=== PATIENT | female | born 1945 | race Two or more races ===

== ENCOUNTER 2024-09-30 20:36 | Inpatient (IN) | payer MEDICARE, MEDICAID ==
[~2024-09-30] VITALS: Ht 147.3 cm; Wt 136.6 kg
[~2024-09-30 20:36] MED LIST: ALLO100T PO; BENA40TA71 PO; BUME2TAB5 PO; CARV12.544 PO; DOCU-265 PO; GLIM2TAB94 PO; HYDR-4798 PO; INSU1INJ19 SC; LORA-483 PO; PANT40T PO; POTA-180 PO; SIMV20TA20 PO; URSO1TAB7 PO
--- NOTE | 2024-09-30 20:57 | ECG ---
[facility] Test Date: 2024-09-30 Test Time: 20:38:46 Pat Name: CLINT CHAVEZ Department: ED Room: 0265D Gender: F Research Tech: ISAAC : 1945 Requested By: OZZY SMITH Order Number: [id number] Reading MD: Doron Wells Measurements Intervals [place] Rate: 78 P: 74 [place]: 189 QRS: 28 QRSD: 114 T: 211 QT: 392 QTc: 447 Interpretive Statements Sinus rhythm Incomplete left bundle branch block Minimal ST elevation, anterior leads Electronically Signed On 10-02-2024 22:48:09 PDT by Doron Wells Please click the below link to view image of tracing.
[2024-09-30 21:21] LABS: Base Excess -4.0 mmol/L (-2.0-3.0)
[2024-09-30 21:39] LABS: Hematocrit 27.8 % (36.0-46.0); Hemoglobin 9.5 g/dL (12.2-16.2); Mean Corpuscular Hemoglobin 32.9 pg (28.0-32.0); Mean Corpuscular Volume 96.0 fL (80.0-100.0); Nucleated Red Blood Cells % 0.1 %
[2024-09-30] MEDS: ACETAMINOPHEN IV 1000 MG/100ML (10MG/ML) IV ONE (21:50)
[2024-09-30 21:55] LABS: Alanine Aminotransferase 11 U/L (7-40); Albumin 3.7 g/dL (3.2-4.8); Anion Gap 7 (5-15); BUN/Creatinine Ratio 19.0 (10.0-20.0); Bilirubin, Total 0.6 mg/dL (0.2-1.0); Calcium 9.5 mg/dL (8.7-10.4); Carbon Dioxide 21 mmol/L (20-31); Total Protein 5.9 g/dL (5.7-8.2)
[2024-09-30 21:58] LABS: Alkaline Phosphatase 125 U/L (46-116); Blood Urea Nitrogen 37 mg/dL (9-23); Chloride 92 mmol/L (98-107); Glucose 109 mg/dL (74-106); Potassium 5.4 mmol/L (3.5-5.1); Sodium 120 mmol/L (136-145)
--- NOTE | 2024-09-30 22:01 | ECG ---
[facility] Test Date: 2024-09-30 Test Time: 21:56:15 Pat Name: CLINT CHAVEZ Department: ED Room: 0265D Gender: F Duct Cleaner: ISAAC : 1945 Requested By: OZZY SMITH Order Number: [id number] Reading MD: Doron Wells Measurements Intervals [place] Rate: 75 P: 42 [place]: 181 QRS: 28 QRSD: 120 T: 210 QT: 422 QTc: 472 Interpretive Statements Sinus rhythm Incomplete left bundle branch block Minimal ST elevation, anterior leads Electronically Signed On 10-02-2024 22:48:33 PDT by Doron Wells Please click the below link to view image of tracing.
[2024-09-30 22:09] LABS: Lipase 21 U/L (12-53)
[2024-09-30 22:14] LABS: Magnesium 1.5 mg/dL (1.6-2.6)
[2024-09-30] MEDS: MORPHINE SULFATE 4 MG/ML SYR/VIAL ONE (22:22)
[2024-09-30] MEDS: LABETALOL HCL 20 MG/4 ML VL IV ONE (22:39)
--- NOTE | 2024-09-30 23:19 | DVH ---
CT HEAD WITHOUT CONTRAST INDICATION: Altered mental status EXAM DATE: 09/30/2024 10:39 PM COMPARISON: None RADIATION DOSE: CTDIvol: 65.91 mGy, DLP: 1056.31 mGy*cm PROCEDURE: CT scans of the head were obtained from the vertex to the skull base. Sagittal and coronal reconstructions were provided. All CT scans at this medical facility are performed using dose modulation techniques as appropriate t o a performed exam including the following: Automated exposure control was utilized; adjustment of th e MA and/or KV according to patient size; and use of iterative reconstruction technique. FINDINGS: Evaluation is significantly degraded by motion and streak artifact. Within this limitation, there is no CT evidence for large intracranial hemorrhage or midline shift. Evaluation for intracranial patho logy is significantly limited. A repeat examination is suggested. There are global involutional changes with compensatory prominence of the ventricles and sulci. Patch y periventricular and subcortical white matter hypoattenuation is nonspecific but may be related to s mall vessel ischemic disease. The orbits are normal. The paranasal sinuses and mastoid air cells are clear. The osseous structures are unremarkable. IMPRESSION: 1. Evaluation is significantly degraded by motion and streak artifact. Within this limitation, there is no CT evidence for large intracranial hemorrhage or midline shift. Evaluation for intracranial pa thology is significantly limited. A repeat examination is suggested.
--- NOTE | 2024-09-30 23:33 | DVH ---
CHEST RADIOGRAPH Indication: AMS Technique: Single frontal view of the chest was obtained COMPARISON: None FINDINGS: Significantly limited exam secondary to patient positioning. Lines and Tubes: None Lungs: Grossly clear without evidence of focal consolidation. Pleura: No definite effusion. No definite pneumothorax. Cardiomediastinal contours: Appears enlarged. Bones: Unremarkable IMPRESSION: 1. Significantly limited exam with diminished visualization of the lung newberry secondary to patient p ositioning. 2. Apparent cardiomegaly.
--- NOTE | 2024-09-30 23:34 | DVH ---
Bilateral lower extremity venous duplex Clinical History: Rule out bowel extremity DVT Comparison: None Technique: Duplex Doppler evaluation of the deep venous systems of both lower extremities from the common femora l veins to the popliteal veins including color Doppler and spectral/pulsed waveform analysis was perf ormed. Findings: RIGHT SIDE: The common femoral vein was not adequately visualized. There is compressibility/patency of the great saphenous vein at the proximal thigh. The femoral vein demonstrates appropriate compressibility and waveform variability. The deep femoral vein demonstrates appropriate compressibility and waveform variability. The popliteal vein demonstrates appropriate compressibility and waveform variability. There is normal compressibility at the tibioperoneal trunk. LEFT SIDE: The common femoral vein demonstrates appropriate compressibility and waveform variability. The great saphenous vein was not adequately visualized. The femoral vein demonstrates appropriate compressibility and waveform variability. The deep femoral vein demonstrates appropriate compressibility and waveform variability. The popliteal vein demonstrates appropriate compressibility and waveform variability. There is normal compressibility at the tibioperoneal trunk. Impression: 1. No right or left femoropopliteal venous thrombosis within the visualized vessels. 2. Limited examination secondary to patient body habitus and inability to cooperate with and/or jie ate exam.
[2024-10-01] VITALS (79 sets, daily range): BP systolic 98–192; BP diastolic 50–100; PULSE 57–91; RESP 12–26; TEMP 97.4–99.2; O2SAT 91–100
[2024-10-01] MEDS ORDERED: SODIUM CHL 3% 100 ML IV ONE
[2024-10-01] MEDS: ALBUTEROL SULF 2.5 MG/0.5ML(0.5%) NEB SOLN NEB ONE ×2 (00:29→23:46)
--- NOTE | 2024-10-01 00:33 | ED.PDOC ---
History of Present Illness HPI Comments 79-year-old female who is brought in by ambulance for complaint of altered level of consciousness and shortness of breath. Per EMS report, family called in, initially, for endorsement of patient having difficulty breathing in addition to acting different from her usual baseline self since last night. At home nitro glycerin and breathing treatment use, with minimal improvement. Patient has a history of asthma, morbid obesity, CHF, CKF, DM, ESRD - not on dialysis, gout, HTN, and visual impairment. On scene, patient had a blood glucose 130, a systolic pressure in the 200's, and a SpO2 of 99% on her 3LPM home oxygen. Other notable history of patient refusing to start dialysis treatment following recent end-stage renal disease diagnosis 2 weeks ago. The time of assessment, patient complains of right foot and shoulder pain. She has no reported chest pain, cough, congestion, fever, chills or further associated symptoms. History is limited, due to patient's current condition and absence of family/imaging system administrator historians. Chief Complaint: Shortness of Breath Time Seen by MD: 20:55 Reviewed Notes: Nurses Notes, Tailercpa Notes, Medications, Allergies Allergies: Coded Allergies: Aspirin (Verified Allergy, Unknown, 09/30/24) Information Source: Patient, Emergency Med Personnel Mode of Arrival: EMS Severity: Moderate Timing: Hours Duration: Since onset Prehospital treatment: 12 Lead EKG, Accucheck, Boilerhouse Mechanic Review of Systems: REVIEW OF SYSTEMS: No fever, no chills, or fatigue HEENT: No sore throat, no earache, no congestion, no neck pain. Cardiac: No chest pain. No palpitations. Lungs: Shortness of breath, no cough. GI: No nausea, no vomiting, no diarrhea, no constipation, no abdominal pain : No dysuria, frequency, or urgency. No hematuria. Musculoskeletal: Right foot and shoulder pain, no joint swelling, no extremity edema. Skin: No rash, no itching. Neuro: ALOC. no headache, no dizziness, no weakness Vital Signs Vital Signs Date Time Temp Pulse Resp B/P (MAP) Pulse Ox O2 Delivery O2 Flow Rate FiO2 10/01/24 01:04 189/88 10/01/24 00:33 75 10/01/24 00:00 23 100 Nasal Cannula* 4 36 09/30/24 20:50 97.1 97.1 Physical Exam General: Awake oriented to person only. Repeatedly moaning. No acute distress. Morbidly obese. Skin: Skin in warm, dry and intact. Appropriate color for ethnicity. HEENT: Bilateral bluish louie discoloration in the iris. The head is normocephalic and atraumatic. Conjunctivae are clear without exudates or hemorrhage. Sclera is non-icteric. EOM are intact. No signs of nystagmus. Eyelids are normal in appearance without swelling or lesions. Oral mucosa is pink and moist Neck: The neck is supple with normal range of motion. No JVD. Cardiac: Heart rate and rhythm are normal. No murmurs, gallops, or rubs are auscultated. Respiratory: Diminished lung sounds, bilaterally. No signs of respiratory distress. Without rales, rhonchi, or wheezes. Abdominal: Abdomen is soft, non-tender without distention, guarding or rigidity. Bowel sounds are present and normoactive in all four quadrants. Extremities: Bilateral pitting edema. Otherwise, remaining upper and lower extremities are atraumatic in appearance without deformity. Upper extremity are without edema. Neurological: The patient is awake oriented to person, with slow speech. There is no facial asymmetry. Past Medical History PAST MEDICAL HISTORY: Asthma, CHF, CKF, DM, ESRD, Gout, HTN Past Medical History (Other): Visual impairment - blind Morbid obesity Hx of home oxygen use Surgical History: Unknown, 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 INCOMING FREIGHT CLERK History: Unknown, 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 Family History Family History: Unknown, 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 Social History Smoker: Unknown, 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 Alcohol: Unknown, 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 Drugs: Unknown, 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 Lives In: Home Was a procedure done? Was a procedure done?: No EKG EKG #1: Pulse Rate (adult): 78 [place]: Normal Cardiac Rhythm: NSR Block: None Hypertrophy: None ST: Normal EKG #2: Pulse Rate (adult): 75 [place]: Normal Cardiac Rhythm: NSR Block: None Hypertrophy: None ST: Normal Differential Dx Considerations may include: Differential diagnosis considered includes but not limited to intracranial hemorrhage, stroke, head injury, seizure, metabolic disturbance, electrolyte imbalance, infection, substance intoxication, psychiatric cause, other systemic illness; acute Bronchitis, Asthma, COPD, Pneumothorax, PE, CHF, Pulmonary HTN, Anemia, CO Poisoning, Methemoglobinemia, Hyperventilation, Metabolic Acidosis, Pulmonary Edema, Pneumonia, ACS, Pericardial Tamponade, Anxiety, other X-Ray, Labs, Meds, VS Vital Signs Date Time Temp Pulse Resp B/P (MAP) Pulse Ox O2 Delivery O2 Flow Rate FiO2 10/01/24 01:04 189/88 10/01/24 00:33 75 10/01/24 00:00 74 10/01/24 00:00 23 100 Nasal Cannula* 4 36 09/30/24 22:39 74 214/106 09/30/24 22:22 71 24 216/106 09/30/24 21:56 75 09/30/24 21:28 74 09/30/24 20:50 97.1 82 24 206/106 (139) 99 97.1 09/30/24 20:38 78 Lab Test 10/01/24 00:24 09/30/24 22:02 09/30/24 21:17 09/30/24 21:13 Range/Units Sodium Level 119 *L 120 L 136-145 mmol/L Potassium Level 5.2 H 5.4 H 3.5-5.1 mmol/L Chloride Level 90 L 92 L 98-107 mmol/L Carbon Dioxide Level 22 21 20-31 mmol/L Anion Gap 7 7 5-15 Blood Urea Nitrogen 34 H 37 H 9-23 mg/dL Creatinine 1.96 H 1.95 H 0.550-1.02 mg/dL Glomerular Filtration Rate Calc 25 26 >90 mL/min BUN/Creatinine Ratio 17.3 19.0 10.0-20.0 Serum Glucose 122 H 109 H 74-106 mg/dL Serum Osmolality 259 L 278-298 mOsm/kg Calcium Level 9.1 9.5 8.7-10.4 mg/dL Troponin I High Sensitivity 16 14 15 </=34 ng/L Blood Gas Specimen Type Arterial Blood Gas Sample Site Left radial Blood Gas Patient Temperature 37.0 Arterial Blood Date Drawn [id number] Arterial Blood pH 7.391 7.350-7.450 Arterial Blood Partial Pressure CO2 34.3 32.0-45.0 mmHg Arterial Blood Partial Pressure O2 111.0 H 83.0-108.0 mmHg Arterial Blood HCO3 20.3 L 21.0-28.0 mmol/L Arterial Blood Oxygen Saturation 98.3 H 94.0-98.0 % Arterial Blood Base Excess -4.0 L -2.0-3.0 mmol/L Arterial Blood Oxyhemoglobin 97.5 94.0-98.0 % Arterial Blood Carboxyhemoglobin 0.4 L 0.5-1.5 % Arterial Blood Methemoglobin 0.4 0.0-1.5 % Cristian Test Yes Blood Gas Total Hemoglobin 10.30 L 12.0-16.0 g/dL Blood Gas Liter Flow 3.00 Blood Gas Modality Nasal cannula FiO2 % 32.0 White Blood Count 6.8 4.4-10.8 10^3/uL Red Blood Count 2.90 L 4.0-5.20 10^6/uL Hemoglobin 9.5 L 12.2-16.2 g/dL Hematocrit 27.8 L 36.0-46.0 % Mean Corpuscular Volume 96.0 80.0-100.0 fL Mean Corpuscular Hemoglobin 32.9 H 28.0-32.0 pg Mean Corpuscular Hemoglobin Concent 34.3 32.0-36.0 g/dL Red Cell Distribution Width 14.3 11.8-14.3 % Platelet Count 268 140-450 10^3/uL Mean Platelet Volume 7.3 6.9-10.8 fL Neutrophils (%) (Auto) 69.8 37.0-80.0 % Lymphocytes (%) (Auto) 17.1 10.0-50.0 % Monocytes (%) (Auto) 10.5 0.0-12.0 % Eosinophils (%) (Auto) 2.2 0.0-7.0 % Basophils (%) (Auto) 0.4 0.0-2.0 % Neutrophils # (Auto) 4.8 1.6-8.6 10 ^3/uL Lymphocytes # (Auto) 1.2 0.4-5.4 10 ^3/uL Monocytes # (Auto) 0.7 0-1.3 10 ^3/uL Eosinophils # (Auto) 0.1 0-0.8 10 ^3/uL Basophils # (Auto) 0 0-0.2 10 ^3/uL Nucleated Red Blood Cells 0.1 % Lactic Acid Level 0.9 0.4-2.0 mmol/L Magnesium Level 1.5 L 1.6-2.6 mg/dL Total Bilirubin 0.6 0.2-1.0 mg/dL Aspartate Amino Transferase (AST) 17 <34 U/L Alanine Aminotransferase (ALT) 11 7-40 U/L Alkaline Phosphatase 125 H 46-116 U/L B-Type Natriuretic Peptide 1738.92 0-100 pg/mL Total Protein 5.9 5.7-8.2 g/dL Albumin 3.7 3.2-4.8 g/dL Lipase 21 12-53 U/L Thyroid Stimulating Hormone (TSH) 1.57 0.55-4.78 uIU/mL Plasma/Serum Blood Alcohol < 3.0 <10 mg/dL Test 09/30/24 00:24 Range/Units Prothrombin Time 11.5 9.3-11.8 sec Prothrombin Time INR 1.09 0.9-1.15 Activated Partial Thromboplast Time 29.7 24.5-34.5 SEC Current Medications Medications (Trade) Dose Ordered Sig/Nasrin Route Start Time Stop Time Status Last Admin Acetaminophen (Ofirmev) 1,000 mg ONCE ONCE IV 09/30/24 21:00 09/30/24 21:01 DC 09/30/24 21:50 Albuterol (Ventolin Medneb) 20 mg ONCE ONCE NEB 10/01/24 00:00 10/01/24 00:01 DC 10/01/24 00:29 Sodium Bicarbonate 50 ml ONCE ONCE IV 10/01/24 00:00 10/01/24 00:01 DC 10/01/24 01:02 Furosemide (Lasix Injection) 20 mg ONCE ONCE IV 10/01/24 00:15 10/01/24 00:16 DC 10/01/24 01:04 [place] [id number] Ph: [phone] DIAGNOSTIC IMAGING Diagnostic Imaging Report : [id number] Signed PATIENT: CLINT CHAVEZ ACCT: [id number] UNIT: [id number] : 1945 LOC: ER ROOM / BED: / AGE / SEX: 79 / F ADM STATUS: REG ER SERVICE 44 ORDERING PHYSICIAN: OZZY SMITH MD PROCEDURE(s): BLDVT - BiLat Lower DVT REASON: Rule out bowel extremity DVT ORDER NUMBER(s): [id number], ACCESSION NUMBER(s): [id number] Bilateral lower extremity venous duplex Clinical History: Rule out bowel extremity DVT Comparison: None Technique: Duplex Doppler evaluation of the deep venous systems of both lower extremities from the common femoral veins to the popliteal veins including color Doppler and spectral/pulsed waveform analysis was performed. Findings: RIGHT SIDE: The common femoral vein was not adequately visualized. There is compressibility/patency of the great saphenous vein at the proximal thigh. The femoral vein demonstrates appropriate compressibility and waveform variability. The deep femoral vein demonstrates appropriate compressibility and waveform variability. The popliteal vein demonstrates appropriate compressibility and waveform variability. There is normal compressibility at the tibioperoneal trunk. LEFT SIDE: The common femoral vein demonstrates appropriate compressibility and waveform variability. The great saphenous vein was not adequately visualized. The femoral vein demonstrates appropriate compressibility and waveform va riability. The deep femoral vein demonstrates appropriate compressibility and waveform variability. The popliteal vein demonstrates appropriate compressibility and waveform variability. There is normal compressibility at the tibioperoneal trunk. Impression: 1. No right or left femoropopliteal venous thrombosis within the visualized vessels. 2. Limited examination secondary to patient body habitus and inability to cooperate with and/or tolerate exam. ATED BY: VINICIUS MONTOYA MD DICTATED DATE/TIME: 09/30/242331 SIGNED BY: VINICIUS MONTOYA MD SIGNED DATE/TIME: 09/30/242331 CC: [place] [id number] Ph: [phone] DIAGNOSTIC IMAGING Diagnostic Imaging Report : [id number] Signed PATIENT: CLINT CHAVEZ ACCT: [id number] UNIT: [id number] : 1945 LOC: ER ROOM / BED: / AGE / SEX: 79 / F ADM STATUS: REG ER SERVICE 54 ORDERING PHYSICIAN: OZZY SMITH MD PROCEDURE(s): HWOCT - HEAD WITHOUT CONTRAST REASON: Altered mental status ORDER NUMBER(s): [id number], ACCESSION NUMBER(s): [id number] CT HEAD WITHOUT CONTRAST INDICATION: Altered mental status EXAM DATE: 09/30/2024 10:39 PM COMPARISON: None RADIATION DOSE: CTDIvol: 65.91 mGy, DLP: 1056.31 mGy*cm PROCEDURE: CT scans of the head were obtained from the vertex to the skull base. Sagittal and coronal reconstructions were provided. All CT scans at this medical facility are performed using dose modulation techniques as appropriate to a performed exam including the following: Automated exposure control was utilized; adjustment of the MA and/or KV according to patient size; and use of iterative reconstruction technique. FINDINGS: Evaluation is significantly degraded by motion and streak artifact. Within this limitation, there is no CT evidence for large intracranial hemorrhage or midline shift. Evaluation for intracranial pathology is significantly limited. A repeat examination is suggested. There are global involutional changes with compensatory prominence of the ventricles and sulci. Patchy periventricular and subcortical white matter hypoattenuation is nonspecific but may be related to small vessel ischemic disease. The orbits are normal. The paranasal sinuses and mastoid air cells are clear. The osseous structures are unremarkable. IMPRESSION: 1. Evaluation is significantly degraded by motion and streak artifact. Within this limitation, there is no CT evidence for large intracranial hemorrhage or midline shift. Evaluation for intracranial pathology is significantly limited. A repeat examination is suggested. ATED BY: ESTELITA STEELE MD DICTATED DATE/TIME: 09/30/242315 SIGNED BY: ESTELITA STEELE MD SIGNED DATE/TIME: 09/30/242315 CC: [place] [id number] Ph: [phone] DIAGNOSTIC IMAGING Diagnostic Imaging Report : [id number] Signed PATIENT: CLINT CHAVEZ ACCT: [id number] UNIT: [id number] : 1945 LOC: ER ROOM / BED: / AGE / SEX: 79 / F ADM STATUS: REG ER SERVICE 54 ORDERING PHYSICIAN: OZZY SMITH MD PROCEDURE(s): CXR1 - CHEST XRAY 1 VIEW REASON: AMS ORDER NUMBER(s): [id number], ACCESSION NUMBER(s): [id number] CHEST RADIOGRAPH Indication: AMS Technique: Single frontal view of the chest was obtained COMPARISON: None FINDINGS: Significantly limited exam secondary to patient positioning. Lines and Tubes: None Lungs: Grossly clear without evidence of focal consolidation. Pleura: No definite effusion. No definite pneumothorax. Cardiomediastinal contours: Appears enlarged. Bones: Unremarkable IMPRESSION: 1. Significantly limited exam with diminished visualization of the lung newberry secondary to patient positioning. 2. Apparent cardiomegaly. ATED BY: VINICIUS MONTOYA MD DICTATED DATE/TIME: 09/30/242330 SIGNED BY: VINICIUS MONTOYA MD SIGNED DATE/TIME: 09/30/242330 CC: Time of 1ST Reevaluation: 21:25 Reevaluation 1ST: Unchanged Patient Education/Counseling: Other (patient is altered ) Family Education/Counseling: No Family Present SEPSIS Sepsis Screen Date sepsis recognized/suspect: Sep 30, 2024 Time Sepsis recognized/suspect: 2042 Recent Procedure: No On Antibiotic Therapy: No Respiratory Rate >20: Yes Heart Rate >90: No Temp<36 C (96.8 F) or >38.3 C: No SBP <90 or MAP <65 mmHG: No New Acute Mental Status Change: Yes Is the patient on CPAP, BIPAP,: No Physician Orders Rapid Influenza A&B (09/30/24 20:55) Chest Xray 1 View (09/30/24 20:55) Blood Culture (09/30/24 20:55) Saline Lock (09/30/24 20:55) Straight Cath. (09/30/24 ) Electrocardigram (09/30/24 23:55) Abg W/ Co-Ox (09/30/24 20:55) Head Without Contrast (09/30/24 20:55) Bilat Lower Dvt (09/30/24 22:45) Straight Cath. (09/30/24 ) Insert Triana Catheter QSHIFT (09/30/24 23:55) Vital Signs Date Time Temp Pulse Resp B/P (MAP) Pulse Ox O2 Delivery O2 Flow Rate FiO2 10/01/24 01:04 189/88 10/01/24 00:33 75 10/01/24 00:00 74 10/01/24 00:00 23 100 Nasal Cannula* 4 36 09/30/24 22:39 74 214/106 09/30/24 22:22 71 24 216/106 09/30/24 21:56 75 09/30/24 21:28 74 09/30/24 20:50 97.1 82 24 206/106 (139) 99 97.1 09/30/24 20:38 78 Laboratory Tests Test 09/30/24 21:13 Lactic Acid Level 0.9 mmol/L (0.4-2.0) White Blood Count 6.8 10^3/uL (4.4-10.8) Medications Medications Dose Ordered Sig/Nasrin Route Start Time Stop Time Status Last Admin Dose Admin Acetaminophen 1,000 mg ONCE ONCE IV 09/30/24 21:00 09/30/24 21:01 DC 09/30/24 21:50 Albuterol 20 mg ONCE ONCE NEB 10/01/24 00:00 10/01/24 00:01 DC 10/01/24 00:29 Furosemide 20 mg ONCE ONCE IV 10/01/24 00:15 10/01/24 00:16 DC 10/01/24 01:04 Labetalol HCl 20 mg STK-MED ONCE IV 09/30/24 22:22 09/30/24 22:21 DC 09/30/24 22:39 Sodium Bicarbonate 50 ml ONCE ONCE IV 10/01/24 00:00 10/01/24 00:01 DC 10/01/24 01:02 Departure 1 Departure Time of Disposition: 04:34 Impression: Primary Impression: Hyponatremia Additional Impressions: Metabolic encephalopathy Hyperkalemia Congestive heart failure End stage renal disease Disposition: ADMITTED INPATIENT Condition: Critical Comments Patient is stabilized in the ED. Discussed with Dr. Devries, nephrology . He recommends against hypertonic saline at this time. Agrees with rest of treatment. Critical Care Note Critical Care Time?: Yes (35 min-critical care time only) Critical care comment: Due to a high probability of clinically significant, life threatening deterioration, the patient required my highest level of preparedness to intervene emergently and I personally spent this critical care time directly and personally managing the patient. This critical care time included obtaining a history; examining the patient; pulse oximetry; ordering and review of studies; arranging urgent treatment with development of a management plan; evaluation of patient's response to treatment; frequent reassessment; and, discussions with other providers. This critical care time was performed to assess and manage the high probability of imminent, life-threatening deterioration that could result in multi-organ failure. It was exclusive of separately billable procedures and treating other patients and teaching time. Please see my other sections and the rest of the note for further information on patient assessment and treatment. Stability Stability form required: No Heart Score Heart Score: Heart Score Response (Comments) Value History N/A 0 EKG N/A 0 Age N/A 0 Risk Factors N/A 0 Troponin N/A 0 Total 0 I personally scribed for OZZY SMITH MD ([email or web address]) on 10/01/24 at 00:33. Electronically submitted by Gino Mtz ([email or web address]). OZZY SMITH MD Oct 01, 2024 00:33
[2024-10-01 00:53] LABS: Anion Gap 7 (5-15); Carbon Dioxide 22 mmol/L (20-31)
[2024-10-01 00:54] LABS: Calcium 9.1 mg/dL (8.7-10.4)
[2024-10-01 00:57] LABS: Chloride 90 mmol/L (98-107); Potassium 5.2 mmol/L (3.5-5.1)
[2024-10-01 00:59] LABS: BUN/Creatinine Ratio 17.3 (10.0-20.0)
[2024-10-01 01:00] LABS: Blood Urea Nitrogen 34 mg/dL (9-23); Glucose 122 mg/dL (74-106); Sodium 119 mmol/L (136-145)
[2024-10-01] MEDS: SODIUM BICARB 8.4% 50Meq/50ml SYR INJ IV ONE ×2 (01:02→05:33)
[2024-10-01] MEDS: FUROSEMIDE 40 MG/4 ML VIAL IV ONE (01:04)
[2024-10-01] MEDS: NITROGLYCERIN 50MG/250ML 250 ML IV SCH (01:45)
[2024-10-01] MEDS: INSULIN LANTUS (GLARGINE) 1 /0.01ml (100units/ml) SC ONE (02:00)
[2024-10-01] MEDS ORDERED: DEXTROSE (50%) 50ML SYRG IV PRN (02:00)
[2024-10-01] MEDS: FUROSEMIDE 40 MG/4 ML VIAL IV SCH (02:00)
--- NOTE | 2024-10-01 02:02 | DVHHPRES ---
History of Present Illness Resident Creating Document: RYAN SERRANO RESIDENT History of Present Illness 79-year-old female with past medical history of diabetes mellitus type 2, hypertension, CHF, gout, sleep apnea, CKD, arthritis, chronic respiratory failure on 3 L oxygen presented with complaints of leg cramps that started 1-1/2 days ago. Patient mentioned that she also started having shortness of breath 1- 1/2 days mild chest pain was not relieved with nitro. Patient also mentioned associated edema on ankles and wrists. Patient drank five bottles of water every day for for last few days and was not taking potassium pills and banana. Patient examined at bedside. She is currently mentioning of hip pain but not mentioning of any chest pain. For the son, patient is mildly confused for last few hours, but is alert and oriented x4. She is denying any complaints of cough, abdominal pain, nausea, vomiting, headache, dizziness, seizures, visual symptoms Past medical history diabetes mellitus type 2, hypertension, CHF, gout, sleep apnea, CKD, arthritis, chronic respiratory failure on 3 L oxygen Past surgical history Recent surgery Family history Noncontributory Social history Denied smoking, marijuana, alcohol, any other drug intake Medication history Next Amlodipine Nitroglycerin Clonidine Benazepril Nadolol Allopurinol [place] Basaglar and NovoLog insulin Review of Systems Review of Systems Described in the HPI Allergies: Coded Allergies: Aspirin (Verified Allergy, Unknown, 09/30/24) Medications Current Medications Medications Dose Ordered Sig/Nasrin Route Start Time Stop Time Status Last Admin Dose Admin Nicardipine HCl 250 ml @ 50 mls/hr Q5H IV 10/01/24 00:00 Acetaminophen 325 mg Q6HP PRN PO 10/01/24 01:30 UNV Exam Vital Signs Vital Signs Date Time Temp Pulse Resp B/P (MAP) Pulse Ox O2 Delivery O2 Flow Rate FiO2 10/01/24 01:04 189/88 10/01/24 00:33 75 10/01/24 00:00 23 100 Nasal Cannula* 4 36 09/30/24 20:50 97.1 97.1 Exam Examination General Appearance: Morbidly obese, Alert, Oriented X3, Cooperative, No acute distress HEENT: EOMI Respiratory: Clear to auscultation, Normal air movement Cardiovascular: Regular rate, Normal S1, Normal S2 Abdominal: Normal bowel sounds Extremities: No cyanosis, No edema, Normal pulses, No tenderness/swelling Skin: No rashes, No breakdown Neuro: Normal speech, tone Labs/Xrays Labs Test 10/01/24 00:24 09/30/24 21:17 09/30/24 21:13 Range/Units Sodium Level 119 *L 136-145 mmol/L Potassium Level 5.2 H 3.5-5.1 mmol/L Chloride Level 90 L 98-107 mmol/L Carbon Dioxide Level 22 20-31 mmol/L Anion Gap 7 5-15 Blood Urea Nitrogen 34 H 9-23 mg/dL Creatinine 1.96 H 0.550-1.02 mg/dL Glomerular Filtration Rate Calc 25 >90 mL/min BUN/Creatinine Ratio 17.3 10.0-20.0 Serum Glucose 122 H 74-106 mg/dL Calcium Level 9.1 8.7-10.4 mg/dL Troponin I High Sensitivity 16 </=34 ng/L Blood Gas Specimen Type Arterial Blood Gas Sample Site Left radial Blood Gas Patient Temperature 37.0 Arterial Blood Date Drawn [id number] Arterial Blood pH 7.391 7.350-7.450 Arterial Blood Partial Pressure CO2 34.3 32.0-45.0 mmHg Arterial Blood Partial Pressure O2 111.0 H 83.0-108.0 mmHg Arterial Blood HCO3 20.3 L 21.0-28.0 mmol/L Arterial Blood Oxygen Saturation 98.3 H 94.0-98.0 % Arterial Blood Base Excess -4.0 L -2.0-3.0 mmol/L Arterial Blood Oxyhemoglobin 97.5 94.0-98.0 % Arterial Blood Carboxyhemoglobin 0.4 L 0.5-1.5 % Arterial Blood Methemoglobin 0.4 0.0-1.5 % Cristian Test Yes Blood Gas Total Hemoglobin 10.30 L 12.0-16.0 g/dL Blood Gas Liter Flow 3.00 Blood Gas Modality Nasal cannula FiO2 % 32.0 White Blood Count 6.8 4.4-10.8 10^3/uL Red Blood Count 2.90 L 4.0-5.20 10^6/uL Hemoglobin 9.5 L 12.2-16.2 g/dL Hematocrit 27.8 L 36.0-46.0 % Mean Corpuscular Volume 96.0 80.0-100.0 fL Mean Corpuscular Hemoglobin 32.9 H 28.0-32.0 pg Mean Corpuscular Hemoglobin Concent 34.3 32.0-36.0 g/dL Red Cell Distribution Width 14.3 11.8-14.3 % Platelet Count 268 140-450 10^3/uL Mean Platelet Volume 7.3 6.9-10.8 fL Neutrophils (%) (Auto) 69.8 37.0-80.0 % Lymphocytes (%) (Auto) 17.1 10.0-50.0 % Monocytes (%) (Auto) 10.5 0.0-12.0 % Eosinophils (%) (Auto) 2.2 0.0-7.0 % Basophils (%) (Auto) 0.4 0.0-2.0 % Neutrophils # (Auto) 4.8 1.6-8.6 10 ^3/uL Lymphocytes # (Auto) 1.2 0.4-5.4 10 ^3/uL Monocytes # (Auto) 0.7 0-1.3 10 ^3/uL Eosinophils # (Auto) 0.1 0-0.8 10 ^3/uL Basophils # (Auto) 0 0-0.2 10 ^3/uL Nucleated Red Blood Cells 0.1 % Lactic Acid Level 0.9 0.4-2.0 mmol/L Magnesium Level 1.5 L 1.6-2.6 mg/dL Total Bilirubin 0.6 0.2-1.0 mg/dL Aspartate Amino Transferase (AST) 17 <34 U/L Alanine Aminotransferase (ALT) 11 7-40 U/L Alkaline Phosphatase 125 H 46-116 U/L B-Type Natriuretic Peptide 1738.92 0-100 pg/mL Total Protein 5.9 5.7-8.2 g/dL Albumin 3.7 3.2-4.8 g/dL Lipase 21 12-53 U/L Thyroid Stimulating Hormone (TSH) 1.57 0.55-4.78 uIU/mL Plasma/Serum Blood Alcohol < 3.0 <10 mg/dL Assessment/Plan Assessment/Plan Assessment and Plan # Symptomatic severe hyponatremia due to hypervolemia due to CHF, CKD -Monitor Q4 -lasix with 3%NaCl with max correction of 4-6 meq/day # Hyperkalemia due to medication overuse and CKD -corrected -EKG -Monitor # Hypertensive emergency -IV nitroglycerine with IV Lasix no more than 25% correction in 24 hrs #Acute on chronic Hypoxic resp failure due to CHF exacerbation -CXR -currently on 6L o2 through nasal canula #?NISHANT on CKD likely due to hypertensive emergency/cardiorenal syndrome -monitor #Acute systolic/diastolic CHF Exacerbation -IV lasix -echo BNP trops EKG #DM2 -sliding scale insulin -hemoglobin A1c #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 #Sleep Apnea -BiPAP #history of Asthma -neb with ipratropium/albuterol PRN #Anemia of chronic disease -monitor #Gout -resume home Meds once stable #DVT prophylaxis -heparin 5000 units SC Code status discussed with the patient/son for >21 min, FULL CODE Critical care time excluding procedures >67 min Case discussion with dr Curiel Plan discussed with: Patient, Other My Orders Orders - RYAN SERRANO RESIDENT Procedure Category Date Status Time Admit ADMIT 10/01/24 Transmitted 01:23 Oxygen By Nasal RT 10/01/24 Transmitted Cannula 01:23 Stat Ekg For Chest STAR 10/01/24 In Process Pain 01:23 Notify Md Of Changes STAR 10/01/24 In Process From Base 01:23 Carbon Paper Interleafer For STAR 10/01/24 In Process 24 Hours 01:23 Emergency Dysrhythmia STAR 10/01/24 In Process Protocol 01:23 Rhythm Strips Once STAR 10/01/24 In Process Every Shift 01:23 Acetaminophen Tablet PHA 10/01/24 Logged (Tylenol Tablet) 01:30 Date of Service: Oct 01, 2024 Billing Provider: DULCE CURIEL MD Common Visit Codes: [id number] INP/OBS CARE (HIGH) Secondary Visit Codes: [id number] CARE PLAN 30 MINUTES RYAN SERRANO RESIDENT Oct 01, 2024 02:02
[2024-10-01 02:38] LABS: INR 1.09 (0.9-1.15); Partial Thromboplastin Time 29.7 SEC (24.5-34.5); Prothrombin Time 11.5 sec (9.3-11.8)
[2024-10-01 02:42] LABS: COVID19 ANTIGEN SOFIA FIA NEGATIVE (NEGATIVE)
[2024-10-01] MEDS: MAGNESIUM SULFATE 1GM/100ML 100 ML IV SCH (03:02)
[2024-10-01 03:12] LABS: Anion Gap 9 (5-15); Carbon Dioxide 21 mmol/L (20-31)
[2024-10-01 03:13] LABS: Calcium 9.2 mg/dL (8.7-10.4)
[2024-10-01 03:18] LABS: BUN/Creatinine Ratio 16.1 (10.0-20.0)
[2024-10-01 03:34] LABS: Blood Urea Nitrogen 31 mg/dL (9-23); Chloride 90 mmol/L (98-107); Glucose 115 mg/dL (74-106); Potassium 5.3 mmol/L (3.5-5.1); Sodium 120 mmol/L (136-145)
[2024-10-01] MEDS: ACCU-CHEK COMFORT CURVE STRIP VI SCH (04:00)
[2024-10-01] MEDS: InsuLIN REG 1unit/0.01ml Soln (100units/ml) SC SCH (05:24)
[2024-10-01] MEDS: SODIUM ZIRCONIUM CYCL 10 GM PAK PO ONE ×2 (05:43→23:15)
[2024-10-01 07:55] LABS: Urine Protein, UAD 1+ (Negative)
[2024-10-01 08:17] LABS: Opiate Scree,Urine Pos (NEGATIVE)
[2024-10-01 08:18] LABS: Amphetamine Screen, Urine Neg (NEGATIVE); Barbiturate Scree,Urine Neg (NEGATIVE); Benzodiazephine Screen, Urine Neg (NEGATIVE); Cannabinoid Screen, Urine Neg (NEGATIVE); Cocaine Screen, Urine Neg (NEGATIVE); Phencyclidine Screen, Urine Neg (NEGATIVE)
[2024-10-01 08:19] LABS: Hematocrit 30.5 % (36.0-46.0); Hemoglobin 10.3 g/dL (12.2-16.2); Mean Corpuscular Hemoglobin 32.4 pg (28.0-32.0); Mean Corpuscular Volume 96.2 fL (80.0-100.0); Nucleated Red Blood Cells % 0.2 %
[2024-10-01 08:44] LABS: Calcium 9.4 mg/dL (8.7-10.4)
[2024-10-01 08:45] LABS: Protein, Urine 99.6 mg/dL (1-14)
[2024-10-01 08:48] LABS: BUN/Creatinine Ratio 15.0 (10.0-20.0); Glucose 100 mg/dL (74-106)
[2024-10-01 08:49] LABS: Alkaline Phosphatase 113 U/L (46-116); Total Protein 6.0 g/dL (5.7-8.2)
[2024-10-01 08:50] LABS: Albumin 3.6 g/dL (3.2-4.8)
[2024-10-01 08:51] LABS: Base Excess -4.4 mmol/L (-2.0-3.0)
[2024-10-01 08:51] LABS: Bilirubin, Total 0.4 mg/dL (0.2-1.0)
[2024-10-01 08:53] LABS: Alanine Aminotransferase < 9 U/L (7-40); Anion Gap 10 (5-15); Blood Urea Nitrogen 29 mg/dL (9-23); Carbon Dioxide 20 mmol/L (20-31); Chloride 92 mmol/L (98-107); Potassium 4.9 mmol/L (3.5-5.1); Sodium 122 mmol/L (136-145)
--- NOTE | 2024-10-01 08:57 | DVH ---
EXAM: XY CHEST PORTABLE Indication: SHORTNESS OF BREATH Technique: Single frontal view of the chest was obtained Comparison: XY CHEST XRAY 1 VIEW on DOS: 09/30/24 FINDINGS: Lines and Tubes: None Lungs: Diffuse interstitial opacities. Pleura: No effusion. No pneumothorax. Cardiomediastinal contours: Unremarkable Bones: No acute osseous abnormality. IMPRESSION: Diffuse interstitial opacities suggestive of pulmonary edema or atypical infection.
[2024-10-01 09:07] LABS: Magnesium 2.0 mg/dL (1.6-2.6)
[2024-10-01] MEDS: BUMETANIDE INJECTION 12.5 MG in GIVE UN-DILUTED 0 ML IV SCH (09:15)
[2024-10-01] MEDS: ACETAMINOPHEN 325 MG TAB PO PRN (09:24)
[2024-10-01] MEDS: DOPamine 1600MCG/ML D5W 250 ML IV SCH (10:37)
[2024-10-01] MEDS: HEPARIN SODIUM (PORCINE) 5000 UNITS/ML 1ML VIAL SC SCH (11:25)
[2024-10-01] MEDS: HYDROcodone-ACET 5/325MG TAB PO PRN (11:29)
[2024-10-01 11:57] LABS: Potassium 4.8 mmol/L (3.5-5.1)
[2024-10-01 11:58] LABS: Anion Gap 8 (5-15); Calcium 9.6 mg/dL (8.7-10.4); Carbon Dioxide 24 mmol/L (20-31)
[2024-10-01 12:03] LABS: BUN/Creatinine Ratio 16.8 (10.0-20.0); Blood Urea Nitrogen 32 mg/dL (9-23); Chloride 92 mmol/L (98-107); Glucose 82 mg/dL (74-106); Sodium 124 mmol/L (136-145)
[2024-10-01] MEDS: LIDOCAINE 5% TOPICAL PATCH TOP ONE (14:45)
[2024-10-01 15:13] LABS: Anion Gap 8 (5-15); Carbon Dioxide 23 mmol/L (20-31); Potassium 4.9 mmol/L (3.5-5.1)
[2024-10-01 15:15] LABS: Calcium 9.6 mg/dL (8.7-10.4); Chloride 92 mmol/L (98-107); Sodium 123 mmol/L (136-145)
[2024-10-01 15:19] LABS: Glucose 103 mg/dL (74-106)
[2024-10-01 15:20] LABS: BUN/Creatinine Ratio 16.4 (10.0-20.0); Blood Urea Nitrogen 32 mg/dL (9-23)
[2024-10-01] MEDS ORDERED: MORPHINE SULFATE INJ 2 MG/ml SYRG IV PRN (16:45)
[2024-10-01] MEDS: methylPREDNISolone SOD SUCC 40 MG/ML VL IV ONE (17:08)
[2024-10-01] MEDS: HYDROcodone-ACET 10/325MG TAB PO PRN (17:08)
[2024-10-01] MEDS: BACLOFEN 10 MG TAB PO ONE (17:08)
[2024-10-01] MEDS ORDERED: MORPHINE SULFATE 4 MG/ML SYR/VIAL IV PRN (17:15)
--- NOTE | 2024-10-01 18:17 | DVHPNRES ---
Progress Note Date Seen: Oct 01, 2024 Resident Creating Document: MARCO SAHA RESIDENT Medical Necessity Reason Pt with a Central, PICC or Fol: Yes The following are medically ne: Triana Catheter Subjective Review of Systems 79-year-old female with past medical history of diabetes mellitus type 2, hypertension, CHF, gout, sleep apnea, CKD, arthritis, chronic respiratory failure on 3 L oxygen presented with complaints of leg cramps that started 1-1/2 days ago. Patient mentioned that she also started having shortness of breath 1- 1/2 days mild chest pain was not relieved with nitro. Patient also mentioned associated edema on ankles and wrists. Patient drank five bottles of water every day for for last few days and was not taking potassium pills and banana. Patient examined at bedside. She is currently mentioning of hip pain but not mentioning of any chest pain. Her son, patient has experienced 2 episodes of fall in the past year. She is denying any complaints of cough, abdominal pain, nausea, vomiting, headache, dizziness, seizures, visual symptoms Past medical history diabetes mellitus type 2, hypertension, CHF, gout, sleep apnea, CKD, arthritis, chronic respiratory failure on 3 L oxygen Past surgical history Recent surgery Family history Noncontributory Social history Denied smoking, marijuana, alcohol, any other drug intake Home medications: Amlodipine, nitroglycerin, clonidine, benazepril, nadolol, allopurinol, [place], Basaglar and NovoLog Patient seen and examined at the bedside. Bumex drip started along with dopamine fixed weight 2mcg per hour. Objective vital signs Vital Sign Date Time Temp Pulse Resp B/P (MAP) Pulse Ox O2 Delivery O2 Flow Rate FiO2 10/01/24 16:00 17 96 Room Air* 0 21 10/01/24 13:16 76 116/60 (78) 10/01/24 08:36 97.6 97.6 Total Intake and Output 09/30/24 09/30/24 10/01/24 15:00 23:00 07:00 Intake Total 200 ml Output Total 800 ml Balance -600 ml medications Current Medications Medications Dose Ordered Sig/Nasrin Route Start Time Stop Time Status Last Admin Dose Admin Acetaminophen 325 mg Q6HP PRN PO 10/01/24 01:30 10/01/24 09:24 325 MG Diagnostic Test (Pha) 1 strip IQ4HR 10/01/24 04:00 10/01/24 16:20 1 STRIP Insulin Human Regular IQ4HR SC 10/01/24 04:00 Dextrose 50 ml UD PRN IV 10/01/24 02:00 Albuterol 2.5 mg Q4HPRN PRN NEB 10/01/24 02:00 Ipratropium [place] 0.5 mg Q4HPRN PRN NEB 10/01/24 02:00 Heparin Sodium (Porcine) 5,000 units Q12HR SC 10/01/24 10:00 10/01/24 11:25 5,000 UNITS Bumetanide 12.5 mg/Miscellaneous 50 ml @ 2 mls/hr Q24H IV 10/01/24 09:15 10/01/24 09:15 2 MLS/HR Dopamine HCl/ Dextrose 250 ml @ 8.745 mls/ hr Q24H IV 10/01/24 09:15 10/01/24 10:37 8.745 MLS/HR Acetaminophen/ Hydrocodone Bitart 1 tab Q6HP PRN PO 10/01/24 13:30 Examination Obese female patient lying in the bed, moaning in pain, oriented to name and place General: Morbidly obese, afebrile, palor, mucosae are moist Cardiovascular: Regular S1 and S2. No murmurs, gallops or rubs. No JVD elevation. 2+ Pitting edema bilaterally Respiratory: Bilateral decreased air entry required oxygen supplementation Abdomen: Soft, nontender, nondistended, normoactive bowel sounds, no rebound tenderness, no organomegaly, no masses Genitourinary: Deferred MSK/skin: Mobilizes 4 limbs. Skin is dry and warm Neurological: No motor, no sensitive deficits, normal speech. Pupils are isocoric and reactive. Psych/Mental Status: A/Ox2 laboratory and microbiology Laboratory Tests 10/01/24 14:44 10/01/24 08:12 Test 10/01/24 14:44 Range/Units Serum Glucose 103 74-106 mg/dL Labs and/or images reviewed: Labs reviewed by me, Image(s) reviewed by me Problem List/Assessment/Plan Problem List/Assessment/Plan ALOC secondary to Severe hyponatremia Hypervolemic hyponatremia Continue Bumex drip 0.5 mg per hour Q.[address] head completed, shows Evaluation is significantly degraded by motion and streak artifact. Within this limitation, there is no CT evidence for large intracranial hemorrhage or midline shift. Evaluation for intracranial pathology is significantly limited. A repeat examination is suggested. Acute on chronic congestive heart failure exacerbation-NYHA class 3 Acute hypoxic respiratory failure Hypertensive emergency Chest x-ray shows Diffuse interstitial opacities suggestive of pulmonary edema or atypical infection. Cardiomegaly. Bumex 0.5 mg per hour drip Dopamine 2 mcg continuous drip Nebulized treatments Initially received nicardipine, nitroglycerin drips and labetalol IV push Echocardiogram pending Strict I&Os, fluid restriction Intractable pain P.o. [place] IV morphine 1 mg Q 6 for systolic blood pressure greater than 100 NISHANT superimposed on CKD FENA 0.7 ? Cardiorenal syndrome Hyperkalemia-medication overuse on CKD Anemia of chronic kidney disease -IV nitroglycerine with IV Lasix Continue Bumex and dopamine Hyperkalemia protocol given Kidney ultrasound pending ? Acute Gout Uric acid pending Solu-Medrol once 40 mg IV Diabetes mellitus type 2-A1c 6.8 Mild sliding scale Likely diabetic retinopathy Monitor Obesity hypoventilation syndrome Obstructive sleep apnea History of asthma -nighttime BiPAP DVT prophylaxis heparin 5000 units SC Pantoprazole 40 mg IV daily Swallow request pending Plan discussed with patient's son in which all questions have been answered Goals of care discussed for more than 20 minutes admitting doctor, full code status Case discussed with Dr. Wang Plan discussed with: Patient My Orders My Orders Orders - MARCO SAHA RESIDENT Procedure Category Date Status Time Abg W/ Co-Ox RT 10/01/24 Logged 08:44 Give Un-Diluted PHA 10/01/24 In Process (Gi... W/Bumetanide 09:15 Dopamine 1600mcg/Ml PHA 10/01/24 In Process D5W 09:15 Maintain Fluid STAR 10/01/24 In Process Restrictions 09:03 Strict I & O STAR 10/01/24 In Process 09:03 Strict Aspiration STAR 10/01/24 In Process Precautions 09:03 Head Of Bed To =/>70 STAR 10/01/24 In Process Degrees 09:03 Communication Order ORDERS 10/01/24 Transmitted 09:03 * Swallow Request ST 10/01/24 Transmitted 09:05 Date of Service: Oct 01, 2024 Billing Provider: ANTOLIN BRUSH MD Common Visit Codes: [id number] INP/OBS CARE(HIGH) MARCO SAHA RESIDENT Oct 01, 2024 18:17 ANTOLIN BRUSH MD Oct 08, 2024 21:45
[2024-10-01] MEDS: PANTOPRAZOLE 40 MG/10 ML VIAL INJ IV ONE (19:47)
[2024-10-01 20:47] LABS: Anion Gap 7 (5-15); Carbon Dioxide 24 mmol/L (20-31)
[2024-10-01 20:48] LABS: Calcium 9.2 mg/dL (8.7-10.4)
[2024-10-01 20:52] LABS: Chloride 94 mmol/L (98-107); Potassium 5.2 mmol/L (3.5-5.1); Sodium 125 mmol/L (136-145)
[2024-10-01 20:53] LABS: BUN/Creatinine Ratio 18.4 (10.0-20.0)
[2024-10-01 20:58] LABS: Blood Urea Nitrogen 36 mg/dL (9-23); Glucose 113 mg/dL (74-106)
[2024-10-01] MEDS: MORPHINE SULFATE 4 MG/ML SYR/VIAL IV PRN (21:28)
[2024-10-01 22:24] LABS: Anion Gap 8 (5-15); Calcium 9.2 mg/dL (8.7-10.4); Carbon Dioxide 23 mmol/L (20-31)
[2024-10-01 22:29] LABS: BUN/Creatinine Ratio 15.5 (10.0-20.0)
[2024-10-01 22:32] LABS: Blood Urea Nitrogen 31 mg/dL (9-23); Chloride 93 mmol/L (98-107); Glucose 126 mg/dL (74-106); Potassium 5.3 mmol/L (3.5-5.1); Sodium 124 mmol/L (136-145)
[2024-10-01 23:07] LABS: Base Excess -3.5 mmol/L (-2.0-3.0)
[2024-10-02] VITALS (104 sets, daily range): BP systolic 112–192; BP diastolic 23–129; PULSE 73–101; RESP 11–47; TEMP 97.8–98.7; O2SAT 91–100
[2024-10-02] MEDS: BUMETANIDE INJECTION 10 ML ONE ×2 (03:16→06:01)
[2024-10-02] MEDS: hydrALAZINE HCL 20 MG/ML VL IV PRN (04:15)
[2024-10-02] MEDS: ACETAMINOPHEN 325 MG TAB PO PRN (05:03)
[2024-10-02] MEDS: ACETAMINOPHEN 325 MG TAB PO ONE (06:30)
[2024-10-02 07:42] LABS: Hematocrit 31.5 % (36.0-46.0); Hemoglobin 10.8 g/dL (12.2-16.2); Mean Corpuscular Hemoglobin 33.0 pg (28.0-32.0); Mean Corpuscular Volume 96.0 fL (80.0-100.0); Nucleated Red Blood Cells % 0.1 %
[2024-10-02] MEDS: IPRATROPIUM BROM 0.5 MG/2.5ML INH SOL NEB PRN (07:53)
[2024-10-02] MEDS: ALBUTEROL SULF 2.5 MG/0.5ML(0.5%) NEB SOLN NEB PRN (07:53)
--- NOTE | 2024-10-02 08:16 | ECG ---
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
--- NOTE | 2024-10-02 08:38 | DVH ---
EXAM: XY CHEST PORTABLE Indication: RESPIRATORY FAILURE Technique: Single frontal view of the chest was obtained Comparison: XY CHEST PORTABLE on DOS: 10/01/24, XY CHEST XRAY 1 VIEW on DOS: 09/30/24 FINDINGS: Lines and Tubes: None Lungs: Low lung volumes. Diffuse interstitial opacities. Pleura: No effusion. No pneumothorax. Cardiomediastinal contours: Unremarkable Bones: No acute osseous abnormality. IMPRESSION: Pulmonary edema, unchanged.
[2024-10-02] MEDS: PANTOPRAZOLE 40 MG/10 ML VIAL INJ IV SCH (09:28)
[2024-10-02] MEDS: HYDROcodone-ACET 10/325MG TAB PO PRN (09:28)
[2024-10-02] MEDS: LABETALOL HCL 20 MG/4 ML VL IV ONE (09:29)
[2024-10-02 10:05] LABS: Anion Gap 11 (5-15); Carbon Dioxide 22 mmol/L (20-31); Chloride 94 mmol/L (98-107); Potassium 5.3 mmol/L (3.5-5.1); Sodium 127 mmol/L (136-145)
[2024-10-02 10:07] LABS: Calcium 10.1 mg/dL (8.7-10.4)
[2024-10-02 10:10] LABS: BUN/Creatinine Ratio 14.7 (10.0-20.0)
[2024-10-02 10:11] LABS: Alkaline Phosphatase 127 U/L (46-116); Blood Urea Nitrogen 29 mg/dL (9-23); Glucose 190 mg/dL (74-106); Total Protein 6.6 g/dL (5.7-8.2)
[2024-10-02 10:16] LABS: Alanine Aminotransferase 9 U/L (7-40); Albumin 3.9 g/dL (3.2-4.8); Bilirubin, Total 0.3 mg/dL (0.2-1.0)
[2024-10-02 11:00] LABS: Magnesium 1.8 mg/dL (1.6-2.6)
--- NOTE | 2024-10-02 12:06 | DVHPNRES ---
Progress Note Date Seen: Oct 02, 2024 Resident Creating Document: MARCO SAHA RESIDENT Medical Necessity Reason Pt with a Central, PICC or Fol: Yes The following are medically ne: Triana Catheter Subjective Review of Systems 79-year-old female with past medical history of diabetes mellitus type 2, hypertension, CHF, gout, sleep apnea, CKD, arthritis, chronic respiratory failure on 3 L oxygen presented with complaints of leg cramps that started 1-1/2 days ago. Patient mentioned that she also started having shortness of breath 1- 1/2 days mild chest pain was not relieved with nitro. Patient also mentioned associated edema on ankles and wrists. Patient drank five bottles of water every day for for last few days and was not taking potassium pills and banana. Patient examined at bedside. She is currently mentioning of hip pain but not mentioning of any chest pain. Her son, patient has experienced 2 episodes of fall in the past year. She is denying any complaints of cough, abdominal pain, nausea, vomiting, headache, dizziness, seizures, visual symptoms Past medical history diabetes mellitus type 2, hypertension, CHF, gout, sleep apnea, CKD, arthritis, chronic respiratory failure on 3 L oxygen Past surgical history Recent surgery Family history Noncontributory Social history Denied smoking, marijuana, alcohol, any other drug intake Home medications: Amlodipine, nitroglycerin, clonidine, benazepril, nadolol, allopurinol, [place], Basaglar and NovoLog 10/01 - Patient seen and examined at the bedside. Bumex drip started along with dopamine fixed weight 2mcg per hour. 10/02-patient seen and examined, patient is A&O x1. Only oriented to name. Patient is hypertensive started nicardipine drip. Discontinued dopamine drip. Continue Bumex 0.5 mg/hour with hyperkalemia protocol given. Sodium is increasing, swallow eval pending. Kidney ultrasound pending. Objective vital signs Vital Sign Date Time Temp Pulse Resp B/P (MAP) Pulse Ox O2 Delivery O2 Flow Rate FiO2 10/02/24 10:54 96 Room Air* 0 21 10/02/24 09:29 93 170/75 10/02/24 08:00 18 10/02/24 04:00 97.8 97.8 Total Intake and Output 10/01/24 10/01/24 10/02/24 15:00 23:00 07:00 Intake Total 122.980 ml 175.215 ml Output Total 700 ml 3350 ml Balance -577.020 ml -3174.785 ml medications Current Medications Medications Dose Ordered Sig/Nasrin Route Start Time Stop Time Status Last Admin Dose Admin Diagnostic Test (Pha) 1 strip IQ4HR 10/01/24 04:00 10/02/24 08:28 1 STRIP Insulin Human Regular IQ4HR SC 10/01/24 04:00 10/02/24 08:29 4 UNITS Dextrose 50 ml UD PRN IV 10/01/24 02:00 Albuterol 2.5 mg Q4HPRN PRN NEB 10/01/24 02:00 10/02/24 07:53 2.5 MG Ipratropium [place] 0.5 mg Q4HPRN PRN NEB 10/01/24 02:00 10/02/24 07:53 0.5 MG Heparin Sodium (Porcine) 5,000 units Q12HR SC 10/01/24 10:00 10/02/24 09:31 5,000 UNITS Bumetanide 12.5 mg/Miscellaneous 50 ml @ 2 mls/hr Q24H IV 10/01/24 09:15 10/02/24 03:18 2 MLS/HR Dopamine HCl/ Dextrose 250 ml @ 8.745 mls/ hr Q24H IV 10/01/24 09:15 Hold 10/01/24 10:37 8.745 MLS/HR Morphine Sulfate 1 mg Q6HP PRN IV 10/01/24 16:45 UNV Pantoprazole Sodium 40 mg DAILY IV 10/02/24 10:00 10/02/24 09:28 40 MG Acetaminophen 650 mg Q6HP PRN PO 10/01/24 22:45 10/02/24 05:03 650 MG Hydralazine HCl 10 mg Q6HP PRN IV 10/02/24 03:45 10/02/24 04:15 10 MG Acetaminophen/ Hydrocodone Bitart 1 tab Q6HP PRN PO 10/02/24 09:15 10/02/24 09:28 1 TAB Zirconium Oxide 10 gm TID PO 10/02/24 14:00 10/04/24 06:01 UNV Examination Obese female patient lying in the bed, moaning in pain, oriented to name only General: Morbidly obese, afebrile, palor, mucosae are moist Cardiovascular: Regular S1 and S2. No murmurs, gallops or rubs. No JVD elevation. 2+ Pitting edema bilaterally Respiratory: Bilateral decreased air entry required oxygen supplementation Abdomen: Soft, nontender, nondistended, normoactive bowel sounds, no rebound tenderness, no organomegaly, no masses Genitourinary: Deferred MSK/skin: Mobilizes 4 limbs. Skin is dry and warm Neurological: No motor, no sensitive deficits, normal speech. Pupils are isocoric and reactive. Psych/Mental Status: A/Ox1 laboratory and microbiology Laboratory Tests 10/02/24 09:35 10/02/24 04:00 Test 10/02/24 09:35 Range/Units Serum Glucose 190 H 74-106 mg/dL Microbiology Date/Time Source Procedure Growth Status 09/30/24 21:13 Blood Blood Culture - Preliminary NO GROWTH AFTER 24 HOURS OF INCUBATION. Resulted Labs and/or images reviewed: Labs reviewed by me, Image(s) reviewed by me Problem List/Assessment/Plan Problem List/Assessment/Plan ALOC secondary to Severe hyponatremia Hypervolemic hyponatremia Continue Bumex drip 0.5 mg per hour Q.[address] head completed, shows Evaluation is significantly degraded by motion and streak artifact. Within this limitation, there is no CT evidence for large intracranial hemorrhage or midline shift. Evaluation for intracranial pathology is significantly limited. A repeat examination is suggested. Acute on chronic congestive heart failure exacerbation-NYHA class 3 Acute hypoxic respiratory failure Hypertensive emergency Chest x-ray shows Diffuse interstitial opacities suggestive of pulmonary edema or atypical infection. Cardiomegaly. Bumex 0.5 mg per hour drip Hold off Dopamine 2 mcg continuous drip given hypertension Nebulized treatments On nicardipine drip 10/02 Echocardiogram pending Strict I&Os, fluid restriction Intractable pain P.o. [place] IV morphine 1 mg Q 6 for systolic blood pressure greater than 100 NISHANT superimposed on CKD FENA 0.7 ? Nephrotic range proteinuria ? Cardiorenal syndrome Hyperkalemia-medication overuse on CKD Anemia of chronic kidney disease Continue Bumex and dopamine Hyperkalemia protocol given, Lokelma t.i.d. for 6 doses Kidney ultrasound pending continue nicardipine drip Creatinine clearance 47, started lisinopril 10 mg daily, continue nifedipine 30 mg daily Rule out Acute Gout Uric acid unremarkable, 4.4 Solu-Medrol once 40 mg IV on day 1 Diabetes mellitus type 2-A1c 6.8 Mild sliding scale Likely diabetic retinopathy Monitor Obesity hypoventilation syndrome Obstructive sleep apnea History of asthma -nighttime BiPAP DVT prophylaxis heparin 5000 units SC Pantoprazole 40 mg IV daily Swallow request pending, NPO except medications Plan discussed with patient's son in which all questions have been answered Goals of care discussed for more than 20 minutes admitting doctor, full code status Case discussed with Dr. Wang Plan discussed with: Patient My Orders My Orders Orders - MARCO SAHA Procedure Category Date Status Time Pantoprazole PHA 10/02/24 In Process (Protonix) 10:00 *Dr. Angella Winters -Da CONS 10/01/24 Transmitted [place] 18:14 Hydrocodone-Acet PHA 10/02/24 In Process 10/325mg Tab ([place] 09:15 Insert Midline ORDERS 10/02/24 Transmitted 09:49 L Hip Complete Xray XY 10/02/24 Taken 10:34 R Hip Complete Xray XY 10/02/24 Taken 10:34 Insulin R 10units Iv PHA 10/02/24 Transmitted X One 12:15 Dextrose 50% 1amp=50ml PHA 10/02/24 Transmitted 12:15 Albuterol 20mg Medneb PHA 10/02/24 Transmitted X One 12:15 Sod Bicarb 50ml=1amp PHA 10/02/24 Transmitted 12:15 Lasix 20mg Iv X One PHA 10/02/24 Transmitted 12:15 [place] 10gm Po Tid X PHA 10/02/24 Transmitted 48hrs 14:00 Dietary Evaluation Review Comments: 1) Advance to [facility] [place] 60gm + renal specific 80gm protein as medically feasible 2) Refer CDE on DC Expected Outcomes/Goals: To meet >75% estimated needs Fu 2-3 days Date of Service: Oct 02, 2024 Billing Provider: ANTOLIN BRUSH MD Common Visit Codes: [id number] INP/OBS CARE(HIGH) MARCO SAHA Oct 02, 2024 12:06 ANTOLIN BRUSH MD Oct 08, 2024 21:49
[2024-10-02] MEDS ORDERED: ALBUTEROL SULF 2.5 MG/0.5ML(0.5%) NEB SOLN NEB ONE (12:15)
[2024-10-02] MEDS: LIDOCAINE 5% TOPICAL PATCH TOP ONE (12:24)
--- NOTE | 2024-10-02 12:29 | DVH ---
CLINICAL INDICATION: intractable pain TECHNIQUE: 1 radiographic views of the pelvis and 1 view of the left hip were obtained. Comparison: None FINDINGS/IMPRESSION: There is no evidence of acute fracture or dislocation. The visualized joint space is well maintained. The alignment is anatomical. There is no radiopaque foreign body.
--- NOTE | 2024-10-02 13:05 | DVH ---
CLINICAL INDICATION: intractable pain TECHNIQUE: 3 radiographic views of the right hip were obtained. Comparison: None FINDINGS/IMPRESSION: There is no evidence of acute fracture or dislocation. The visualized joint space is well maintained. The alignment is anatomical. There is no radiopaque foreign body.
[2024-10-02] MEDS: SODIUM BICARB 8.4% 50Meq/50ml SYR INJ IV ONE (13:21)
[2024-10-02] MEDS: DEXTROSE (50%) 50ML SYRG IV ONE (13:21)
[2024-10-02] MEDS: InsuLIN REG 1unit/0.01ml Soln (100units/ml) IV ONE (13:22)
[2024-10-02] MEDS: SODIUM ZIRCONIUM CYCL 10 GM PAK PO SCH (13:24)
[2024-10-02] MEDS ORDERED: hydrALAZINE HCL 20 MG/ML VL IV PRN (14:00)
[2024-10-02] MEDS: FUROSEMIDE 20 MG/2 ML VIAL IV ONE (14:15)
[2024-10-02] MEDS: NICARDIPINE HCL IN SODIUM CHLO 200 ML IV SCH (15:00)
--- NOTE | 2024-10-02 15:15 | DVH ---
RENAL ULTRASOUND History: noe vs ckd Comparison: None Technique: Multiple real-time sonographic images of the kidney and bladder were obtained in conjuncti on with Doppler imaging. Findings: Technically limited examination due to habitus The right kidney measures 9.1 cm . Left kidney measures 11.5 cm. There is a very limited evaluation of the bilateral kidneys due to patient's body habitus. Kidneys appear echogenic. Urinary bladder: Decompressed by [place] catheter Impression: Very limited evaluation due to patient habitus. Recommend CT abdomen pelvis to characterize and exclu de hydronephrosis/ nephrolithiasis. Echogenic kidneys suggesting medical renal disease.
[2024-10-02] MEDS: LISINOPRIL 5 MG TAB PO ONE (16:40)
[2024-10-02 17:28] LABS: Potassium 4.6 mmol/L (3.5-5.1)
[2024-10-02 17:29] LABS: Anion Gap 9 (5-15); Carbon Dioxide 24 mmol/L (20-31)
[2024-10-02 17:30] LABS: Calcium 8.5 mg/dL (8.7-10.4); Chloride 94 mmol/L (98-107); Sodium 127 mmol/L (136-145)
[2024-10-02 17:34] LABS: BUN/Creatinine Ratio 17.0 (10.0-20.0)
[2024-10-02 17:35] LABS: Blood Urea Nitrogen 33 mg/dL (9-23); Glucose 245 mg/dL (74-106)
--- NOTE | 2024-10-02 18:03 | DVHINCON2 ---
Date of service: Oct 02, [address] Jeremy Spencer Reason for Consultation CKD and fluid overload History of Present Illness 79 Y/O F with history of CKD stage IV, DM,HTN,morbid obesity, and gout presented with AMS, and SOB. 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 Perales, she has refused to do dialysis. in ER patients SBP is in 200s mmHg. CXR showed pulmonary congestion. she was placed on Bumex drip , and is making great urine. creatinine is stable ~ 1.95 mg/dl. Nephrology consulted for CKD and fluid overload Past Medical History CKD stage IV, DM,HTN,morbid obesity, and gout Allergies: Coded Allergies: Aspirin (Verified Allergy, Unknown, 09/30/24) Current Medications Current Medications Medications (Trade) Dose Ordered Sig/Nasrin Route PRN Reason Start Time Stop Time Status Last Admin Pantoprazole Sodium (Protonix) 40 mg DAILY IV 10/02/24 10:00 10/02/24 09:28 Acetaminophen (Tylenol Tablet) 650 mg Q6HP PRN PO PAIN SCALE 1-3 OR TEMP>100.4 10/01/24 22:45 10/02/24 05:03 Hydralazine HCl (Apresoline Injection) 10 mg Q6HP PRN IV SBP>150 10/02/24 03:45 10/02/24 14:00 DC 10/02/24 04:15 Acetaminophen/ Hydrocodone Bitart (Acme 10/325MG Tab) 1 tab Q6HP PRN PO SEVERE PAIN (7-10 PAIN SCALE) 10/02/24 09:15 10/02/24 09:28 Zirconium Oxide (Lokelma) 10 gm TID PO 10/02/24 14:00 10/04/24 06:01 10/02/24 13:24 Nicardipine HCl 250 ml @ 50 mls/hr Q5H IV 10/02/24 12:15 Cancel Nicardipine/ Sodium Chloride 200 ml @ 50 mls/hr Q4H IV 10/02/24 13:15 10/02/24 17:33 Hydralazine HCl (Apresoline Injection) 10 mg Q6HP PRN IV SBP>170 10/02/24 14:00 Lisinopril (Zestril Tablet) 10 mg DAILY PO 10/03/24 10:00 Nifedipine (Procardia Xl (Time-Release)) 30 mg DAILY PO 10/03/24 10:00 10/02/24 15:36 DC Nifedipine (Procardia Xl (Time-Release)) 60 mg DAILY PO 10/03/24 10:00 Family History: Arthritis G8 MOTHER Hypercholesterolemia G8 MOTHER G8 FATHER Hypertension G8 MOTHER G8 FATHER Review of Systems as per HPI, all other systems were reviewed and are negative H&P Exam Vital Signs/I&O Vital Sign Date Time Temp Pulse Resp B/P (MAP) Pulse Ox O2 Delivery O2 Flow Rate FiO2 10/02/24 19:15 99 17 150/65 (93) 95 10/02/24 18:02 Room Air* 0 21 10/02/24 16:00 98.3 98.3 Intake and Output 10/01/24 10/02/24 19:00 07:00 Intake Total 80 ml 220.195 ml Output Total 700 ml 3350 ml Balance -620 ml -3129.805 ml Intake Oral 80 ml 100 ml IV Total 120.195 ml Output Urine Total 700 ml 3350 ml Physical Exam Gen: NAD HEENT: NC,AT Lungs: Crackles lung bases Cardiac: RRR, no murmur Abd: soft, no tenderness Ext: no edema Neuro: no focal deficits Labs/Diagnostic Data Labs/Diagnostic Data Laboratory Tests Test 10/02/24 19:25 10/02/24 17:11 10/02/24 16:18 10/02/24 11:16 Range/Units POC Glucose 296 H 279 H 181 H 70-106 mg/dl Sodium Level 127 L 136-145 mmol/L Potassium Level 4.6 3.5-5.1 mmol/L Chloride Level 94 L 98-107 mmol/L Carbon Dioxide Level 24 20-31 mmol/L Anion Gap 9 5-15 Blood Urea Nitrogen 33 H 9-23 mg/dL Creatinine 1.94 H 0.550-1.02 mg/dL Glomerular Filtration Rate Calc 26 >90 mL/min BUN/Creatinine Ratio 17.0 10.0-20.0 Serum Glucose 245 H 74-106 mg/dL Calcium Level 8.5 L 8.7-10.4 mg/dL Test 10/02/24 09:35 10/02/24 07:36 10/02/24 04:15 10/02/24 04:00 Range/Units Sodium Level 127 L 136-145 mmol/L Potassium Level 5.3 H 3.5-5.1 mmol/L Chloride Level 94 L 98-107 mmol/L Carbon Dioxide Level 22 20-31 mmol/L Anion Gap 11 5-15 Blood Urea Nitrogen 29 H 9-23 mg/dL Creatinine 1.97 H 0.550-1.02 mg/dL Glomerular Filtration Rate Calc 25 >90 mL/min BUN/Creatinine Ratio 14.7 10.0-20.0 Serum Glucose 190 H 74-106 mg/dL Calcium Level 10.1 8.7-10.4 mg/dL Magnesium Level 1.8 1.6-2.6 mg/dL Total Bilirubin 0.3 0.2-1.0 mg/dL Aspartate Amino Transferase (AST) 18 <34 U/L Alanine Aminotransferase (ALT) 9 7-40 U/L Alkaline Phosphatase 127 H 46-116 U/L Total Protein 6.6 5.7-8.2 g/dL Albumin 3.9 3.2-4.8 g/dL POC Glucose 217 H 181 H 70-106 mg/dl White Blood Count 6.2 4.4-10.8 10^3/uL Red Blood Count 3.28 L 4.0-5.20 10^6/uL Hemoglobin 10.8 L 12.2-16.2 g/dL Hematocrit 31.5 L 36.0-46.0 % Mean Corpuscular Volume 96.0 80.0-100.0 fL Mean Corpuscular Hemoglobin 33.0 H 28.0-32.0 pg Mean Corpuscular Hemoglobin Concent 34.4 32.0-36.0 g/dL Red Cell Distribution Width 14.3 11.8-14.3 % Platelet Count 268 140-450 10^3/uL Mean Platelet Volume 7.4 6.9-10.8 fL Neutrophils (%) (Auto) 90.7 H 37.0-80.0 % Lymphocytes (%) (Auto) 7.0 L 10.0-50.0 % Monocytes (%) (Auto) 1.8 0.0-12.0 % Eosinophils (%) (Auto) 0.1 0.0-7.0 % Basophils (%) (Auto) 0.4 0.0-2.0 % Neutrophils # (Auto) 5.6 1.6-8.6 10 ^3/uL Lymphocytes # (Auto) 0.4 0.4-5.4 10 ^3/uL Monocytes # (Auto) 0.1 0-1.3 10 ^3/uL Eosinophils # (Auto) 0 0-0.8 10 ^3/uL Basophils # (Auto) 0 0-0.2 10 ^3/uL Nucleated Red Blood Cells 0.1 % Test 10/02/24 00:25 10/01/24 23:44 10/01/24 23:03 10/01/24 22:00 Range/Units POC Glucose 148 H 70-106 mg/dl Ammonia 20 11-32 umol/L Troponin I High Sensitivity 11 </=34 ng/L Blood Gas Specimen Type Arterial Blood Gas Sample Site Left radial Blood Gas Patient Temperature 37.0 Arterial Blood Date Drawn [id number] Arterial Blood pH 7.321 L 7.350-7.450 Arterial Blood Partial Pressure CO2 44.5 32.0-45.0 mmHg Arterial Blood Partial Pressure O2 102.4 83.0-108.0 mmHg Arterial Blood HCO3 22.5 21.0-28.0 mmol/L Arterial Blood Oxygen Saturation 97.7 94.0-98.0 % Arterial Blood Base Excess -3.5 L -2.0-3.0 mmol/L Arterial Blood Oxyhemoglobin 96.5 94.0-98.0 % Arterial Blood Carboxyhemoglobin 0.8 0.5-1.5 % Arterial Blood Methemoglobin 0.4 0.0-1.5 % Cristian Test Modified Blood Gas Total Hemoglobin 9.50 L 12.0-16.0 g/dL Blood Gas Liter Flow 3.00 Blood Gas Modality Nasal cannula Blood Gas Spontaneous Rate 18 FiO2 % 32.0 Specimen Drawn By Victorina carlin rt Sodium Level 124 L 136-145 mmol/L Potassium Level 5.3 H 3.5-5.1 mmol/L Chloride Level 93 L 98-107 mmol/L Carbon Dioxide Level 23 20-31 mmol/L Anion Gap 8 5-15 Blood Urea Nitrogen 31 H 9-23 mg/dL Creatinine 2.00 H 0.550-1.02 mg/dL Glomerular Filtration Rate Calc 25 >90 mL/min BUN/Creatinine Ratio 15.5 10.0-20.0 Serum Glucose 126 H 74-106 mg/dL Calcium Level 9.2 8.7-10.4 mg/dL Test 10/01/24 20:20 10/01/24 20:05 10/01/24 16:20 10/01/24 14:44 Range/Units Sodium Level 125 L 123 L 136-145 mmol/L Potassium Level 5.2 H 4.9 3.5-5.1 mmol/L Chloride Level 94 L 92 L 98-107 mmol/L Carbon Dioxide Level 24 23 20-31 mmol/L Anion Gap 7 8 5-15 Blood Urea Nitrogen 36 H 32 H 9-23 mg/dL Creatinine 1.96 H 1.95 H 0.550-1.02 mg/dL Glomerular Filtration Rate Calc 25 26 >90 mL/min BUN/Creatinine Ratio 18.4 16.4 10.0-20.0 Serum Glucose 113 H 103 74-106 mg/dL Calcium Level 9.2 9.6 8.7-10.4 mg/dL POC Glucose 114 H 140 H 70-106 mg/dl Uric Acid 4.4 3.1-7.8 mg/dL Test 10/01/24 11:59 10/01/24 11:03 10/01/24 08:47 10/01/24 08:37 Range/Units POC Glucose 99 127 H 70-106 mg/dl Sodium Level 124 L 136-145 mmol/L Potassium Level 4.8 3.5-5.1 mmol/L Chloride Level 92 L 98-107 mmol/L Carbon Dioxide Level 24 20-31 mmol/L Anion Gap 8 5-15 Blood Urea Nitrogen 32 H 9-23 mg/dL Creatinine 1.91 H 0.550-1.02 mg/dL Glomerular Filtration Rate Calc 26 >90 mL/min BUN/Creatinine Ratio 16.8 10.0-20.0 Serum Glucose 82 74-106 mg/dL Calcium Level 9.6 8.7-10.4 mg/dL Blood Gas Specimen Type Arterial Blood Gas Sample Site Left radial Blood Gas Patient Temperature 37.0 Arterial Blood Date Drawn [id number] Arterial Blood pH 7.333 L 7.350-7.450 Arterial Blood Partial Pressure CO2 40.8 32.0-45.0 mmHg Arterial Blood Partial Pressure O2 147.9 H 83.0-108.0 mmHg Arterial Blood HCO3 21.2 21.0-28.0 mmol/L Arterial Blood Oxygen Saturation 98.9 H 94.0-98.0 % Arterial Blood Base Excess -4.4 L -2.0-3.0 mmol/L Arterial Blood Oxyhemoglobin 98.1 H 94.0-98.0 % Arterial Blood Carboxyhemoglobin 0.4 L 0.5-1.5 % Arterial Blood Methemoglobin 0.4 0.0-1.5 % Cristian Test Yes Blood Gas Total Hemoglobin 9.80 L 12.0-16.0 g/dL Blood Gas Liter Flow 2.00 Blood Gas Modality Nasal cannula FiO2 % 28.0 Test 10/01/24 08:12 10/01/24 07:35 10/01/24 07:11 10/01/24 04:57 Range/Units White Blood Count 6.2 4.4-10.8 10^3/uL Red Blood Count 3.17 L 4.0-5.20 10^6/uL Hemoglobin 10.3 L 12.2-16.2 g/dL Hematocrit 30.5 L 36.0-46.0 % Mean Corpuscular Volume 96.2 80.0-100.0 fL Mean Corpuscular Hemoglobin 32.4 H 28.0-32.0 pg Mean Corpuscular Hemoglobin Concent 33.7 32.0-36.0 g/dL Red Cell Distribution Width 14.8 H 11.8-14.3 % Platelet Count 228 140-450 10^3/uL Mean Platelet Volume 6.7 L 6.9-10.8 fL Neutrophils (%) (Auto) 61.0 37.0-80.0 % Lymphocytes (%) (Auto) 23.6 10.0-50.0 % Monocytes (%) (Auto) 11.5 0.0-12.0 % Eosinophils (%) (Auto) 3.0 0.0-7.0 % Basophils (%) (Auto) 0.9 0.0-2.0 % Neutrophils # (Auto) 3.8 1.6-8.6 10 ^3/uL Lymphocytes # (Auto) 1.5 0.4-5.4 10 ^3/uL Monocytes # (Auto) 0.7 0-1.3 10 ^3/uL Eosinophils # (Auto) 0.2 0-0.8 10 ^3/uL Basophils # (Auto) 0.1 0-0.2 10 ^3/uL Nucleated Red Blood Cells 0.2 % Hemoglobin A1c 6.8 H <5.7 % A1C Vitamin B12 Level 1015 H 211-911 pg/mL Vitamin D 25-Hydroxy 44.2 30.0-100 ng/mL Urine Color Colorless Yellow Urine Clarity Clear Clear Urine pH 5.5 5.0-9.0 Urine Specific [place] 1.005 1.001-1.035 Urine Protein 1+ H Negative Urine Ketones Negative Negative Urine Blood 2+ H Negative /uL Urine Nitrite Negative Negative Urine Bilirubin Negative Negative Urine Urobilinogen Normal Negative mg/dL Urine Leukocyte Esterase Negative Negative /uL Urine RBC 14 0 - 4 /hpf Urine Microscopic WBC 3 0-5 /HPF Urine Squamous Epithelial Cells None seen <5 /hpf Urine Bacteria None seen None Seen /hpf Urine Creatinine 30.50 30.0-125.0 mg/dL Urine Protein/Creatinine Ratio 3.27 Urine Sodium 14 L 40-220 mmol/L Urine Potassium 18 12-62 mmol/L Urine Glucose Normal Normal mg/dL Urine Total Protein 99.6 H 1-14 mg/dL Urine Opiates Screen Pos NEGATIVE Urine Fentanyl Screen Neg NEGATIVE Urine Barbiturates Screen Neg NEGATIVE Urine Phencyclidine Screen Neg NEGATIVE Urine Amphetamines Screen Neg NEGATIVE Urine Benzodiazepines Screen Neg NEGATIVE Urine Cocaine Screen Neg NEGATIVE Urine Cannabinoids Screen Neg NEGATIVE Sodium Level 122 L 136-145 mmol/L Potassium Level 4.9 3.5-5.1 mmol/L Chloride Level 92 L 98-107 mmol/L Carbon Dioxide Level 20 20-31 mmol/L Anion Gap 10 5-15 Blood Urea Nitrogen 29 H 9-23 mg/dL Creatinine 1.93 H 0.550-1.02 mg/dL Glomerular Filtration Rate Calc 26 >90 mL/min BUN/Creatinine Ratio 15.0 10.0-20.0 Serum Glucose 100 74-106 mg/dL Calcium Level 9.4 8.7-10.4 mg/dL Magnesium Level 2.0 1.6-2.6 mg/dL Total Bilirubin 0.4 0.2-1.0 mg/dL Aspartate Amino Transferase (AST) 18 <34 U/L Alanine Aminotransferase (ALT) < 9 7-40 U/L Alkaline Phosphatase 113 46-116 U/L Total Protein 6.0 5.7-8.2 g/dL Albumin 3.6 3.2-4.8 g/dL POC Glucose 116 H 70-106 mg/dl Test 10/01/24 02:58 10/01/24 02:37 10/01/24 01:55 10/01/24 00:24 Range/Units POC Glucose 134 H 70-106 mg/dl Sodium Level 120 L 119 *L 136-145 mmol/L Potassium Level 5.3 H 5.2 H 3.5-5.1 mmol/L Chloride Level 90 L 90 L 98-107 mmol/L Carbon Dioxide Level 21 22 20-31 mmol/L Anion Gap 9 7 5-15 Blood Urea Nitrogen 31 H 34 H 9-23 mg/dL Creatinine 1.93 H 1.96 H 0.550-1.02 mg/dL Glomerular Filtration Rate Calc 26 25 >90 mL/min BUN/Creatinine Ratio 16.1 17.3 10.0-20.0 Serum Glucose 115 H 122 H 74-106 mg/dL Calcium Level 9.2 9.1 8.7-10.4 mg/dL Influenza Type A Antigen Negative Negative Influenza Type B Antigen Negative Negative SARS-CoV-2 Antigen (Rapid) Negative NEGATIVE Serum Osmolality 259 L 278-298 mOsm/kg Troponin I High Sensitivity 16 </=34 ng/L Test 09/30/24 22:02 09/30/24 21:17 09/30/24 21:13 09/30/24 00:24 Range/Units Troponin I High Sensitivity 14 15 </=34 ng/L Blood Gas Specimen Type Arterial Blood Gas Sample Site Left radial Blood Gas Patient Temperature 37.0 Arterial Blood Date Drawn [id number] Arterial Blood pH 7.391 7.350-7.450 Arterial Blood Partial Pressure CO2 34.3 32.0-45.0 mmHg Arterial Blood Partial Pressure O2 111.0 H 83.0-108.0 mmHg Arterial Blood HCO3 20.3 L 21.0-28.0 mmol/L Arterial Blood Oxygen Saturation 98.3 H 94.0-98.0 % Arterial Blood Base Excess -4.0 L -2.0-3.0 mmol/L Arterial Blood Oxyhemoglobin 97.5 94.0-98.0 % Arterial Blood Carboxyhemoglobin 0.4 L 0.5-1.5 % Arterial Blood Methemoglobin 0.4 0.0-1.5 % Cristian Test Yes Blood Gas Total Hemoglobin 10.30 L 12.0-16.0 g/dL Blood Gas Liter Flow 3.00 Blood Gas Modality Nasal cannula FiO2 % 32.0 White Blood Count 6.8 4.4-10.8 10^3/uL Red Blood Count 2.90 L 4.0-5.20 10^6/uL Hemoglobin 9.5 L 12.2-16.2 g/dL Hematocrit 27.8 L 36.0-46.0 % Mean Corpuscular Volume 96.0 80.0-100.0 fL Mean Corpuscular Hemoglobin 32.9 H 28.0-32.0 pg Mean Corpuscular Hemoglobin Concent 34.3 32.0-36.0 g/dL Red Cell Distribution Width 14.3 11.8-14.3 % Platelet Count 268 140-450 10^3/uL Mean Platelet Volume 7.3 6.9-10.8 fL Neutrophils (%) (Auto) 69.8 37.0-80.0 % Lymphocytes (%) (Auto) 17.1 10.0-50.0 % Monocytes (%) (Auto) 10.5 0.0-12.0 % Eosinophils (%) (Auto) 2.2 0.0-7.0 % Basophils (%) (Auto) 0.4 0.0-2.0 % Neutrophils # (Auto) 4.8 1.6-8.6 10 ^3/uL Lymphocytes # (Auto) 1.2 0.4-5.4 10 ^3/uL Monocytes # (Auto) 0.7 0-1.3 10 ^3/uL Eosinophils # (Auto) 0.1 0-0.8 10 ^3/uL Basophils # (Auto) 0 0-0.2 10 ^3/uL Nucleated Red Blood Cells 0.1 % Sodium Level 120 L 136-145 mmol/L Potassium Level 5.4 H 3.5-5.1 mmol/L Chloride Level 92 L 98-107 mmol/L Carbon Dioxide Level 21 20-31 mmol/L Anion Gap 7 5-15 Blood Urea Nitrogen 37 H 9-23 mg/dL Creatinine 1.95 H 0.550-1.02 mg/dL Glomerular Filtration Rate Calc 26 >90 mL/min BUN/Creatinine Ratio 19.0 10.0-20.0 Serum Glucose 109 H 74-106 mg/dL Lactic Acid Level 0.9 0.4-2.0 mmol/L Calcium Level 9.5 8.7-10.4 mg/dL Magnesium Level 1.5 L 1.6-2.6 mg/dL Total Bilirubin 0.6 0.2-1.0 mg/dL Aspartate Amino Transferase (AST) 17 <34 U/L Alanine Aminotransferase (ALT) 11 7-40 U/L Alkaline Phosphatase 125 H 46-116 U/L B-Type Natriuretic Peptide 1738.92 0-100 pg/mL Total Protein 5.9 5.7-8.2 g/dL Albumin 3.7 3.2-4.8 g/dL Lipase 21 12-53 U/L Thyroid Stimulating Hormone (TSH) 1.57 0.55-4.78 uIU/mL Plasma/Serum Blood Alcohol < 3.0 <10 mg/dL Prothrombin Time 11.5 9.3-11.8 sec Prothrombin Time INR 1.09 0.9-1.15 Activated Partial Thromboplast Time 29.7 24.5-34.5 SEC Assessment Assessment: CKD stage IV Acute on chronic diastolic CHF Acute on chronic hypoxic respiratory failure hypervolemic hyponatremia Hyperkalemia DM HTN urgency JAG morbid obesity gout Plan: continue Bumex drip gfr stable there has been appropriate rate of correction of hyponatremia fluid restriction continue Lokelma TID continue Nifedipine ok to continue lisinopril given stable creatinine and resolved hyperkalemia strict I&Os Plan discussed with: Patient, Daughter HEATH DILLON MD Oct 02, 2024 18:03
[2024-10-03] VITALS (90 sets, daily range): BP systolic 117–173; BP diastolic 41–93; PULSE 65–90; RESP 12–32; TEMP 97.7–98.3; O2SAT 92–100
--- NOTE | 2024-10-03 05:09 | DVH ---
CHEST RADIOGRAPH Indication: CONGESTION Technique: Single frontal view of the chest was obtained COMPARISON: XY CHEST PORTABLE on DOS: 10/02/24, XY CHEST PORTABLE on DOS: 10/01/24, XY CHEST XRAY 1 VIE W on DOS: 09/30/24 FINDINGS: Lines and Tubes: None Lungs: Increased interstitial prominence Pleura: No effusion. No pneumothorax. Cardiomediastinal contours: Cardiomegaly Bones: Unremarkable IMPRESSION: Low lung volumes. Pulmonary vascular congestion. No significant interval change.
[2024-10-03 05:30] LABS: Hematocrit 25.5 % (36.0-46.0); Hemoglobin 8.7 g/dL (12.2-16.2); Mean Corpuscular Hemoglobin 32.5 pg (28.0-32.0); Mean Corpuscular Volume 95.7 fL (80.0-100.0); Nucleated Red Blood Cells % 0.0 %
[2024-10-03 05:39] LABS: Anion Gap 8 (5-15); Carbon Dioxide 27 mmol/L (20-31); Potassium 4.5 mmol/L (3.5-5.1)
[2024-10-03 05:40] LABS: Calcium 9.0 mg/dL (8.7-10.4)
[2024-10-03 05:41] LABS: Chloride 92 mmol/L (98-107); Sodium 127 mmol/L (136-145)
[2024-10-03 05:45] LABS: BUN/Creatinine Ratio 16.0 (10.0-20.0)
[2024-10-03 05:46] LABS: Blood Urea Nitrogen 34 mg/dL (9-23); Glucose 217 mg/dL (74-106)
[2024-10-03] MEDS: LISINOPRIL 5 MG TAB PO SCH (08:24)
[2024-10-03 11:58] LABS: Urine Protein, UAD 2+ (Negative)
[2024-10-03] MEDS: ACCU-CHEK COMFORT CURVE STRIP VI SCH (12:10)
[2024-10-03] MEDS: InsuLIN REG 1unit/0.01ml Soln (100units/ml) SC SCH ×2 (12:16→21:43)
--- NOTE | 2024-10-03 14:28 | DVHPNRES ---
Progress Note Date Seen: Oct 03, 2024 Resident Creating Document: MARCO SAHA RESIDENT Medical Necessity Reason Pt with a Central, PICC or Fol: Yes The following are medically ne: Triana Catheter Subjective Review of Systems 79-year-old female with past medical history of diabetes mellitus type 2, hypertension, CHF, gout, sleep apnea, CKD, arthritis, chronic respiratory failure on 3 L oxygen presented with complaints of leg cramps that started 1-1/2 days ago. Patient mentioned that she also started having shortness of breath 1- 1/2 days mild chest pain was not relieved with nitro. Patient also mentioned associated edema on ankles and wrists. Patient drank five bottles of water every day for for last few days and was not taking potassium pills and banana. Patient examined at bedside. She is currently mentioning of hip pain but not mentioning of any chest pain. Her son, patient has experienced 2 episodes of fall in the past year. She is denying any complaints of cough, abdominal pain, nausea, vomiting, headache, dizziness, seizures, visual symptoms Past medical history diabetes mellitus type 2, hypertension, CHF, gout, sleep apnea, CKD, arthritis, chronic respiratory failure on 3 L oxygen Past surgical history Recent surgery Family history Noncontributory Social history Denied smoking, marijuana, alcohol, any other drug intake Home medications: Amlodipine, nitroglycerin, clonidine, benazepril, nadolol, allopurinol, [place], Basaglar and NovoLog 10/01 - Patient seen and examined at the bedside. Bumex drip started along with dopamine fixed weight 2mcg per hour. 10/02-patient seen and examined, patient is A&O x1. Only oriented to name. Patient is hypertensive started nicardipine drip. Discontinued dopamine drip. Continue Bumex 0.5 mg/hour with hyperkalemia protocol given. Sodium is increasing, swallow eval pending. Kidney ultrasound pending. 10/03 - patient seen and examined. Nicardipine discontinued as blood pressure less than 150 mmHg. Increased nifedipine to 90 mg daily, urine output decreasing 1800/24 hours. Creatinine increasing to 2.1. Started ceftriaxone given cystitis. Triana changed. Objective vital signs Vital Sign Date Time Temp Pulse Resp B/P (MAP) Pulse Ox O2 Delivery O2 Flow Rate FiO2 10/03/24 14:02 24 95 Room Air* 0 21 10/03/24 14:00 87 162/62 (95) 10/03/24 12:00 97.7 97.7 Total Intake and Output 10/02/24 10/02/24 10/03/24 15:00 23:00 07:00 Intake Total 16 ml 686 ml 306 ml Output Total 1400 ml 400 ml Balance 16 ml -714 ml -94 ml medications Current Medications Medications Dose Ordered Sig/Nasrin Route Start Time Stop Time Status Last Admin Dose Admin Dextrose 50 ml UD PRN IV 10/01/24 02:00 Albuterol 2.5 mg Q4HPRN PRN NEB 10/01/24 02:00 10/02/24 07:53 2.5 MG Ipratropium [place] 0.5 mg Q4HPRN PRN NEB 10/01/24 02:00 10/02/24 07:53 0.5 MG Heparin Sodium (Porcine) 5,000 units Q12HR SC 10/01/24 10:00 10/03/24 10:08 5,000 UNITS Bumetanide 12.5 mg/Miscellaneous 50 ml @ 2 mls/hr Q24H IV 10/01/24 09:15 10/02/24 13:23 2 MLS/HR Dopamine HCl/ Dextrose 250 ml @ 8.745 mls/ hr Q24H IV 10/01/24 09:15 Hold 10/01/24 10:37 8.745 MLS/HR Morphine Sulfate 1 mg Q6HP PRN IV 10/01/24 16:45 UNV Pantoprazole Sodium 40 mg DAILY IV 10/02/24 10:00 10/03/24 10:07 40 MG Acetaminophen 650 mg Q6HP PRN PO 10/01/24 22:45 10/02/24 05:03 650 MG Acetaminophen/ Hydrocodone Bitart 1 tab Q6HP PRN PO 10/02/24 09:15 10/03/24 12:10 1 TAB Zirconium Oxide 10 gm TID PO 10/02/24 14:00 10/04/24 06:01 10/03/24 05:56 10 GM Nicardipine HCl 250 ml @ 50 mls/hr Q5H IV 10/02/24 12:15 Cancel Nicardipine/ Sodium Chloride 200 ml @ 50 mls/hr Q4H IV 10/02/24 13:15 Hold 10/02/24 22:38 25 MLS/HR Hydralazine HCl 10 mg Q6HP PRN IV 10/02/24 14:00 Lisinopril 10 mg DAILY PO 10/03/24 10:00 10/03/24 08:24 10 MG Diagnostic Test (Pha) 1 strip ACHS 10/03/24 11:30 10/03/24 12:10 1 STRIP Insulin Human Regular HS SC 10/03/24 22:00 Insulin Human Regular AC SC 10/03/24 11:30 10/03/24 12:16 9 UNITS Nifedipine 90 mg DAILY PO 10/04/24 10:00 Examination Obese female patient lying in the bed, moaning in pain, oriented to name only General: Morbidly obese, afebrile, palor, mucosae are moist Cardiovascular: Regular S1 and S2. No murmurs, gallops or rubs. No JVD elevation. Resolving Pitting edema bilaterally Respiratory: Bilateral decreased air entry required oxygen supplementation Abdomen: Soft, nontender, nondistended, normoactive bowel sounds, no rebound tenderness, no organomegaly, no masses Genitourinary: Deferred MSK/skin: Mobilizes 4 limbs. Skin is dry and warm Neurological: No motor, no sensitive deficits, normal speech. Pupils are isocoric and reactive. Psych/Mental Status: A/Ox1 laboratory and microbiology Laboratory Tests 10/03/24 04:59 Test 10/03/24 04:59 Range/Units Serum Glucose 217 H 74-106 mg/dL Microbiology Date/Time Source Procedure Growth Status 09/30/24 21:13 Blood Blood Culture - Preliminary NO GROWTH AFTER 48 HOURS OF INCUBATION. Resulted Labs and/or images reviewed: Labs reviewed by me, Image(s) reviewed by me Problem List/Assessment/Plan Problem List/Assessment/Plan ALOC secondary to Severe hyponatremia Hypervolemic hyponatremia Continue Bumex drip 0.[address] head completed, shows Evaluation is significantly degraded by motion and streak artifact. Within this limitation, there is no CT evidence for large intracranial hemorrhage or midline shift. Evaluation for intracranial pathology is significantly limited. A repeat examination is suggested. Acute on chronic congestive heart failure exacerbation-NYHA class 3 Acute hypoxic respiratory failure Hypertensive emergency Chest x-ray shows Diffuse interstitial opacities suggestive of pulmonary edema or atypical infection. Cardiomegaly. Bumex 0.5 mg per hour drip Hold off Dopamine 2 mcg continuous drip given hypertension Nebulized treatments Discontinued nicardipine drip 10/02 Echocardiogram pending Strict I&Os, fluid restriction Intractable pain P.o. [place] IV morphine 1 mg Q 6 for systolic blood pressure greater than 100 NISHANT superimposed on CKD FENA 0.7 ? Nephrotic range proteinuria ? Cardiorenal syndrome Hyperkalemia-medication overuse on CKD Anemia of chronic kidney disease Acute cystitis IV ceftriaxone starting 10/03 Continue Bumex, hold dopamine Hyperkalemia protocol given, Lokelma t.i.d. for 6 doses Kidney ultrasound Echogenic kidneys suggesting medical renal disease.. liquids exam Off nicardipine drip Creatinine clearance 47, started lisinopril 10 mg daily, continue nifedipine 30 mg daily Rule out Acute Gout Uric acid unremarkable, 4.4 Solu-Medrol once 40 mg IV on day 1 Diabetes mellitus type 2-A1c 6.8 Moderate sliding scale Likely diabetic retinopathy Monitor Obesity hypoventilation syndrome Obstructive sleep apnea History of asthma -nighttime BiPAP DVT prophylaxis heparin 5000 units SC Pantoprazole 40 mg IV daily PT eval Pureed diet Plan discussed with patient's son in which all questions have been answered Goals of care discussed for more than 20 minutes admitting doctor, full code status Case discussed with Dr. Wang Plan discussed with: Patient My Orders My Orders Orders - MARCO SAHA RESIDENT Procedure Category Date Status Time Consistent DIET 10/02/24 [facility]Diabetes Dinner Chest Portable XY 10/03/24 Resulted 04:00 Position Patient STAR 10/03/24 In Process 07:24 Pt Request For Service PT 10/03/24 Logged 07:24 Oob To Chair STAR 10/03/24 In Process 07:24 Glucose Blood PHA 10/03/24 In Process (Accu-Chek Comfort 11:30 Insulin R (Human) PHA 10/03/24 In Process (Insulin R) 22:00 Insulin R (Human) PHA 10/03/24 In Process (Insulin R) 11:30 Urine Bacterial YOVANA 10/03/24 Uncollected Culture 09:40 Nifedipine Er PHA 10/04/24 In Process (Procardia Xl 10:00 Dietary Evaluation Review Comments: 1) Advance to [facility] 60gm + renal specific 80gm protein as medically feasible 2) Refer CDE on DC Expected Outcomes/Goals: To meet >75% estimated needs Fu 2-3 days Date of Service: Oct 03, 2024 Billing Provider: ANTOLIN BRUSH MD Common Visit Codes: [id number] INP/OBS CARE(HIGH) MARCO SAHA RESIDENT Oct 03, 2024 14:28 ANTOLIN BRUSH MD Oct 08, 2024 22:01
[2024-10-03 15:20] LABS: Anion Gap 8 (5-15); Carbon Dioxide 27 mmol/L (20-31); Potassium 4.4 mmol/L (3.5-5.1)
[2024-10-03 15:21] LABS: Calcium 9.2 mg/dL (8.7-10.4); Chloride 93 mmol/L (98-107); Sodium 128 mmol/L (136-145)
[2024-10-03 15:26] LABS: BUN/Creatinine Ratio 17.5 (10.0-20.0)
[2024-10-03 15:27] LABS: Blood Urea Nitrogen 37 mg/dL (9-23); Glucose 273 mg/dL (74-106)
--- NOTE | 2024-10-03 16:22 | DVHPN2 ---
Progress Note - Dictate Date Seen: Oct 03, 2024 Medical Necessity Reason Pt with a Central, PICC or Fol: Yes The following are medically ne: Triana Catheter Subjective no new symptoms vital signs Vital Sign Date Time Temp Pulse Resp B/P (MAP) Pulse Ox O2 Delivery O2 Flow Rate FiO2 10/03/24 14:02 24 95 Room Air* 0 21 10/03/24 14:00 87 162/62 (95) 10/03/24 12:00 97.7 97.7 Total Intake and Output 10/02/24 10/02/24 10/03/24 15:00 23:00 07:00 Intake Total 16 ml 686 ml 306 ml Output Total 1400 ml 400 ml Balance 16 ml -714 ml -94 ml medications Current Medications Medications Dose Ordered Sig/Nasrin Route Start Time Stop Time Status Last Admin Dose Admin Dextrose 50 ml UD PRN IV 10/01/24 02:00 Albuterol 2.5 mg Q4HPRN PRN NEB 10/01/24 02:00 10/02/24 07:53 2.5 MG Ipratropium [place] 0.5 mg Q4HPRN PRN NEB 10/01/24 02:00 10/02/24 07:53 0.5 MG Heparin Sodium (Porcine) 5,000 units Q12HR SC 10/01/24 10:00 10/03/24 10:08 5,000 UNITS Bumetanide 12.5 mg/Miscellaneous 50 ml @ 2 mls/hr Q24H IV 10/01/24 09:15 10/02/24 13:23 2 MLS/HR Dopamine HCl/ Dextrose 250 ml @ 8.745 mls/ hr Q24H IV 10/01/24 09:15 Hold 10/01/24 10:37 8.745 MLS/HR Morphine Sulfate 1 mg Q6HP PRN IV 10/01/24 16:45 UNV Pantoprazole Sodium 40 mg DAILY IV 10/02/24 10:00 10/03/24 10:07 40 MG Acetaminophen 650 mg Q6HP PRN PO 10/01/24 22:45 10/02/24 05:03 650 MG Acetaminophen/ Hydrocodone Bitart 1 tab Q6HP PRN PO 10/02/24 09:15 10/03/24 12:10 1 TAB Zirconium Oxide 10 gm TID PO 10/02/24 14:00 10/04/24 06:01 10/03/24 05:56 10 GM Nicardipine HCl 250 ml @ 50 mls/hr Q5H IV 10/02/24 12:15 Cancel Nicardipine/ Sodium Chloride 200 ml @ 50 mls/hr Q4H IV 10/02/24 13:15 Hold 10/02/24 22:38 25 MLS/HR Hydralazine HCl 10 mg Q6HP PRN IV 10/02/24 14:00 Lisinopril 10 mg DAILY PO 10/03/24 10:00 10/03/24 08:24 10 MG Diagnostic Test (Pha) 1 strip ACHS 10/03/24 11:30 10/03/24 12:10 1 STRIP Insulin Human Regular HS SC 10/03/24 22:00 Insulin Human Regular AC SC 10/03/24 11:30 10/03/24 12:16 9 UNITS Nifedipine 90 mg DAILY PO 10/04/24 10:00 Ceftriaxone Sodium 50 ml @ 100 mls/hr DAILY@09 IV 10/04/24 09:00 objective Gen: NAD HEENT: NC,AT Lungs: Crackles lung bases Cardiac: RRR, no murmur Abd: soft, no tenderness Ext: no edema Neuro: no focal deficits laboratory and microbiology Laboratory Tests 10/03/24 14:57 10/03/24 04:59 Test 10/03/24 14:57 Range/Units Serum Glucose 273 H 74-106 mg/dL Assessment/Plan Assessment: CKD stage IV Acute on chronic diastolic CHF Acute on chronic hypoxic respiratory failure hypervolemic hyponatremia Hyperkalemia DM HTN urgency JAG morbid obesity gout Plan: curine output has dropped, ? overdiuresis DC Bumex drip Albumin 25 g IV x2 gfr slightly lower today fluid restriction continue Lokelma TID continue Nifedipine Hold Lisinopril strict I&Os Dietary Evaluation Review Comments: 1) [facility] + renal specific 80gm protein as medically feasible 2) Refer CDE on DC Expected Outcomes/Goals: To meet >75% estimated needs Fu 2-3 days Plan discussed with: Patient HEATH DILLON MD Oct 03, 2024 16:22
--- NOTE | 2024-10-03 17:38 | DVHSR ---
APPROVED REPORT EXAM: Two-dimensional and M-mode echocardiogram with Doppler and color Doppler. Blood Pressure: 157/98 mmHg INDICATION CHF RISK FACTORS Obesity: Height: 4'10, Weight: 257 DIMENSIONS LVDd4.8 (3.8-5.7cm)LA (2D) (1.9-4.0cm)Aortic Root3.2 (2.0-3.7cm) LVDs3.7 (2.5-4.0cm)LA (MM) (1.9-4.0cm)Aortic Cusp Exc0.6 (1.5-2.0cm) EF (%) 45.0 (55-70%)Rt. Atrium (1.9-4.0cm)Asc. Aorta cm IVSd0.9 (0.7-1.1cm)RV (D) (1.8-2.4cm) PWd1.2 (0.7-1.1cm) Mitral Valve MitralMitral Stenosis E wave0.72m/sMV Mean GR.mmHg A wave1.13m/sMV Peak GR.mmHg E/A ratio0.62D MVAcm2 DECEL [id number] 1/2 Timems Aortic Valve Aortic ValveAortic Stenosis V10.91m/Alysa Mean GR.13mmHg V22.61m/Alysa Peak GR.27mmHg LVOT Diameter2.0 (1.8-2.4cm)Doppler AVA1.09cm2 Pulmonic Valve V21.16m/s Other Information Quality : Technically LimitedRhythm : Technically limited study due to body habitus, patient lying toward right side, uncooperative to ins tructions and yelling throughout study. Conclusion Technically difficult study. Difficult acoustic windows. Left atrial enlargement. Concentric LVH. Moderate mitral annular calcification with immobility of the posterior mitral leaflet. Moderate aort ic sclerosis with immobility of the left coronary cusp. Left ventricular systolic performance is diminished. Global hypokinesis underlying. EF is approxima tely 30%. RV function is normal. There is a peak gradient across the aortic valve of25 mmHg. There was a mean gradient of12 mmHg. Gi baron diminished ejection fraction the valve area is calculated between 0.8 and one cm2 consistent with severe aortic stenosis. Clinical correlation recommended. Moderate TR. Trace AI. No intracardiac masses thrombi or vegetations discernible.
[2024-10-03] MEDS: ALBUMIN 25% 100 ML IV ONE (18:20)
[2024-10-03] MEDS: cefTRIAXone 1GM/50ML D5W 50 ML IV ONE (18:21)
[2024-10-04] VITALS (18 sets, daily range): BP systolic 129–167; BP diastolic 45–133; PULSE 64–87; RESP 16–27; TEMP 97.4–98.7; O2SAT 97–100
[2024-10-04 05:39] LABS: Hematocrit 25.8 % (36.0-46.0); Hemoglobin 8.5 g/dL (12.2-16.2); Mean Corpuscular Hemoglobin 31.8 pg (28.0-32.0); Mean Corpuscular Volume 96.3 fL (80.0-100.0); Nucleated Red Blood Cells % 0.1 %
[2024-10-04 06:01] LABS: Alkaline Phosphatase 103 U/L (46-116); Anion Gap 9 (5-15); Calcium 9.0 mg/dL (8.7-10.4); Carbon Dioxide 25 mmol/L (20-31)
[2024-10-04 06:02] LABS: Total Protein 6.1 g/dL (5.7-8.2)
[2024-10-04 06:03] LABS: Albumin 3.8 g/dL (3.2-4.8); BUN/Creatinine Ratio 13.8 (10.0-20.0); Blood Urea Nitrogen 31 mg/dL (9-23); Chloride 92 mmol/L (98-107); Glucose 158 mg/dL (74-106); Sodium 126 mmol/L (136-145)
[2024-10-04 06:04] LABS: Alanine Aminotransferase 10 U/L (7-40); Bilirubin, Total 0.3 mg/dL (0.2-1.0); Potassium 4.7 mmol/L (3.5-5.1)
--- NOTE | 2024-10-04 06:46 | DVHPN2 ---
Progress Note - Dictate Date Seen: Oct 04, 2024 Medical Necessity Reason Pt with a Central, PICC or Fol: Yes The following are medically ne: Triana Catheter Subjective no new symptoms vital signs Vital Sign Date Time Temp Pulse Resp B/P (MAP) Pulse Ox O2 Delivery O2 Flow Rate FiO2 10/04/24 06:00 73 22 155/56 (89) 99 10/04/24 06:00 Nasal Cannula* 2 28 10/04/24 04:00 97.8 97.8 Total Intake and Output 10/03/24 10/03/24 10/04/24 15:00 23:00 07:00 Intake Total 16 ml 602 ml 150 ml Output Total 425 ml 350 ml Balance 16 ml 177 ml -200 ml medications Current Medications Medications Dose Ordered Sig/Nasrin Route Start Time Stop Time Status Last Admin Dose Admin Dextrose 50 ml UD PRN IV 10/01/24 02:00 Albuterol 2.5 mg Q4HPRN PRN NEB 10/01/24 02:00 10/02/24 07:53 2.5 MG Ipratropium [place] 0.5 mg Q4HPRN PRN NEB 10/01/24 02:00 10/02/24 07:53 0.5 MG Heparin Sodium (Porcine) 5,000 units Q12HR SC 10/01/24 10:00 10/03/24 21:44 5,000 UNITS Dopamine HCl/ Dextrose 250 ml @ 8.745 mls/ hr Q24H IV 10/01/24 09:15 Hold 10/01/24 10:37 8.745 MLS/HR Morphine Sulfate 1 mg Q6HP PRN IV 10/01/24 16:45 UNV Pantoprazole Sodium 40 mg DAILY IV 10/02/24 10:00 10/03/24 10:07 40 MG Acetaminophen 650 mg Q6HP PRN PO 10/01/24 22:45 10/03/24 21:41 650 MG Acetaminophen/ Hydrocodone Bitart 1 tab Q6HP PRN PO 10/02/24 09:15 10/03/24 18:21 1 TAB Nicardipine HCl 250 ml @ 50 mls/hr Q5H IV 10/02/24 12:15 Cancel Hydralazine HCl 10 mg Q6HP PRN IV 10/02/24 14:00 Diagnostic Test (Pha) 1 strip ACHS 10/03/24 11:30 10/03/24 21:42 1 STRIP Insulin Human Regular HS SC 10/03/24 22:00 10/03/24 21:43 4 UNITS Insulin Human Regular AC SC 10/03/24 11:30 10/03/24 18:22 9 UNITS Nifedipine 90 mg DAILY PO 10/04/24 10:00 Ceftriaxone Sodium 50 ml @ 100 mls/hr DAILY@09 IV 10/04/24 09:00 objective Gen: NAD HEENT: NC,AT Lungs: Crackles lung bases Cardiac: RRR, no murmur Abd: soft, no tenderness Ext: no edema Neuro: no focal deficits laboratory and microbiology Laboratory Tests 10/04/24 05:03 Test 10/04/24 05:03 Range/Units Serum Glucose 158 H 74-106 mg/dL Assessment/Plan Assessment: NISHANT CKD stage IV Acute on chronic diastolic CHF Acute on chronic hypoxic respiratory failure , on nasal cannula hypervolemic hyponatremia Hyperkalemia, resolved DM HTN urgency JAG morbid obesity gout Plan: start Bumex 1 mg IV TID. Discontinued bumex drip yesterday, was likely overdiuresed. NS 300 cc total before resuming intermittent Bumex Albumin 25 g IV fluid restriction continue Lokelma TID continue Nifedipine Hold Lisinopril strict I&Os Dietary Evaluation Review Comments: 1) [facility] + renal specific 80gm protein as medically feasible 2) Refer CDE on DC Expected Outcomes/Goals: To meet >75% estimated needs Fu 2-3 days Plan discussed with: Patient HEATH DILLON MD Oct 04, 2024 06:46
[2024-10-04] MEDS: SODIUM CHLORIDE 0.9% 1,000 ML IV SCH (07:22)
[2024-10-04] MEDS: ALBUMIN 25% 100 ML IV ONE (08:23)
[2024-10-04] MEDS: cefTRIAXone 1GM/50ML D5W 50 ML IV SCH (09:24)
[2024-10-04] MEDS ORDERED: dilTIAZem 25 MG/5 ML VIAL IV ONE (10:15)
[2024-10-04] MEDS: DOCUSATE SOD 100 MG CAP PO ONE (11:25)
[2024-10-04] MEDS: LACTULOSE 20Gm/30ML SOLN PO ONE (11:25)
--- NOTE | 2024-10-04 12:12 | DVH ---
CLINICAL INDICATION: pain and hx of fall TECHNIQUE: 2 radiographic views of the right shoulder were obtained. Comparison: None FINDINGS/IMPRESSION: There is no evidence of acute fracture or dislocation. The visualized joint space is well maintained. The alignment is anatomical. There is no radiopaque foreign body.
[2024-10-04] MEDS: BUMETANIDE 1mg/4ml VIAL (0.25mg/ml) IV SCH (14:12)
[2024-10-04] MEDS: CARVEDILOL 3.125 MG TAB PO ONE (14:44)
[2024-10-04] MEDS: ONDANSETRON HCL 4 MG/2 ML VIAL IV PRN (14:44)
--- NOTE | 2024-10-04 16:48 | DVHPNRES ---
Progress Note Date Seen: Oct 04, 2024 Resident Creating Document: MARCO SAHA RESIDENT Medical Necessity Reason Pt with a Central, PICC or Fol: Yes The following are medically ne: Triana Catheter Subjective Review of Systems 79-year-old female with past medical history of diabetes mellitus type 2, hypertension, CHF, gout, sleep apnea, CKD, arthritis, chronic respiratory failure on 3 L oxygen presented with complaints of leg cramps that started 1-1/2 days ago. Patient mentioned that she also started having shortness of breath 1- 1/2 days mild chest pain was not relieved with nitro. Patient also mentioned associated edema on ankles and wrists. Patient drank five bottles of water every day for for last few days and was not taking potassium pills and banana. Patient examined at bedside. She is currently mentioning of hip pain but not mentioning of any chest pain. Her son, patient has experienced 2 episodes of fall in the past year. She is denying any complaints of cough, abdominal pain, nausea, vomiting, headache, dizziness, seizures, visual symptoms Past medical history diabetes mellitus type 2, hypertension, CHF, gout, sleep apnea, CKD, arthritis, chronic respiratory failure on 3 L oxygen Past surgical history Recent surgery Family history Noncontributory Social history Denied smoking, marijuana, alcohol, any other drug intake Home medications: Amlodipine, nitroglycerin, clonidine, benazepril, nadolol, allopurinol, Boykins, Basaglar and NovoLog 10/01 - Patient seen and examined at the bedside. Bumex drip started along with dopamine fixed weight 2mcg per hour. 10/02-patient seen and examined, patient is A&O x1. Only oriented to name. Patient is hypertensive started nicardipine drip. Discontinued dopamine drip. Continue Bumex 0.5 mg/hour with hyperkalemia protocol given. Sodium is increasing, swallow eval pending. Kidney ultrasound pending. 10/03 - patient seen and examined. Nicardipine discontinued as blood pressure less than 150 mmHg. Increased nifedipine to 90 mg daily, urine output decreasing 1800/24 hours. Creatinine increasing to 2.1. Started ceftriaxone given cystitis. Triana changed. 10/04 - patient seen and examined. Discontinue nicardipine and Bumex drip, started Bumex 1 mg IV TID. Urine output 700 cc per 24 hours. Creatinine up trending, discontinued lisinopril. Started Coreg b.i.d.. Objective vital signs Vital Sign Date Time Temp Pulse Resp B/P (MAP) Pulse Ox O2 Delivery O2 Flow Rate FiO2 10/04/24 16:37 97.4 85 16 142/65 (90) 97 97.4 10/04/24 12:00 Nasal Cannula* 2 28 Total Intake and Output 10/03/24 10/03/24 10/04/24 15:00 23:00 07:00 Intake Total 16 ml 602 ml 150 ml Output Total 425 ml 350 ml Balance 16 ml 177 ml -200 ml medications Current Medications Medications Dose Ordered Sig/Nasrin Route Start Time Stop Time Status Last Admin Dose Admin Dextrose 50 ml UD PRN IV 10/01/24 02:00 Albuterol 2.5 mg Q4HPRN PRN NEB 10/01/24 02:00 10/02/24 07:53 2.5 MG Ipratropium [place] 0.5 mg Q4HPRN PRN NEB 10/01/24 02:00 10/02/24 07:53 0.5 MG Heparin Sodium (Porcine) 5,000 units Q12HR SC 10/01/24 10:00 10/04/24 09:29 5,000 UNITS Dopamine HCl/ Dextrose 250 ml @ 8.745 mls/ hr Q24H IV 10/01/24 09:15 Hold 10/01/24 10:37 8.745 MLS/HR Morphine Sulfate 1 mg Q6HP PRN IV 10/01/24 16:45 UNV Pantoprazole Sodium 40 mg DAILY IV 10/02/24 10:00 10/04/24 09:25 40 MG Acetaminophen 650 mg Q6HP PRN PO 10/01/24 22:45 10/04/24 14:14 650 MG Acetaminophen/ Hydrocodone Bitart 1 tab Q6HP PRN PO 10/02/24 09:15 10/04/24 09:30 1 TAB Nicardipine HCl 250 ml @ 50 mls/hr Q5H IV 10/02/24 12:15 Cancel Hydralazine HCl 10 mg Q6HP PRN IV 10/02/24 14:00 Diagnostic Test (Pha) 1 strip ACHS 10/03/24 11:30 10/04/24 11:46 1 STRIP Insulin Human Regular HS SC 10/03/24 22:00 10/03/24 21:43 4 UNITS Insulin Human Regular AC SC 10/03/24 11:30 10/04/24 11:47 3 UNITS Nifedipine 90 mg DAILY PO 10/04/24 10:00 10/04/24 11:23 90 MG Ceftriaxone Sodium 50 ml @ 100 mls/hr DAILY@09 IV 10/04/24 09:00 10/04/24 09:24 100 MLS/HR Bumetanide 1 mg TID IV 10/04/24 14:00 10/04/24 14:12 1 MG Docusate Sodium 100 mg BID PO 10/04/24 22:00 Lactulose 30 ml DAILY PO 10/05/24 10:00 Ondansetron HCl 4 mg Q4HPRN PRN IV 10/04/24 14:30 10/04/24 14:44 4 MG Carvedilol 6.25 mg DAILY PO 10/05/24 10:00 UNV Examination Obese female patient lying in the bed, moaning in pain, oriented to name only General: Morbidly obese, afebrile, palor, mucosae are moist Cardiovascular: Regular S1 and S2. No murmurs, gallops or rubs. No JVD elevation. Resolving Pitting edema bilaterally Respiratory: Bilateral decreased air entry required oxygen supplementation Abdomen: Soft, nontender, nondistended, normoactive bowel sounds, no rebound tenderness, no organomegaly, no masses Genitourinary: Deferred MSK/skin: Mobilizes 4 limbs. Skin is dry and warm Neurological: No motor, no sensitive deficits, normal speech. Pupils are isocoric and reactive. Psych/Mental Status: A/Ox1 laboratory and microbiology Laboratory Tests 10/04/24 05:03 Test 10/04/24 05:03 Range/Units Serum Glucose 158 H 74-106 mg/dL Microbiology Date/Time Source Procedure Growth Status 10/03/24 11:15 Urine - Triana [place] Urine Culture - Preliminary Resulted 09/30/24 21:13 Blood Blood Culture - Preliminary NO GROWTH AFTER 72 HOURS OF INCUBATION. Resulted Labs and/or images reviewed: Labs reviewed by me, Image(s) reviewed by me Problem List/Assessment/Plan Problem List/Assessment/Plan ALOC secondary to Severe hyponatremia Hypervolemic hyponatremia Discontinued Bumex drip 0.[address] head completed, shows Evaluation is significantly degraded by motion and streak artifact. Within this limitation, there is no CT evidence for large intracranial hemorrhage or midline shift. Evaluation for intracranial pathology is significantly limited. A repeat examination is suggested. Acute on chronic congestive heart failure exacerbation-NYHA class 3 Acute hypoxic respiratory failure Hypertensive emergency Chest x-ray shows Diffuse interstitial opacities suggestive of pulmonary edema or atypical infection. Cardiomegaly. IV Bumex 1 mg TID Discontinued 0.5 mg per hour drip Hold off Dopamine 2 mcg continuous drip given hypertension Nebulized treatments Discontinued nicardipine drip 10/02 Echocardiogram pending Strict I&Os, fluid restriction Nicardipine 90 mg daily, Coreg 6.25 b.i.d. Intractable pain P.o. Boykins IV morphine 1 mg Q 6 for systolic blood pressure greater than 100 NISHANT superimposed on CKD FENA 0.7 ? Nephrotic range proteinuria ? Cardiorenal syndrome Hyperkalemia-medication overuse on CKD Anemia of chronic kidney disease Acute cystitis IV ceftriaxone starting 10/03 Discontinued Bumex drip, dopamine drip 1 mg Bumex TID Hyperkalemia protocol given, Lokelma t.i.d. for 6 doses Kidney ultrasound Echogenic kidneys suggesting medical renal disease.. liquids exam Off nicardipine drip Creatinine clearance 47, discontinued lisinopril 10 mg daily, continue nifedipine 30 mg daily, started 0.25 b.i.d. Rule out Acute Gout Uric acid unremarkable, 4.4 Solu-Medrol once 40 mg IV on day 1 Diabetes mellitus type 2-A1c 6.8 Moderate sliding scale Likely diabetic retinopathy Monitor Obesity hypoventilation syndrome Obstructive sleep apnea History of asthma -nighttime BiPAP DVT prophylaxis heparin 5000 units SC Pantoprazole 40 mg IV daily PT eval Pureed diet Plan discussed with patient's son in which all questions have been answered Goals of care discussed for more than 20 minutes discussed with the patient and son, full code status Case discussed with Dr. Wang Plan discussed with: Patient, Son My Orders My Orders Orders - MARCO SAHA RESIDENT Procedure Category Date Status Time Transfer Orders XFER 10/03/24 Transmitted 16:51 Docusate Sodium PHA 10/04/24 In Process Capsule (Colace 22:00 Lactulose Oral PHA 10/05/24 In Process 10:00 R Shoulder 2+ View XY 10/04/24 Resulted Xray 10:29 Oob To Chair SATR 10/04/24 In Process 10:29 Dietary Evaluation Review Comments: 1) [facility] + renal specific 80gm protein as medically feasible 2) Refer CDE on DC Expected Outcomes/Goals: To meet >75% estimated needs Fu 2-3 days Date of Service: Oct 04, 2024 Billing Provider: ANTOLIN BRUSH MD Common Visit Codes: [id number] INP/OBS CARE(HIGH) MARCO SAHA RESIDENT Oct 04, 2024 16:48 ANTOLIN BRUSH MD Oct 08, 2024 22:13
[2024-10-04] MEDS: DOCUSATE SOD 100 MG CAP PO SCH (22:12)
[2024-10-05] VITALS (15 sets, daily range): BP systolic 121–145; BP diastolic 44–71; PULSE 58–81; RESP 18–20; TEMP 97.5–98.3; O2SAT 95–100
[2024-10-05 06:44] LABS: Hematocrit 26.5 % (36.0-46.0); Hemoglobin 8.9 g/dL (12.2-16.2); Mean Corpuscular Hemoglobin 32.7 pg (28.0-32.0); Mean Corpuscular Volume 97.7 fL (80.0-100.0); Nucleated Red Blood Cells % 0.2 %
[2024-10-05 06:52] LABS: Potassium 4.7 mmol/L (3.5-5.1)
[2024-10-05 06:53] LABS: Anion Gap 6 (5-15); Calcium 9.7 mg/dL (8.7-10.4); Carbon Dioxide 30 mmol/L (20-31)
[2024-10-05 06:58] LABS: BUN/Creatinine Ratio 15.0 (10.0-20.0)
[2024-10-05 06:59] LABS: Blood Urea Nitrogen 36 mg/dL (9-23); Chloride 95 mmol/L (98-107); Glucose 142 mg/dL (74-106); Sodium 131 mmol/L (136-145)
[2024-10-05] MEDS: LACTULOSE 20Gm/30ML SOLN PO SCH (08:57)
[2024-10-05] MEDS: CARVEDILOL 3.125 MG TAB PO SCH (09:02)
[2024-10-05] MEDS: SODIUM CHLORIDE 0.9% 1,000 ML IV SCH (12:15)
--- NOTE | 2024-10-05 13:59 | DVHPN2 ---
Progress Note - Dictate Date Seen: Oct 05, 2024 Medical Necessity Reason Pt with a Central, PICC or Fol: Yes The following are medically ne: Triana Catheter Subjective no new symptoms vital signs Vital Sign Date Time Temp Pulse Resp B/P (MAP) Pulse Ox O2 Delivery O2 Flow Rate FiO2 10/05/24 13:00 97.5 80 20 145/71 (95) 97 97.5 10/04/24 20:00 Nasal Cannula* 2 28 Total Intake and Output 10/04/24 10/04/24 10/05/24 15:00 23:00 07:00 Intake Total 350 ml 250 ml 400 ml Output Total 1350 ml 1100 ml Balance 350 ml -1100 ml -700 ml medications Current Medications Medications Dose Ordered Sig/Nasrin Route Start Time Stop Time Status Last Admin Dose Admin Dextrose 50 ml UD PRN IV 10/01/24 02:00 Albuterol 2.5 mg Q4HPRN PRN NEB 10/01/24 02:00 10/05/24 10:41 2.5 MG Ipratropium [place] 0.5 mg Q4HPRN PRN NEB 10/01/24 02:00 10/05/24 10:41 0.5 MG Heparin Sodium (Porcine) 5,000 units Q12HR SC 10/01/24 10:00 10/05/24 09:04 5,000 UNITS Dopamine HCl/ Dextrose 250 ml @ 8.745 mls/ hr Q24H IV 10/01/24 09:15 Hold 10/01/24 10:37 8.745 MLS/HR Morphine Sulfate 1 mg Q6HP PRN IV 10/01/24 16:45 UNV Pantoprazole Sodium 40 mg DAILY IV 10/02/24 10:00 10/05/24 08:56 40 MG Acetaminophen 650 mg Q6HP PRN PO 10/01/24 22:45 10/04/24 14:14 650 MG Acetaminophen/ Hydrocodone Bitart 1 tab Q6HP PRN PO 10/02/24 09:15 10/05/24 08:57 1 TAB Nicardipine HCl 250 ml @ 50 mls/hr Q5H IV 10/02/24 12:15 Cancel Hydralazine HCl 10 mg Q6HP PRN IV 10/02/24 14:00 Diagnostic Test (Pha) 1 strip ACHS 10/03/24 11:30 10/05/24 12:03 1 STRIP Insulin Human Regular HS SC 10/03/24 22:00 10/04/24 22:32 6 UNITS Insulin Human Regular AC SC 10/03/24 11:30 10/05/24 12:03 2 UNITS Nifedipine 90 mg DAILY PO 10/04/24 10:00 10/05/24 09:03 90 MG Ceftriaxone Sodium 50 ml @ 100 mls/hr DAILY@09 IV 10/04/24 09:00 10/05/24 08:55 100 MLS/HR Bumetanide 1 mg TID IV 10/04/24 14:00 Hold 10/05/24 05:33 1 MG Docusate Sodium 100 mg BID PO 10/04/24 22:00 10/05/24 09:02 100 MG Lactulose 30 ml DAILY PO 10/05/24 10:00 10/05/24 08:57 30 ML Ondansetron HCl 4 mg Q4HPRN PRN IV 10/04/24 14:30 10/04/24 14:44 4 MG Carvedilol 6.25 mg DAILY PO 10/05/24 10:00 10/05/24 09:02 6.25 MG Sodium Chloride 1,000 ml @ 100 mls/hr Q10H IV 10/05/24 12:15 objective Gen: NAD HEENT: NC,AT Lungs: Crackles lung bases Cardiac: RRR, no murmur Abd: soft, no tenderness Ext: no edema Neuro: no focal deficits laboratory and microbiology Laboratory Tests 10/05/24 06:11 Test 10/05/24 06:11 Range/Units Serum Glucose 142 H 74-106 mg/dL Assessment/Plan Assessment: NISHANT CKD stage IV Acute on chronic diastolic CHF Acute on chronic hypoxic respiratory failure , on nasal cannula hypervolemic hyponatremia Hyperkalemia, resolved DM HTN urgency JAG morbid obesity gout Plan: UO has improved again. 2.4 L in last 24 hours diuretics have been discontinued she received gentle hydration yesterday Albumin 25 g IV fluid restriction continue Lokelma TID continue Coreg, and Nifedipine Hold Lisinopril strict I&Os Dietary Evaluation Review Comments: 1) Advance to [facility] 60gm + renal specific 80gm protein as medically feasible 2) Refer CDE on DC Expected Outcomes/Goals: To meet >75% estimated needs Fu 2-3 days Plan discussed with: Patient, Daughter HEATH DILLON MD Oct 05, 2024 13:59
--- NOTE | 2024-10-05 16:37 | DVHPNRES ---
Progress Note Date Seen: Oct 05, 2024 Resident Creating Document: MARCO SAHA RESIDENT Medical Necessity Reason Pt with a Central, PICC or Fol: Yes The following are medically ne: Triana Catheter Subjective Review of Systems 79-year-old female with past medical history of diabetes mellitus type 2, hypertension, CHF, gout, sleep apnea, CKD, arthritis, chronic respiratory failure on 3 L oxygen presented with complaints of leg cramps that started 1-1/2 days ago. Patient mentioned that she also started having shortness of breath 1- 1/2 days mild chest pain was not relieved with nitro. Patient also mentioned associated edema on ankles and wrists. Patient drank five bottles of water every day for for last few days and was not taking potassium pills and banana. Patient examined at bedside. She is currently mentioning of hip pain but not mentioning of any chest pain. Her son, patient has experienced 2 episodes of fall in the past year. She is denying any complaints of cough, abdominal pain, nausea, vomiting, headache, dizziness, seizures, visual symptoms Past medical history diabetes mellitus type 2, hypertension, CHF, gout, sleep apnea, CKD, arthritis, chronic respiratory failure on 3 L oxygen Past surgical history Recent surgery Family history Noncontributory Social history Denied smoking, marijuana, alcohol, any other drug intake Home medications: Amlodipine, nitroglycerin, clonidine, benazepril, nadolol, allopurinol, [place], Basaglar and NovoLog 10/01 - Patient seen and examined at the bedside. Bumex drip started along with dopamine fixed weight 2mcg per hour. 10/02-patient seen and examined, patient is A&O x1. Only oriented to name. Patient is hypertensive started nicardipine drip. Discontinued dopamine drip. Continue Bumex 0.5 mg/hour with hyperkalemia protocol given. Sodium is increasing, swallow eval pending. Kidney ultrasound pending. 10/03 - patient seen and examined. Nicardipine discontinued as blood pressure less than 150 mmHg. Increased nifedipine to 90 mg daily, urine output decreasing 1800/24 hours. Creatinine increasing to 2.1. Started ceftriaxone given cystitis. Triana changed. 10/04 - patient seen and examined. Discontinue nicardipine and Bumex drip, started Bumex 1 mg IV TID. Urine output 700 cc per 24 hours. Creatinine up trending, discontinued lisinopril. Started Coreg b.i.d.. 10/05-patient seen and examined. Discontinued Bumex given elevated creatinine. Follow up with BMP. Urine output more than 2000 cc per 24 hours. Objective vital signs Vital Sign Date Time Temp Pulse Resp B/P (MAP) Pulse Ox O2 Delivery O2 Flow Rate FiO2 10/05/24 16:32 97.8 78 20 121/59 (79) 95 97.8 10/05/24 10:00 Nasal Cannula* 1 24 Total Intake and Output 10/04/24 10/04/24 10/05/24 15:00 23:00 07:00 Intake Total 350 ml 250 ml 400 ml Output Total 1350 ml 1100 ml Balance 350 ml -1100 ml -700 ml medications Current Medications Medications Dose Ordered Sig/Nasrin Route Start Time Stop Time Status Last Admin Dose Admin Dextrose 50 ml UD PRN IV 10/01/24 02:00 Albuterol 2.5 mg Q4HPRN PRN NEB 10/01/24 02:00 10/05/24 10:41 2.5 MG Ipratropium [place] 0.5 mg Q4HPRN PRN NEB 10/01/24 02:00 10/05/24 10:41 0.5 MG Heparin Sodium (Porcine) 5,000 units Q12HR SC 10/01/24 10:00 10/05/24 09:04 5,000 UNITS Dopamine HCl/ Dextrose 250 ml @ 8.745 mls/ hr Q24H IV 10/01/24 09:15 Hold 10/01/24 10:37 8.745 MLS/HR Morphine Sulfate 1 mg Q6HP PRN IV 10/01/24 16:45 UNV Pantoprazole Sodium 40 mg DAILY IV 10/02/24 10:00 10/05/24 08:56 40 MG Acetaminophen 650 mg Q6HP PRN PO 10/01/24 22:45 10/04/24 14:14 650 MG Acetaminophen/ Hydrocodone Bitart 1 tab Q6HP PRN PO 10/02/24 09:15 10/05/24 08:57 1 TAB Nicardipine HCl 250 ml @ 50 mls/hr Q5H IV 10/02/24 12:15 Cancel Hydralazine HCl 10 mg Q6HP PRN IV 10/02/24 14:00 Diagnostic Test (Pha) 1 strip ACHS 10/03/24 11:30 10/05/24 12:03 1 STRIP Insulin Human Regular HS SC 10/03/24 22:00 10/04/24 22:32 6 UNITS Insulin Human Regular AC SC 10/03/24 11:30 10/05/24 12:03 2 UNITS Nifedipine 90 mg DAILY PO 10/04/24 10:00 10/05/24 09:03 90 MG Ceftriaxone Sodium 50 ml @ 100 mls/hr DAILY@09 IV 10/04/24 09:00 10/05/24 08:55 100 MLS/HR Bumetanide 1 mg TID IV 10/04/24 14:00 Hold 10/05/24 05:33 1 MG Docusate Sodium 100 mg BID PO 10/04/24 22:00 10/05/24 09:02 100 MG Lactulose 30 ml DAILY PO 10/05/24 10:00 10/05/24 08:57 30 ML Ondansetron HCl 4 mg Q4HPRN PRN IV 10/04/24 14:30 10/04/24 14:44 4 MG Carvedilol 6.25 mg DAILY PO 10/05/24 10:00 10/05/24 09:02 6.25 MG Sodium Chloride 1,000 ml @ 100 mls/hr Q10H IV 10/05/24 12:15 10/05/24 12:15 100 MLS/HR Examination Obese female patient lying in the bed, moaning in pain, oriented to name only General: Morbidly obese, afebrile, palor, mucosae are moist Cardiovascular: Regular S1 and S2. No murmurs, gallops or rubs. No JVD elevation. Resolving Pitting edema bilaterally Respiratory: Bilateral decreased air entry required oxygen supplementation Abdomen: Soft, nontender, nondistended, normoactive bowel sounds, no rebound tenderness, no organomegaly, no masses Genitourinary: Deferred MSK/skin: Mobilizes 4 limbs. Skin is dry and warm Neurological: No motor, no sensitive deficits, normal speech. Pupils are isocoric and reactive. Psych/Mental Status: A/Ox2, patient is becoming more oriented laboratory and microbiology Laboratory Tests 10/05/24 06:11 Test 10/05/24 06:11 Range/Units Serum Glucose 142 H 74-106 mg/dL Microbiology Date/Time Source Procedure Growth Status 10/03/24 11:15 Urine - Triana Port Urine Culture - Final Klebsiella pneumoniae Complete 09/30/24 21:13 Blood Blood Culture - Preliminary NO GROWTH AFTER 72 HOURS OF INCUBATION. Resulted Labs and/or images reviewed: Labs reviewed by me, Image(s) reviewed by me Problem List/Assessment/Plan Problem List/Assessment/Plan ALOC secondary to Severe hyponatremia Hypervolemic hyponatremia Discontinued Bumex drip 0.[address] head completed, shows Evaluation is significantly degraded by motion and streak artifact. Within this limitation, there is no CT evidence for large intracranial hemorrhage or midline shift. Evaluation for intracranial pathology is significantly limited. A repeat examination is suggested. Acute on chronic congestive heart failure exacerbation-NYHA class 3 Acute hypoxic respiratory failure Hypertensive emergency Chest x-ray shows Diffuse interstitial opacities suggestive of pulmonary edema or atypical infection. Cardiomegaly. Discontinued IV Bumex 1 mg TID Discontinued 0.5 mg per hour drip Hold off Dopamine 2 mcg continuous drip given hypertension Nebulized treatments Discontinued nicardipine drip 10/02 Echocardiogram pending Strict I&Os, fluid restriction Nicardipine 90 mg daily, Coreg 6.25 b.i.d. Intractable pain P.o. [place] IV morphine 1 mg Q 6 for systolic blood pressure greater than 100 NISHANT superimposed on CKD FENA 0.7 ? Nephrotic range proteinuria ? Cardiorenal syndrome Hyperkalemia-medication overuse on CKD Anemia of chronic kidney disease Acute cystitis IV ceftriaxone starting 10/03 Discontinued Bumex drip, dopamine drip Discontinued 1 mg Bumex TID on 10/05 Hyperkalemia protocol given, Lokelma t.i.d. for 6 doses Kidney ultrasound Echogenic kidneys suggesting medical renal disease.. Off nicardipine drip Creatinine clearance 47, discontinued lisinopril 10 mg daily, continue nifedipine 30 mg daily, started 0.25 b.i.d. Rule out Acute Gout Uric acid unremarkable, 4.4 Solu-Medrol once 40 mg IV on day 1 Diabetes mellitus type 2-A1c 6.8 Moderate sliding scale Likely diabetic retinopathy Monitor Obesity hypoventilation syndrome Obstructive sleep apnea History of asthma -nighttime BiPAP DVT prophylaxis heparin 5000 units SC Pantoprazole 40 mg IV daily PT eval Pureed diet DC planning in a.m. Plan discussed with patient's son in which all questions have been answered Goals of care discussed for more than 20 minutes discussed with the patient and son, full code status Case discussed with Dr. Wang Plan discussed with: Patient My Orders My Orders Orders - MARCO SAHA Procedure Category Date Status Time Sodium Chloride 0.9% PHA 10/05/24 In Process 12:15 Communication Order ORDERS 10/05/24 Transmitted 12:10 Basic Metabolic Panel LAB 10/05/24 Logged 16:22 Dietary Evaluation Review Comments: 1) [facility] + renal specific 80gm protein as medically feasible 2) Refer CDE on DC Expected Outcomes/Goals: To meet >75% estimated needs Fu 2-3 days Date of Service: Oct 05, 2024 Billing Provider: ANTOLIN BRUSH MD Common Visit Codes: [id number] INP/OBS CARE(HIGH) MARCO SAHA Oct 05, 2024 16:37 ANTOLIN BRUSH MD Oct 08, 2024 22:23
[2024-10-05 17:30] LABS: Potassium 4.5 mmol/L (3.5-5.1)
[2024-10-05 17:31] LABS: Anion Gap 6 (5-15); Calcium 8.9 mg/dL (8.7-10.4); Carbon Dioxide 30 mmol/L (20-31)
[2024-10-05 17:36] LABS: BUN/Creatinine Ratio 16.1 (10.0-20.0)
[2024-10-05 17:38] LABS: Blood Urea Nitrogen 41 mg/dL (9-23); Chloride 95 mmol/L (98-107); Glucose 280 mg/dL (74-106); Sodium 131 mmol/L (136-145)
[2024-10-05] MEDS: SPIRONOLACTONE 25 MG TAB PO ONE (18:08)
[2024-10-06] VITALS (13 sets, daily range): BP systolic 128–149; BP diastolic 50–73; PULSE 70–80; RESP 16–20; TEMP 97.5–98.6; O2SAT 96–100
[2024-10-06] MEDS ORDERED: MORPHINE SULFATE INJ 2 MG/ml SYRG IV PRN (00:45)
--- NOTE | 2024-10-06 00:49 | ECG ---
[facility] Test Date: 2024-10-06 Test Time: 00:31:22 Pat Name: CLINT CHAVEZ Department: Room: 0205T A Gender: F Hot End Operator: CORTEZ : 1945 Requested By: FRANCISCO MCPHERSON Order Number: [id number] Reading MD: Doron Wells Measurements Intervals [place] Rate: 80 P: -17 [place]: 153 QRS: -1 QRSD: 114 T: 176 QT: 377 QTc: 435 Interpretive Statements Sinus rhythm Incomplete left bundle branch block Consider anterior infarct Electronically Signed On 10-06-2024 20:22:20 PDT by Doron Wells Please click the below link to view image of tracing.
[2024-10-06] MEDS: NITROGLYCERIN 0.4 MG SL TAB SL PRN (00:56)
[2024-10-06] MEDS: SPIRONOLACTONE 25 MG TAB PO SCH (09:19)
[2024-10-06] MEDS: FUROSEMIDE 40 MG/4 ML VIAL IV SCH (10:05)
--- NOTE | 2024-10-06 14:41 | DVHPNRES ---
Progress Note Date Seen: Oct 06, 2024 Resident Creating Document: MARCO SAHA RESIDENT Medical Necessity Reason Pt with a Central, PICC or Fol: Yes The following are medically ne: Triana Catheter Subjective Review of Systems An 79-year-old female with past medical history of diabetes mellitus type 2, hypertension, CHF, gout, sleep apnea, CKD, arthritis, chronic respiratory failure on 3 L oxygen presented with complaints of leg cramps that started 1-1/2 days ago. Patient mentioned that she also started having shortness of breath 1- 1/2 days mild chest pain was not relieved with nitro. Patient also mentioned associated edema on ankles and wrists. Patient drank five bottles of water every day for for last few days and was not taking potassium pills and banana. Patient examined at bedside. She is currently mentioning of hip pain but not mentioning of any chest pain. Her son, patient has experienced 2 episodes of fall in the past year. She is denying any complaints of cough, abdominal pain, nausea, vomiting, headache, dizziness, seizures, visual symptoms Past medical history diabetes mellitus type 2, hypertension, CHF, gout, sleep apnea, CKD, arthritis, chronic respiratory failure on 3 L oxygen Past surgical history Recent surgery Family history Noncontributory Social history Denied smoking, marijuana, alcohol, any other drug intake Home medications: Amlodipine, nitroglycerin, clonidine, benazepril, nadolol, allopurinol, [place], Basaglar and NovoLog 10/01 - Patient seen and examined at the bedside. Bumex drip started along with dopamine fixed weight 2mcg per hour. 10/02-patient seen and examined, patient is A&O x1. Only oriented to name. Patient is hypertensive started nicardipine drip. Discontinued dopamine drip. Continue Bumex 0.5 mg/hour with hyperkalemia protocol given. Sodium is increasing, swallow eval pending. Kidney ultrasound pending. 10/03 - patient seen and examined. Nicardipine discontinued as blood pressure less than 150 mmHg. Increased nifedipine to 90 mg daily, urine output decreasing 1800/24 hours. Creatinine increasing to 2.1. Started ceftriaxone given cystitis. Triana changed. 10/04 - patient seen and examined. Discontinue nicardipine and Bumex drip, started Bumex 1 mg IV TID. Urine output 700 cc per 24 hours. Creatinine up trending, discontinued lisinopril. Started Coreg b.i.d.. 10/05-patient seen and examined. Discontinued Bumex given elevated creatinine. Follow up with BMP. Urine output more than 2000 cc per 24 hours. 10/06-patient seen and examined, Lasix 40 mg IV given. Overnight, chest pain reported, EKG and troponin unremarkable. Physical therapy evaluation pending, DC planning to home versus half-way Objective vital signs Vital Sign Date Time Temp Pulse Resp B/P (MAP) Pulse Ox O2 Delivery O2 Flow Rate FiO2 10/06/24 13:00 97.9 80 20 149/69 (95) 100 97.9 10/06/24 10:00 Nasal Cannula* 2 28 Total Intake and Output 10/05/24 10/05/24 10/06/24 15:00 23:00 07:00 Intake Total 300 ml 400 ml Output Total 300 ml 1500 ml Balance 0 ml -1100 ml medications Current Medications Medications Dose Ordered Sig/Nasrin Route Start Time Stop Time Status Last Admin Dose Admin Dextrose 50 ml UD PRN IV 10/01/24 02:00 Albuterol 2.5 mg Q4HPRN PRN NEB 10/01/24 02:00 10/05/24 20:01 2.5 MG Ipratropium [place] 0.5 mg Q4HPRN PRN NEB 10/01/24 02:00 10/05/24 20:01 0.5 MG Heparin Sodium (Porcine) 5,000 units Q12HR SC 10/01/24 10:00 10/06/24 09:17 5,000 UNITS Dopamine HCl/ Dextrose 250 ml @ 8.745 mls/ hr Q24H IV 10/01/24 09:15 Hold 10/01/24 10:37 8.745 MLS/HR Morphine Sulfate 1 mg Q6HP PRN IV 10/01/24 16:45 UNV Pantoprazole Sodium 40 mg DAILY IV 10/02/24 10:00 10/06/24 09:53 40 MG Acetaminophen 650 mg Q6HP PRN PO 10/01/24 22:45 10/04/24 14:14 650 MG Acetaminophen/ Hydrocodone Bitart 1 tab Q6HP PRN PO 10/02/24 09:15 10/06/24 02:15 1 TAB Nicardipine HCl 250 ml @ 50 mls/hr Q5H IV 10/02/24 12:15 Cancel Hydralazine HCl 10 mg Q6HP PRN IV 10/02/24 14:00 Diagnostic Test (Pha) 1 strip ACHS 10/03/24 11:30 10/06/24 11:32 1 STRIP Insulin Human Regular HS SC 10/03/24 22:00 10/05/24 21:32 6 UNITS Insulin Human Regular AC SC 10/03/24 11:30 10/06/24 11:47 3 UNITS Nifedipine 90 mg DAILY PO 10/04/24 10:00 10/06/24 09:21 90 MG Ceftriaxone Sodium 50 ml @ 100 mls/hr DAILY@09 IV 10/04/24 09:00 10/06/24 09:00 100 MLS/HR Bumetanide 1 mg TID IV 10/04/24 14:00 Hold 10/05/24 05:33 1 MG Docusate Sodium 100 mg BID PO 10/04/24 22:00 10/06/24 09:53 100 MG Lactulose 30 ml DAILY PO 10/05/24 10:00 10/06/24 09:53 30 ML Ondansetron HCl 4 mg Q4HPRN PRN IV 10/04/24 14:30 10/04/24 14:44 4 MG Carvedilol 6.25 mg DAILY PO 10/05/24 10:00 10/06/24 09:19 6.25 MG Sodium Chloride 1,000 ml @ 100 mls/hr Q10H IV 10/05/24 12:15 10/05/24 22:42 100 MLS/HR Spironolactone 25 mg DAILY PO 10/06/24 10:00 10/06/24 09:19 25 MG Furosemide 40 mg DAILY IV 10/06/24 10:00 10/06/24 10:05 40 MG Nitroglycerin 0.4 mg Q5MINP PRN SL 10/06/24 00:45 10/06/24 00:56 0.4 MG Morphine Sulfate 1 mg Q30M PRN IV 10/06/24 00:45 Examination Obese female patient lying in the bed, moaning in pain, oriented to name only General: Morbidly obese, afebrile, palor, mucosae are moist Cardiovascular: Regular S1 and S2. No murmurs, gallops or rubs. No JVD elevation. Resolving Pitting edema bilaterally Respiratory: Bilateral decreased air entry requiring oxygen therapy Abdomen: Soft, nontender, nondistended, normoactive bowel sounds, no rebound tenderness, no organomegaly, no masses Genitourinary: Deferred MSK/skin: Mobilizes 4 limbs. Skin is dry and warm Neurological: No motor, no sensitive deficits, normal speech. Pupils are isocoric and reactive. Psych/Mental Status: A/Ox2, patient is becoming more oriented laboratory and microbiology Laboratory Tests 10/05/24 17:14 10/05/24 06:11 Test 10/05/24 17:14 Range/Units Serum Glucose 280 H 74-106 mg/dL Microbiology Date/Time Source Procedure Growth Status 10/03/24 11:15 Urine - Triana Port Urine Culture - Final Klebsiella pneumoniae Complete 09/30/24 21:13 Blood Blood Culture - Final NO GROWTH AFTER 5 DAYS OF INCUBATION. Complete Labs and/or images reviewed: Labs reviewed by me, Image(s) reviewed by me Problem List/Assessment/Plan Problem List/Assessment/Plan Acute metabolic/toxic encephalopathy secondary to Severe hyponatremia Hypervolemic hyponatremia Discontinued Bumex drip 0.[address] head completed, shows Evaluation is significantly degraded by motion and streak artifact. Within this limitation, there is no CT evidence for large intracranial hemorrhage or midline shift. Evaluation for intracranial pathology is significantly limited. A repeat examination is suggested. Acute on chronic congestive heart failure exacerbation-NYHA class 3 Acute hypoxic respiratory failure due to above Hypertensive emergency Chest x-ray shows Diffuse interstitial opacities suggestive of pulmonary edema or atypical infection. Cardiomegaly. Discontinued IV Bumex 1 mg TID Discontinued 0.5 mg per hour drip Hold off Dopamine 2 mcg continuous drip given hypertension Nebulized treatments Discontinued nicardipine drip 10/02 Echocardiogram reviewed Strict I&Os, fluid restriction Continue oxygen therapy as needed Nicardipine 90 mg daily, Coreg 6.25 b.i.d. Intractable pain P.o. [place] IV morphine 1 mg Q 6 for systolic blood pressure greater than 100 NISHANT superimposed on CKD FENA 0.7 ? Nephrotic range proteinuria ? Cardiorenal syndrome Hyperkalemia-medication overuse on CKD Anemia of chronic kidney disease Acute cystitis IV ceftriaxone starting 10/03 Discontinued Bumex drip, dopamine drip Discontinued 1 mg Bumex TID on 10/05, 1 dose of Lasix 10/06 Hyperkalemia protocol given, [place] t.i.d. for 6 doses Kidney ultrasound Echogenic kidneys suggesting medical renal disease.. Off nicardipine drip Creatinine clearance 47, discontinued lisinopril 10 mg daily, continue nifedipine 30 mg daily, started 0.25 b.i.d. Rule out Acute Gout Uric acid unremarkable, 4.4 Solu-Medrol once 40 mg IV on day 1 Diabetes mellitus type 2-A1c 6.8 Moderate sliding scale Likely diabetic retinopathy Monitor Obesity hypoventilation syndrome Obstructive sleep apnea History of asthma -nighttime BiPAP DVT prophylaxis heparin 5000 units SC Pantoprazole 40 mg IV daily PT on board for physical deconditioning Pureed diet Plan: Diet advanced to soft diet, patient tolerating well. Physical therapy evaluation pending, DC planning to home versus half-way. Plan discussed with patient's son in which all questions have been answered Goals of care discussed for 20 minutes discussed with the patient's son, full code status Case discussed with Dr. Butler Plan discussed with: Son, Other (RN) My Orders My Orders Orders - MARCO SAHA RESIDENT Procedure Category Date Status Time Spironolactone PHA 10/06/24 In Process (Aldactone) 10:00 Furosemide Injection PHA 10/06/24 In Process (Lasix Injection) 10:00 Pt Request For Service PT 10/05/24 Logged 19:00 Soft Diet DIET 10/06/24 Transmitted Breakfast * Wound Consult CONS 10/06/24 Transmitted Dietary Evaluation Review Comments: 1) [facility] + renal specific 80gm protein as medically feasible 2) Refer CDE on DC Expected Outcomes/Goals: To meet >75% estimated needs Fu 2-3 days Addendum Addendum Addendum I was physically present for the eng portions of the service provided to patient by THE RESIDENT. I have reviewed the documentation, discussed the case with resident and agree with the resident's documentation except as noted. Also the patient's clinical case was discussed with the patient's nurse. This medical document was created using an electronic medical record system with computerized dictation system. Although this document has been carefully reviewed, there might still be some phonetic and typographical errors. These areas are purely typographical due to imperfections of the software programs, and do not reflect any compromise in the patient's medical care. Late signature. Date of Service: Oct 06, 2024 Billing Provider: MARLENY BUTLER MD Common Visit Codes: [id number] INP/OBS CARE(HIGH) Secondary Visit Codes: [id number] CARE PLAN 30 MINUTES (20 minutes) MARCO SAHA RESIDENT Oct 06, 2024 14:41 MARLENY BUTLER MD Oct 08, 2024 05:18
--- NOTE | 2024-10-06 14:55 | DVHPN2 ---
Progress Note - Dictate Date Seen: Oct 06, 2024 Medical Necessity Reason Pt with a Central, PICC or Fol: Yes The following are medically ne: Triana Catheter Subjective no new symptoms vital signs Vital Sign Date Time Temp Pulse Resp B/P (MAP) Pulse Ox O2 Delivery O2 Flow Rate FiO2 10/06/24 13:00 97.9 80 20 149/69 (95) 100 97.9 10/06/24 10:00 Nasal Cannula* 2 28 Total Intake and Output 10/05/24 10/05/24 10/06/24 14:59 22:59 06:59 Intake Total 300 ml 400 ml Output Total 300 ml 1500 ml Balance 0 ml -1100 ml medications Current Medications Medications Dose Ordered Sig/Nasrin Route Start Time Stop Time Status Last Admin Dose Admin Dextrose 50 ml UD PRN IV 10/01/24 02:00 Albuterol 2.5 mg Q4HPRN PRN NEB 10/01/24 02:00 10/05/24 20:01 2.5 MG Ipratropium [place] 0.5 mg Q4HPRN PRN NEB 10/01/24 02:00 10/05/24 20:01 0.5 MG Heparin Sodium (Porcine) 5,000 units Q12HR SC 10/01/24 10:00 10/06/24 09:17 5,000 UNITS Dopamine HCl/ Dextrose 250 ml @ 8.745 mls/ hr Q24H IV 10/01/24 09:15 Hold 10/01/24 10:37 8.745 MLS/HR Morphine Sulfate 1 mg Q6HP PRN IV 10/01/24 16:45 UNV Pantoprazole Sodium 40 mg DAILY IV 10/02/24 10:00 10/06/24 09:53 40 MG Acetaminophen 650 mg Q6HP PRN PO 10/01/24 22:45 10/04/24 14:14 650 MG Acetaminophen/ Hydrocodone Bitart 1 tab Q6HP PRN PO 10/02/24 09:15 10/06/24 02:15 1 TAB Nicardipine HCl 250 ml @ 50 mls/hr Q5H IV 10/02/24 12:15 Cancel Hydralazine HCl 10 mg Q6HP PRN IV 10/02/24 14:00 Diagnostic Test (Pha) 1 strip ACHS 10/03/24 11:30 10/06/24 11:32 1 STRIP Insulin Human Regular HS SC 10/03/24 22:00 10/05/24 21:32 6 UNITS Insulin Human Regular AC SC 10/03/24 11:30 10/06/24 11:47 3 UNITS Nifedipine 90 mg DAILY PO 10/04/24 10:00 10/06/24 09:21 90 MG Ceftriaxone Sodium 50 ml @ 100 mls/hr DAILY@09 IV 10/04/24 09:00 10/06/24 09:00 100 MLS/HR Bumetanide 1 mg TID IV 10/04/24 14:00 Hold 10/05/24 05:33 1 MG Docusate Sodium 100 mg BID PO 10/04/24 22:00 10/06/24 09:53 100 MG Lactulose 30 ml DAILY PO 10/05/24 10:00 10/06/24 09:53 30 ML Ondansetron HCl 4 mg Q4HPRN PRN IV 10/04/24 14:30 10/04/24 14:44 4 MG Carvedilol 6.25 mg DAILY PO 10/05/24 10:00 10/06/24 09:19 6.25 MG Sodium Chloride 1,000 ml @ 100 mls/hr Q10H IV 10/05/24 12:15 10/05/24 22:42 100 MLS/HR Spironolactone 25 mg DAILY PO 10/06/24 10:00 10/06/24 09:19 25 MG Furosemide 40 mg DAILY IV 10/06/24 10:00 10/06/24 10:05 40 MG Nitroglycerin 0.4 mg Q5MINP PRN SL 10/06/24 00:45 10/06/24 00:56 0.4 MG Morphine Sulfate 1 mg Q30M PRN IV 10/06/24 00:45 objective Gen: NAD HEENT: NC,AT Lungs: Crackles lung bases Cardiac: RRR, no murmur Abd: soft, no tenderness Ext: no edema Neuro: no focal deficits laboratory and microbiology Laboratory Tests 10/05/24 17:14 10/05/24 06:11 Test 10/05/24 17:14 Range/Units Serum Glucose 280 H 74-106 mg/dL Assessment/Plan Assessment: NISHANT, initially cardiorenal syndrome, with recurrent NISHANT from over-diuresis CKD stage IV Acute on chronic diastolic CHF Acute on chronic hypoxic respiratory failure , on nasal cannula hypervolemic hyponatremia Hyperkalemia, resolved DM HTN urgency JAG morbid obesity gout Plan: UO adequate, 1.8 L in last 24 hours Lasix 40 mg IV daily, and aldactone 25 mg PO daily have been started fluid restriction continue Coreg, and Nifedipine Hold Lisinopril strict I&Os Dietary Evaluation Review Comments: 1) Advance to [facility] 60gm + renal specific 80gm protein as medically feasible 2) Refer CDE on DC Expected Outcomes/Goals: To meet >75% estimated needs Fu 2-3 days Plan discussed with: Patient, Other HEATH DILLON MD Oct 06, 2024 14:55
[2024-10-07] VITALS (12 sets, daily range): BP systolic 114–161; BP diastolic 61–79; PULSE 76–81; RESP 16–19; TEMP 97.3–98.1; O2SAT 95–100
[2024-10-07 07:41] LABS: Hematocrit 25.7 % (36.0-46.0); Hemoglobin 8.5 g/dL (12.2-16.2); Mean Corpuscular Hemoglobin 32.8 pg (28.0-32.0); Mean Corpuscular Volume 98.9 fL (80.0-100.0); Nucleated Red Blood Cells % 0.2 %
[2024-10-07 07:45] LABS: Potassium 5.0 mmol/L (3.5-5.1)
[2024-10-07 07:46] LABS: Anion Gap 7 (5-15); Calcium 10.0 mg/dL (8.7-10.4); Carbon Dioxide 29 mmol/L (20-31)
[2024-10-07 07:51] LABS: BUN/Creatinine Ratio 18.8 (10.0-20.0)
[2024-10-07 08:04] LABS: Blood Urea Nitrogen 54 mg/dL (9-23); Chloride 96 mmol/L (98-107); Glucose 234 mg/dL (74-106); Sodium 132 mmol/L (136-145)
--- NOTE | 2024-10-07 12:33 | MEDREC ---
[facility] Intervention Section I [facility] Intervention: Deescalate AB based on CS, IV to PO conversion (PLEASE CONSIDER DE-ESCALATION BASED ON CULTURE RESULTS AND IV TO PO CONVERSION ) VAHE ALLEN PHARMACIST Oct 07, 2024 12:33
--- NOTE | 2024-10-07 13:44 | DVHPN2 ---
Progress Note - Dictate Date Seen: Oct 07, 2024 Medical Necessity Reason Pt with a Central, PICC or Fol: Yes The following are medically ne: Triana Catheter Subjective no new symptoms vital signs Vital Sign Date Time Temp Pulse Resp B/P (MAP) Pulse Ox O2 Delivery O2 Flow Rate FiO2 10/07/24 10:00 95 Nasal Cannula* 2 28 10/07/24 09:40 76 145/100 10/07/24 08:00 19 10/07/24 05:00 97.9 97.9 Total Intake and Output 10/06/24 10/06/24 10/07/24 15:00 23:00 07:00 Intake Total 50 ml 414 ml 300 ml Output Total 350 ml 300 ml Balance 50 ml 64 ml 0 ml medications Current Medications Medications Dose Ordered Sig/Nasrin Route Start Time Stop Time Status Last Admin Dose Admin Dextrose 50 ml UD PRN IV 10/01/24 02:00 Albuterol 2.5 mg Q4HPRN PRN NEB 10/01/24 02:00 10/05/24 20:01 2.5 MG Ipratropium [place] 0.5 mg Q4HPRN PRN NEB 10/01/24 02:00 10/05/24 20:01 0.5 MG Heparin Sodium (Porcine) 5,000 units Q12HR SC 10/01/24 10:00 10/07/24 09:43 5,000 UNITS Dopamine HCl/ Dextrose 250 ml @ 8.745 mls/ hr Q24H IV 10/01/24 09:15 Hold 10/01/24 10:37 8.745 MLS/HR Morphine Sulfate 1 mg Q6HP PRN IV 10/01/24 16:45 UNV Pantoprazole Sodium 40 mg DAILY IV 10/02/24 10:00 10/07/24 09:40 40 MG Acetaminophen 650 mg Q6HP PRN PO 10/01/24 22:45 10/04/24 14:14 650 MG Acetaminophen/ Hydrocodone Bitart 1 tab Q6HP PRN PO 10/02/24 09:15 10/07/24 11:37 1 TAB Nicardipine HCl 250 ml @ 50 mls/hr Q5H IV 10/02/24 12:15 Cancel Hydralazine HCl 10 mg Q6HP PRN IV 10/02/24 14:00 Diagnostic Test (Pha) 1 strip ACHS 10/03/24 11:30 10/07/24 11:38 1 STRIP Insulin Human Regular HS SC 10/03/24 22:00 10/06/24 21:02 6 UNITS Insulin Human Regular AC SC 10/03/24 11:30 10/07/24 11:41 9 UNITS Nifedipine 90 mg DAILY PO 10/04/24 10:00 10/07/24 09:39 90 MG Ceftriaxone Sodium 50 ml @ 100 mls/hr DAILY@09 IV 10/04/24 09:00 10/07/24 09:40 100 MLS/HR Bumetanide 1 mg TID IV 10/04/24 14:00 Hold 10/05/24 05:33 1 MG Docusate Sodium 100 mg BID PO 10/04/24 22:00 10/07/24 09:40 100 MG Lactulose 30 ml DAILY PO 10/05/24 10:00 10/07/24 09:40 30 ML Ondansetron HCl 4 mg Q4HPRN PRN IV 10/04/24 14:30 10/04/24 14:44 4 MG Carvedilol 6.25 mg DAILY PO 10/05/24 10:00 10/07/24 09:40 6.25 MG Sodium Chloride 1,000 ml @ 100 mls/hr Q10H IV 10/05/24 12:15 10/05/24 22:42 100 MLS/HR Spironolactone 25 mg DAILY PO 10/06/24 10:00 10/07/24 09:40 25 MG Furosemide 40 mg DAILY IV 10/06/24 10:00 10/07/24 09:39 40 MG Nitroglycerin 0.4 mg Q5MINP PRN SL 10/06/24 00:45 10/06/24 00:56 0.4 MG Morphine Sulfate 1 mg Q30M PRN IV 10/06/24 00:45 objective Gen: NAD HEENT: NC,AT Lungs: Crackles lung bases Cardiac: RRR, no murmur Abd: soft, no tenderness Ext: no edema Neuro: no focal deficits laboratory and microbiology Laboratory Tests 10/07/24 07:06 Test 10/07/24 07:06 Range/Units Serum Glucose 234 H 74-106 mg/dL Assessment/Plan Assessment: NISHANT, initially cardiorenal syndrome, with recurrent NISHANT from over-diuresis CKD stage IV Acute on chronic diastolic CHF Acute on chronic hypoxic respiratory failure , on nasal cannula hypervolemic hyponatremia Hyperkalemia, resolved DM HTN urgency JAG morbid obesity gout Plan: UO has dropped again DC Aldactone Albumin 25 g IV x3 continue Lasix 40 mg IV daily fluid restriction continue Coreg, and Nifedipine Hold Lisinopril strict I&Os Dietary Evaluation Review Comments: 1) Advance to [facility] 60gm + renal specific 80gm protein as medically feasible 2) Refer CDE on DC Expected Outcomes/Goals: To meet >75% estimated needs Fu 2-3 days Plan discussed with: Patient, Other HEATH DILLON MD Oct 07, 2024 13:44
--- NOTE | 2024-10-07 14:45 | DVHPNRES ---
Progress Note Date Seen: Oct 07, 2024 Resident Creating Document: TEETEE JAVIER RESIDENT Medical Necessity Reason Pt with a Central, PICC or Fol: Yes The following are medically ne: Triana Catheter Subjective Review of Systems Patient seen and examined at the bedside; still disoriented; still in pain with no new complaints Objective vital signs Vital Sign Date Time Temp Pulse Resp B/P (MAP) Pulse Ox O2 Delivery O2 Flow Rate FiO2 10/07/24 10:40 81 150/63 10/07/24 10:00 95 Nasal Cannula* 2 10/07/24 08:00 19 10/07/24 05:00 97.9 97.9 Total Intake and Output 10/06/24 10/06/24 10/07/24 15:00 23:00 07:00 Intake Total 50 ml 414 ml 300 ml Output Total 350 ml 300 ml Balance 50 ml 64 ml 0 ml medications Current Medications Medications Dose Ordered Sig/Nasrin Route Start Time Stop Time Status Last Admin Dose Admin Dextrose 50 ml UD PRN IV 10/01/24 02:00 Albuterol 2.5 mg Q4HPRN PRN NEB 10/01/24 02:00 10/05/24 20:01 2.5 MG Ipratropium [place] 0.5 mg Q4HPRN PRN NEB 10/01/24 02:00 10/05/24 20:01 0.5 MG Heparin Sodium (Porcine) 5,000 units Q12HR SC 10/01/24 10:00 10/07/24 09:43 5,000 UNITS Dopamine HCl/ Dextrose 250 ml @ 8.745 mls/ hr Q24H IV 10/01/24 09:15 Hold 10/01/24 10:37 8.745 MLS/HR Morphine Sulfate 1 mg Q6HP PRN IV 10/01/24 16:45 UNV Pantoprazole Sodium 40 mg DAILY IV 10/02/24 10:00 10/07/24 09:40 40 MG Acetaminophen 650 mg Q6HP PRN PO 10/01/24 22:45 10/04/24 14:14 650 MG Acetaminophen/ Hydrocodone Bitart 1 tab Q6HP PRN PO 10/02/24 09:15 10/07/24 11:37 1 TAB Nicardipine HCl 250 ml @ 50 mls/hr Q5H IV 10/02/24 12:15 Cancel Hydralazine HCl 10 mg Q6HP PRN IV 10/02/24 14:00 Diagnostic Test (Pha) 1 strip ACHS 10/03/24 11:30 10/07/24 11:38 1 STRIP Insulin Human Regular HS SC 10/03/24 22:00 10/06/24 21:02 6 UNITS Insulin Human Regular AC SC 10/03/24 11:30 10/07/24 11:41 9 UNITS Nifedipine 90 mg DAILY PO 10/04/24 10:00 10/07/24 09:39 90 MG Ceftriaxone Sodium 50 ml @ 100 mls/hr DAILY@09 IV 10/04/24 09:00 10/07/24 09:40 100 MLS/HR Bumetanide 1 mg TID IV 10/04/24 14:00 Hold 10/05/24 05:33 1 MG Docusate Sodium 100 mg BID PO 10/04/24 22:00 10/07/24 09:40 100 MG Lactulose 30 ml DAILY PO 10/05/24 10:00 10/07/24 09:40 30 ML Ondansetron HCl 4 mg Q4HPRN PRN IV 10/04/24 14:30 10/04/24 14:44 4 MG Carvedilol 6.25 mg DAILY PO 10/05/24 10:00 10/07/24 09:40 6.25 MG Sodium Chloride 1,000 ml @ 100 mls/hr Q10H IV 10/05/24 12:15 10/05/24 22:42 100 MLS/HR Furosemide 40 mg DAILY IV 10/06/24 10:00 10/07/24 09:39 40 MG Nitroglycerin 0.4 mg Q5MINP PRN SL 10/06/24 00:45 10/06/24 00:56 0.4 MG Morphine Sulfate 1 mg Q30M PRN IV 10/06/24 00:45 Albumin Human 100 ml @ 100 mls/hr Q8H IV 10/07/24 13:45 10/08/24 06:44 Examination General: Morbidly obese, afebrile, palor, mucosae are moist Cardiovascular: Regular S1 and S2. No murmurs, gallops or rubs. No JVD elevation. Traced Pitting edema bilaterally Respiratory: Bilateral decreased air entry required oxygen therapy Abdomen: Soft, nontender, nondistended, normoactive bowel sounds, no rebound tenderness, no organomegaly, no masses Genitourinary: Deferred MSK/skin: Mobilizes 4 limbs. Skin is dry and warm Neurological: No motor, no sensitive deficits, normal speech. Pupils are isocoric and reactive. Psych/Mental Status: A/Ox2, patient is becoming more oriented laboratory and microbiology Laboratory Tests 10/07/24 07:06 Test 10/07/24 07:06 Range/Units Serum Glucose 234 H 74-106 mg/dL Microbiology Date/Time Source Procedure Growth Status 10/03/24 11:15 Urine - [facility] [place] Urine Culture - Final Klebsiella pneumoniae Complete 09/30/24 21:13 Blood Blood Culture - Final NO GROWTH AFTER 5 DAYS OF INCUBATION. Complete Labs and/or images reviewed: Labs reviewed by me, Image(s) reviewed by me Problem List/Assessment/Plan Problem List/Assessment/Plan Acute metabolic/toxic encephalopathy secondary to Severe hyponatremia Hypervolemic hyponatremia; resolved Discontinued Bumex drip 0.[address] head completed, shows Evaluation is significantly degraded by motion and streak artifact. Within this limitation, there is no CT evidence for large intracranial hemorrhage or midline shift. Evaluation for intracranial pathology is significantly limited. A repeat examination is suggested. Acute on chronic congestive heart failure exacerbation-NYHA class 3 Acute hypoxic respiratory failure Hypertensive emergency; was on nicardipine drip Chest x-ray shows Diffuse interstitial opacities suggestive of pulmonary edema or atypical infection. Cardiomegaly. Discontinued IV Bumex 1 mg TID; Before Discontinued 0.5 mg per hour drip Hold off Dopamine 2 mcg continuous drip given hypertension Nebulized treatments Discontinued nicardipine drip 10/02 Echocardiogram pending Strict I&Os, fluid restriction Continue oxygen Nicardipine 90 mg daily, Coreg 6.25 b.i.d. Intractable pain P.o. [place] IV morphine 1 mg Q 6 for systolic blood pressure greater than 100 NISHANT superimposed on CKD FENA 0.7 ? Nephrotic range proteinuria ? Cardiorenal syndrome Hyperkalemia-medication overuse on CKD Anemia of chronic kidney disease Acute cystitis IV ceftriaxone starting 10/03 Discontinued Bumex drip, dopamine drip Discontinued 1 mg Bumex TID on 10/05, 1 dose of Lasix 10/06 Hyperkalemia protocol given, Lokelma t.i.d. for 6 doses Kidney ultrasound Echogenic kidneys suggesting medical renal disease.. Off nicardipine drip Creatinine clearance 47, discontinued lisinopril 10 mg daily, continue nifedipine 30 mg daily, started 0.25 b.i.d. Rule out Acute Gout Uric acid unremarkable, 4.4 Solu-Medrol once 40 mg IV on day 1 Diabetes mellitus type 2-A1c 6.8 Moderate sliding scale Likely diabetic retinopathy Monitor Obesity hypoventilation syndrome Obstructive sleep apnea History of asthma -nighttime BiPAP DVT prophylaxis heparin 5000 units SC Pantoprazole 40 mg IV daily PT on board for physical deconditioning Pureed diet Plan discussed with patient's son in which all questions have been answered Case discussed with Dr. Mahmood Plan discussed with: Son, Other (RN) Dietary Evaluation Review Comments: 1) [facility] + renal specific 80gm protein as medically feasible 2) Refer CDE on DC Expected Outcomes/Goals: To meet >75% estimated needs Fu 2-3 days Addendum Addendum Addendum I was physically present for the eng portions of the service provided to patient by THE RESIDENT. I have reviewed the documentation, discussed the case with resident and agree with the resident's documentation except as noted. Also the patient's clinical case was discussed with the patient's nurse. This medical document was created using an electronic medical record system with computerized dictation system. Although this document has been carefully reviewed, there might still be some phonetic and typographical errors. These areas are purely typographical due to imperfections of the software programs, and do not reflect any compromise in the patient's medical care. Late signature. Date of Service: Oct 07, 2024 Billing Provider: MARLENY BUTLER MD Common Visit Codes: [id number] INP/OBS CARE(HIGH) TEETEE JAVIER RESIDENT Oct 07, 2024 14:45 MARLENY BUTLER MD Oct 08, 2024 05:22
[2024-10-07] MEDS: ALBUMIN 25% 100 ML IV SCH (15:52)
[2024-10-08] VITALS (11 sets, daily range): BP systolic 128–146; BP diastolic 61–69; PULSE 72–92; RESP 19–20; TEMP 98.1–99.4; O2SAT 97–100
[2024-10-08] MEDS: ALBUMIN 25% 100 ML IV SCH (00:13)
[2024-10-08 06:05] LABS: Hematocrit 24.0 % (36.0-46.0); Hemoglobin 7.8 g/dL (12.2-16.2); Mean Corpuscular Hemoglobin 32.2 pg (28.0-32.0); Mean Corpuscular Volume 98.5 fL (80.0-100.0); Nucleated Red Blood Cells % 0.1 %
[2024-10-08 06:13] LABS: Chloride 99 mmol/L (98-107); Potassium 4.9 mmol/L (3.5-5.1); Sodium 136 mmol/L (136-145)
[2024-10-08 06:14] LABS: Anion Gap 6 (5-15); Calcium 9.4 mg/dL (8.7-10.4); Carbon Dioxide 31 mmol/L (20-31)
[2024-10-08 06:19] LABS: BUN/Creatinine Ratio 20.2 (10.0-20.0)
[2024-10-08 06:31] LABS: Blood Urea Nitrogen 56 mg/dL (9-23); Glucose 163 mg/dL (74-106)
[2024-10-08] MEDS ORDERED: NIFE90TA75 PO (13:13)
[2024-10-08] MEDS ORDERED: CARV6.2551 PO (13:13)
--- NOTE | 2024-10-08 13:35 | DVHDSRES ---
Discharge Summary Date of Admission Resident Creating Document: CYRUS WALLACE RESIDENT Oct 01, 2024 at 01:23 Date of Discharge: Oct 08, 2024 Admitting Diagnosis Acute hypoxic respiratory failure Wounds: No wounds present at this time. Labs/Diagnostic Data: Laboratory Results Test 10/08/24 05:08 10/07/24 21:00 10/06/24 02:16 10/05/24 06:11 White Blood Count 6.8 10^3/uL (4.4-10.8) Red Blood Count 2.44 10^6/uL (4.0-5.20) Hemoglobin 7.8 g/dL (12.2-16.2) Hematocrit 24.0 % (36.0-46.0) Mean Corpuscular Volume 98.5 fL (80.0-100.0) Mean Corpuscular Hemoglobin 32.2 pg (28.0-32.0) Mean Corpuscular Hemoglobin Concent 32.7 g/dL (32.0-36.0) Red Cell Distribution Width 14.5 % (11.8-14.3) Platelet Count 284 10^3/uL (140-450) Mean Platelet Volume 7.3 fL (6.9-10.8) Neutrophils (%) (Auto) 65.3 % (37.0-80.0) Lymphocytes (%) (Auto) 19.4 % (10.0-50.0) Monocytes (%) (Auto) 10.0 % (0.0-12.0) Eosinophils (%) (Auto) 4.9 % (0.0-7.0) Basophils (%) (Auto) 0.4 % (0.0-2.0) Neutrophils # (Auto) 4.4 10 ^3/uL (1.6-8.6) Lymphocytes # (Auto) 1.3 10 ^3/uL (0.4-5.4) Monocytes # (Auto) 0.7 10 ^3/uL (0-1.3) Eosinophils # (Auto) 0.3 10 ^3/uL (0-0.8) Basophils # (Auto) 0 10 ^3/uL (0-0.2) Nucleated Red Blood Cells 0.1 % Sodium Level 136 mmol/L (136-145) Potassium Level 4.9 mmol/L (3.5-5.1) Chloride Level 99 mmol/L (98-107) Carbon Dioxide Level 31 mmol/L (20-31) Anion Gap 6 (5-15) Blood Urea Nitrogen 56 mg/dL (9-23) Creatinine 2.77 mg/dL (0.550-1.02) Glomerular Filtration Rate Calc 17 mL/min (>90) BUN/Creatinine Ratio 20.2 (10.0-20.0) Serum Glucose 163 mg/dL (74-106) Calcium Level 9.4 mg/dL (8.7-10.4) POC Glucose 195 mg/dl (70-106) Troponin I High Sensitivity 9 ng/L (</=34) B-Type Natriuretic Peptide 294.93 pg/mL (0-100) Test 10/04/24 05:03 10/03/24 11:15 10/02/24 09:35 10/01/24 23:44 Total Bilirubin 0.3 mg/dL (0.2-1.0) Aspartate Amino Transferase (AST) 22 U/L (<34) Alanine Aminotransferase (ALT) 10 U/L (7-40) Alkaline Phosphatase 103 U/L (46-116) Total Protein 6.1 g/dL (5.7-8.2) Albumin 3.8 g/dL (3.2-4.8) Urine Color Colorless (Yellow) Urine Clarity Turbid (Clear) Urine pH 5.5 (5.0-9.0) Urine Specific [place] 1.009 (1.001-1.035) Urine Protein 2+ (Negative) Urine Ketones Negative (Negative) Urine Blood 3+ /uL (Negative) Urine Nitrite Negative (Negative) Urine Bilirubin Negative (Negative) Urine Urobilinogen Normal mg/dL (Negative) Urine Leukocyte Esterase 1+ /uL (Negative) Urine RBC 103 /hpf (0 - 4) Urine Microscopic WBC 11 /HPF (0-5) Urine Squamous Epithelial Cells Few /hpf (<5) Urine Bacteria Few /hpf (None Seen) Urine Hyaline Casts Few /lpf (0 - 2) Urine Mucus Few (None Seen) Urine Glucose 1+ mg/dL (Normal) Magnesium Level 1.8 mg/dL (1.6-2.6) Ammonia 20 umol/L (11-32) Test 10/01/24 23:03 10/01/24 14:44 10/01/24 08:12 10/01/24 07:35 Blood Gas Specimen Type Arterial Blood Gas Sample Site Left radial Blood Gas Patient Temperature 37.0 Arterial Blood Date Drawn [id number] Arterial Blood pH 7.321 (7.350-7.450) Arterial Blood Partial Pressure CO2 44.5 mmHg (32.0-45.0) Arterial Blood Partial Pressure O2 102.4 mmHg (83.0-108.0) Arterial Blood HCO3 22.5 mmol/L (21.0-28.0) Arterial Blood Oxygen Saturation 97.7 % (94.0-98.0) Arterial Blood Base Excess -3.5 mmol/L (-2.0-3.0) Arterial Blood Oxyhemoglobin 96.5 % (94.0-98.0) Arterial Blood Carboxyhemoglobin 0.8 % (0.5-1.5) Arterial Blood Methemoglobin 0.4 % (0.0-1.5) Cristian Test Modified Blood Gas Total Hemoglobin 9.50 g/dL (12.0-16.0) Blood Gas Liter Flow 3.00 Blood Gas Modality Nasal cannula Blood Gas Spontaneous Rate 18 FiO2 % 32.0 Specimen Drawn By Victorina carlin rt Uric Acid 4.4 mg/dL (3.1-7.8) Hemoglobin A1c 6.8 % A1C (<5.7) Vitamin B12 Level 1015 pg/mL (211-911) Vitamin D 25-Hydroxy 44.2 ng/mL (30.0-100) Urine Creatinine 30.50 mg/dL (30.0-125.0) Urine Protein/Creatinine Ratio 3.27 Urine Sodium 14 mmol/L (40-220) Urine Potassium 18 mmol/L (12-62) Urine Total Protein 99.6 mg/dL (1-14) Urine Opiates Screen Pos (NEGATIVE) Urine Fentanyl Screen Neg (NEGATIVE) Urine Barbiturates Screen Neg (NEGATIVE) Urine Phencyclidine Screen Neg (NEGATIVE) Urine Amphetamines Screen Neg (NEGATIVE) Urine Benzodiazepines Screen Neg (NEGATIVE) Urine Cocaine Screen Neg (NEGATIVE) Urine Cannabinoids Screen Neg (NEGATIVE) Test 10/01/24 01:55 10/01/24 00:24 09/30/24 21:13 09/30/24 00:24 Influenza Type A Antigen Negative (Negative) Influenza Type B Antigen Negative (Negative) SARS-CoV-2 Antigen (Rapid) Negative (NEGATIVE) Serum Osmolality 259 mOsm/kg (278-298) Lactic Acid Level 0.9 mmol/L (0.4-2.0) Lipase 21 U/L (12-53) Thyroid Stimulating Hormone (TSH) 1.57 uIU/mL (0.55-4.78) Plasma/Serum Blood Alcohol < 3.0 mg/dL (<10) Prothrombin Time 11.5 sec (9.3-11.8) Prothrombin Time INR 1.09 (0.9-1.15) Activated Partial Thromboplast Time 29.7 SEC (24.5-34.5) Other Laboratory Tests 10/08/24 05:08 Brief Hx & Hospital Course: This is an 79-year-old female with past medical history of diabetes mellitus type 2, hypertension, CHF, gout, sleep apnea, CKD, arthritis, chronic respiratory failure on 3 L oxygen presented with complaints of leg cramps that started 2 days ago. Patient mentioned that she also started having shortness of breath 2 days mild chest pain was not relieved with nitro. Patient also mentioned associated edema on ankles and wrists. Patient drank five bottles of water every day for for last few days and was not taking potassium pills and banana. Per son, patient has experienced 2 episodes of fall in the past year. Upon admission, blood pressure was significantly elevated and patient was started treatment on nicardipine drip for hypertensive emergency. Urinalysis came back positive suggesting UTI and urine culture showed Klebsiella pneumoniae which was sensitive to ceftriaxone and patient was started on these antibiotic. Blood cultures came back negative, flu and COVID were negative as well. Patient got IV ceftriaxone for seven days during her hospital stay. Echocardiogram was performed and showed LVEF of 30% with severe aortic stenosis which will follow as an outpatient with cardiology. Hypertensive emergency was treated with nicardipine and then transitioned to nifedipine 90 mg daily. The patient was also started on Bumex 1 mg IV t.i.d, but due to NISHANT on CKD patient was stopped on Bumex and is currently having good urine output. The patient was finally transitioned to furosemide 40 mg IV daily. Patient seen and examined at bedside today. Patient stated that feels better compared to admission and is currently on 2 L of oxygen through nasal cannula which is currently her baseline. Patient will be discharged home with home health for physical therapy. We will decrease carvedilol from 12.5-6.25 mg b.i.d., we will continue nifedipine 90 mg daily and we will start furosemide 40 mg p.o. daily. Patient will follow-up with her PCP in one week with a electrolytes follow-up. Patient agrees and understands the plan. ROS Constitutional: Denies weight loss, fever and chills. HEENT: Denies changes in vision and hearing. Respiratory: Denies shortness of breath and cough Cardiovascular: Denies chest discomfort or palpitations GI: Denies abdominal pain, nausea, vomiting and diarrhea. : Denies dysuria and urinary frequency. Musculoskeletal: Denies myalgias and joint pain Skin: Denies rash and pruritus. Neurological: Denies dizziness, headache, vision or hearing problems Physical Examination General: Patient alert and oriented in person, place and time. Patient following commands. HEENT: Normocephalic, atraumatic, moist mucous membranes Respiratory/pulmonary: Clear lungs bilaterally, vesicular murmurs present in almost all lung newberry, no associated crackles or wheezes. Cardiovascular: Normal heart sounds S1 and S2 with no associated murmurs Abdomen: Abdomen nondistended, there is no pain to palpation in any of the abdominal quadrants, no palpable masses. Extremities: There is no peripheral edema present at the lower extremities. Skin: No rashes or pruritus, there is no sacral edema present at this time. Neurological: Intact cranial nerves with no focal neurologic deficits Discharge Plan: -reduced carvedilol from 12.5-6.25 mg b.i.d. - Stop Bumetanide -start furosemide 40 mg p.o. daily -start nifedipine 90 mg daily -Stop Benazepril -follow-up with her PCP in one week Consults/Reason for consult Nephrology for CKD stage IV Operations or Procedures CHEST RADIOGRAPH Indication: AMS Technique: Single frontal view of the chest was obtained COMPARISON: None FINDINGS: Significantly limited exam secondary to patient positioning. Lines and Tubes: None Lungs: Grossly clear without evidence of focal consolidation. Pleura: No definite effusion. No definite pneumothorax. Cardiomediastinal contours: Appears enlarged. Bones: Unremarkable IMPRESSION: 1. Significantly limited exam with diminished visualization of the lung newberry secondary to patient positioning. 2. Apparent cardiomegaly. CT HEAD WITHOUT CONTRAST INDICATION: Altered mental status EXAM DATE: 09/30/2024 10:39 PM COMPARISON: None RADIATION DOSE: CTDIvol: 65.91 mGy, DLP: 1056.31 mGy*cm PROCEDURE: CT scans of the head were obtained from the vertex to the skull base. Sagittal and coronal reconstructions were provided. All CT scans at this medical facility are performed using dose modulation techniques as appropriate to a performed exam including the following: Automated exposure control was utilized; adjustment of the MA and/or KV according to patient size; and use of iterative reconstruction technique. FINDINGS: Evaluation is significantly degraded by motion and streak artifact. Within this limitation, there is no CT evidence for large intracranial hemorrhage or midline shift. Evaluation for intracranial pathology is significantly limited. A repeat examination is suggested. There are global involutional changes with compensatory prominence of the ventricles and sulci. Patchy periventricular and subcortical white matter hypoattenuation is nonspecific but may be related to small vessel ischemic disease. The orbits are normal. The paranasal sinuses and mastoid air cells are clear. The osseous structures are unremarkable. IMPRESSION: 1. Evaluation is significantly degraded by motion and streak artifact. Within this limitation, there is no CT evidence for large intracranial hemorrhage or midline shift. Evaluation for intracranial pathology is significantly limited. A repeat examination is suggested. Bilateral lower extremity venous duplex Clinical History: Rule out bowel extremity DVT Comparison: None Technique: Duplex Doppler evaluation of the deep venous systems of both lower extremities from the common femoral veins to the popliteal veins including color Doppler and spectral/pulsed waveform analysis was performed. Findings: RIGHT SIDE: The common femoral vein was not adequately visualized. There is compressibility/patency of the great saphenous vein at the proximal thigh. The femoral vein demonstrates appropriate compressibility and waveform variability. The deep femoral vein demonstrates appropriate compressibility and waveform variability. The popliteal vein demonstrates appropriate compressibility and waveform variability. There is normal compressibility at the tibioperoneal trunk. LEFT SIDE: The common femoral vein demonstrates appropriate compressibility and waveform variability. The great saphenous vein was not adequately visualized. The femoral vein demonstrates appropriate compressibility and waveform variability. The deep femoral vein demonstrates appropriate compressibility and waveform variability. The popliteal vein demonstrates appropriate compressibility and waveform variability. There is normal compressibility at the tibioperoneal trunk. Impression: 1. No right or left femoropopliteal venous thrombosis within the visualized vessels. 2. Limited examination secondary to patient body habitus and inability to cooperate with and/or tolerate exam. CLINICAL INDICATION: intractable pain TECHNIQUE: 1 radiographic views of the pelvis and 1 view of the left hip were obtained. Comparison: None FINDINGS/IMPRESSION: There is no evidence of acute fracture or dislocation. The visualized joint space is well maintained. The alignment is anatomical. There is no radiopaque foreign body. CLINICAL INDICATION: intractable pain TECHNIQUE: 3 radiographic views of the right hip were obtained. Comparison: None FINDINGS/IMPRESSION: There is no evidence of acute fracture or dislocation. The visualized joint space is well maintained. The alignment is anatomical. There is no radiopaque foreign body. CLINICAL INDICATION: pain and hx of fall TECHNIQUE: 2 radiographic views of the right shoulder were obtained. Comparison: None FINDINGS/IMPRESSION: There is no evidence of acute fracture or dislocation. The visualized joint space is well maintained. The alignment is anatomical. There is no radiopaque foreign body. Condition at Discharge: Stable Final Diagnosis/Problems List Acute metabolic/toxic encephalopathy secondary to Severe hyponatremia Hypervolemic hyponatremia Acute on chronic congestive heart failure exacerbation-NYHA class 3 Acute hypoxic respiratory failure due to above NISHANT superimposed on CKD Hyperkalemia-medication overuse on CKD Anemia of chronic kidney disease Acute cystitis Diabetes mellitus type 2-A1c 6.8 Obesity hypoventilation syndrome Obstructive sleep apnea Discharge Disposition: Home with Health Services Discharge Instruct/Medications Diet: Renal Activity: No Restrictions, As Tolerated Follow Up/Referral: F/U with Her PCP in 1 week Medications: Stop benazepril due to NISHANT on CKD Stop carvedilol 12.5mg BID Start carvedilol 6.25mg BID Start Nifedipine 90mg QD Discharge Statement: "Patient was advised to return to the ER or call 911 if any headaches, dizziness, shortness of breath, chest pain, abdominal pain, bleeding, fevers, or worsening of medical condition. Patient was counseled about treatment plan, medications, possible side effects, patientverbalized understanding. All questions were answered to the best of my ability. This discharge took greater then 30 minutes in planning, reviewing documentation, counseling the patient, and discussing with other team members." ASSESSMENT ASSESSMENT Assessment Acute metabolic/toxic encephalopathy secondary to Severe hyponatremia Hypervolemic hyponatremia Acute on chronic congestive heart failure exacerbation-NYHA class 3 Acute hypoxic respiratory failure due to above NISHANT superimposed on CKD Hyperkalemia-medication overuse on CKD Anemia of chronic kidney disease Acute cystitis Diabetes mellitus type 2-A1c 6.8 Obesity hypoventilation syndrome Obstructive sleep apnea Date of Service: Oct 08, 2024 Billing Provider: ANTOLIN BRUSH MD Common Visit Codes: 16843-OES/OBS DISCH DAY >30min CYRUS WALLACE RESIDENT Oct 08, 2024 13:35 ANTOLIN BRUSH MD Oct 08, 2024 22:40
--- NOTE | 2024-10-08 17:00 | DVHPN2 ---
Progress Note - Dictate Date Seen: Oct 08, 2024 Medical Necessity Reason Pt with a Central, PICC or Fol: Yes The following are medically ne: Triana Catheter Subjective No acute issues overnight. vital signs Vital Sign Date Time Temp Pulse Resp B/P (MAP) Pulse Ox O2 Delivery O2 Flow Rate FiO2 10/08/24 16:50 99.4 83 20 146/69 (94) 98 99.4 10/08/24 10:00 Nasal Cannula* 2 28 Total Intake and Output 10/07/24 10/07/24 10/08/24 15:00 23:00 07:00 Intake Total 50 ml 0 ml 400 ml Balance 50 ml 0 ml 400 ml medications Current Medications Medications Dose Ordered Sig/Nasrin Route Start Time Stop Time Status Last Admin Dose Admin Dextrose 50 ml UD PRN IV 10/01/24 02:00 Albuterol 2.5 mg Q4HPRN PRN NEB 10/01/24 02:00 10/08/24 03:55 2.5 MG Ipratropium [place] 0.5 mg Q4HPRN PRN NEB 10/01/24 02:00 10/08/24 03:54 0.5 MG Heparin Sodium (Porcine) 5,000 units Q12HR SC 10/01/24 10:00 10/08/24 09:29 5,000 UNITS Dopamine HCl/ Dextrose 250 ml @ 8.745 mls/ hr Q24H IV 10/01/24 09:15 Hold 10/01/24 10:37 8.745 MLS/HR Morphine Sulfate 1 mg Q6HP PRN IV 10/01/24 16:45 UNV Pantoprazole Sodium 40 mg DAILY IV 10/02/24 10:00 10/08/24 09:25 40 MG Acetaminophen 650 mg Q6HP PRN PO 10/01/24 22:45 10/04/24 14:14 650 MG Acetaminophen/ Hydrocodone Bitart 1 tab Q6HP PRN PO 10/02/24 09:15 10/08/24 15:27 1 TAB Nicardipine HCl 250 ml @ 50 mls/hr Q5H IV 10/02/24 12:15 Cancel Hydralazine HCl 10 mg Q6HP PRN IV 10/02/24 14:00 Diagnostic Test (Pha) 1 strip ACHS 10/03/24 11:30 10/08/24 11:50 1 STRIP Insulin Human Regular HS SC 10/03/24 22:00 10/07/24 21:01 3 UNITS Insulin Human Regular AC SC 10/03/24 11:30 10/08/24 11:57 3 UNITS Nifedipine 90 mg DAILY PO 10/04/24 10:00 10/08/24 09:26 90 MG Ceftriaxone Sodium 50 ml @ 100 mls/hr DAILY@09 IV 10/04/24 09:00 10/08/24 09:25 100 MLS/HR Bumetanide 1 mg TID IV 10/04/24 14:00 Hold 10/05/24 05:33 1 MG Docusate Sodium 100 mg BID PO 10/04/24 22:00 10/08/24 09:26 100 MG Lactulose 30 ml DAILY PO 10/05/24 10:00 10/08/24 09:27 30 ML Ondansetron HCl 4 mg Q4HPRN PRN IV 10/04/24 14:30 10/04/24 14:44 4 MG Carvedilol 6.25 mg DAILY PO 10/05/24 10:00 10/08/24 09:26 6.25 MG Sodium Chloride 1,000 ml @ 100 mls/hr Q10H IV 10/05/24 12:15 10/05/24 22:42 100 MLS/HR Furosemide 40 mg DAILY IV 10/06/24 10:00 10/08/24 09:25 40 MG Nitroglycerin 0.4 mg Q5MINP PRN SL 10/06/24 00:45 10/06/24 00:56 0.4 MG Morphine Sulfate 1 mg Q30M PRN IV 10/06/24 00:45 objective Gen: NAD HEENT: NC,AT Lungs: Crackles lung bases Cardiac: RRR, no murmur Abd: soft, no tenderness Ext: no edema Neuro: no focal deficits laboratory and microbiology Laboratory Tests 10/08/24 05:08 Test 10/08/24 05:08 Range/Units Serum Glucose 163 H 74-106 mg/dL Problem List NISHANT superimposed on CKD stage 4 CKD stage IV Acute on chronic diastolic CHF Acute on chronic hypoxic respiratory failure , on nasal cannula hypervolemic hyponatremia Hyperkalemia, resolved DM HTN urgency JAG morbid obesity gout Assessment/Plan Plan: continue Lasix 40 mg daily fluid restriction continue Coreg, and Nifedipine Hold Lisinopril strict I&Os Dietary Evaluation Review Comments: 1) Advance to [facility] 60gm + renal specific 80gm protein as medically feasible 2) Refer CDE on DC Expected Outcomes/Goals: To meet >75% estimated needs Fu 2-3 days Plan discussed with: Patient VENESSA HENAO MD Oct 08, 2024 17:00
[2024-10-09 01:00] VITALS: BP 148/68; PULSE 74; RESP 18; TEMP 98; O2SAT 100
[2024-10-09 05:00] VITALS: BP 156/70; PULSE 85; RESP 18; TEMP 98.1; O2SAT 100
[2024-10-09 07:42] VITALS: O2SAT 100
[2024-10-09 08:00] VITALS: PULSE 84; RESP 19; O2SAT 100
[2024-10-09 09:00] VITALS: BP 162/71; PULSE 84; RESP 19; TEMP 98.7; O2SAT 100
[2024-10-09] MEDS: FUROSEMIDE 40 MG TAB PO SCH (09:03)
[2024-10-09 10:00] VITALS: O2SAT 100
== END 2024-10-09 12:34 | disposition home health service (06) | DRG 291 ==
LOC: ER 20:36 → OVERFLOW 10-01 01:23 → DOU IN ICU 10-01 20:58 → TELE-CENTR 10-04 13:43
PROVIDERS: ADMIT Student in an Organized Health Care Education/Training Program; ATTEND Student in an Organized Health Care Education/Training Program
PROC: 5A09357 Assistance with Respiratory Ventilation, Less than 24 Consecutive Hours, Continuous Positive Airway Pressure (ICD-10-PCS; principal; 2024-10-01)
PROC: 5A0935A Assistance with Respiratory Ventilation, Less than 24 Consecutive Hours, High Flow/Velocity Cannula (ICD-10-PCS; 2024-10-01)
PROC: 5A09357 Assistance with Respiratory Ventilation, Less than 24 Consecutive Hours, Continuous Positive Airway Pressure (ICD-10-PCS; 2024-10-02)
PROC: 05HD33Z Insertion of Infusion Device into Right Cephalic Vein, Percutaneous Approach (ICD-10-PCS; 2024-10-02)
PROC: B54MZZA Ultrasonography of Right Upper Extremity Veins, Guidance (ICD-10-PCS; 2024-10-02)
PROC: 5A09357 Assistance with Respiratory Ventilation, Less than 24 Consecutive Hours, Continuous Positive Airway Pressure (ICD-10-PCS; 2024-10-03)
PROC: 5A09357 Assistance with Respiratory Ventilation, Less than 24 Consecutive Hours, Continuous Positive Airway Pressure (ICD-10-PCS; 2024-10-04)
PROC: 5A09357 Assistance with Respiratory Ventilation, Less than 24 Consecutive Hours, Continuous Positive Airway Pressure (ICD-10-PCS; 2024-10-05)
PROC: 5A09357 Assistance with Respiratory Ventilation, Less than 24 Consecutive Hours, Continuous Positive Airway Pressure (ICD-10-PCS; 2024-10-06)
PROC: 5A09357 Assistance with Respiratory Ventilation, Less than 24 Consecutive Hours, Continuous Positive Airway Pressure (ICD-10-PCS; 2024-10-07)
DX: I13.0 Hypertensive heart and chronic kidney disease with heart failure and stage 1 through stage 4 chronic kidney disease, or unspecified chronic kidney disease (principal); G92.8 Other toxic encephalopathy; J96.21 Acute and chronic respiratory failure with hypoxia; I50.43 Acute on chronic combined systolic (congestive) and diastolic (congestive) heart failure; E87.1 Hypo-osmolality and hyponatremia; I16.1 Hypertensive emergency; N17.9 Acute kidney failure, unspecified; E66.2 Morbid (severe) obesity with alveolar hypoventilation; N30.00 Acute cystitis without hematuria; Z68.43 Body mass index [BMI] 50.0-59.9, adult; N18.4 Chronic kidney disease, stage 4 (severe); Z20.822 Contact with and (suspected) exposure to COVID-19; E87.5 Hyperkalemia; M10.9 Gout, unspecified; E11.22 Type 2 diabetes mellitus with diabetic chronic kidney disease; E11.319 Type 2 diabetes mellitus with unspecified diabetic retinopathy without macular edema; D63.1 Anemia in chronic kidney disease; T50.2X5A Adverse effect of carbonic-anhydrase inhibitors, benzothiadiazides and other diuretics, initial encounter; J45.909 Unspecified asthma, uncomplicated; Z88.6 Allergy status to analgesic agent; Z79.899 Other long term (current) drug therapy; Z82.49 Family history of ischemic heart disease and other diseases of the circulatory system; Y92.89 Other specified places as the place of occurrence of the external cause
CPT/HCPCS: 36415; 36600; 70450; 71045; 73030; 73502; 76775; 80048; 80053; 80307; 80320; 81001; 82140; 82306; 82570; 82607; 82805; 82962; 83036; 83605; 83690; 83735; 83880; 83930; 84133; 84156; 84300; 84443; 84484; 84550; 85025; 85610; 85730; 87040; 87086; 87088; 87186; 87426; 87804; 92610; 93005; 93306; 93970; 94640; 94644; 94660; 96374; 96375; 97110; 97116; 97530; 99291; G0378; J0131; J1815; J2405; J2470; P9047

== ENCOUNTER 2024-10-18 17:47 | Inpatient (IN) | payer MEDICARE, MEDICAID ==
[~2024-10-18] VITALS: Ht 160 cm; Wt 125.9 kg
[~2024-10-18 17:47] MED LIST changes: -BENA40TA71 PO; -BUME2TAB5 PO; -CARV12.544 PO; +CARV6.2551 PO; +NIFE90TA75 PO; -POTA-180 PO
[2024-10-18] MEDS: FUROSEMIDE 100 MG/10ML VIAL IV ONE (18:39)
[2024-10-18] MEDS: PANTOPRAZOLE 40 MG/10 ML VIAL INJ IV ONE (18:40)
--- NOTE | 2024-10-18 18:50 | ED.PDOC ---
History of Present Illness HPI Comments Patient is a 79-year-old female with a past medical history of coronary artery disease, [place], aortic stenosis CKD stage 3-4, congestive heart failure with reduced ejection fraction, sleep apnea, COPD was brought to the ER via EMS with a chief complaint of shortness of the breath. According to the EMS report and per the patient's daughter she was having worsening shortness of breath for the last week. Patient was discharged from the hospital about 10 days ago and as per the daughter she has been not taking any diuretic after discharge. Earlier today patient reported of chest pain which was substernal, nonradiating occurred at rest following which she was given a tablet of nitroglycerin and it relieved with the pain. Patient also complained of left flank and left lower quadrant pain, constipation and had a small bowel movement today and reports to be passing gas. Reported that the last 2 bowel movements were noticed to be black. On arrival of the EMS patient was saturating in the low 80s on 2 L home oxygen and was supplemented to 4 L oxygen and given DuoNeb treatment with albuterol and ipratropium which improved his saturation to more than 95%. Time Seen by MD: 17:54 Allergies: Coded Allergies: Aspirin (Verified Allergy, Unknown, 09/30/24) Home Meds Active Scripts Nifedipine (Nifedipine Er) 90 Mg Tab, 1 TAB PO DAILY for 30 Days, #30 TAB 5 Refills Prov:CYRUS WALLACE RESIDENT 10/08/24 Carvedilol (Carvedilol) 6.25 Mg Tab, 1 TAB PO BID for 30 Days, #60 TAB 1 Refill Prov:CYRUS WALLACE RESIDENT 10/08/24 Reported Medications Hydrocodone-Acetaminophen (Hydrocodone Bitartrate/AC 10-325 mg) 1 Tab Tab, 1 TAB PO Q4HR PRN for INTERVERTEBRAL DISC DISORDERS for 30 Days, #180 10/06/24 Pantoprazole Sodium Sesquihydr (Pantoprazole Sodium) 40 Mg Tab, 1 TAB PO DAILY for 30 Days, #30 10/06/24 Loratadine (CLARITIN TABLET) 10 Mg Tb, 1 TAB PO DAILY for 30 Days, #30 10/06/24 Simvastatin (Simvastatin) 20 Mg Tab, 1 TAB PO DAILY for 30 Days, #30 10/06/24 Allopurinol (Allopurinol) 100 Mg Tab, 1 TAB PO DAILY for 30 Days, #30 10/06/24 Docusate Sodium (Docusate Sodium) 100 Mg Cap, 1 CAP PO BID for 30 Days, #60 10/06/24 Glimepiride (Glimepiride) 2 Mg Tab, 2 TAB PO DAILY for 30 Days, #60 10/06/24 Ursodiol (Ursodiol) 250 Mg Tab, 1 TAB PO TID for 30 Days, #90 10/06/24 Insulin Glargine (Basaglar Kwikpen) 100 Unit/Ml Inj, 26 UNIT SC DAILY for 58 Days, #15 10/06/24 Past Medical History PAST MEDICAL HISTORY: Asthma, CAD, CHF, CKF, COPD, DM, ESRD, Gout, HTN Past Medical History (Other): Sleep apnea, severe aortic stenosis Surgical History: Unknown, 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 [employer]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, 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 Family History Family History: Unknown, 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 Social History Smoker: Non-Smoker Alcohol: Denies ETOH Use Drugs: Denies Drug Use Lives In: Home Constitutional: reports: fatigue, malaise, weakness EENTM: reports: others (decreased vision) Respiratory: reports: orthopnea, SOB at rest Cardiovascular: reports: chest pain, edema, PND Gastrointestinal: reports: abdominal pain, constipated, melena Genitourinary: denies: abnormal vagina bleeding, burning, dyspareunia, dysuria, flank pain, frequency, hematuria, incontinence, pain, , vagina discharge, urgency, others Neurological: denies: dizziness, fainting, headache, left sided numbness, left sided weakness, numbness, paresthesia, pre-existing deficit, right sided numbness, right sided weakness, seizure, speech problems, tingling, tremors, weakness, others Musculoskeletal: denies: back pain, gout, joint pain, joint swelling, muscle pain, muscle stiffness, neck pain, others Integumetry: denies: bruises, change in color, change in hair/nails, dryness, laceration, lesions, lumps, rash, wounds, others Allergic/Immunocompromised: denies: Difficulty Healing, Frequent Infections, Hives, Itching, others Hematologic/Lymphatic: denies: anemia, blood clots, easy bleeding, easy bruising, swollen glands, others Endocrine: denies: excessive hunger, excessive sweating, excessive thirst, excessive urination, flushing, intolerance to cold, intolerance to heat, unexplained weight gain, unexplained weight loss, others Psychiatric: denies: anxiety, bipolar disorder, depression, hopeless, panic disorder, schizophrenia, sleepless, suicidal, others Physical Exam General Appearance: Moderate Distress, Obese, Severe Distress HEENT: Pale Conjuntivae (R) Neck: Full Range of Motion, Non-Tender, Normal, Normal Inspection Respiratory: Accessory Muscle Use, Crackles, Respiratory Distress Cardiovascular: Regular Rate/Rhythm, Systolic Murmur (crescendo-decrescendo at the RUSB) Breast Exam: Deferred Gastrointestinal: Abnormal Bowel Sounds, LLQ, Tenderness Genitalia: Deferred Pelvic: Deferred Rectal: Deferred Extremities: Leg edema, No calf tenderness, Normal capillary refill, Normal inspection, Normal range of motion, Non-tender Neurologic: Alert, Depressed Affect, Motor Weakness, Normal Affect, No Sensory Deficits Cerebellar Function: NOT DONE Reflexes: NOT DONE Skin: Dry, Normal Color, Warm Peripheral Pulses: 2+ carotid (R), 2+ carotid (L), 2+ femoral (R), 2+ femoral (L), 2+ dorsalis pedis (R), 2+ dorsalis pedis (L), 2+ Radial (R), 2+ Radial (L) Lymphatic: No Adenopathy Was a procedure done? Was a procedure done?: No Differential Dx Considerations may include: Acute on chronic hypoxic respiratory failure, CHF exacerbation, angina, COPD, diverticulitis, colitis, gastroenteritis, UTI, gastritis, peptic ulcer disease X-Ray, Labs, Meds, VS Vital Signs Date Time Temp Pulse Resp B/P (MAP) Pulse Ox O2 Delivery O2 Flow Rate FiO2 10/18/24 20:10 18 100 Nasal Cannula* 4 36 10/18/24 18:59 100 Nasal Cannula* 4 36 10/18/24 18:39 146/63 10/18/24 18:34 98.6 82 24 146/63 (90) 100 98.6 10/18/24 18:22 98.9 87 22 169/76 (107) 97 98.9 Lab Test 10/18/24 20:03 10/18/24 19:07 Range/Units Troponin I High Sensitivity 7 7 </=34 ng/L White Blood Count 7.8 4.4-10.8 10^3/uL Red Blood Count 2.56 L 4.0-5.20 10^6/uL Hemoglobin 8.2 L 12.2-16.2 g/dL Hematocrit 25.4 L 36.0-46.0 % Mean Corpuscular Volume 99.4 80.0-100.0 fL Mean Corpuscular Hemoglobin 32.1 H 28.0-32.0 pg Mean Corpuscular Hemoglobin Concent 32.3 32.0-36.0 g/dL Red Cell Distribution Width 14.7 H 11.8-14.3 % Platelet Count 319 140-450 10^3/uL Mean Platelet Volume 7.2 6.9-10.8 fL Neutrophils (%) (Auto) 72.7 37.0-80.0 % Lymphocytes (%) (Auto) 15.9 10.0-50.0 % Monocytes (%) (Auto) 7.2 0.0-12.0 % Eosinophils (%) (Auto) 3.2 0.0-7.0 % Basophils (%) (Auto) 1.0 0.0-2.0 % Neutrophils # (Auto) 5.7 1.6-8.6 10 ^3/uL Lymphocytes # (Auto) 1.2 0.4-5.4 10 ^3/uL Monocytes # (Auto) 0.6 0-1.3 10 ^3/uL Eosinophils # (Auto) 0.3 0-0.8 10 ^3/uL Basophils # (Auto) 0.1 0-0.2 10 ^3/uL Nucleated Red Blood Cells 0.0 % Sodium Level 137 136-145 mmol/L Potassium Level 6.0 *H 3.5-5.1 mmol/L Chloride Level 105 98-107 mmol/L Carbon Dioxide Level 26 20-31 mmol/L Anion Gap 6 5-15 Blood Urea Nitrogen 44 H 9-23 mg/dL Creatinine 2.12 H 0.550-1.02 mg/dL Glomerular Filtration Rate Calc 23 >90 mL/min BUN/Creatinine Ratio 20.8 H 10.0-20.0 Serum Glucose 156 H 74-106 mg/dL Calcium Level 9.3 8.7-10.4 mg/dL B-Type Natriuretic Peptide 494.95 0-100 pg/mL Current Medications Medications (Trade) Dose Ordered Sig/Nasrin Route Start Time Stop Time Status Last Admin Furosemide (Lasix Injection) 60 mg ONCE ONCE IV 7/10/25 18:15 10/18/24 18:27 DC 10/18/24 18:39 Ipratropium Pettus (Atrovent Medneb) 0.5 mg ONCE ONCE NEB 10/18/24 19:00 10/18/24 19:01 DC 10/18/24 18:59 Levalbuterol HCl (Xopenex Medneb) 0.625 mg ONCE ONCE NEB 10/18/24 19:00 10/18/24 19:01 DC 10/18/24 18:58 Pantoprazole Sodium (Protonix) 40 mg ONCE ONCE IV 10/18/24 18:15 10/18/24 18:27 DC 10/18/24 18:40 Insulin Human Regular (InsuLIN R) 10 units ONCE ONCE IV 10/18/24 20:00 10/18/24 20:04 DC 10/18/24 19:45 Dextrose 50 ml ONCE ONCE IV 10/18/24 20:00 10/18/24 20:04 DC 10/18/24 20:00 Albuterol (Ventolin Medneb) 20 mg ONCE ONCE NEB 10/18/24 20:00 10/18/24 20:04 DC 10/18/24 20:16 Calcium Gluconate/ Sodium Chloride 50 ml @ 120 mls/hr ONCE ONCE IV 10/18/24 20:00 10/18/24 20:24 DC 10/18/24 20:00 Patient is a 79-year-old female with the extensive past medical history not limited to chronic kidney disease, coronary artery disease, congestive heart failure, severe aortic stenosis was brought to the ED via EMS with a chief compl aint of shortness of breath. Patient had increased oxygen requirement and had lower lobe crackles following which chest x-ray was done which hold pulmonary venous congestion, cardiomegaly. Patient was hyperkalemic following which hyperkalemia protocol was given. CT abdomen pelvis was done as the patient was complaining of lower quadrant pain and constipation for the last few days and it showed no nephrolithiasis or hydronephrosis, possible soft tissue swelling in the back. Patient had worsening respiratory distress for the last 1 week and with increased oxygen requirement we will need further inpatient management and requires workup for severe aortic stenosis which was reported on echo done in September 2024. Patient and her daughter by bedside agrees with the plan. Time of 1ST Reevaluation: 20:49 Reevaluation 1ST: Improved Patient Education/Counseling: Diagnosis, Treatment Family Education/Counseling: Diagnosis, Treatment SEPSIS Sepsis Screen Physician Orders Chest Xray 1 View (10/18/24 18:11) Urinalysis (10/18/24 18:11) Heplock Iv (10/18/24 ) Electrocardigram (10/18/24 18:11) Electrocardigram (10/18/24 19:11) Electrocardigram (10/18/24 21:11) Ct Ab Pel Wo Con-No Oral Or Iv (10/18/24 18:11) Urinalysis (10/18/24 18:38) Stool Occult Blood (10/18/24 18:38) Vital Signs Date Time Temp Pulse Resp B/P (MAP) Pulse Ox O2 Delivery O2 Flow Rate FiO2 10/18/24 20:10 18 100 Nasal Cannula* 4 36 10/18/24 18:59 100 Nasal Cannula* 4 36 10/18/24 18:39 146/63 10/18/24 18:34 98.6 82 24 146/63 (90) 100 98.6 10/18/24 18:22 98.9 87 22 169/76 (107) 97 98.9 Laboratory Tests Test 10/18/24 19:07 White Blood Count 7.8 10^3/uL (4.4-10.8) Medications Medications Dose Ordered Sig/Nasrin Route Start Time Stop Time Status Last Admin Dose Admin Albuterol 20 mg ONCE ONCE NEB 10/18/24 20:00 10/18/24 20:04 DC 10/18/24 20:16 Calcium Gluconate/ Sodium Chloride 50 ml @ 120 mls/hr ONCE ONCE IV 10/18/24 20:00 10/18/24 20:24 DC 10/18/24 20:00 Dextrose 50 ml ONCE ONCE IV 10/18/24 20:00 10/18/24 20:04 DC 10/18/24 20:00 Furosemide 60 mg ONCE ONCE IV 10/18/24 18:15 10/18/24 18:27 DC 10/18/24 18:39 Insulin Human Regular 10 units ONCE ONCE IV 10/18/24 20:00 10/18/24 20:04 DC 10/18/24 19:45 Ipratropium Pettus 0.5 mg ONCE ONCE NEB 10/18/24 19:00 10/18/24 19:01 DC 10/18/24 18:59 Levalbuterol HCl 0.625 mg ONCE ONCE NEB 10/18/24 19:00 10/18/24 19:01 DC 10/18/24 18:58 Pantoprazole Sodium 40 mg ONCE ONCE IV 10/18/24 18:15 10/18/24 18:27 DC 10/18/24 18:40 Departure 1 Departure Time of Disposition: 21:36 Impression: Primary Impression: Acute on chronic hypoxic respiratory failure Additional Impressions: Acute exacerbation of chronic heart failure Acute kidney injury superimposed on CKD Severe aortic stenosis Acute abdominal pain Disposition: ADMITTED INPATIENT Condition: Fair Critical Care Note Critical Care Time?: No Stability Stability form required: No Heart Score Heart Score: Heart Score Response (Comments) Value History Moderate Suspicious 1 EKG N/A 0 Age >65 2 Risk Factors >3 or Hx ASHD 2 Troponin Normal limit 0 Total 5 LATONIA DANGELO RESIDENT Oct 18, 2024 18:50
[2024-10-18] MEDS: LEVALBUTEROL HCL 1.25 MG/3 ML NEB NEB ONE (18:58)
[2024-10-18] MEDS: IPRATROPIUM BROM 0.5 MG/2.5ML INH SOL NEB ONE (18:59)
--- NOTE | 2024-10-18 19:15 | DVH ---
CHEST RADIOGRAPH Indication: SOB Technique: Single frontal view of the chest was obtained Comparison: XY CHEST PORTABLE on DOS: 10/03/24, XY CHEST PORTABLE on DOS: 10/02/24, XY CHEST PORTABLE o n DOS: 10/01/24 FINDINGS: Lines and Tubes: None Lungs: No focal consolidation. Pleura: No effusion. No pneumothorax. Cardiomediastinal contours: Unremarkable Bones: No acute osseous abnormality. IMPRESSION: 1. No acute cardiopulmonary disease.
[2024-10-18 19:26] LABS: Hemoglobin 8.2 g/dL (12.2-16.2); Mean Corpuscular Volume 99.4 fL (80.0-100.0); Nucleated Red Blood Cells % 0.0 %
[2024-10-18 19:30] LABS: Hematocrit 25.4 % (36.0-46.0); Mean Corpuscular Hemoglobin 32.1 pg (28.0-32.0)
[2024-10-18 19:36] LABS: Chloride 105 mmol/L (98-107); Sodium 137 mmol/L (136-145)
[2024-10-18 19:37] LABS: Anion Gap 6 (5-15); Calcium 9.3 mg/dL (8.7-10.4); Carbon Dioxide 26 mmol/L (20-31)
[2024-10-18 19:42] LABS: BUN/Creatinine Ratio 20.8 (10.0-20.0)
[2024-10-18 19:45] LABS: Blood Urea Nitrogen 44 mg/dL (9-23); Glucose 156 mg/dL (74-106)
[2024-10-18] MEDS: InsuLIN REG 1unit/0.01ml Soln (100units/ml) IV ONE (19:45)
[2024-10-18 19:47] LABS: Potassium 6.0 mmol/L (3.5-5.1)
[2024-10-18 19:50] VITALS: PULSE 80; RESP 32; O2SAT 99
[2024-10-18] MEDS: CALCIUM GLUC 1,000mg/50ml-NS 50 ML IV ONE (20:00)
[2024-10-18] MEDS: DEXTROSE (50%) 50ML SYRG IV ONE (20:00)
[2024-10-18] MEDS: ALBUTEROL SULF 2.5 MG/0.5ML(0.5%) NEB SOLN ONE (20:06)
[2024-10-18] MEDS: ALBUTEROL SULF 2.5 MG/0.5ML(0.5%) NEB SOLN NEB ONE (20:16)
--- NOTE | 2024-10-18 21:17 | DVH ---
Exam: CT CT AB PEL WO CON-NO ORAL OR IV History: left flank, LLQ pain, consitpation Comparison Study: None TECHNIQUE: Multidetector CT of the abdomen was performed from lung bases to pubic symphysis. Imaging was performed without IV contrast. Axial, coronal and sagittal multiplanar reformats were obtained fr om the axial data set by the technologist. Radiation Dose Information: CT Dose: CTDI volume is 25.51 mGy. Dose-length product is 1259.4 mGy*cm FINDINGS: Evaluation of solid organs is limited due to lack of intravenous contrast use. Findings: Lung Bases: No acute or significant lung base finding. Normal heart size. No pleural or pericardial effusion. Liver: The liver is normal in size. No focal lesions. Gallbladder and Biliary Tree: Cholelithiasis Spleen: Unremarkable Pancreas: The pancreas is grossly normal in appearance. Adrenal Glands: Unremarkable Kidneys: Kidneys are grossly normal without calculi or hydronephrosis. Bladder: Grossly unremarkable for degree of distention. Bowel: The stomach is grossly normal in appearance. Small bowel and colon are normal in caliber and d istribution. The appendix is not visualized; however, no secondary findings of acute appendicitis id entified. Ascites: Absent Lymphadenopathy: No mesenteric, retroperitoneal or periportal lymphadenopathy. Abdominal Wall and Mesentery: Unremarkable. Vasculature: The visualized abdominal aorta is normal in size and caliber. Evaluation of abdominal a nd pelvic vessels is limited due to lack of intravenous contrast. Pelvic Organs: Unremarkable Musculoskeletal: No aggressive focal bony lesions, acute fractures or dislocation. Soft tissues: Subcutaneous edema throughout the abdomen and pelvis suggesting anasarca. There is a 7. 1 by 2.6 cm area of consolidated soft tissue in the posterior left flank may represent developing phl egmon or developing decubitus ulcer IMPRESSION: 1. No nephrolithiasis or hydronephrosis. 2. Subcutaneous edema throughout the anterior abdominal pelvic wall. 3. 7.1 x 2.6 cm area of consolidated soft tissues in the posterior lumbar spine. At the level of L2- 3. Finding may represent developing decubitus ulcer or phlegmon. Radiation optimization: All CT scans at this facility use at least one of these dose optimization albino hniques: automated exposure control mA and/or kV adjustment per patient size (includes targeted exam s where dose is matched to clinical indication) or iterative reconstruction.
[2024-10-18] MEDS ORDERED: DEXTROSE (50%) 50ML SYRG IV PRN (22:15)
[2024-10-18] MEDS ORDERED: DOCUSATE SOD 100 MG CAP PO PRN (22:15)
[2024-10-18] MEDS: SODIUM ZIRCONIUM CYCL 10 GM PAK PO ONE (22:15)
[2024-10-18 22:42] LABS: Urine Protein, UAD 1+ (Negative)
[2024-10-18] MEDS: HYDROcodone-ACET 5/325MG TAB PO PRN (22:49)
[2024-10-18] MEDS: ACETAMINOPHEN 325 MG TAB PO PRN (22:49)
[2024-10-18] MEDS: LORazepam 2MG/ML-1ML VIAL IV ONE (23:30)
--- NOTE | 2024-10-18 23:31 | DVHHP2 ---
History of Present Illness Reason for Visit: Acute on chronic hypoxic respiratory failure History of Present Illness The patient is a 79-year-old female morbidly obese with multiple past medical history including gout, Coronary artery disease, DM, end-stage renal disease, COPD, and asthma who presented to [facility] ED with complaint of shortness of breaths. Patient's daughter reports patient has been experiencing worsening shortness of breaths for the past 1 week, getting worse today that prompted this visit. Patient was discharged from the hospital about 10 days ago and has been not taking any diuretic after discharge. Patient reported of chest pain which was substernal, nonradiating occurred at rest following which she was given a tablet of nitroglycerin with relieved of pain. Patient was seen and evaluated in the ED saturating in the low 80s on 2 L home oxygen and was supplemented to 4 L oxygen, given DuoNeb treatment with albuterol and ipratropium which improved his saturation to more than 95%. Laboratory data shows WBC 7.8, hemoglobin 8.2, hematocrit 25.4, platelets 319, sodium 137, potassium 6.0, BUN 44, creatinine 2.12, glucose 156, calcium 9.3, BNP 494.95, troponin 7, blood pressure 146/63, heart rate 82, temperature 98.6 F, O2 saturation 99% on oxygen. Abdomen/pelvis CT revealing subcutaneous edema throughout the anterior abdominal pelvic wall, 7.1 x 2.6 cm area of consolidated soft tissue in the posterior lumbar spine, at the level of L2-3. Finding may represent developing decubitus ulcer or phlegmon, no nephrolithiasis or hy dronephrosis. Past Medical History Asthma, CAD, CHF, CKF, COPD, DM, ESRD, Gout, HTN Sleep apnea, Severe aortic stenosis Past Surgical History Unknown Family History Reviewed, noncontributory to the management of this case. Past Social History The patient lives at home, denies smoking, alcohol or illicit drugs abuse. Review of Systems Constitutional: Yes: Weakness, Malaise, Other (Fatigue); No: Fever, Chills, Sweats Eyes: Other (Decreased vision); No: Pain, Vision change, Conjunctivae inflammation, Eyelid inflammation, Redness ENT: No: Ear pain, Ear discharge, Nose pain, Nose discharge, Nose congestion, Mouth pain, Mouth swelling, Throat pain, Throat swelling, Other Respiratory: Shortness of breath, Other (SOB at rest); No: Cough, Dry, SOB with excertion, Wheezing, Hemoptysis, Pleuritic Pain, Sputum, Wheezing Cardiovascular: Chest Pain, Edema; No: Palpitations, Orthopnea, Paroxysmal Noc. Dyspnea, Lt Headedness, Other Gastrointestinal: Abdominal Pain, Constipation, Melena; No: Nausea, Vomiting, Diarrhea, Hematochezia, Other Genitourinary: No Dysuria, No Frequency, No Incontinence, No Hematuria, No Retention, No Other Musculoskeletal: No: other, neck pain, shoulder pain, arm pain, back pain, hand pain, leg pain, foot pain Skin: Other (Decubitus ulcer); No: Rash, Lesions, Jaundice, Bruising Neurological: Weakness; No: Numbness, Incoordination, Change in speech, Confusion, Seizures, Other Allergies: Coded Allergies: Aspirin (Verified Allergy, Unknown, 09/30/24) Medications Current Medications Medications Dose Ordered Sig/Nasrin Route Start Time Stop Time Status Last Admin Dose Admin Multivit/Ca Carb/ B Cmplx/FA/Prenat 1 tab DAILY PO 10/19/24 10:00 Sevelamer HCl 800 mg TIDWM PO 10/19/24 08:00 Pantoprazole Sodium 40 mg DAILY IV 10/19/24 10:00 Furosemide 40 mg DAILY IV 10/19/24 10:00 Allopurinol 100 mg DAILY PO 10/19/24 10:00 Atorvastatin Calcium 20 mg HS PO 10/19/24 22:00 Carvedilol 3.125 mg Q12HR PO 10/19/24 10:00 Albuterol 2.5 mg Q4HPRN PRN NEB 10/18/24 22:15 Ipratropium [place] 0.5 mg Q4HPRN PRN NEB 10/18/24 22:15 Diagnostic Test (Pha) 1 strip ACHS 10/19/24 07:00 Insulin Human Regular ACHS SC 10/19/24 07:00 Dextrose 50 ml UD PRN IV 10/18/24 22:15 Sodium Chloride 10 ml Q8HR IV 10/19/24 06:00 Acetaminophen/ Hydrocodone Bitart 1 tab Q4HP PRN PO 10/18/24 22:15 10/18/24 22:49 1 TAB Ondansetron HCl 4 mg Q4HP PRN IV 10/18/24 22:15 Docusate Sodium 100 mg BIDPRN PRN PO 10/18/24 22:15 Acetaminophen 650 mg Q6HP PRN PO 10/18/24 22:15 10/18/24 22:49 650 MG Exam Vital Signs Vital Signs Date Time Temp Pulse Resp B/P (MAP) Pulse Ox O2 Delivery O2 Flow Rate FiO2 10/18/24 20:10 18 100 Nasal Cannula* 4 36 10/18/24 18:39 146/63 10/18/24 18:34 98.6 82 98.6 General Appearance: Alert, Oriented X3, Cooperative, No acute distress HEENT: Atraumatic, PERRLA, EOMI, Mucous membr. moist/pink Respiratory: Normal air movement, Other (On oxygen) Cardiovascular: Regular rate, Normal S1, Normal S2, No murmurs Abdominal: Normal bowel sounds, Soft, No tenderness, No hepatospenomegaly, No masses Extremities: No clubbing, No cyanosis, No edema, Normal pulses Skin: No rashes, No significant lesion Neuro: Normal speech, Normal tone, Sensation intact, Cranial nerves 3-12 NL, Reflexes 2+, Other (Generalized weakness) Psych/Mental Status: Mental status NL, Mood NL Labs/Xrays Labs Test 10/18/24 22:27 10/18/24 20:03 10/18/24 19:07 Range/Units Urine Color Light-yellow Yellow Urine Clarity Turbid H Clear Urine pH 6.0 5.0-9.0 Urine Specific [place] 1.007 1.001-1.035 Urine Protein 1+ H Negative Urine Ketones Negative Negative Urine Blood Trace H Negative /uL Urine Nitrite Negative Negative Urine Bilirubin Negative Negative Urine Urobilinogen Normal Negative mg/dL Urine Leukocyte Esterase Trace Negative /uL Urine RBC 1 0 - 4 /hpf Urine Microscopic WBC 8 H 0-5 /HPF Urine Squamous Epithelial Cells Few <5 /hpf Urine Bacteria Few H None Seen /hpf Urine Glucose Normal Normal mg/dL Troponin I High Sensitivity 7 </=34 ng/L White Blood Count 7.8 4.4-10.8 10^3/uL Red Blood Count 2.56 L 4.0-5.20 10^6/uL Hemoglobin 8.2 L 12.2-16.2 g/dL Hematocrit 25.4 L 36.0-46.0 % Mean Corpuscular Volume 99.4 80.0-100.0 fL Mean Corpuscular Hemoglobin 32.1 H 28.0-32.0 pg Mean Corpuscular Hemoglobin Concent 32.3 32.0-36.0 g/dL Red Cell Distribution Width 14.7 H 11.8-14.3 % Platelet Count 319 140-450 10^3/uL Mean Platelet Volume 7.2 6.9-10.8 fL Neutrophils (%) (Auto) 72.7 37.0-80.0 % Lymphocytes (%) (Auto) 15.9 10.0-50.0 % Monocytes (%) (Auto) 7.2 0.0-12.0 % Eosinophils (%) (Auto) 3.2 0.0-7.0 % Basophils (%) (Auto) 1.0 0.0-2.0 % Neutrophils # (Auto) 5.7 1.6-8.6 10 ^3/uL Lymphocytes # (Auto) 1.2 0.4-5.4 10 ^3/uL Monocytes # (Auto) 0.6 0-1.3 10 ^3/uL Eosinophils # (Auto) 0.3 0-0.8 10 ^3/uL Basophils # (Auto) 0.1 0-0.2 10 ^3/uL Nucleated Red Blood Cells 0.0 % Sodium Level 137 136-145 mmol/L Potassium Level 6.0 *H 3.5-5.1 mmol/L Chloride Level 105 98-107 mmol/L Carbon Dioxide Level 26 20-31 mmol/L Anion Gap 6 5-15 Blood Urea Nitrogen 44 H 9-23 mg/dL Creatinine 2.12 H 0.550-1.02 mg/dL Glomerular Filtration Rate Calc 23 >90 mL/min BUN/Creatinine Ratio 20.8 H 10.0-20.0 Serum Glucose 156 H 74-106 mg/dL Calcium Level 9.3 8.7-10.4 mg/dL B-Type Natriuretic Peptide 494.95 0-100 pg/mL PATIENT: KIERA CHAVEZCCT: [id number] UNIT: [id number] : 1945 LOC: ER ROOM / BED: / AGE / SEX: 79 / F ADM STATUS: REG ER SERVICE ORDERING PHYSICIAN: LATONIA DANGELO RESIDENT PROCEDURE(s): ABPL - CT AB PEL WO CON-NO ORAL OR IV REASON: left flank, LLQ pain, consitpation ORDER NUMBER(s): [id number], ACCESSION NUMBER(s): [id number] Exam: CT CT AB PEL WO CON-NO ORAL OR IV History: left flank, LLQ pain, consitpation Comparison Study: None TECHNIQUE: Multidetector CT of the abdomen was performed from lung bases to pubic symphysis. Imaging was performed without IV contrast. Axial, coronal and sagittal multiplanar reformats were obtained from the axial data set by the technologist. Radiation Dose Information: CT Dose: CTDI volume is 25.51 mGy. Dose-length product is 1259.4 mGy*cm FINDINGS: Evaluation of solid organs is limited due to lack of intravenous contrast use. Findings: Lung Bases: No acute or significant lung base finding. Normal heart size. No pleural or pericardial effusion. Liver: The liver is normal in size. No focal lesions. Gallbladder and Biliary Tree: Cholelithiasis Spleen: Unremarkable Pancreas: The pancreas is grossly normal in appearance. Adrenal Glands: Unremarkable Kidneys: Kidneys are grossly normal without calculi or hydronephrosis. Bladder: Grossly unremarkable for degree of distention. Bowel: The stomach is grossly normal in appearance. Small bowel and colon are normal in caliber and distribution. The appendix is not visualized; however, no secondary findings of acute appendicitis identified. Ascites: Absent Lymphadenopathy: No mesenteric, retroperitoneal or periportal lymphadenopathy. Abdominal Wall and Mesentery: Unremarkable. Vasculature: The visualized abdominal aorta is normal in size and caliber. Evaluation of abdominal and pelvic vessels is limited due to lack of intravenous contrast. Pelvic Organs: Unremarkable Musculoskeletal: No aggressive focal bony lesions, acute fractures or dislocation. Soft tissues: Subcutaneous edema throughout the abdomen and pelvis suggesting anasarca. There is a 7.1 by 2.6 cm area of consolidated soft tissue in the posterior left flank may represent developing phlegmon or developing decubitus ulcer IMPRESSION: 1. No nephrolithiasis or hydronephrosis. 2. Subcutaneous edema throughout the anterior abdominal pelvic wall. 3. 7.1 x 2.6 cm area of consolidated soft tissues in the posterior lumbar spine. At the level of L2-3. Finding may represent developing decubitus ulcer or phlegmon. ORDERING PHYSICIAN: LATONIA DANGELO RESIDENT PROCEDURE(s): CXR1 - CHEST XRAY 1 VIEW REASON: SOB ORDER NUMBER(s): [id number], ACCESSION NUMBER(s): [id number] CHEST RADIOGRAPH Indication: SOB Technique: Single frontal view of the chest was obtained Comparison: XY CHEST PORTABLE on DOS: 10/03/24, XY CHEST PORTABLE on DOS: 10/02/24, XY CHEST PORTABLE on DOS: 10/01/24 FINDINGS: Lines and Tubes: None Lungs: No focal consolidation. Pleura: No effusion. No pneumothorax. Cardiomediastinal contours: Unremarkable Bones: No acute osseous abnormality. IMPRESSION: 1. No acute cardiopulmonary disease. SEPSIS Sepsis Screen Date sepsis recognized/suspect: Oct 18, 2024 Time Sepsis recognized/suspect: 1749 Recent Procedure: No On Antibiotic Therapy: No Respiratory Rate >20: No Heart Rate >90: No Temp<36 C (96.8 F) or >38.3 C: No SBP <90 or MAP <65 mmHG: No New Acute Mental Status Change: No Is the patient on CPAP, BIPAP,: No Physician Orders Chest Xray 1 View (10/18/24 18:11) Heplock Iv (10/18/24 ) Electrocardigram (10/18/24 18:11) Electrocardigram (10/18/24 19:11) Electrocardigram (10/18/24 21:11) Ct Ab Pel Wo Con-No Oral Or Iv (10/18/24 18:11) Stool Occult Blood (10/18/24 18:38) Basic Metabolic Panel (10/18/24 23:30) Consistent Carb(Ccho)Diabetes (10/19/24 Breakfast) *[facility] (10/18/24 22:10) B-Complex W/ C & Folic Tablet (Nephro-Vi (10/19/24 10:00) Sevelamer (Renagel) (10/19/24 08:00) Pantoprazole (Protonix) (10/19/24 10:00) Furosemide Injection (Lasix Injection) (10/19/24 10:00) Allopurinol Tablet (Zyloprim Tablet) (10/19/24 10:00) Atorvastatin (Lipitor) (10/19/24 22:00) Carvedilol Tablet (Coreg Tablet) (10/19/24 10:00) Type And Screen (10/18/24 22:10) Albuterol Medneb (Ventolin Medneb) (10/18/24 22:15) Ipratropium Medneb (Atrovent Medneb) (10/18/24 22:15) Glucose Blood (Accu-Chek Comfort Curve T (10/19/24 07:00) Insulin R (Human) (Insulin R) (10/19/24 07:00) Dextrose 50% Syringe (10/18/24 22:15) Allergies (10/18/24 22:10) Code Status (10/18/24 22:10) Renal Standard(2gna,3gk,Lopho) (10/19/24 Breakfast) Sodium Chloride Lock (Saline Lock Ns) (10/19/24 06:00) Oxygen Per Hour (10/18/24 22:10) Hydrocodone-Acet 5/325mg Tab ([place] 5/32 (10/18/24 22:15) Ondansetron Hcl (Zofran) (10/18/24 22:15) Docusate Sodium Capsule (Colace Capsule) (10/18/24 22:15) Fall Risk Precautions In Place QSHIFT (10/18/24 22:10) Complete Blood Count (10/19/24 04:00) Comprehensive Metabolic Panel (10/19/24 04:00) Condition: Serious (10/18/24 22:10) Acetaminophen Tablet (Tylenol Tablet) (10/18/24 22:15) Maintain Bed Rest (10/18/24 22:10) Sequential Compression Device (10/18/24 ) Creatine Kinase (10/18/24 23:16) Admit (10/18/24 23:30) Nitroglycerin Sublingual (Ntrostat Subli (10/18/24 23:30) Morphine Sulfate Injection (10/18/24 23:30) Stat Ekg For Chest Pain (10/18/24 23:30) Notify Md Of Changes From Base (10/18/24 23:30) Operators School Manager For 24 Hours (10/18/24 23:30) Emergency Dysrhythmia Protocol (10/18/24 23:30) Rhythm Strips Once Every Shift (10/18/24 23:30) Oxygen By Nasal Cannula (10/18/24 23:30) Vital Signs Date Time Temp Pulse Resp B/P (MAP) Pulse Ox O2 Delivery O2 Flow Rate FiO2 10/18/24 20:10 18 100 Nasal Cannula* 4 36 10/18/24 18:59 100 Nasal Cannula* 4 36 10/18/24 18:39 146/63 10/18/24 18:34 98.6 82 24 146/63 (90) 100 98.6 10/18/24 18:22 98.9 87 22 169/76 (107) 97 98.9 Laboratory Tests Test 10/18/24 19:07 White Blood Count 7.8 10^3/uL (4.4-10.8) Medications Medications Dose Ordered Sig/Nasrin Route Start Time Stop Time Status Last Admin Dose Admin Acetaminophen 650 mg Q6HP PRN PO 10/18/24 22:15 10/18/24 22:49 650 MG Acetaminophen/ Hydrocodone Bitart 1 tab Q4HP PRN PO 10/18/24 22:15 10/18/24 22:49 1 TAB Albuterol 20 mg ONCE ONCE NEB 10/18/24 20:00 10/18/24 20:04 DC 10/18/24 20:16 20 MG Calcium Gluconate/ Sodium Chloride 50 ml @ 120 mls/hr ONCE ONCE IV 10/18/24 20:00 10/18/24 20:24 DC 10/18/24 20:00 120 MLS/HR Dextrose 50 ml ONCE ONCE IV 10/18/24 20:00 10/18/24 20:04 DC 10/18/24 20:00 50 ML Furosemide 60 mg ONCE ONCE IV 10/18/24 18:15 10/18/24 18:27 DC 10/18/24 18:39 60 MG Insulin Human Regular 10 units ONCE ONCE IV 10/18/24 20:00 10/18/24 20:04 DC 10/18/24 19:45 10 UNITS Ipratropium [place] 0.5 mg ONCE ONCE NEB 10/18/24 19:00 10/18/24 19:01 DC 10/18/24 18:59 0.5 MG Levalbuterol HCl 0.625 mg ONCE ONCE NEB 10/18/24 19:00 10/18/24 19:01 DC 10/18/24 18:58 0.625 MG Pantoprazole Sodium 40 mg ONCE ONCE IV 10/18/24 18:15 10/18/24 18:27 DC 10/18/24 18:40 40 MG Zirconium Oxide 10 gm ONCE ONCE PO 10/18/24 22:15 10/18/24 22:33 DC 10/18/24 22:15 10 GM Assessment/Plan Assessment/Plan Acute on chronic hypoxic respiratory failure Morbid obesity Hyperkalemia Generalized weakness Acute abdominal pain Anemia of chronic disease Acute exacerbation of chronic heart failure Acute kidney injury superimposed on CKD Plan 1. Admit to telemetry unit 2. Breathing treatment 3. Pain control management 4. Management of fluids and electrolytes 5. Consultation for Nephrology 6. Diagnostic tests chest x-ray 7. DVT prophylaxis-on SCDs 8. Repeat labs CBC, CMP in a.m. 9. Continue with current medical management 10. Treatment plan discussed with patient and RN. Patient verbalized understanding. Plan discussed with: Patient, Other (RN) My Orders Orders - SALINAS SPARKS DNP Procedure Category Date Status Time Consistent DIET 10/19/24 Transmitted Carb(Ccho)Diabetes Breakfast *Dr[facility] CONS 10/18/24 Transmitted -[place] 22:10 B-Complex W/ C & PHA 10/19/24 In Process Folic Tablet 10:00 Sevelamer (Renagel) PHA 10/19/24 In Process 08:00 Pantoprazole PHA 10/19/24 In Process (Protonix) 10:00 Furosemide Injection PHA 10/19/24 In Process (Lasix Injection) 10:00 Allopurinol Tablet PHA 10/19/24 In Process (Zyloprim Tablet) 10:00 Atorvastatin (Lipitor) PHA 10/19/24 In Process 22:00 Carvedilol Tablet PHA 10/19/24 In Process (Coreg Tablet) 10:00 Type And Screen BBK 10/18/24 In Process 22:10 Albuterol Medneb PHA 10/18/24 In Process (Ventolin Medneb) 22:15 Ipratropium Medneb PHA 10/18/24 In Process (Atrovent Medneb) 22:15 Glucose Blood PHA 10/19/24 In Process (Accu-Chek Comfort 07:00 Insulin R (Human) PHA 10/19/24 In Process (Insulin R) 07:00 Dextrose 50% Syringe PHA 10/18/24 In Process 22:15 Allergies STAR 10/18/24 In Process 22:10 Code Status CODE 10/18/24 Transmitted 22:10 Renal DIET 10/19/24 Transmitted Standard(2gna,3gk,Lopho) Breakfast Sodium Chloride Lock PHA 10/19/24 In Process (Saline Lock Ns) 06:00 Oxygen Per Hour RT 10/18/24 Transmitted 22:10 Hydrocodone-Acet PHA 10/18/24 In Process 5/325mg Tab ([place] 22:15 Ondansetron Hcl PHA 10/18/24 In Process (Zofran) 22:15 Docusate Sodium PHA 10/18/24 In Process Capsule (Colace 22:15 Fall Risk Precautions STAR 10/18/[address] 22:10 Complete Blood Count LAB 10/19/24 Verified 04:00 Comprehensive LAB 10/19/24 Verified Metabolic Panel 04:00 Condition: Serious STAR 10/18/24 In Process 22:10 Acetaminophen Tablet PHA 10/18/24 In Process (Tylenol Tablet) 22:15 Maintain Bed Rest STAR 10/18/24 In Process 22:10 Sequential STAR 10/18/24 In Process Compression Device Admit ADMIT 10/18/24 Transmitted 23:30 Nitroglycerin [facility] 10/18/24 Logged Sublingual (Ntrostat 23:30 Morphine Sulfate PHA 10/18/24 Transmitted Injection 23:30 Stat Ekg For Chest STAR 10/18/24 Transmitted Pain 23:30 Notify Of Changes [facility] 10/18/24 Transmitted From Base 23:30 Operators School Manager For [facility] 10/18/24 Transmitted 24 Hours 23:30 Emergency Dysrhythmia [facility] 10/18/24 Transmitted Protocol 23:30 Rhythm Strips Once STAR 10/18/24 Transmitted Every Shift 23:30 Oxygen By Nasal RT 10/18/24 Transmitted Cannula 23:30 Problem List: (1) Acute on chronic hypoxic respiratory failure (2) Generalized weakness (3) Morbid obesity (4) Acute abdominal pain (5) Hyperkalemia (6) Anemia of chronic disease (7) Acute kidney injury superimposed on CKD (8) Acute exacerbation of chronic heart failure Date of Service: Oct 18, 2024 Billing Provider: SALINAS SPARKS DNP Common Visit Codes: [id number] INP/OBS CARE (HIGH) SALINAS SPARKS DNP Oct 18, 2024 23:31
[2024-10-18] MEDS: fentaNYL CITRATE 100 MCG/2 ML VL IV ONE (23:39)
[2024-10-18 23:43] VITALS: BP 142/61; PULSE 83; RESP 18; TEMP 98.6; O2SAT 100
[2024-10-18 23:49] LABS: Potassium 4.7 mmol/L (3.5-5.1); Sodium 140 mmol/L (136-145)
[2024-10-18 23:50] LABS: Anion Gap 7 (5-15); Carbon Dioxide 22 mmol/L (20-31)
[2024-10-18 23:55] LABS: BUN/Creatinine Ratio 19.7 (10.0-20.0)
[2024-10-18 23:57] LABS: Creatine Kinase IFCC 53 U/L (34-145)
[2024-10-19] VITALS (20 sets, daily range): BP systolic 127–189; BP diastolic 56–105; PULSE 73–103; RESP 16–27; TEMP 97–98.8; O2SAT 95–100
[2024-10-19 00:02] LABS: Blood Urea Nitrogen 36 mg/dL (9-23); Calcium 8.1 mg/dL (8.7-10.4); Chloride 111 mmol/L (98-107); Glucose 141 mg/dL (74-106)
[2024-10-19] MEDS: IPRATROPIUM BROM 0.5 MG/2.5ML INH SOL NEB PRN (03:33)
[2024-10-19] MEDS: ALBUTEROL SULF 2.5 MG/0.5ML(0.5%) NEB SOLN NEB PRN (03:33)
[2024-10-19] MEDS: SODIUM CHLOR 0.9% PF (SALINE LOCK) 10ML VIAL/SYR IV SCH (07:00)
[2024-10-19] MEDS: ACCU-CHEK COMFORT CURVE STRIP VI SCH (07:00)
[2024-10-19] MEDS: InsuLIN REG 1unit/0.01ml Soln (100units/ml) SC SCH (07:03)
[2024-10-19 09:30] LABS: Hematocrit 26.2 % (36.0-46.0); Hemoglobin 8.3 g/dL (12.2-16.2); Mean Corpuscular Hemoglobin 32.4 pg (28.0-32.0); Mean Corpuscular Volume 101.6 fL (80.0-100.0); Nucleated Red Blood Cells % 0.1 %
[2024-10-19 09:44] LABS: Alanine Aminotransferase 12 U/L (7-40); Albumin 4.0 g/dL (3.2-4.8); Alkaline Phosphatase 93 U/L (46-116); Anion Gap 5 (5-15); BUN/Creatinine Ratio 19.6 (10.0-20.0); Bilirubin, Total 0.4 mg/dL (0.2-1.0); Calcium 10.0 mg/dL (8.7-10.4); Carbon Dioxide 28 mmol/L (20-31); Chloride 105 mmol/L (98-107); Sodium 138 mmol/L (136-145); Total Protein 6.3 g/dL (5.7-8.2)
[2024-10-19 09:52] LABS: Blood Urea Nitrogen 41 mg/dL (9-23); Glucose 163 mg/dL (74-106); Potassium 6.2 mmol/L (3.5-5.1)
[2024-10-19] MEDS: FUROSEMIDE 40 MG/4 ML VIAL IV SCH ×2 (10:01→15:17)
[2024-10-19] MEDS: PANTOPRAZOLE 40 MG/10 ML VIAL INJ IV SCH (10:01)
[2024-10-19] MEDS: B-COMPLEX W/ C & FOLIC ACID(NEPHROVITE TAB) PO SCH (10:01)
[2024-10-19] MEDS: ALLOPURINOL 100 MG TAB PO SCH (10:02)
[2024-10-19 10:17] LABS: Hepatitis B Surface Antigen Negative (Negative)
[2024-10-19 10:39] LABS: Hepatitis C Antibody Negative (Negative)
[2024-10-19] MEDS: DEXTROSE (50%) 50ML SYRG IV ONE ×3 (10:45→22:41)
[2024-10-19] MEDS: SEVELAMER 800 MG TAB PO SCH (10:45)
[2024-10-19] MEDS: cefTRIAXone 1GM/50ML D5W 50 ML IV SCH (10:45)
[2024-10-19] MEDS: SODIUM BICARB 8.4% 50Meq/50ml SYR INJ IV ONE (10:46)
[2024-10-19] MEDS: InsuLIN REG 1unit/0.01ml Soln (100units/ml) IV ONE ×3 (10:47→22:40)
[2024-10-19] MEDS: ALBUTEROL SULF 2.5 MG/0.5ML(0.5%) NEB SOLN NEB ONE ×2 (10:55→22:25)
[2024-10-19] MEDS: DOXYCYCLINE 100MG/100ML 100 ML IV SCH (11:22)
[2024-10-19 11:25] LABS: Base Excess 0.0 mmol/L (-2.0-3.0)
[2024-10-19] MEDS: CARVEDILOL 3.125 MG TAB PO SCH (11:25)
[2024-10-19 11:50] LABS: Iron 43.0 ug/dL (50-170)
[2024-10-19 11:52] LABS: Total Iron Binding Capacity 208.0 ug/dL (250-425)
[2024-10-19] MEDS: methylPREDNISolone SOD SUCC 40 MG/ML VL IV SCH (12:06)
[2024-10-19] MEDS: SODIUM ZIRCONIUM CYCL 10 GM PAK PO ONE ×2 (13:45→23:41)
[2024-10-19 14:00] LABS: Base Excess -1.0 mmol/L (-2.0-3.0)
[2024-10-19] MEDS: ALBUTEROL SULF 2.5 MG/0.5ML(0.5%) NEB SOLN NEB SCH (15:11)
[2024-10-19] MEDS: IPRATROPIUM BROM 0.5 MG/2.5ML INH SOL NEB SCH (15:11)
[2024-10-19] MEDS: SODIUM CHL 0.9% 1000 ML BAG XX ONE (15:30)
[2024-10-19] MEDS: CALCIUM GLUC 1,000mg/50ml-NS 50 ML IV ONE ×2 (15:42→22:42)
[2024-10-19] MEDS: HEPARIN 1,000 UNITS/ml 1ML VIAL IV ONE ×2 (16:00)
[2024-10-19] MEDS ORDERED: LIDOCAINE 1% HCL (LOCAL ANESTH.) INJ 20ML MDV IJ ONE (16:15)
[2024-10-19] MEDS: LIDOCAINE 2% (LOCAL ANESTH.) PF 5ml SDV ONE (16:20)
[2024-10-19] MEDS: LIDOCAINE 2%HCL (LOCAL ANESTH.) INJ 10ml MDV IJ ONE (16:30)
--- NOTE | 2024-10-19 17:31 | DVH ---
CHEST RADIOGRAPH Indication: CONFIRM CENTRAL LINE PLACEMENT Technique: Single frontal view of the chest was obtained Comparison: XY CHEST XRAY 1 VIEW on DOS: 10/18/24, XY CHEST PORTABLE on DOS: 10/03/24, XY CHEST PORTABL E on DOS: 10/02/24 FINDINGS: Lines and Tubes: Right internal jugular catheter in place proximally 2 cm below the inferior margin o f the clavicle on the right. Lungs: No focal consolidation. Pleura: No effusion. No pneumothorax. Cardiomediastinal contours: Unremarkable Bones: No acute osseous abnormality. IMPRESSION: 1. Right internal jugular catheter in place proximally 2 cm distal to the inferior margin of the righ t clavicle.
--- NOTE | 2024-10-19 17:49 | DVHINCON2 ---
Date of service: Oct 19, 2024 Referring Physician Cynhtia VILLASEÑOR Reason for Consultation Acute kidney injury, hyperkalemia. History of Present Illness 79-year-old patient with significant history of advanced kidney disease Chronic kidney disease stage 4 with recent hospitalization last month since then she has been holding the diuretics according to the son who is at bedside. Since then patient has experienced significant and progressive dyspnea on exertion then at rest associated with bilateral lower extremity edema. According to the son patient has stopped taking the potassium supplementation she was taking along with the Lasix. She has a significant history also of hypertension, aortic stenosis, morbid obesity, COPD, asthma. She presents to the hospital with significant dyspnea associated with hypoxemia of 80% on 2 L of home oxygen as well as chest pain retrosternal with deep breathing. Laboratory data revealed serum creatinine of 2.12 mg/dL, GFR around 23, CT scan abdomen pelvis showed anasarca, no evidence of hydronephrosis or nep hrolithiasis, chest x-ray showed pulmonary edema. She was also found to have hyperkalemia initial potassium of 6 for which she r eceived hyperkalemic protocol with persistent hyperkalemia up to 6.3 at this time despite Lokelma x1 and hyperkalemia medical management. Past Medical History Hypertension, morbid obesity, Chronic kidney disease stage 4, COPD, chronic hypoxic respiratory failure. Past Surgical History Unable to obtain as the patient is dyspneic Allergies: Coded Allergies: Aspirin (Verified Allergy, Unknown, 09/30/24) Home Meds Active Scripts Nifedipine (Nifedipine Er) 90 Mg Tab, 1 TAB PO DAILY for 30 Days, #30 TAB 5 Refills Prov:CYRUS WALLACE RESIDENT 10/08/24 Carvedilol (Carvedilol) 6.25 Mg Tab, 1 TAB PO BID for 30 Days, #60 TAB 1 Refill Prov:CYRUS WALLACE RESIDENT 10/08/24 Reported Medications Hydrocodone-Acetaminophen (Hydrocodone Bitartrate/AC 10-325 mg) 1 Tab Tab, 1 TAB PO Q4HR PRN for INTERVERTEBRAL DISC DISORDERS for 30 Days, #180 10/06/24 Pantoprazole Sodium Sesquihydr (Pantoprazole Sodium) 40 Mg Tab, 1 TAB PO DAILY for 30 Days, #30 10/06/24 Loratadine (CLARITIN TABLET) 10 Mg Tb, 1 TAB PO DAILY for 30 Days, #30 6/28/25 Simvastatin (Simvastatin) 20 Mg Tab, 1 TAB PO DAILY for 30 Days, #30 10/06/24 Allopurinol (Allopurinol) 100 Mg Tab, 1 TAB PO DAILY for 30 Days, #30 10/06/24 Docusate Sodium (Docusate Sodium) 100 Mg Cap, 1 CAP PO BID for 30 Days, #60 10/06/24 Glimepiride (Glimepiride) 2 Mg Tab, 2 TAB PO DAILY for 30 Days, #60 10/06/24 Ursodiol (Ursodiol) 250 Mg Tab, 1 TAB PO TID for 30 Days, #90 10/06/24 Insulin Glargine (Basaglar Kwikpen) 100 Unit/Ml Inj, 26 UNIT SC DAILY for 58 Days, #15 10/06/24 Current Medications Current Medications Medications (Trade) Dose Ordered Sig/Nasrin Route PRN Reason Start Time Stop Time Status Last Admin Multivit/Ca Carb/ B Cmplx/FA/Prenat (Nephro-Chele Tablet) 1 tab DAILY PO 10/19/24 10:00 10/19/24 10:01 Sevelamer HCl (Renagel) 800 mg TIDWM PO 10/19/24 08:00 10/19/24 12:05 Pantoprazole Sodium (Protonix) 40 mg DAILY IV 10/19/24 10:00 10/19/24 10:01 Furosemide (Lasix Injection) 40 mg DAILY IV 10/19/24 10:00 10/19/24 13:41 DC 10/19/24 10:01 Allopurinol (Zyloprim Tablet) 100 mg DAILY PO 10/19/24 10:00 10/19/24 10:02 Atorvastatin Calcium (Lipitor) 20 mg HS PO 10/19/24 22:00 Carvedilol (Coreg Tablet) 3.125 mg Q12HR PO 10/19/24 10:00 10/19/24 11:25 Albuterol (Ventolin Medneb) 2.5 mg Q4HPRN PRN NEB SHORTNESS OF BREATH 10/18/24 22:15 10/19/24 10:34 DC 10/19/24 03:33 Ipratropium [place] (Atrovent Medneb) 0.5 mg Q4HPRN PRN NEB SHORTNESS OF BREATH 10/18/24 22:15 10/19/24 10:34 DC 10/19/24 03:33 Diagnostic Test (Pha) (Accu-Chek Comfort Curve T) 1 strip ACHS 10/19/24 07:00 10/19/24 17:21 Insulin Human Regular (InsuLIN R) ACHS SC 10/19/24 07:00 10/19/24 17:22 Dextrose 50 ml UD PRN IV Blood Sugar LESS THAN 60 10/18/24 22:15 Sodium Chloride (Saline Lock Ns) 10 ml Q8HR IV 10/19/24 06:00 10/19/24 14:47 Acetaminophen/ Hydrocodone Bitart ([place] 5/325MG Tab) 1 tab Q4HP PRN PO MODERATE PAIN (4-6 PAIN SCALE) 10/18/24 22:15 10/18/24 22:49 Ondansetron HCl (Zofran) 4 mg Q4HP PRN IV NAUSEA / VOMITING 10/18/24 22:15 Docusate Sodium (Colace Capsule) 100 mg BIDPRN PRN PO FOR CONSTIPATION 10/18/24 22:15 Acetaminophen (Tylenol Tablet) 650 mg Q6HP PRN PO PAIN SCALE 1-3 OR TEMP>100.4 10/18/24 22:15 10/18/24 22:49 Nitroglycerin (Ntrostat Sublingual) 0.4 mg Q5MINP PRN SL FOR CHEST PAIN 10/18/24 23:30 Morphine Sulfate 2 mg Q30M PRN IV FOR CHEST PAIN 10/18/24 23:30 Nifedipine (Procardia Xl (Time-Release)) 90 mg DAILY PO 10/19/24 10:00 10/19/24 10:02 Ceftriaxone Sodium 50 ml @ 100 mls/hr DAILY@09 IV 10/19/24 09:15 10/19/24 10:45 Albuterol (Ventolin Medneb) 2.5 mg Q4HR NEB 10/19/24 14:00 10/19/24 15:11 Ipratropium [place] (Atrovent Medneb) 0.5 mg Q4HR NEB 10/19/24 14:00 10/19/24 15:11 Doxycycline Hyclate 100 ml @ 50 mls/hr Q12H IV 10/19/24 10:45 10/19/24 11:22 Methylprednisolone Sodium Succinate (Solu Medrol) 40 mg DAILY IV 10/19/24 11:30 10/19/24 12:06 Furosemide (Lasix Injection) 40 mg BID IV 10/19/24 13:45 10/19/24 15:17 Family History: Arthritis G8 MOTHER Hypercholesterolemia G8 MOTHER G8 FATHER Hypertension G8 MOTHER G8 FATHER Social History No smoking alcohol or drug abuse Review of Systems HEENT: Oral mucosa dry Neck no JVD Cardiovascular: Positive for chest pain, orthopnea leg swelling Respiratory: Positive for significant shortness of breath Gastrointestinal: Denies for nausea vomiting Musculoskeletal: Denies myalgias Neurological: Denies focal weakness Dermatological: Denies any rash The rest of the review of systems were reviewed pertinent positives and pertinent negatives are as per HPI up to 12 points review of systems H&P Exam Vital Signs/I&O Vital Sign Date Time Temp Pulse Resp B/P (MAP) Pulse Ox O2 Delivery O2 Flow Rate FiO2 10/19/24 17:00 98.3 81 16 189/105 (133) 100 98.3 10/19/24 15:11 Facial BiPAP Mask 30 10/19/24 10:57 2 Intake and Output 10/18/24 10/19/24 19:00 07:00 Intake Total 0 ml Output Total 1200 ml Balance -1200 ml Intake Oral 0 ml Output Urine Total 1200 ml # Voids 4 # Bowel Movements 4 Physical Exam HEENT: No evidence of JVD, no oral ulcers. Pulmonary: Crackles at the bases on auscultation bilaterally Significant work of breathing Cardiovascular S1-S2, no S3 or S4 Abdomen: Bowel sounds positive, soft no rebound tenderness Skin: No rash Neurological: Alert, oriented, no focal weakness Extremities: Trace edema bilaterally Labs/Diagnostic Data Labs/Diagnostic Data Laboratory Tests Test 10/19/24 17:20 10/19/24 14:30 10/19/24 13:51 10/19/24 11:18 Range/Units POC Glucose 208 H 70-106 mg/dl Potassium Level 6.3 *H 3.5-5.1 mmol/L Blood Gas Specimen Type Arterial Arterial Blood Gas Sample Site Left radial Right radial Blood Gas Patient Temperature 37.0 37.0 Arterial Blood Date Drawn [id number] Arterial Blood pH 7.314 L 7.211 *L 7.350-7.450 Arterial Blood Partial Pressure CO2 51.2 H 73.0 *H 32.0-45.0 mmHg Arterial Blood Partial Pressure O2 138.9 H 40.9 *L 83.0-108.0 mmHg Arterial Blood HCO3 25.4 28.6 H 21.0-28.0 mmol/L Arterial Blood Oxygen Saturation 98.5 H 72.5 *L 94.0-98.0 % Arterial Blood Base Excess -1.0 0.0 -2.0-3.0 mmol/L Arterial Blood Oxyhemoglobin 97.3 71.5 L 94.0-98.0 % Arterial Blood Carboxyhemoglobin 0.6 0.9 0.5-1.5 % Arterial Blood Methemoglobin 0.6 0.5 0.0-1.5 % Cristian Test Modified Yes Blood Gas Total Hemoglobin 8.70 L 8.80 L 12.0-16.0 g/dL Blood Gas Modality Mask - bipap Nasal cannula Blood Gas Spontaneous Rate 24 18 FiO2 % 35.0 28.0 Blood Gas Spontaneous Tidal Volume 317 Blood Gas EPAP 5 Blood Gas IPAP 15 Blood Gas Liter Flow 2.00 Blood Gas Critical Value Read Back Yes Blood Gas Notified Whom Dr. lois cool Blood Gas Notified Time [id number] Blood Gas Notified By Rt naina Eduardo 10/19/24 09:10 10/19/24 06:30 10/18/24 23:28 10/18/24 22:27 Range/Units White Blood Count 6.1 4.4-10.8 10^3/uL Red Blood Count 2.57 L 4.0-5.20 10^6/uL Hemoglobin 8.3 L 12.2-16.2 g/dL Hematocrit 26.2 L 36.0-46.0 % Mean Corpuscular Volume 101.6 H 80.0-100.0 fL Mean Corpuscular Hemoglobin 32.4 H 28.0-32.0 pg Mean Corpuscular Hemoglobin Concent 31.9 L 32.0-36.0 g/dL Red Cell Distribution Width 15.2 H 11.8-14.3 % Platelet Count 314 140-450 10^3/uL Mean Platelet Volume 6.9 6.9-10.8 fL Neutrophils (%) (Auto) 66.6 37.0-80.0 % Lymphocytes (%) (Auto) 19.3 10.0-50.0 % Monocytes (%) (Auto) 10.1 0.0-12.0 % Eosinophils (%) (Auto) 2.8 0.0-7.0 % Basophils (%) (Auto) 1.2 0.0-2.0 % Neutrophils # (Auto) 4.1 1.6-8.6 10 ^3/uL Lymphocytes # (Auto) 1.2 0.4-5.4 10 ^3/uL Monocytes # (Auto) 0.6 0-1.3 10 ^3/uL Eosinophils # (Auto) 0.2 0-0.8 10 ^3/uL Basophils # (Auto) 0.1 0-0.2 10 ^3/uL Nucleated Red Blood Cells 0.1 % Sodium Level 138 140 136-145 mmol/L Potassium Level 6.2 *H 4.7 3.5-5.1 mmol/L Chloride Level 105 111 H 98-107 mmol/L Carbon Dioxide Level 28 22 20-31 mmol/L Anion Gap 5 7 5-15 Blood Urea Nitrogen 41 H 36 H 9-23 mg/dL Creatinine 2.09 H 1.83 H 0.550-1.02 mg/dL Glomerular Filtration Rate Calc 24 28 >90 mL/min BUN/Creatinine Ratio 19.6 19.7 10.0-20.0 Serum Glucose 163 H 141 H 74-106 mg/dL Calcium Level 10.0 8.1 L 8.7-10.4 mg/dL Magnesium Level 1.9 1.6-2.6 mg/dL Iron Level 43 L 50-170 ug/dL Total Iron Binding Capacity 208 L 250-425 ug/dL Percent Iron Saturation 20.7 15-50 % Ferritin 404.5 H 10-291 ng/mL Total Bilirubin 0.4 0.2-1.0 mg/dL Aspartate Amino Transferase (AST) 14 13-40 U/L Alanine Aminotransferase (ALT) 12 7-40 U/L Alkaline Phosphatase 93 46-116 U/L Total Protein 6.3 5.7-8.2 g/dL Albumin 4.0 3.2-4.8 g/dL Hepatitis B Surface Antigen Negative Negative Hepatitis C Antibody Negative Negative POC Glucose 153 H 70-106 mg/dl Creatine Kinase 53 34-145 U/L Urine Color Light-yellow Yellow Urine Clarity Turbid H Clear Urine pH 6.0 5.0-9.0 Urine Specific [place] 1.007 1.001-1.035 Urine Protein 1+ H Negative Urine Ketones Negative Negative Urine Blood Trace H Negative /uL Urine Nitrite Negative Negative Urine Bilirubin Negative Negative Urine Urobilinogen Normal Negative mg/dL Urine Leukocyte Esterase Trace Negative /uL Urine RBC 1 0 - 4 /hpf Urine Microscopic WBC 8 H 0-5 /HPF Urine Squamous Epithelial Cells Few <5 /hpf Urine Bacteria Few H None Seen /hpf Urine Glucose Normal Normal mg/dL Test 10/18/24 20:03 10/18/24 19:07 Range/Units Troponin I High Sensitivity 7 7 </=34 ng/L White Blood Count 7.8 4.4-10.8 10^3/uL Red Blood Count 2.56 L 4.0-5.20 10^6/uL Hemoglobin 8.2 L 12.2-16.2 g/dL Hematocrit 25.4 L 36.0-46.0 % Mean Corpuscular Volume 99.4 80.0-100.0 fL Mean Corpuscular Hemoglobin 32.1 H 28.0-32.0 pg Mean Corpuscular Hemoglobin Concent 32.3 32.0-36.0 g/dL Red Cell Distribution Width 14.7 H 11.8-14.3 % Platelet Count 319 140-450 10^3/uL Mean Platelet Volume 7.2 6.9-10.8 fL Neutrophils (%) (Auto) 72.7 37.0-80.0 % Lymphocytes (%) (Auto) 15.9 10.0-50.0 % Monocytes (%) (Auto) 7.2 0.0-12.0 % Eosinophils (%) (Auto) 3.2 0.0-7.0 % Basophils (%) (Auto) 1.0 0.0-2.0 % Neutrophils # (Auto) 5.7 1.6-8.6 10 ^3/uL Lymphocytes # (Auto) 1.2 0.4-5.4 10 ^3/uL Monocytes # (Auto) 0.6 0-1.3 10 ^3/uL Eosinophils # (Auto) 0.3 0-0.8 10 ^3/uL Basophils # (Auto) 0.1 0-0.2 10 ^3/uL Nucleated Red Blood Cells 0.0 % Sodium Level 137 136-145 mmol/L Potassium Level 6.0 *H 3.5-5.1 mmol/L Chloride Level 105 98-107 mmol/L Carbon Dioxide Level 26 20-31 mmol/L Anion Gap 6 5-15 Blood Urea Nitrogen 44 H 9-23 mg/dL Creatinine 2.12 H 0.550-1.02 mg/dL Glomerular Filtration Rate Calc 23 >90 mL/min BUN/Creatinine Ratio 20.8 H 10.0-20.0 Serum Glucose 156 H 74-106 mg/dL Calcium Level 9.3 8.7-10.4 mg/dL B-Type Natriuretic Peptide 494.95 0-100 pg/mL Microbiology Date/Time Source Procedure Growth Status 10/19/24 03:20 Nose MRSA Screen - Final Complete Chest x-ray shows increased pulmonary vasculature Assessment Assessment: 1. Acute kidney injury on Chronic kidney disease four 2. Hyperkalemia refractory to medical management 3. Acute hypoxic respiratory failure 4. Morbid obesity 5. Fluid overload 6. Acute diastolic heart failure exacerbation 7. Anemia Plan: I had a long discussion with the patient and the son in view of refractory hyperkalemia next step is hemodialysis which was called stat. Place HD line Kaden catheter for now Patient currently on BiPAP, Pulmonary consult appreciated Loop diuretics IV Lokelma p.o. x1, hyperkalemia protocol in the meantime Monitor closely irrigant output, place Triana catheter Next days we will depend on the clinical course Thank you very much for allowing us to participate in the care of this patient Plan discussed with: Patient, Son HONG MAYA MD Oct 19, 2024 17:49
--- NOTE | 2024-10-19 18:10 | DVHPNRES ---
Progress Note Date Seen: Oct 19, 2024 Resident Creating Document: LILY NEVAREZ RESIDENT Medical Necessity Reason Pt with a Central, PICC or Fol: Yes Subjective Review of Systems Kary Rivera 79F with past medical history of CHF, COPD, hiatal hernia, PUD, DM, recurrent UTI, morbid obesity, blindness and anemia presented to the ED with complaints of inability to breathe, chest pain on 2 L home oxygen. She also complained of left-sided abdominal pain, leg cramp and some constipation. She is unable to recall when the symptoms started this time. Her son added that the symptoms worsen 2 days ago. She goes in and out of consciousness, making grunting and moaning sounds. On labs her potassium was 6 last night and 6.2 today in the morning. Vitals show tachypnea and blood pressure of 166/77. Urine analysis shows WBC 8 protein +1. Her hemoglobin is 8.2. Her chest x-ray shows enlarged called takes silhouette, penetration not good, pulmonary congestion likely. On CT abdomen pelvis no abnormality seen. ROS: Constitutional: Morbidly obese HEENT: Blindness bilaterally. Respiratory: Difficulty breathing Cardiovascular: Denies chest discomfort or palpitations GI: Abdominal pain : History of UTI. Musculoskeletal: Generalized myalgia, cramps Neurological: Unable to recall events Objective vital signs Vital Sign Date Time Temp Pulse Resp B/P (MAP) Pulse Ox O2 Delivery O2 Flow Rate FiO2 10/19/24 17:00 98.3 81 16 189/105 (133) 100 98.3 10/19/24 15:11 Facial BiPAP Mask 30 10/19/24 10:57 2 Total Intake and Output 10/18/24 10/18/24 10/19/24 15:00 23:00 07:00 Intake Total 0 ml Output Total 800 ml 400 ml Balance -800 ml -400 ml medications Current Medications Medications Dose Ordered Sig/Nasrin Route Start Time Stop Time Status Last Admin Dose Admin Multivit/Ca Carb/ B Cmplx/FA/Prenat 1 tab DAILY PO 10/19/24 10:00 10/19/24 10:01 1 TAB Sevelamer HCl 800 mg TIDWM PO 10/19/24 08:00 10/19/24 12:05 800 MG Pantoprazole Sodium 40 mg DAILY IV 10/19/24 10:00 10/19/24 10:01 40 MG Allopurinol 100 mg DAILY PO 10/19/24 10:00 10/19/24 10:02 100 MG Atorvastatin Calcium 20 mg HS PO 10/19/24 22:00 Carvedilol 3.125 mg Q12HR PO 10/19/24 10:00 10/19/24 11:25 3.125 MG Diagnostic Test (Pha) 1 strip ACHS 10/19/24 07:00 10/19/24 17:21 1 STRIP Insulin Human Regular ACHS SC 10/19/24 07:00 10/19/24 17:22 4 UNITS Dextrose 50 ml UD PRN IV 10/18/24 22:15 Sodium Chloride 10 ml Q8HR IV 10/19/24 06:00 10/19/24 14:47 10 ML Acetaminophen/ Hydrocodone Bitart 1 tab Q4HP PRN PO 10/18/24 22:15 10/18/24 22:49 1 TAB Ondansetron HCl 4 mg Q4HP PRN IV 10/18/24 22:15 Docusate Sodium 100 mg BIDPRN PRN PO 10/18/24 22:15 Acetaminophen 650 mg Q6HP PRN PO 10/18/24 22:15 10/18/24 22:49 650 MG Nitroglycerin 0.4 mg Q5MINP PRN SL 10/18/24 23:30 Morphine Sulfate 2 mg Q30M PRN IV 10/18/24 23:30 Nifedipine 90 mg DAILY PO 10/19/24 10:00 10/19/24 10:02 90 MG Ceftriaxone Sodium 50 ml @ 100 mls/hr DAILY@09 IV 10/19/24 09:15 10/19/24 10:45 100 MLS/HR Albuterol 2.5 mg Q4HR NEB 10/19/24 14:00 10/19/24 15:11 2.5 MG Ipratropium [place] 0.5 mg Q4HR NEB 10/19/24 14:00 10/19/24 15:11 0.5 MG Doxycycline Hyclate 100 ml @ 50 mls/hr Q12H IV 10/19/24 10:45 10/19/24 11:22 50 MLS/HR Methylprednisolone Sodium Succinate 40 mg DAILY IV 10/19/24 11:30 10/19/24 12:06 40 MG Furosemide 40 mg BID IV 10/19/24 13:45 10/19/24 15:17 40 MG Examination General: Morbidly obese. Patient unable to recall the event. HEENT: Bilateral blindness Respiratory/pulmonary: Reduced breath sounds, difficulty breathing, grunting Cardiovascular: Distant heart sounds, systolic murmur heard on [place] area. Abdomen: Generalized tenderness over the abdomen. Extremities: Grade 1 pitting edema bilateral legs, extremities are warm to touch. Tenderness in all 4 limbs. Skin: No rashes or pruritus, there is no sacral edema present at this time. laboratory and microbiology Laboratory Tests 10/19/24 14:30 10/19/24 09:10 Test 10/19/24 09:10 Range/Units Serum Glucose 163 H 74-106 mg/dL Microbiology Date/Time Source Procedure Growth Status 10/19/24 03:20 Nose MRSA Screen - Final Complete Problem List/Assessment/Plan Problem List/Assessment/Plan #Acute on chronic respiratory failure #Possibly COPD exacerbation -Nebulization with albuterol and ipratropium bromide -IV methylprednisolone once #Morbid obesity with BMI 48.5 -We can consider hospice for discharge #Microcytic hypochromic anemia, unspecified -Ordered iron, ferritin -Given Epoetin sushil #Hyperkalemia #Hyperchloremia -On labs, potassium 6.2, chloride 111 We will start on potassium binder when she can tolerate oral feeds Increase furosemide to 40 mg b.i.d. We will continue to monitor and manage #Recurrent UTI -Urine analysis shows WBC-+8 -Start IV ceftriaxone, IV doxycycline #Hypertension -BP 166/77 -Continue furosemide, nifedipine, carvedilol #Acute on chronic systolic heart failure HFrEF -LVEF 30% -BNP elevated- 494 #Diabetes mellitus #Blindness -Start sliding scale insulin -Hiatal hernia #Respiratory acidosis -Arterial blood gas show pH 7.2, pCO2 73 -Started on BiPAP -Respiratory acidosis resolved #Gout -Continue Allopurinol #Chronic widespread pain -Managed on acetaminophen, [place], morphine Goals of care discussed with patient, son bedside for more than 35 minutes Plan discussed with Dr. Wang Plan discussed with: Son My Orders My Orders Orders - LILY NEVAREZ RESIDENT Procedure Category Date Status Time BIPAP RT 10/19/24 Logged 11:43 Complete Blood Count LAB 10/20/24 Verified 04:00 Comprehensive LAB 10/20/24 Verified Metabolic Panel 04:00 Chest Xray 1 View XY 10/19/24 Resulted 16:58 Date of Service: Oct 19, 2024 Billing Provider: ANTOLIN BRUSH MD Common Visit Codes: [id number] CARE 30-74 MIN LILY NEVAREZ RESIDENT Oct 19, 2024 18:10 ANTOLIN BRUSH MD Oct 22, 2024 00:14
[2024-10-19] MEDS ORDERED: HYDROcodone-ACET 10/325MG TAB PO PRN (22:00)
[2024-10-19] MEDS: MORPHINE SULFATE INJ 2 MG/ml SYRG IV PRN (22:13)
--- NOTE | 2024-10-19 22:18 | ECG ---
[facility] Test Date: 2024-10-19 Test Time: 10:38:59 Pat Name: CLINT SONI Department: Room: 0263D A Gender: F [employer] Service Representative: NHI : 1945 Requested By: HONG SNOW Order Number: [id number] Reading MD: Doron Wells Measurements Intervals [place] Rate: 76 P: 31 [place]: 194 QRS: 5 QRSD: 116 T: 198 QT: 361 QTc: 406 Interpretive Statements Sinus rhythm Incomplete left bundle branch block LVH with secondary repolarization abnormality Electronically Signed On 10-22-2024 13:24:35 PDT by Doron Wells Please click the below link to view image of tracing.
[2024-10-19] MEDS: ONDANSETRON HCL 4 MG/2 ML VIAL IV PRN (22:21)
[2024-10-19] MEDS: NITROGLYCERIN 0.4 MG SL TAB SL PRN (22:38)
[2024-10-19] MEDS: ATORVASTATIN 20 MG TAB PO SCH (23:40)
[2024-10-19] MEDS: MELATONIN 5 MG TAB PO SCH (23:40)
[2024-10-19] MEDS: EPOETIN ALFA-EPBX 4,000 UNIT/ML VIAL SC ONE (23:42)
[2024-10-20] VITALS (38 sets, daily range): BP systolic 109–151; BP diastolic 38–67; PULSE 78–100; RESP 12–29; TEMP 97.7–98.6; O2SAT 92–100
[2024-10-20] MEDS ORDERED: FUROSEMIDE 100 MG/10ML VIAL IV SCH ×2 (01:35→06:00)
[2024-10-20 01:51] LABS: Anion Gap 8 (5-15); Calcium 9.1 mg/dL (8.7-10.4); Carbon Dioxide 24 mmol/L (20-31); Chloride 102 mmol/L (98-107); Sodium 134 mmol/L (136-145)
[2024-10-20 01:53] LABS: Potassium 6.3 mmol/L (3.5-5.1)
[2024-10-20 01:57] LABS: BUN/Creatinine Ratio 19.2 (10.0-20.0)
[2024-10-20 02:00] LABS: Blood Urea Nitrogen 42 mg/dL (9-23)
[2024-10-20 02:01] LABS: Glucose 452 mg/dL (74-106)
[2024-10-20] MEDS: FUROSEMIDE 100 MG/10ML VIAL IV SCH ×2 (02:20→17:12)
[2024-10-20] MEDS: InsuLIN REG 1unit/0.01ml Soln (100units/ml) IV ONE (03:26)
[2024-10-20] MEDS: InsuLIN REG 1unit/0.01ml Soln (100units/ml) SC ONE (03:28)
[2024-10-20] MEDS: DEXTROSE (50%) 50ML SYRG IV ONE (03:29)
[2024-10-20] MEDS: CALCIUM GLUC 1,000mg/50ml-NS 50 ML IV ONE (03:29)
[2024-10-20] MEDS: ALBUTEROL SULF 2.5 MG/0.5ML(0.5%) NEB SOLN NEB ONE (03:52)
[2024-10-20 04:53] LABS: Hematocrit 18.5 % (36.0-46.0); Mean Corpuscular Hemoglobin 34.5 pg (28.0-32.0); Mean Corpuscular Volume 101.1 fL (80.0-100.0); Nucleated Red Blood Cells % 0.0 %
[2024-10-20 04:55] LABS: Hemoglobin 6.3 g/dL (12.2-16.2)
[2024-10-20 05:09] LABS: Alanine Aminotransferase 11 U/L (7-40); Albumin 3.6 g/dL (3.2-4.8); Alkaline Phosphatase 87 U/L (46-116); Anion Gap 8 (5-15); BUN/Creatinine Ratio 18.8 (10.0-20.0); Calcium 9.8 mg/dL (8.7-10.4); Carbon Dioxide 26 mmol/L (20-31); Chloride 102 mmol/L (98-107)
[2024-10-20 05:10] LABS: Bilirubin, Total 0.3 mg/dL (0.2-1.0); Blood Urea Nitrogen 45 mg/dL (9-23); Sodium 136 mmol/L (136-145); Total Protein 5.7 g/dL (5.7-8.2)
[2024-10-20 05:12] LABS: Glucose 454 mg/dL (74-106); Potassium 5.9 mmol/L (3.5-5.1)
[2024-10-20] MEDS: HYDROcodone-ACET 10/325MG TAB PO PRN (06:07)
--- NOTE | 2024-10-20 06:41 | DVHPNRES ---
Progress Note Date Seen: Oct 20, 2024 Resident Creating Document: MARCO SAHA RESIDENT Medical Necessity Reason Pt with a Central, PICC or Fol: Yes Subjective Review of Systems This is a 79-year-old female with past medical history of diabetes mellitus type 2, hypertension, systolic congestive heart failure-EF 30%,, gout, sleep apnea, CKD, arthritis, chronic respiratory failure on 3 L oxygen, presents to the ER with a chief complaint of shortness of breaths and chest pain, also reported abdominal pain. Per chart review, son reported that her symptoms worsened 2 days back. Currently hospitalized in this facility for fluid overload. Past medical history diabetes mellitus type 2, hypertension, CHF, gout, sleep apnea, CKD, arthritis, chronic respiratory failure on 3 L oxygen Past surgical history Recent surgery Family history Noncontributory Social history Denied smoking, marijuana, alcohol, any other drug intake Home medications: Amlodipine, nitroglycerin, clonidine, benazepril, nadolol, allopurinol, [place], Basaglar and NovoLog Patient seen and examined in the ICU. Hemoglobin 6.3, patient has a Nondenominational. Repeat hemoglobin 7.7. Left IJ hemodialysis catheter was placed by strategic communications manager Objective vital signs Vital Sign Date Time Temp Pulse Resp B/P (MAP) Pulse Ox O2 Delivery O2 Flow Rate FiO2 10/20/24 06:18 84 18 100 10/20/24 06:12 Nasal Cannula 3.0 10/20/24 06:12 32 10/20/24 04:02 137/67 10/19/24 22:00 98.8 98.8 Total Intake and Output 10/19/24 10/19/24 10/20/24 15:00 23:00 07:00 Intake Total 480 ml Balance 480 ml medications Current Medications Medications Dose Ordered Sig/Nasrin Route Start Time Stop Time Status Last Admin Dose Admin Multivit/Ca Carb/ B Cmplx/FA/Prenat 1 tab DAILY PO 10/19/24 10:00 10/19/24 10:01 1 TAB Sevelamer HCl 800 mg TIDWM PO 10/19/24 08:00 10/19/24 12:05 800 MG Pantoprazole Sodium 40 mg DAILY IV 10/19/24 10:00 10/19/24 10:01 40 MG Allopurinol 100 mg DAILY PO 10/19/24 10:00 10/19/24 10:02 100 MG Atorvastatin Calcium 20 mg HS PO 10/19/24 22:00 10/19/24 23:40 20 MG Carvedilol 3.125 mg Q12HR PO 10/19/24 10:00 10/19/24 23:42 3.125 MG Diagnostic Test (Pha) 1 strip ACHS 10/19/24 07:00 10/19/24 22:00 1 STRIP Insulin Human Regular ACHS SC 10/19/24 07:00 10/19/24 23:36 8 UNITS Dextrose 50 ml UD PRN IV 10/18/24 22:15 Sodium Chloride 10 ml Q8HR IV 10/19/24 06:00 10/19/24 22:42 10 ML Ondansetron HCl 4 mg Q4HP PRN IV 10/18/24 22:15 10/19/24 22:21 4 MG Docusate Sodium 100 mg BIDPRN PRN PO 10/18/24 22:15 Acetaminophen 650 mg Q6HP PRN PO 10/18/24 22:15 10/18/24 22:49 650 MG Nitroglycerin 0.4 mg Q5MINP PRN SL 10/18/24 23:30 10/19/24 22:38 0.4 MG Morphine Sulfate 2 mg Q30M PRN IV 10/18/24 23:30 10/19/24 22:13 2 MG Nifedipine 90 mg DAILY PO 10/19/24 10:00 10/19/24 10:02 90 MG Ceftriaxone Sodium 50 ml @ 100 mls/hr DAILY@09 IV 10/19/24 09:15 10/19/24 10:45 100 MLS/HR Albuterol 2.5 mg Q4HR NEB 10/19/24 14:00 10/20/24 06:12 2.5 MG Ipratropium [place] 0.5 mg Q4HR NEB 10/19/24 14:00 10/20/24 06:11 0.5 MG Doxycycline Hyclate 100 ml @ 50 mls/hr Q12H IV 10/19/24 10:45 10/19/24 23:44 50 MLS/HR Methylprednisolone Sodium Succinate 40 mg DAILY IV 10/19/24 11:30 10/19/24 12:06 40 MG Melatonin 5 mg HS PO 10/19/24 22:00 10/19/24 23:40 5 MG Furosemide 60 mg BID IV 10/20/24 10:00 10/20/24 02:20 60 MG Acetaminophen/ Hydrocodone Bitart 1 tab Q4HP PRN PO 10/20/24 05:00 10/20/24 06:07 1 TAB Examination Obese female patient lying in the bed, moaning in pain, oriented to name only General: Morbidly obese, afebrile, palor, mucosae are moist Cardiovascular: Regular S1 and S2. No murmurs, gallops or rubs. No JVD elevation. Resolving Pitting edema bilaterally Respiratory: Bilateral decreased air entry requiring oxygen therapy Abdomen: Soft, nontender, nondistended, normoactive bowel sounds, no rebound tenderness, no organomegaly, no masses Genitourinary: Deferred MSK/skin: Mobilizes 4 limbs. Skin is dry and warm Neurological: No motor, no sensitive deficits, normal speech. Pupils are isocoric and reactive. Psych/Mental Status: A/Ox2, patient is becoming more oriented laboratory and microbiology Laboratory Tests 10/20/24 04:30 Test 10/20/24 04:30 Range/Units Serum Glucose 454 *H 74-106 mg/dL Microbiology Date/Time Source Procedure Growth Status 10/19/24 03:20 Nose MRSA Screen - Final Complete Labs and/or images reviewed: Labs reviewed by me, Image(s) reviewed by me Problem List/Assessment/Plan Problem List/Assessment/Plan Plan: Given the acute hemoglobin drop, hemoglobin 6.3 and patient being Nondenominational, we started IV iron daily. GI consultation-ordered stool occult. Repeat H&H .10/31. MCA 101, B12 WNL, folic acid ordered. KUB showed nonspecific bowel gas pattern. Moderate volume colonic stool. Started lactulose 30 mL b.i.d. strict I&Os, continue furosemide 20 mg b.i.d.. Acute on chronic congestive heart failure exacerbation-NYHA class 3 Acute hypoxic respiratory failure due to above Pulmonary edema Continue Lasix IV 60 b.i.d. Nebulized treatments Echocardiogram reviewed Strict I&Os, fluid restriction Continue oxygen therapy as needed Nicardipine 90 mg daily, Coreg 3.125 b.i.d. BiPAP nighttime Possible COPD exacerbation Nebulized treatments IV ceftriaxone and doxycycline daily IV Solu-Medrol 40 mg daily Fire Control Assistant recommended BiPAP home use for obstructive sleep apnea Acute anemia ? Rule out GI blood loss Hemoglobin 6.3, patient is Nondenominational Started IV iron supplementation daily Repeat H&H 7.7/23.6 GI consultation-stool occult pending NISHANT superimposed on CKD ? Requiring renal replacement therapy ? Nephrotic range proteinuria ? Cardiorenal syndrome Refractory hyperkalemia Anemia of chronic kidney disease Nephrology consulted-Kaden catheter placed-dialysis pending Sevelamer 800 mg TID with meals Diabetes mellitus type 2-A1c 6.8 Moderate sliding scale Likely diabetic retinopathy Monitor Chronic gout Allopurinol 100 mg daily Obesity hypoventilation syndrome Obstructive sleep apnea History of asthma -nighttime BiPAP DVT prophylaxis SCDs given anemia Pantoprazole 40 mg IV daily Lactulose 30 mL b.i.d. Plan discussed with patient's son in which all questions have been answered Case discussed with Dr. Wang Plan discussed with: Patient, Other (Nurse Lauren) My Orders My Orders Orders - MARCO SAHA Procedure Category Date Status Time *Dr. [facility] -Da CONS 10/19/24 Transmitted Keyla 08:47 Date of Service: Oct 20, 2024 Billing Provider: ANTOLIN BRUSH MD Common Visit Codes: [id number] CARE 30-74 MIN MARCO SAHA Oct 20, 2024 06:41 ANTOLIN BRUSH MD Oct 22, 2024 00:30
[2024-10-20] MEDS: SODIUM ZIRCONIUM CYCL 10 GM PAK PO ONE (07:00)
[2024-10-20] MEDS: PANTOPRAZOLE 40 MG/10 ML VIAL INJ IV SCH ×2 (08:20→08:30)
[2024-10-20] MEDS: SUCRALFATE 1 GM/10 ML ORAL SUSP PO ONE (08:33)
[2024-10-20 09:21] LABS: Chloride 101 mmol/L (98-107)
[2024-10-20 09:22] LABS: Anion Gap 7 (5-15); Carbon Dioxide 28 mmol/L (20-31)
[2024-10-20 09:23] LABS: Calcium 9.9 mg/dL (8.7-10.4)
[2024-10-20 09:27] LABS: BUN/Creatinine Ratio 21.0 (10.0-20.0)
[2024-10-20 09:31] LABS: Sodium 136 mmol/L (136-145)
[2024-10-20 09:34] LABS: Blood Urea Nitrogen 50 mg/dL (9-23); Glucose 353 mg/dL (74-106); Potassium 5.9 mmol/L (3.5-5.1)
--- NOTE | 2024-10-20 09:37 | DVH ---
CHEST RADIOGRAPH Indication: sob Technique: Single frontal view of the chest was obtained COMPARISON: XY CHEST XRAY 1 VIEW on DOS: 10/19/24, XY CHEST XRAY 1 VIEW on DOS: 10/18/24, XY CHEST PORT ABLE on DOS: 10/03/24, XY CHEST PORTABLE on DOS: 10/02/24, XY CHEST PORTABLE on DOS: 10/01/24 FINDINGS: Lines and Tubes: Right central venous catheter in satisfactory position Lungs: Congestion Pleura: No effusion. No pneumothorax. Cardiomediastinal contours: Cardiomegaly Bones: Unremarkable IMPRESSION: No significant interval change
--- NOTE | 2024-10-20 09:39 | DVH ---
Exam: XY KUB ABDOMEN SINGLE VIEW Indication: R/O obstruction Comparison: None Technique: 2 radiographic views of the abdomen. Findings: Nonspecific bowel-gas pattern. Moderate volume colonic stool. There is no definite evidence for pneumoperitoneum. No abnormal calcifications noted. Impression: Nonspecific bowel-gas pattern. Moderate volume colonic stool.
[2024-10-20 09:46] LABS: Base Excess -1.1 mmol/L (-2.0-3.0)
[2024-10-20 10:31] LABS: INR 1.07 (0.9-1.15); Partial Thromboplastin Time 25.8 SEC (24.5-34.5); Prothrombin Time 11.3 sec (9.3-11.8)
[2024-10-20 10:32] LABS: Fibrinogen 512.0 mg/dL (177-375)
[2024-10-20] MEDS: SUCRALFATE 1 GM/10 ML ORAL SUSP PO SCH (10:55)
[2024-10-20] MEDS: IRON SUCROSE COMPLEX 110 ML IV SCH (10:59)
[2024-10-20] MEDS: SODIUM ZIRCONIUM CYCL 10 GM PAK PO SCH (13:35)
--- NOTE | 2024-10-20 13:43 | DVHINCON2 ---
Date of service: Oct 19, [address] Rivers Reason for Consultation Acute respiratory failure History of Present Illness History Source: Patient Exam Limitations: No limitations HPI Patient is an 79-year old lady with a history of morbid obesity and CKD stage 4 who presented with worsening shortness of breath. Was seen in the emergency room where she was found to have evidence of fluid overload and was admitted for further workup. Right IJ hemodialysis catheter was initially placed however was noted to be nonfunctioning. Patient was increasingly dyspneic and was started on bipap 15/5, pulmonology was consulted to assist in management. Home Meds Active Scripts Nifedipine (Nifedipine Er) 90 Mg Tab, 1 TAB PO DAILY for 30 Days, #30 TAB 5 Refills Prov:CYRUS WALLACE RESIDENT 10/08/24 Carvedilol (Carvedilol) 6.25 Mg Tab, 1 TAB PO BID for 30 Days, #60 TAB 1 Refill Prov:CYRUS WALLACE RESIDENT 10/08/24 Reported Medications Hydrocodone-Acetaminophen (Hydrocodone Bitartrate/AC 10-325 mg) 1 Tab Tab, 1 TAB PO Q4HR PRN for INTERVERTEBRAL DISC DISORDERS for 30 Days, #180 10/06/24 Pantoprazole Sodium Sesquihydr (Pantoprazole Sodium) 40 Mg Tab, 1 TAB PO DAILY for 30 Days, #30 10/06/24 Loratadine (CLARITIN TABLET) 10 Mg Tb, 1 TAB PO DAILY for 30 Days, #30 10/06/24 Simvastatin (Simvastatin) 20 Mg Tab, 1 TAB PO DAILY for 30 Days, #30 10/06/24 Allopurinol (Allopurinol) 100 Mg Tab, 1 TAB PO DAILY for 30 Days, #30 10/06/24 Docusate Sodium (Docusate Sodium) 100 Mg Cap, 1 CAP PO BID for 30 Days, #60 10/06/24 Glimepiride (Glimepiride) 2 Mg Tab, 2 TAB PO DAILY for 30 Days, #60 10/06/24 Ursodiol (Ursodiol) 250 Mg Tab, 1 TAB PO TID for 30 Days, #90 10/06/24 Insulin Glargine (Basaglar Kwikpen) 100 Unit/Ml Inj, 26 UNIT SC DAILY for 58 Days, #15 10/06/24 Past Medical History Cardiac: No pertinent Hx Pulmonary: No pertinent Hx Central Nervous System: No pertinent Hx GI: No pertinent Hx Hemotology/Oncology: No pertinent Hx Hepatobiliary: No pertinent Hx Psychiatric: No pertinent Hx Musculoskeletal: No pertinent Hx Rheumotologic: No pertinent Hx Infectious Disease: No peritnent Hx ENT: No pertinent Hx Renal/: CKD Endocrine: No pertinent Hx Dermatology: No pertinent Hx Past Surgical History: No pertinent Hx Family History: No pertinent Hx Patient Family History: Arthritis G8 MOTHER Hypercholesterolemia G8 MOTHER G8 FATHER Hypertension G8 MOTHER G8 FATHER Smoker: No Hx (Negative) Alocohol: None Drugs: None Lives with: With family Domestic Violence: Neg Review of Systems Constitutional: No symptom reported Ears, Nose, & Throat: No symptom reported Eyes: No symptom reported Pulmonary/Respiratory: Dyspnea Cardiovascular: No symptom reported Gastrointestinal: No symptom reported Genitourinary: No symptom reported Musculoskeletal: No symptom reported Skin: No symptom reported Psychiatric: No symptom reported Endocrine: No symptom reported Hemotologic/Lymphatic: No symptom reported H&P Exam Vital Signs Vital Signs Date Time Temp Pulse Resp B/P (MAP) Pulse Ox O2 Delivery O2 Flow Rate FiO2 10/20/24 13:00 78 17 142/59 (86) 100 10/20/24 10:38 Facial BiPAP Mask 30 10/20/24 09:00 98.5 98.5 10/20/24 08:00 3 General Appeara: Well developed, Well nourished, Normal Appearance Head Exam: Normal inspection Neck Exam: Normal inspection, Non-tender, Normal alignment Eye Exam: bilateral eye Normal inspection, bilateral eye PERRL, bilateral eye EOMI Ear Exam: bilateral ear Auricle normal, bilateral ear Canal normal, bilateral ear TM normal Nasal Exam: Normal inspection Mouth: Normal Inspection Pulmonary/Respiratory: Decreased breath sounds Cardiovascular/Chest: Normal inspection Peripheral Pulses: 4+ Radial (R), 4+ Radial (L), 4+ Brachial (R), 4+ Brachial (L) Abdominal Exam: Normal bowel sounds Labs/Xrays Labs Test 10/20/24 11:34 10/20/24 09:40 10/20/24 08:16 10/20/24 04:30 Range/Units POC Glucose 342 H 70-106 mg/dl Blood Gas Specimen Type Arterial Blood Gas Sample Site Right radial Blood Gas Patient Temperature 37.0 Arterial Blood Date Drawn [id number] Arterial Blood pH 7.271 L 7.350-7.450 Arterial Blood Partial Pressure CO2 58.0 H 32.0-45.0 mmHg Arterial Blood Partial Pressure O2 80.9 L 83.0-108.0 mmHg Arterial Blood HCO3 26.1 21.0-28.0 mmol/L Arterial Blood Oxygen Saturation 94.7 94.0-98.0 % Arterial Blood Base Excess -1.1 -2.0-3.0 mmol/L Arterial Blood Oxyhemoglobin 93.6 L 94.0-98.0 % Arterial Blood Carboxyhemoglobin 0.7 0.5-1.5 % Arterial Blood Methemoglobin 0.5 0.0-1.5 % Cristian Test Yes Blood Gas Total Hemoglobin 8.40 L 12.0-16.0 g/dL Blood Gas Liter Flow 3.00 Blood Gas Modality Nasal cannula FiO2 % 32.0 Prothrombin Time 11.3 9.3-11.8 sec Prothrombin Time INR 1.07 0.9-1.15 Activated Partial Thromboplast Time 25.8 24.5-34.5 SEC Fibrinogen 512 H 177-375 mg/dL Sodium Level 136 136-145 mmol/L Potassium Level 5.9 *H 3.5-5.1 mmol/L Chloride Level 101 98-107 mmol/L Carbon Dioxide Level 28 20-31 mmol/L Anion Gap 7 5-15 Blood Urea Nitrogen 50 H 9-23 mg/dL Creatinine 2.38 H 0.550-1.02 mg/dL Glomerular Filtration Rate Calc 20 >90 mL/min BUN/Creatinine Ratio 21.0 H 10.0-20.0 Serum Glucose 353 H 74-106 mg/dL Calcium Level 9.9 8.7-10.4 mg/dL White Blood Count 7.3 4.4-10.8 10^3/uL Red Blood Count 1.83 L 4.0-5.20 10^6/uL Hemoglobin 6.3 #*L 12.2-16.2 g/dL Hematocrit 18.5 #L 36.0-46.0 % Mean Corpuscular Volume 101.1 H 80.0-100.0 fL Mean Corpuscular Hemoglobin 34.5 H 28.0-32.0 pg Mean Corpuscular Hemoglobin Concent 34.2 32.0-36.0 g/dL Red Cell Distribution Width 15.3 H 11.8-14.3 % Platelet Count 205 140-450 10^3/uL Mean Platelet Volume 7.2 6.9-10.8 fL Neutrophils (%) (Auto) 89.4 H 37.0-80.0 % Lymphocytes (%) (Auto) 5.4 L 10.0-50.0 % Monocytes (%) (Auto) 5.1 0.0-12.0 % Eosinophils (%) (Auto) 0.0 0.0-7.0 % Basophils (%) (Auto) 0.1 0.0-2.0 % Neutrophils # (Auto) 6.6 1.6-8.6 10 ^3/uL Lymphocytes # (Auto) 0.4 0.4-5.4 10 ^3/uL Monocytes # (Auto) 0.4 0-1.3 10 ^3/uL Eosinophils # (Auto) 0 0-0.8 10 ^3/uL Basophils # (Auto) 0 0-0.2 10 ^3/uL Nucleated Red Blood Cells 0.0 % Reticulocyte Count (auto) 1.48 0.5-1.5 % Total Bilirubin 0.3 0.2-1.0 mg/dL Aspartate Amino Transferase (AST) 14 13-40 U/L Alanine Aminotransferase (ALT) 11 7-40 U/L Alkaline Phosphatase 87 46-116 U/L Lactate Dehydrogenase 201 120-246 U/L Total Protein 5.7 5.7-8.2 g/dL Albumin 3.6 3.2-4.8 g/dL Test 10/19/24 13:51 10/19/24 11:18 10/19/24 09:10 10/18/24 23:28 Range/Units Blood Gas Spontaneous Rate 24 Blood Gas Spontaneous Tidal Volume 317 Blood Gas EPAP 5 Blood Gas IPAP 15 Blood Gas Critical Value Read Back Yes Blood Gas Notified Whom Dr. lois cool Blood Gas Notified Time [id number] Blood Gas Notified By Rt naina sloan Magnesium Level 1.9 1.6-2.6 mg/dL Iron Level 43 L 50-170 ug/dL Total Iron Binding Capacity 208 L 250-425 ug/dL Percent Iron Saturation 20.7 15-50 % Ferritin 404.5 H 10-291 ng/mL Hepatitis B Surface Antigen Negative Negative Hepatitis C Antibody Negative Negative Creatine Kinase 53 34-145 U/L Test 10/18/24 22:27 10/18/24 20:03 10/18/24 19:07 Range/Units Urine Color Light-yellow Yellow Urine Clarity Turbid H Clear Urine pH 6.0 5.0-9.0 Urine Specific [place] 1.007 1.001-1.035 Urine Protein 1+ H Negative Urine Ketones Negative Negative Urine Blood Trace H Negative /uL Urine Nitrite Negative Negative Urine Bilirubin Negative Negative Urine Urobilinogen Normal Negative mg/dL Urine Leukocyte Esterase Trace Negative /uL Urine RBC 1 0 - 4 /hpf Urine Microscopic WBC 8 H 0-5 /HPF Urine Squamous Epithelial Cells Few <5 /hpf Urine Bacteria Few H None Seen /hpf Urine Glucose Normal Normal mg/dL Troponin I High Sensitivity 7 </=34 ng/L B-Type Natriuretic Peptide 494.95 0-100 pg/mL Microbiology Date/Time Source Procedure Growth Status 10/19/24 03:20 Nose MRSA Screen - Final Complete Assessment/Plan Plan Impression Acute hypoxemic respiratory failure Pulmonary edema Fluid overload ESRD on HD Patient seen and examined in [facility] Events High oxygen requirements On bipap settings 15/5 Respiratory status tenuous Right IJ hemodialysis catheter in place- nonfunctioning Labs and imaging reviewed Worsening renal function Hyperkalemic, K+ 6.3 ABG reviewed pH 7.21, pCO2 73, pO2 40 Management Supplemental oxygen Titrate to maintain sats 90% or above Incentive spirometry Prn bipap For increased work of breathing Titrate to comfort Antibiotics Bronchodilators Monitor renal function HD as per nephrology Management deferred Monitor electrolytes Supplement as needed DVT prophylaxis Critical care time 35 minutes Plan discussed with: Patient ALEX SANDHU MD Oct 20, 2024 13:43
--- NOTE | 2024-10-20 13:45 | DVHPN2 ---
Progress Note - Dictate Date Seen: Oct 20, 2024 Medical Necessity Reason Pt with a Central, PICC or Fol: Yes vital signs Vital Sign Date Time Temp Pulse Resp B/P (MAP) Pulse Ox O2 Delivery O2 Flow Rate FiO2 10/20/24 13:00 78 17 142/59 (86) 100 10/20/24 10:38 Facial BiPAP Mask 30 10/20/24 09:00 98.5 98.5 10/20/24 08:00 3 Total Intake and Output 10/19/24 10/19/24 10/20/24 15:00 23:00 07:00 Intake Total 480 ml 350 ml Output Total 550 ml Balance 480 ml -200 ml medications Current Medications Medications Dose Ordered Sig/Nasrin Route Start Time Stop Time Status Last Admin Dose Admin Multivit/Ca Carb/ B Cmplx/FA/Prenat 1 tab DAILY PO 10/19/24 10:00 10/20/24 08:27 1 TAB Sevelamer HCl 800 mg TIDWM PO 10/19/24 08:00 10/20/24 10:59 800 MG Allopurinol 100 mg DAILY PO 10/19/24 10:00 10/20/24 08:27 100 MG Atorvastatin Calcium 20 mg HS PO 10/19/24 22:00 10/19/24 23:40 20 MG Carvedilol 3.125 mg Q12HR PO 10/19/24 10:00 10/20/24 08:26 3.125 MG Diagnostic Test (Pha) 1 strip ACHS 10/19/24 07:00 10/20/24 11:58 1 STRIP Insulin Human Regular ACHS SC 10/19/24 07:00 10/20/24 11:57 8 UNITS Dextrose 50 ml UD PRN IV 10/18/24 22:15 Sodium Chloride 10 ml Q8HR IV 10/19/24 06:00 10/20/24 10:59 10 ML Ondansetron HCl 4 mg Q4HP PRN IV 10/18/24 22:15 10/19/24 22:21 4 MG Docusate Sodium 100 mg BIDPRN PRN PO 10/18/24 22:15 Acetaminophen 650 mg Q6HP PRN PO 10/18/24 22:15 10/18/24 22:49 650 MG Nitroglycerin 0.4 mg Q5MINP PRN SL 10/18/24 23:30 10/20/24 08:28 0.4 MG Morphine Sulfate 2 mg Q30M PRN IV 10/18/24 23:30 10/19/24 22:13 2 MG Nifedipine 90 mg DAILY PO 10/19/24 10:00 10/20/24 08:27 90 MG Ceftriaxone Sodium 50 ml @ 100 mls/hr DAILY@09 IV 10/19/24 09:15 10/20/24 08:21 100 MLS/HR Albuterol 2.5 mg Q4HR NEB 10/19/24 14:00 10/20/24 10:38 2.5 MG Ipratropium [place] 0.5 mg Q4HR NEB 10/19/24 14:00 10/20/24 10:38 0.5 MG Doxycycline Hyclate 100 ml @ 50 mls/hr Q12H IV 10/19/24 10:45 10/20/24 09:04 50 MLS/HR Methylprednisolone Sodium Succinate 40 mg DAILY IV 10/19/24 11:30 10/20/24 08:20 40 MG Melatonin 5 mg HS PO 10/19/24 22:00 10/19/24 23:40 5 MG Acetaminophen/ Hydrocodone Bitart 1 tab Q4HP PRN PO 10/20/24 05:00 10/20/24 10:55 1 TAB Sucralfate 1 gm QID@0600,1130,1700,2200 PO 10/20/24 11:30 10/20/24 10:55 1 GM Pantoprazole Sodium 40 mg BID IV 10/20/24 10:00 10/20/24 08:30 40 MG Furosemide 60 mg BIDD IV 10/20/24 18:00 Zirconium Oxide 10 gm TID PO 10/20/24 14:00 10/20/24 13:35 10 GM Iron Sucrose 110 ml @ 110 mls/hr DAILY@1200 IV 10/20/24 12:00 10/24/24 12:59 10/20/24 10:59 110 MLS/HR laboratory and microbiology Laboratory Tests 10/20/24 04:30 Test 10/20/24 13:35 Range/Units Serum Glucose Pending Assessment/Plan Impression Acute hypoxemic respiratory failure Pulmonary edema Fluid overload ESRD on HD Patient seen and examined in [facility] Events High oxygen requirements On bipap settings 15/5 Respiratory status tenuous Previously right IJ hemodialysis catheter nonfunction Left IJ hemodialysis catheter was placed at the bedside by myself See separate note for procedure in detail Labs and imaging reviewed ABG reviewed pH 7.27, pCO2 58, pO2 80 Management Supplemental oxygen Titrate to maintain sats 90% or above Incentive spirometry Prn bipap Continue antibiotics F/u cultures Bronchodilators Monitor renal function HD as per nephrology Management deferred Monitor electrolytes Supplement as needed Recommend bipap for home use for suspected JAG DVT prophylaxis Critical care time 35 minutes Plan discussed with: Patient ALEX SANDHU MD Oct 20, 2024 13:45
--- NOTE | 2024-10-20 13:46 | DVHNC2 ---
Procedure - Procedure- Left IJ dialysis catheter placement ultrasound guided Indication- Renal failure and fluid removal Procedure in detail Consent was obtained and timeout performed per protocol. The patient was placed in the supine position and the left IJ vein was localized using ultrasound SonoSite. ChloraPrep was used to clean the operative field, sterile drapes used to cover the area and local analgesia Lidocaine 1% 3 cc. Dual-lumen 20F hemodialysis catheter was inserted over the wire with direct ultrasound guidance in the left IJ vein. The wire was removed, catheter flushed with normal saline and secured with 2 sutures. Sterile dressing applied. No complications. ALEX SANDHU MD Oct 20, 2024 13:46
[2024-10-20 13:56] LABS: Hematocrit 23.6 % (36.0-46.0); Hemoglobin 7.7 g/dL (12.2-16.2)
[2024-10-20 14:04] LABS: Chloride 101 mmol/L (98-107)
[2024-10-20 14:05] LABS: Anion Gap 8 (5-15); Calcium 10.0 mg/dL (8.7-10.4); Carbon Dioxide 26 mmol/L (20-31)
[2024-10-20 14:10] LABS: BUN/Creatinine Ratio 21.2 (10.0-20.0)
--- NOTE | 2024-10-20 14:11 | DVHPN2 ---
Progress Note - Dictate Date Seen: Oct 20, 2024 Medical Necessity Reason Pt with a Central, PICC or Fol: Yes Subjective Overnight issues included malfunction of the Kaden catheter placed. Currently patient continues to have dyspnea, she is undergoing hemodialysis at this time vital signs Vital Sign Date Time Temp Pulse Resp B/P (MAP) Pulse Ox O2 Delivery O2 Flow Rate FiO2 10/20/24 13:00 78 17 142/59 (86) 100 10/20/24 10:38 Facial BiPAP Mask 30 10/20/24 09:00 98.5 98.5 10/20/24 08:00 3 Total Intake and Output 10/19/24 10/19/24 10/20/24 15:00 23:00 07:00 Intake Total 480 ml 350 ml Output Total 550 ml Balance 480 ml -200 ml medications Current Medications Medications Dose Ordered Sig/Nasrin Route Start Time Stop Time Status Last Admin Dose Admin Multivit/Ca Carb/ B Cmplx/FA/Prenat 1 tab DAILY PO 10/19/24 10:00 10/20/24 08:27 1 TAB Sevelamer HCl 800 mg TIDWM PO 10/19/24 08:00 10/20/24 10:59 800 MG Allopurinol 100 mg DAILY PO 10/19/24 10:00 10/20/24 08:27 100 MG Atorvastatin Calcium 20 mg HS PO 10/19/24 22:00 10/19/24 23:40 20 MG Carvedilol 3.125 mg Q12HR PO 10/19/24 10:00 10/20/24 08:26 3.125 MG Diagnostic Test (Pha) 1 strip ACHS 10/19/24 07:00 10/20/24 11:58 1 STRIP Insulin Human Regular ACHS SC 10/19/24 07:00 10/20/24 11:57 8 UNITS Dextrose 50 ml UD PRN IV 10/18/24 22:15 Sodium Chloride 10 ml Q8HR IV 10/19/24 06:00 10/20/24 10:59 10 ML Ondansetron HCl 4 mg Q4HP PRN IV 10/18/24 22:15 10/19/24 22:21 4 MG Docusate Sodium 100 mg BIDPRN PRN PO 10/18/24 22:15 Acetaminophen 650 mg Q6HP PRN PO 10/18/24 22:15 10/18/24 22:49 650 MG Nitroglycerin 0.4 mg Q5MINP PRN SL 10/18/24 23:30 10/20/24 08:28 0.4 MG Morphine Sulfate 2 mg Q30M PRN IV 10/18/24 23:30 10/19/24 22:13 2 MG Nifedipine 90 mg DAILY PO 10/19/24 10:00 10/20/24 08:27 90 MG Ceftriaxone Sodium 50 ml @ 100 mls/hr DAILY@09 IV 10/19/24 09:15 10/20/24 08:21 100 MLS/HR Albuterol 2.5 mg Q4HR NEB 10/19/24 14:00 10/20/24 10:38 2.5 MG Ipratropium [place] 0.5 mg Q4HR NEB 10/19/24 14:00 10/20/24 10:38 0.5 MG Doxycycline Hyclate 100 ml @ 50 mls/hr Q12H IV 10/19/24 10:45 10/20/24 09:04 50 MLS/HR Methylprednisolone Sodium Succinate 40 mg DAILY IV 10/19/24 11:30 10/20/24 08:20 40 MG Melatonin 5 mg HS PO 10/19/24 22:00 10/19/24 23:40 5 MG Acetaminophen/ Hydrocodone Bitart 1 tab Q4HP PRN PO 10/20/24 05:00 10/20/24 10:55 1 TAB Sucralfate 1 gm QID@0600,1130,1700,2200 PO 10/20/24 11:30 10/20/24 10:55 1 GM Pantoprazole Sodium 40 mg BID IV 10/20/24 10:00 10/20/24 08:30 40 MG Furosemide 60 mg BIDD IV 10/20/24 18:00 Zirconium Oxide 10 gm TID PO 10/20/24 14:00 10/20/24 13:35 10 GM Iron Sucrose 110 ml @ 110 mls/hr DAILY@1200 IV 10/20/24 12:00 10/24/24 12:59 10/20/24 10:59 110 MLS/HR objective HEENT: No evidence of JVD, no oral ulcers. Pulmonary: Crackles at the bases on auscultation bilaterally Cardiovascular S1-S2, no S3 or S4 Abdomen: Bowel sounds positive, soft no rebound tenderness Skin: No rash Neurological: Drowsy On BiPAP Extremities: 1+ lower extremity edema Kaden catheter in place. No evidence of bleeding laboratory and microbiology Laboratory Tests 10/20/24 13:35 10/20/24 04:30 Test 10/20/24 13:35 Range/Units Serum Glucose Pending Assessment/Plan Assessment: 1. Acute kidney injury on Chronic kidney disease four 2. Hyperkalemia refractory to medical management 3. Acute hypoxic respiratory failure 4. Malfunction of the hemodialysis access 5. Fluid overload 6. Acute diastolic heart failure exacerbation 7. Severe anemia, patient is Synagogue 8. Morbid obesity Plan: Hemodialysis access was placed left IJ is working currently during dialysis. One of the sutures fell off which iris sutures and secured catheter. Complete hemodialysis today, 1K bath, UF maximum 2.5 L. patient will required another session tomorrow for additional UF in view of overload Continue loop diuretics IV Higher doses of GAYLE, Venofer; the patient is Synagogue and declines any blood transfusion at this time Patient currently on and off BiPAP, Pulmonary consult appreciated Patient is a high risk for decompensation. Monitor closely urinary output, keep Triana catheter for now Pulmonary consult appreciated Thank you very much for allowing us to participate in the care of this patient Dietary Evaluation Review Comments: 1) Consider Nepro Carb Steady 240ml BID if PO intake < 50% 2) Monitor PO intake, lab values, I/O Expected Outcomes/Goals: Lab values to improve intake to meet at least 75% estimated needs fu 2-3 days Plan discussed with: Patient HONG MAYA MD Oct 20, 2024 14:11
[2024-10-20 14:15] LABS: Blood Urea Nitrogen 51 mg/dL (9-23); Glucose 329 mg/dL (74-106); Sodium 135 mmol/L (136-145)
[2024-10-20] MEDS: LACTULOSE 20Gm/30ML SOLN PO ONE (14:15)
[2024-10-20] MEDS: SODIUM CHL 0.9% 1000 ML BAG XX ONE (14:15)
[2024-10-20 14:16] LABS: Potassium 6.0 mmol/L (3.5-5.1)
--- NOTE | 2024-10-20 14:19 | DVH ---
CHEST RADIOGRAPH Indication: DIALYSIS CATHETER PLACEMENT Technique: Single frontal view of the chest was obtained Comparison: XY CHEST PORTABLE on DOS: 10/20/24, XY CHEST XRAY 1 VIEW on DOS: 10/19/24, XY CHEST XRAY 1 VIEW on DOS: 10/18/24 FINDINGS: Lines and Tubes: Kaden catheter in place in the right internal jugular vein with the tip in the sup erior vena cava just below the right clavicle. Lungs: No focal consolidation. Pleura: No effusion. No pneumothorax. Cardiomediastinal contours: Unremarkable Bones: No acute osseous abnormality. IMPRESSION: 1. Hemodialysis catheter in place from the right internal jugular vein with the tip 3 cm below the r ight clavicle.
[2024-10-20 18:36] LABS: Protein, Urine 318.5 mg/dL (1-14)
[2024-10-20 18:45] LABS: Chloride 101 mmol/L (98-107); Potassium 4.7 mmol/L (3.5-5.1); Sodium 136 mmol/L (136-145)
[2024-10-20 18:46] LABS: Anion Gap 7 (5-15); Carbon Dioxide 28 mmol/L (20-31)
[2024-10-20 18:47] LABS: Calcium 9.1 mg/dL (8.7-10.4)
[2024-10-20 18:51] LABS: BUN/Creatinine Ratio 18.6 (10.0-20.0)
[2024-10-20 18:52] LABS: Blood Urea Nitrogen 33 mg/dL (9-23); Glucose 314 mg/dL (74-106)
[2024-10-20] MEDS: LACTULOSE 20Gm/30ML SOLN PO SCH (21:13)
[2024-10-20] MEDS: EPOETIN ALFA-EPBX 10,000 UNIT/1ML VIAL SC ONE (21:16)
--- NOTE | 2024-10-20 23:52 | DVHINCON2 ---
Date of service: Oct 20, [address] Aaron Fraser Reason for Consultation Anemia with drop in hemoglobin hematocrit History of Present Illness The patient is a 79-year-old female morbidly obese with multiple past medical history including gout, Coronary artery disease, DM, end-stage renal disease, COPD who presented with complaint of shortness of breath for the past 1 week, getting worse today that prompted this visit. Patient was discharged from the hospital about 10 days ago and has been not taking any diuretic after discharge. Patient reported of chest pain which was substernal, nonradiating occurred at rest following which she was given a tablet of nitroglycerin with relieved of pain. . Abdomen/pelvis CT revealing subcutaneous edema throughout the anterior a bdominal pelvic wall, 7.1 x 2.6 cm area of consolidated soft tissue in the posterior lumbar spine, at the level of L2-3. Finding may represent developing decubitus ulcer or phlegmon, no nephrolithiasis or hydronephrosis. GI was consulted because of drop in hemoglobin hematocrit from 8.3-6. Patient denies any active GI bleeding. There was no nausea vomiting no hematemesis no bright red blood per rectum or melena Past Medical History Past Medical History Asthma, CAD, CHF, CKF, COPD, DM, ESRD, Gout, HTN Sleep apnea, Severe aortic stenosis Past Surgical History Past Surgical History Unknown Family History: Arthritis G8 MOTHER Hypercholesterolemia G8 MOTHER G8 FATHER Hypertension G8 MOTHER G8 FATHER Allergies: Coded Allergies: Aspirin (Verified Allergy, Unknown, 09/30/24) Home Meds Active Scripts Nifedipine (Nifedipine Er) 90 Mg Tab, 1 TAB PO DAILY for 30 Days, #30 TAB 5 Refills Prov:CYRUS WALLACE RESIDENT 10/08/24 Carvedilol (Carvedilol) 6.25 Mg Tab, 1 TAB PO BID for 30 Days, #60 TAB 1 Refill Prov:CYRUS WALLACE RESIDENT 10/08/24 Reported Medications Hydrocodone-Acetaminophen (Hydrocodone Bitartrate/AC 10-325 mg) 1 Tab Tab, 1 TAB PO Q4HR PRN for INTERVERTEBRAL DISC DISORDERS for 30 Days, #180 10/06/24 Pantoprazole Sodium Sesquihydr (Pantoprazole Sodium) 40 Mg Tab, 1 TAB PO DAILY for 30 Days, #30 10/06/24 Loratadine (CLARITIN TABLET) 10 Mg Tb, 1 TAB PO DAILY for 30 Days, #30 10/06/24 Simvastatin (Simvastatin) 20 Mg Tab, 1 TAB PO DAILY for 30 Days, #30 10/06/24 Allopurinol (Allopurinol) 100 Mg Tab, 1 TAB PO DAILY for 30 Days, #30 10/06/24 Docusate Sodium (Docusate Sodium) 100 Mg Cap, 1 CAP PO BID for 30 Days, #60 10/06/24 Glimepiride (Glimepiride) 2 Mg Tab, 2 TAB PO DAILY for 30 Days, #60 10/06/24 Ursodiol (Ursodiol) 250 Mg Tab, 1 TAB PO TID for 30 Days, #90 10/06/24 Insulin Glargine (Basaglar Kwikpen) 100 Unit/Ml Inj, 26 UNIT SC DAILY for 58 Days, #15 10/06/24 Current Medications Current Medications Medications (Trade) Dose Ordered Sig/Nasrin Route PRN Reason Start Time Stop Time Status Last Admin Furosemide (Lasix Injection) 60 mg BIDD IV 10/20/24 06:00 10/20/24 01:32 DC Furosemide (Lasix Injection) 60 mg BIDD IV 10/20/24 01:35 10/20/24 02:17 DC Furosemide (Lasix Injection) 60 mg BID IV 10/20/24 10:00 10/20/24 08:47 DC 10/20/24 02:20 Acetaminophen/ Hydrocodone Bitart ([place] 10/325MG Tab) 1 tab Q4HP PRN PO SEVERE PAIN (7-10 PAIN SCALE) 10/20/24 05:00 10/20/24 21:20 Pantoprazole Sodium (Protonix) 40 mg BID IV 10/20/24 10:00 10/20/24 08:46 DC 10/20/24 08:20 Sucralfate (Carafate Susp) 1 gm QID@0600,1130,1700,2200 PO 10/20/24 11:30 10/20/24 21:13 Pantoprazole Sodium (Protonix) 40 mg BID IV 10/20/24 10:00 10/20/24 21:20 Furosemide (Lasix Injection) 60 mg BIDD IV 10/20/24 18:00 10/20/24 17:12 Zirconium Oxide (Lokelma) 10 gm TID PO 10/20/24 14:00 10/20/24 21:20 Iron Sucrose 110 ml @ 110 mls/hr DAILY@1200 IV 10/20/24 12:00 10/24/24 12:59 10/20/24 10:59 Lactulose 30 ml BID PO 10/20/24 22:00 10/20/24 21:13 Vital Signs Vital Signs Date Time Temp Pulse Resp B/P (MAP) Pulse Ox O2 Delivery O2 Flow Rate FiO2 10/20/24 21:17 93 148/71 10/20/24 18:10 100 Facial BiPAP Mask 30 10/20/24 18:00 12 10/20/24 17:00 98.4 98.4 10/20/24 14:24 2.0 Physical Exam HEENT: No evidence of JVD, no oral ulcers. Awake and arousable Pulmonary: Crackles at the bases on auscultation bilaterally Cardiovascular S1-S2, no S3 or S4 Abdomen: Bowel sounds positive, soft no rebound tenderness Extremities: 1+ lower extremity edema Kaden catheter in place. No evidence of bleeding Labs/Diagnostic Data Labs Test 10/20/24 21:24 10/20/24 18:20 10/20/24 17:06 10/20/24 13:35 Range/Units POC Glucose 330 H 70-106 mg/dl Sodium Level 136 136-145 mmol/L Potassium Level 4.7 3.5-5.1 mmol/L Chloride Level 101 98-107 mmol/L Carbon Dioxide Level 28 20-31 mmol/L Anion Gap 7 5-15 Blood Urea Nitrogen 33 #H 9-23 mg/dL Creatinine 1.77 H 0.550-1.02 mg/dL Glomerular Filtration Rate Calc 29 >90 mL/min BUN/Creatinine Ratio 18.6 10.0-20.0 Serum Glucose 314 H 74-106 mg/dL Calcium Level 9.1 8.7-10.4 mg/dL Urine Creatinine 84.52 30.0-125.0 mg/dL Urine Protein/Creatinine Ratio 3.77 Urine Sodium 18 L 40-220 mmol/L Urine Total Protein 318.5 H 1-14 mg/dL Hemoglobin 7.7 #L 12.2-16.2 g/dL Hematocrit 23.6 #L 36.0-46.0 % Test 10/20/24 09:40 7/12/25 08:16 10/20/24 04:30 10/19/24 13:51 Range/Units Blood Gas Specimen Type Arterial Blood Gas Sample Site Right radial Blood Gas Patient Temperature 37.0 Arterial Blood Date Drawn [id number] Arterial Blood pH 7.271 L 7.350-7.450 Arterial Blood Partial Pressure CO2 58.0 H 32.0-45.0 mmHg Arterial Blood Partial Pressure O2 80.9 L 83.0-108.0 mmHg Arterial Blood HCO3 26.1 21.0-28.0 mmol/L Arterial Blood Oxygen Saturation 94.7 94.0-98.0 % Arterial Blood Base Excess -1.1 -2.0-3.0 mmol/L Arterial Blood Oxyhemoglobin 93.6 L 94.0-98.0 % Arterial Blood Carboxyhemoglobin 0.7 0.5-1.5 % Arterial Blood Methemoglobin 0.5 0.0-1.5 % Cristian Test Yes Blood Gas Total Hemoglobin 8.40 L 12.0-16.0 g/dL Blood Gas Liter Flow 3.00 Blood Gas Modality Nasal cannula FiO2 % 32.0 Prothrombin Time 11.3 9.3-11.8 sec Prothrombin Time INR 1.07 0.9-1.15 Activated Partial Thromboplast Time 25.8 24.5-34.5 SEC Fibrinogen 512 H 177-375 mg/dL White Blood Count 7.3 4.4-10.8 10^3/uL Red Blood Count 1.83 L 4.0-5.20 10^6/uL Mean Corpuscular Volume 101.1 H 80.0-100.0 fL Mean Corpuscular Hemoglobin 34.5 H 28.0-32.0 pg Mean Corpuscular Hemoglobin Concent 34.2 32.0-36.0 g/dL Red Cell Distribution Width 15.3 H 11.8-14.3 % Platelet Count 205 140-450 10^3/uL Mean Platelet Volume 7.2 6.9-10.8 fL Neutrophils (%) (Auto) 89.4 H 37.0-80.0 % Lymphocytes (%) (Auto) 5.4 L 10.0-50.0 % Monocytes (%) (Auto) 5.1 0.0-12.0 % Eosinophils (%) (Auto) 0.0 0.0-7.0 % Basophils (%) (Auto) 0.1 0.0-2.0 % Neutrophils # (Auto) 6.6 1.6-8.6 10 ^3/uL Lymphocytes # (Auto) 0.4 0.4-5.4 10 ^3/uL Monocytes # (Auto) 0.4 0-1.3 10 ^3/uL Eosinophils # (Auto) 0 0-0.8 10 ^3/uL Basophils # (Auto) 0 0-0.2 10 ^3/uL Nucleated Red Blood Cells 0.0 % Reticulocyte Count (auto) 1.48 0.5-1.5 % Total Bilirubin 0.3 0.2-1.0 mg/dL Aspartate Amino Transferase (AST) 14 13-40 U/L Alanine Aminotransferase (ALT) 11 7-40 U/L Alkaline Phosphatase 87 46-116 U/L Lactate Dehydrogenase 201 120-246 U/L Total Protein 5.7 5.7-8.2 g/dL Albumin 3.6 3.2-4.8 g/dL Blood Gas Spontaneous Rate 24 Blood Gas Spontaneous Tidal Volume 317 Blood Gas EPAP 5 Blood Gas IPAP 15 Test 10/19/24 11:18 10/19/24 09:10 10/18/24 23:28 10/18/24 22:27 Range/Units Blood Gas Critical Value Read Back Yes Blood Gas Notified Whom Dr. lois cool Blood Gas Notified Time [id number] Blood Gas Notified By Rt naina sloan Magnesium Level 1.9 1.6-2.6 mg/dL Iron Level 43 L 50-170 ug/dL Total Iron Binding Capacity 208 L 250-425 ug/dL Percent Iron Saturation 20.7 15-50 % Ferritin 404.5 H 10-291 ng/mL Hepatitis B Surface Antigen Negative Negative Hepatitis C Antibody Negative Negative Creatine Kinase 53 34-145 U/L Urine Color Light-yellow Yellow Urine Clarity Turbid H Clear Urine pH 6.0 5.0-9.0 Urine Specific [place] 1.007 1.001-1.035 Urine Protein 1+ H Negative Urine Ketones Negative Negative Urine Blood Trace H Negative /uL Urine Nitrite Negative Negative Urine Bilirubin Negative Negative Urine Urobilinogen Normal Negative mg/dL Urine Leukocyte Esterase Trace Negative /uL Urine RBC 1 0 - 4 /hpf Urine Microscopic WBC 8 H 0-5 /HPF Urine Squamous Epithelial Cells Few <5 /hpf Urine Bacteria Few H None Seen /hpf Urine Glucose Normal Normal mg/dL Test 10/18/24 20:03 10/18/24 19:07 Range/Units Troponin I High Sensitivity 7 </=34 ng/L B-Type Natriuretic Peptide 494.95 0-100 pg/mL Microbiology Date/Time Source Procedure Growth Status 10/19/24 03:20 Nose MRSA Screen - Final Complete CT SCAN ABD PELVIS IMPRESSION: 1. No nephrolithiasis or hydronephrosis. 2. Subcutaneous edema throughout the anterior abdominal pelvic wall. 3. 7.1 x 2.6 cm area of consolidated soft tissues in the posterior lumbar spine. At the level of L2-3. Finding may represent developing decubitus ulcer or phlegmon. Problems(with codes): (1) Generalized weakness (2) Morbid obesity (3) Acute exacerbation of chronic heart failure (4) Acute on chronic hypoxic respiratory failure (5) Severe aortic stenosis (6) Metabolic encephalopathy (7) End stage renal disease (8) Congestive heart failure Plan/Recommendation Assessment plan Patient had a drop in hemoglobin hematocrit likely due to IV hydration There was no signs of active GI bleeding unless there is some developing hematoma in the area of the abnormal lumbosacral spine Continue to monitor her labs, hold any anticoagulants, limit lab draws Patient is a Alevism and has refused blood transfusion She has been started on IV iron We will put her on IV Protonix 40 mg daily Patient is not a candidate for an EGD at this time because of morbid obesity severe aortic stenosis I will continue to monitor her manager digital conservatively at this point Plan discussed with: Patient, Other ([facility] Nurse) KELLY PEREZ MD Oct 20, 2024 23:52
[2024-10-21] VITALS (37 sets, daily range): BP systolic 122–159; BP diastolic 44–76; PULSE 79–95; RESP 13–30; TEMP 98–98.7; O2SAT 93–100
[2024-10-21 05:41] LABS: Hematocrit 22.3 % (36.0-46.0); Hemoglobin 7.2 g/dL (12.2-16.2); Mean Corpuscular Hemoglobin 32.5 pg (28.0-32.0); Mean Corpuscular Volume 100.1 fL (80.0-100.0); Nucleated Red Blood Cells % 0.0 %
[2024-10-21 09:10] LABS: Alanine Aminotransferase 11 U/L (7-40); Albumin 3.7 g/dL (3.2-4.8); Alkaline Phosphatase 88 U/L (46-116); Anion Gap 9 (5-15); BUN/Creatinine Ratio 15.5 (10.0-20.0); Calcium 10.0 mg/dL (8.7-10.4); Carbon Dioxide 28 mmol/L (20-31); Chloride 99 mmol/L (98-107); Potassium 4.7 mmol/L (3.5-5.1); Total Protein 5.9 g/dL (5.7-8.2)
[2024-10-21 09:14] LABS: Bilirubin, Total 0.3 mg/dL (0.2-1.0); Blood Urea Nitrogen 36 mg/dL (9-23); Glucose 316 mg/dL (74-106); Sodium 136 mmol/L (136-145)
[2024-10-21] MEDS: SODIUM CHL 0.9% 1000 ML BAG XX ONE (10:42)
[2024-10-21] MEDS: ALBUMIN 25% 100 ML IV STA (10:42)
--- NOTE | 2024-10-21 11:19 | DVHPN2 ---
Eyes: No Pain, No Vision change, No Conjunctivae inflammation, No Eyelid inflammation; Other (Decreased vision); No Redness ENT: No Ear pain, No Ear discharge, No Nose pain, No Nose discharge, No Nose congestion, No Mouth pain, No Mouth swelling, No Throat pain, No Throat swelling, No Other Cardiovascular: Chest Pain; No Palpitations, No Orthopnea, No Paroxysmal Noc. Dyspnea; Edema; No Lt Headedness, No Other Respiratory: No Cough, No Dry; Shortness of breath; No SOB with excertion, No Wheezing, No Hemoptysis, No Pleuritic Pain, No Sputum; Other (SOB at rest) Gastrointestinal: No Nausea, No Vomiting; Abdominal Pain; No Diarrhea; C onstipation, Melena; No Hematochezia, No Other Genitourinary: No Dysuria, No Frequency, No Incontinence, No Hematuria, No Retention, No Other Musculoskeletal: No other, No neck pain, No shoulder pain, No arm pain, No back pain, No hand pain, No leg pain, No foot pain Skin: No Rash, No Lesions, No Jaundice, No Bruising; Other (Decubitus ulcer) Objective Vitals Vital Signs Date Time Temp Pulse Resp B/P (MAP) Pulse Ox O2 Delivery O2 Flow Rate FiO2 10/21/24 09:59 85 20 100 10/21/24 09:53 Nasal Cannula* 2 28 10/21/24 08:00 98.7 139/58 (85) 98.7 Intake/Output Intake and Output 10/21/24 07:00 Intake Total 850 ml Output Total 475 ml Balance 375 ml Intake Oral 850 ml Output Urine Total 475 ml Medications Current Medications Medications Dose Ordered Sig/Nasrin Route Start Time Stop Time Status Last Admin Dose Admin Multivit/Ca Carb/ B Cmplx/FA/Prenat 1 tab DAILY PO 10/19/24 10:00 10/21/24 08:19 1 TAB Sevelamer HCl 800 mg TIDWM PO 10/19/24 08:00 10/21/24 08:19 800 MG Allopurinol 100 mg DAILY PO 10/19/24 10:00 10/21/24 08:19 100 MG Atorvastatin Calcium 20 mg HS PO 10/19/24 22:00 10/20/24 21:18 20 MG Carvedilol 3.125 mg Q12HR PO 10/19/24 10:00 10/20/24 21:17 3.125 MG Diagnostic Test (Pha) 1 strip ACHS 10/19/24 07:00 10/21/24 11:07 1 STRIP Insulin Human Regular ACHS SC 10/19/24 07:00 10/21/24 11:10 4 UNITS Dextrose 50 ml UD PRN IV 10/18/24 22:15 Sodium Chloride 10 ml Q8HR IV 10/19/24 06:00 10/21/24 06:00 10 ML Ondansetron HCl 4 mg Q4HP PRN IV 10/18/24 22:15 10/19/24 22:21 4 MG Docusate Sodium 100 mg BIDPRN PRN PO 10/18/24 22:15 Acetaminophen 650 mg Q6HP PRN PO 10/18/24 22:15 10/20/24 22:03 650 MG Nitroglycerin 0.4 mg Q5MINP PRN SL 10/18/24 23:30 10/20/24 08:28 0.4 MG Morphine Sulfate 2 mg Q30M PRN IV 10/18/24 23:30 10/19/24 22:13 2 MG Nifedipine 90 mg DAILY PO 10/19/24 10:00 10/20/24 08:27 90 MG Ceftriaxone Sodium 50 ml @ 100 mls/hr DAILY@09 IV 10/19/24 09:15 10/21/24 08:18 100 MLS/HR Albuterol 2.5 mg Q4HR NEB 10/19/24 14:00 10/21/24 09:53 2.5 MG Ipratropium [place] 0.5 mg Q4HR NEB 10/19/24 14:00 10/21/24 09:53 0.5 MG Doxycycline Hyclate 100 ml @ 50 mls/hr Q12H IV 10/19/24 10:45 10/20/24 22:02 50 MLS/HR Methylprednisolone Sodium Succinate 40 mg DAILY IV 10/19/24 11:30 10/21/24 08:19 40 MG Melatonin 5 mg HS PO 10/19/24 22:00 10/20/24 21:18 5 MG Acetaminophen/ Hydrocodone Bitart 1 tab Q4HP PRN PO 10/20/24 05:00 10/21/24 08:20 1 TAB Sucralfate 1 gm QID@0600,1130,1700,2200 PO 10/20/24 11:30 10/21/24 08:19 1 GM Pantoprazole Sodium 40 mg BID IV 10/20/24 10:00 10/21/24 08:18 40 MG Furosemide 60 mg BIDD IV 10/20/24 18:00 10/21/24 07:33 60 MG Zirconium Oxide 10 gm TID PO 10/20/24 14:00 10/21/24 07:33 10 GM Iron Sucrose 110 ml @ 110 mls/hr DAILY@1200 IV 10/20/24 12:00 10/24/24 12:59 10/20/24 10:59 110 MLS/HR Lactulose 30 ml BID PO 10/20/24 22:00 10/21/24 08:19 30 ML Laboratory Results Laboratory Tests 10/21/24 04:40 10/21/24 08:05 Chemistry Test 10/20/24 13:35 10/20/24 18:20 10/21/24 08:05 Calcium Level 10.0 mg/dL (8.7-10.4) 9.1 mg/dL (8.7-10.4) 10.0 mg/dL (8.7-10.4) Albumin 3.7 g/dL (3.2-4.8) Total Protein 5.9 g/dL (5.7-8.2) LFT Test 10/21/24 08:05 Alanine Aminotransferase (ALT) 11 U/L (7-40) Alkaline Phosphatase 88 U/L (46-116) Aspartate Amino Transferase (AST) 16 U/L (13-40) Total Bilirubin 0.3 mg/dL (0.2-1.0) Urinalysis Test 10/18/24 22:27 10/20/24 17:06 Urine Color Light-yellow (Yellow) Urine Clarity Turbid (Clear) H Urine pH 6.0 (5.0-9.0) Urine Specific [place] 1.007 (1.001-1.035) Urine Protein 1+ (Negative) H Urine Ketones Negative (Negative) Urine Blood Trace /uL (Negative) H Urine Nitrite Negative (Negative) Urine Bilirubin Negative (Negative) Urine Urobilinogen Normal mg/dL (Negative) Urine Leukocyte Esterase Trace /uL (Negative) Urine RBC 1 /hpf (0 - 4) Urine Microscopic WBC 8 /HPF (0-5) H Urine Squamous Epithelial Cells Few /hpf (<5) Urine Bacteria Few /hpf (None Seen) H Urine Glucose Normal mg/dL (Normal) Urine Creatinine 84.52 mg/dL (30.0-125.0) Urine Protein/Creatinine Ratio 3.77 Urine Sodium 18 mmol/L (40-220) L Urine Total Protein 318.5 mg/dL (1-14) H Microbiology Microbiology Date/Time Source Procedure Growth Status 10/19/24 03:20 Nose MRSA Screen - Final Complete ANTOLIN BRUSH MD Oct 21, 2024 11:19
--- NOTE | 2024-10-21 13:51 | DVHPN2 ---
Progress Note - Dictate Date Seen: Oct 21, 2024 Medical Necessity Reason Pt with a Central, PICC or Fol: Yes vital signs Vital Sign Date Time Temp Pulse Resp B/P (MAP) Pulse Ox O2 Delivery O2 Flow Rate FiO2 10/21/24 13:23 144/65 10/21/24 13:00 98.4 91 14 100 98.4 10/21/24 09:53 Nasal Cannula* 2 28 Total Intake and Output 10/20/24 10/20/24 10/21/24 15:00 23:00 07:00 Intake Total 500 ml 350 ml Output Total 225 ml 250 ml Balance 275 ml 100 ml medications Current Medications Medications Dose Ordered Sig/Nasrin Route Start Time Stop Time Status Last Admin Dose Admin Multivit/Ca Carb/ B Cmplx/FA/Prenat 1 tab DAILY PO 10/19/24 10:00 10/21/24 08:19 1 TAB Sevelamer HCl 800 mg TIDWM PO 10/19/24 08:00 10/21/24 12:29 800 MG Allopurinol 100 mg DAILY PO 10/19/24 10:00 10/21/24 08:19 100 MG Atorvastatin Calcium 20 mg HS PO 10/19/24 22:00 10/20/24 21:18 20 MG Carvedilol 3.125 mg Q12HR PO 10/19/24 10:00 10/20/24 21:17 3.125 MG Diagnostic Test (Pha) 1 strip ACHS 10/19/24 07:00 10/21/24 11:07 1 STRIP Insulin Human Regular ACHS SC 10/19/24 07:00 10/21/24 11:10 4 UNITS Dextrose 50 ml UD PRN IV 10/18/24 22:15 Sodium Chloride 10 ml Q8HR IV 10/19/24 06:00 10/21/24 12:29 10 ML Ondansetron HCl 4 mg Q4HP PRN IV 10/18/24 22:15 10/19/24 22:21 4 MG Docusate Sodium 100 mg BIDPRN PRN PO 10/18/24 22:15 Acetaminophen 650 mg Q6HP PRN PO 10/18/24 22:15 10/20/24 22:03 650 MG Nitroglycerin 0.4 mg Q5MINP PRN SL 10/18/24 23:30 10/21/24 13:23 0.4 MG Morphine Sulfate 2 mg Q30M PRN IV 10/18/24 23:30 10/19/24 22:13 2 MG Nifedipine 90 mg DAILY PO 10/19/24 10:00 10/20/24 08:27 90 MG Ceftriaxone Sodium 50 ml @ 100 mls/hr DAILY@09 IV 10/19/24 09:15 10/21/24 08:18 100 MLS/HR Albuterol 2.5 mg Q4HR NEB 10/19/24 14:00 10/21/24 09:53 2.5 MG Ipratropium [place] 0.5 mg Q4HR NEB 10/19/24 14:00 10/21/24 09:53 0.5 MG Doxycycline Hyclate 100 ml @ 50 mls/hr Q12H IV 10/19/24 10:45 10/21/24 12:29 50 MLS/HR Methylprednisolone Sodium Succinate 40 mg DAILY IV 10/19/24 11:30 10/21/24 08:19 40 MG Melatonin 5 mg HS PO 10/19/24 22:00 10/20/24 21:18 5 MG Acetaminophen/ Hydrocodone Bitart 1 tab Q4HP PRN PO 10/20/24 05:00 10/21/24 08:20 1 TAB Sucralfate 1 gm QID@0600,1130,1700,2200 PO 10/20/24 11:30 10/21/24 12:29 1 GM Pantoprazole Sodium 40 mg BID IV 10/20/24 10:00 10/21/24 08:18 40 MG Furosemide 60 mg BIDD IV 10/20/24 18:00 10/21/24 07:33 60 MG Zirconium Oxide 10 gm TID PO 10/20/24 14:00 10/21/24 12:29 10 GM Iron Sucrose 110 ml @ 110 mls/hr DAILY@1200 IV 10/20/24 12:00 10/24/24 12:59 10/21/24 12:29 110 MLS/HR Lactulose 30 ml BID PO 10/20/24 22:00 10/21/24 08:19 30 ML laboratory and microbiology Laboratory Tests 10/21/24 08:05 10/21/24 04:40 Test 10/21/24 08:05 Range/Units Serum Glucose 316 H 74-106 mg/dL Assessment/Plan Impression Acute hypoxemic respiratory failure Pulmonary edema Fluid overload ESRD on HD Patient seen and examined in [facility] Events Patient underwent HD yesterday and today Improving, transitioned to 2 liters nasal cannula Labs and imaging reviewed ABG reviewed Management Supplemental oxygen Titrate to maintain sats 90% or above Incentive spirometry Prn bipap Continue antibiotics F/u cultures Bronchodilators Monitor renal function HD as per nephrology Management deferred Monitor electrolytes Supplement as needed Recommend bipap for home use for suspected JAG DVT prophylaxis Critical care time 35 minutes Dietary Evaluation Review Comments: 1) Consider Nepro Carb Steady 240ml BID if PO intake < 50% 2) Monitor PO intake, lab values, I/O Expected Outcomes/Goals: Lab values to improve intake to meet at least 75% estimated needs fu 2-3 days Plan discussed with: Patient ALEX SANDHU MD Oct 21, 2024 13:51
--- NOTE | 2024-10-21 14:13 | DVH ---
CHEST RADIOGRAPH Indication: POST DIALYSIS X-RAY Technique: Single frontal view of the chest was obtained Comparison: XY CHEST PORTABLE on DOS: 10/20/24, XY CHEST PORTABLE on DOS: 10/20/24, XY CHEST XRAY 1 VIE W on DOS: 10/19/24 FINDINGS: Lines and Tubes: None Lungs: No focal consolidation. Pleura: No effusion. No pneumothorax. Cardiomediastinal contours: Unremarkable Bones: No acute osseous abnormality. IMPRESSION: 1. No acute cardiopulmonary disease. 2. No significant change from 10/20/2024 .
--- NOTE | 2024-10-21 14:26 | DVHPNRES ---
Progress Note Date Seen: Oct 21, 2024 Resident Creating Document: CYRUS WALLACE RESIDENT Has the PT tested + for MRSA If YES, has PT been informed?: No Medical Necessity Reason Pt with a Central, PICC or Fol: Yes Subjective Review of Systems This is a 79-year-old female with past medical history of diabetes mellitus type 2, hypertension, systolic congestive heart failure-EF 30%,, gout, sleep apnea, CKD, arthritis, chronic respiratory failure on 3 L oxygen, presents to the ER with a chief complaint of shortness of breaths and chest pain, also reported abdominal pain. Per chart review, son reported that her symptoms worsened 2 days back. Currently hospitalized in this facility for fluid overload. Patient seen and examined at bedside. Patient is currently on DEBORAH status, patient is currently on 3 L of oxygen through nasal cannula saturating 100%. Yesterday hemodialysis was performed and 2.5 L of fluid were removed. Today in's were on 850 cc and out's of 475 cc. Hemodialysis is scheduled for today as well. We will continue current medications furosemide 60 mg IV b.i.d., nifedipine 90 mg daily, carvedilol 3.125 q.12, pantoprazole 40 mg IV b.i.d., IV iron due to acute anemia. Today hemoglobin is 7.2 but patient is Jehovah Witness so not able to do any transfusions. Today patient looks slightly better compared to previous days in terms of respiratory edwards. We will try to remove right internal jugular Kaden catheter. ROS Constitutional: Denies weight loss, fever and chills. HEENT: Denies changes in vision and hearing. Respiratory: Reports shortness of breaths with a associated cough. Cardiovascular: Denies chest discomfort or palpitations GI: Denies abdominal pain, nausea, vomiting and diarrhea. : Denies dysuria and urinary frequency. Musculoskeletal: Denies myalgias and joint pain Skin: Denies rash and pruritus. Neurological: Denies dizziness, headache, vision or hearing problems Objective vital signs Vital Sign Date Time Temp Pulse Resp B/P (MAP) Pulse Ox O2 Delivery O2 Flow Rate FiO2 10/21/24 14:05 97 Nasal Cannula 2.0 10/21/24 14:05 28 10/21/24 14:05 95 22 10/21/24 14:00 134/58 (83) 10/21/24 13:00 98.4 98.4 Total Intake and Output 10/20/24 10/20/24 10/21/24 15:00 23:00 07:00 Intake Total 500 ml 350 ml Output Total 225 ml 250 ml Balance 275 ml 100 ml medications Current Medications Medications Dose Ordered Sig/Nasrin Route Start Time Stop Time Status Last Admin Dose Admin Multivit/Ca Carb/ B Cmplx/FA/Prenat 1 tab DAILY PO 10/19/24 10:00 10/21/24 08:19 1 TAB Sevelamer HCl 800 mg TIDWM PO 10/19/24 08:00 10/21/24 12:29 800 MG Allopurinol 100 mg DAILY PO 10/19/24 10:00 10/21/24 08:19 100 MG Atorvastatin Calcium 20 mg HS PO 10/19/24 22:00 10/20/24 21:18 20 MG Carvedilol 3.125 mg Q12HR PO 10/19/24 10:00 10/20/24 21:17 3.125 MG Diagnostic Test (Pha) 1 strip ACHS 10/19/24 07:00 10/21/24 11:07 1 STRIP Insulin Human Regular ACHS SC 10/19/24 07:00 10/21/24 11:10 4 UNITS Dextrose 50 ml UD PRN IV 10/18/24 22:15 Sodium Chloride 10 ml Q8HR IV 10/19/24 06:00 10/21/24 12:29 10 ML Ondansetron HCl 4 mg Q4HP PRN IV 10/18/24 22:15 10/19/24 22:21 4 MG Docusate Sodium 100 mg BIDPRN PRN PO 10/18/24 22:15 Acetaminophen 650 mg Q6HP PRN PO 10/18/24 22:15 10/20/24 22:03 650 MG Nitroglycerin 0.4 mg Q5MINP PRN SL 10/18/24 23:30 10/21/24 13:23 0.4 MG Morphine Sulfate 2 mg Q30M PRN IV 10/18/24 23:30 10/19/24 22:13 2 MG Nifedipine 90 mg DAILY PO 10/19/24 10:00 10/20/24 08:27 90 MG Ceftriaxone Sodium 50 ml @ 100 mls/hr DAILY@09 IV 10/19/24 09:15 10/21/24 08:18 100 MLS/HR Albuterol 2.5 mg Q4HR NEB 10/19/24 14:00 10/21/24 14:05 2.5 MG Ipratropium [place] 0.5 mg Q4HR NEB 10/19/24 14:00 10/21/24 14:05 0.5 MG Doxycycline Hyclate 100 ml @ 50 mls/hr Q12H IV 10/19/24 10:45 10/21/24 12:29 50 MLS/HR Methylprednisolone Sodium Succinate 40 mg DAILY IV 10/19/24 11:30 10/21/24 08:19 40 MG Melatonin 5 mg HS PO 10/19/24 22:00 10/20/24 21:18 5 MG Acetaminophen/ Hydrocodone Bitart 1 tab Q4HP PRN PO 10/20/24 05:00 10/21/24 08:20 1 TAB Sucralfate 1 gm QID@0600,1130,1700,2200 PO 10/20/24 11:30 10/21/24 12:29 1 GM Pantoprazole Sodium 40 mg BID IV 10/20/24 10:00 10/21/24 08:18 40 MG Furosemide 60 mg BIDD IV 10/20/24 18:00 10/21/24 07:33 60 MG Zirconium Oxide 10 gm TID PO 10/20/24 14:00 10/21/24 12:29 10 GM Iron Sucrose 110 ml @ 110 mls/hr DAILY@1200 IV 10/20/24 12:00 10/24/24 12:59 10/21/24 12:29 110 MLS/HR Lactulose 30 ml BID PO 10/20/24 22:00 10/21/24 08:19 30 ML Examination Physical Examination General: Patient alert and oriented in person, place and time. Patient is blind bilaterally. Patient following commands. HEENT: Normocephalic, atraumatic, moist mucous membranes Respiratory/pulmonary: There is decreased breath sounds on bilateral lung newberry and very mild crackles on lung bases. No wheezes at this time. Currently on 3 L of oxygen through nasal cannula. Cardiovascular: Normal heart sounds S1 and S2 with no associated murmurs Abdomen: Abdomen nondistended, there is no pain to palpation in any of the abdominal quadrants, no palpable masses. Extremities: There is very mild peripheral edema, 1+ pitting edema that has been improving since dialysis Skin: No rashes or pruritus, there is no sacral edema present at this time. Neurological: Intact cranial nerves with no focal neurologic deficits laboratory and microbiology Laboratory Tests 10/21/24 08:05 10/21/24 04:40 Test 10/21/24 08:05 Range/Units Serum Glucose 316 H 74-106 mg/dL Microbiology Date/Time Source Procedure Growth Status 10/20/24 17:06 Voided Urine Urine Culture - Preliminary Resulted 10/19/24 03:20 Nose MRSA Screen - Final Complete Problem List/Assessment/Plan Problem List/Assessment/Plan Assessment/plan Acute on chronic congestive systolic heart failure exacerbation-NYHA class 3 (HFrEF 30%) Acute hypoxic respiratory failure due to above Pulmonary edema -Continue Lasix IV 60 b.i.d. -albuterol/ipratropium med nebs q.4 scheduled -Echocardiogram showing an LVEF of 30% -Strict I&Os, fluid restriction -currently on 3 L of oxygen through nasal cannula -nifedipine 90 mg daily, Coreg 3.125 b.i.d. -BiPAP nighttime -patient will undergo hemodialysis today as well Possible COPD exacerbation -Nebulized treatments -Continue IV ceftriaxone and doxycycline daily -IV Solu-Medrol 40 mg daily -Voltage Tester recommended BiPAP home use for obstructive sleep apnea -currently on 3 L of oxygen through nasal cannula, no wheezes at this time. Acute anemia ? Rule out GI blood loss -Hemoglobin 6.3, patient is Spiritism, current hemoglobin is 7.2 -continue IV iron supplementation daily -monitor H&H -GI consultation-stool occult pending NISHANT superimposed on CKD ? Requiring renal replacement therapy Possible Cardiorenal syndrome -Nephrotic range proteinuria -Refractory hyperkalemia -Anemia of chronic kidney disease -Nephrology on board, hemodialysis yesterday remove 2.5 L of fluid. Hemodialysis will be repeated today. -Sevelamer 800 mg TID with meals Diabetes mellitus type 2-A1c 6.8 -Moderate sliding scale -Likely diabetic retinopathy -Monitor Chronic gout -Allopurinol 100 mg daily Obesity hypoventilation syndrome Obstructive sleep apnea History of asthma -nighttime BiPAP Goals of care discussed with the patient at bedside for >40min, Full code Plan discussed with Dr. Wang Plan discussed with: Patient Dietary Evaluation Review Comments: 1) Consider Nepro Carb Steady 240ml BID if PO intake < 50% 2) Monitor PO intake, lab values, I/O Expected Outcomes/Goals: Lab values to improve intake to meet at least 75% estimated needs fu 2-3 days Date of Service: Oct 21, 2024 Billing Provider: ANTOLIN BRUSH MD Common Visit Codes: 19494-[id number] CARE 30-74 MIN CYRUS WALLACE Oct 21, 2024 14:26 ANTOLIN BRSUH MD Oct 22, 2024 01:13
--- NOTE | 2024-10-21 15:16 | MEDREC ---
[facility] Intervention Section I [facility] Intervention: Review courses of therapy (FOR COPD EXACERBATION PLEASE CONSIDER DOXYCYCLINE 100 MG BID FOR 3 TO 5 DAYS - D/C CEFTRIAXONE ) VAHE ALLEN PHARMACIST Oct 21, 2024 15:16
--- NOTE | 2024-10-21 15:45 | DVHPN2 ---
Progress Note - Dictate Date Seen: Oct 21, 2024 Has the PT tested + for MRSA If YES, has PT been informed?: No Medical Necessity Reason Pt with a Central, PICC or Fol: Yes Subjective Dialysis was completed today. Patient feels lot better in regards of the dyspnea. Daughter is at bedside vital signs Vital Sign Date Time Temp Pulse Resp B/P (MAP) Pulse Ox O2 Delivery O2 Flow Rate FiO2 10/21/24 15:38 138/62 10/21/24 15:36 91 10/21/24 15:00 25 98 10/21/24 14:05 Nasal Cannula 2.0 10/21/24 14:05 28 10/21/24 13:00 98.4 98.4 Total Intake and Output 10/20/24 10/20/24 10/21/24 15:00 23:00 07:00 Intake Total 500 ml 350 ml Output Total 225 ml 250 ml Balance 275 ml 100 ml medications Current Medications Medications Dose Ordered Sig/Nasrin Route Start Time Stop Time Status Last Admin Dose Admin Multivit/Ca Carb/ B Cmplx/FA/Prenat 1 tab DAILY PO 10/19/24 10:00 10/21/24 08:19 1 TAB Sevelamer HCl 800 mg TIDWM PO 10/19/24 08:00 10/21/24 12:29 800 MG Allopurinol 100 mg DAILY PO 10/19/24 10:00 10/21/24 08:19 100 MG Atorvastatin Calcium 20 mg HS PO 10/19/24 22:00 10/20/24 21:18 20 MG Carvedilol 3.125 mg Q12HR PO 10/19/24 10:00 10/20/24 21:17 3.125 MG Diagnostic Test (Pha) 1 strip ACHS 10/19/24 07:00 10/21/24 11:07 1 STRIP Insulin Human Regular ACHS SC 10/19/24 07:00 10/21/24 11:10 4 UNITS Dextrose 50 ml UD PRN IV 10/18/24 22:15 Sodium Chloride 10 ml Q8HR IV 10/19/24 06:00 10/21/24 12:29 10 ML Ondansetron HCl 4 mg Q4HP PRN IV 10/18/24 22:15 10/19/24 22:21 4 MG Docusate Sodium 100 mg BIDPRN PRN PO 10/18/24 22:15 Acetaminophen 650 mg Q6HP PRN PO 10/18/24 22:15 10/20/24 22:03 650 MG Nitroglycerin 0.4 mg Q5MINP PRN SL 10/18/24 23:30 10/21/24 13:23 0.4 MG Morphine Sulfate 2 mg Q30M PRN IV 10/18/24 23:30 10/19/24 22:13 2 MG Nifedipine 90 mg DAILY PO 10/19/24 10:00 10/20/24 08:27 90 MG Ceftriaxone Sodium 50 ml @ 100 mls/hr DAILY@09 IV 10/19/24 09:15 10/21/24 08:18 100 MLS/HR Albuterol 2.5 mg Q4HR NEB 10/19/24 14:00 10/21/24 14:05 2.5 MG Ipratropium [place] 0.5 mg Q4HR NEB 10/19/24 14:00 10/21/24 14:05 0.5 MG Doxycycline Hyclate 100 ml @ 50 mls/hr Q12H IV 10/19/24 10:45 10/21/24 12:29 50 MLS/HR Methylprednisolone Sodium Succinate 40 mg DAILY IV 10/19/24 11:30 10/21/24 08:19 40 MG Melatonin 5 mg HS PO 10/19/24 22:00 10/20/24 21:18 5 MG Acetaminophen/ Hydrocodone Bitart 1 tab Q4HP PRN PO 10/20/24 05:00 10/21/24 08:20 1 TAB Sucralfate 1 gm QID@0600,1130,1700,2200 PO 10/20/24 11:30 10/21/24 12:29 1 GM Pantoprazole Sodium 40 mg BID IV 10/20/24 10:00 10/21/24 08:18 40 MG Furosemide 60 mg BIDD IV 10/20/24 18:00 10/21/24 07:33 60 MG Zirconium Oxide 10 gm TID PO 10/20/24 14:00 10/21/24 12:29 10 GM Iron Sucrose 110 ml @ 110 mls/hr DAILY@1200 IV 10/20/24 12:00 10/24/24 12:59 10/21/24 12:29 110 MLS/HR Lactulose 30 ml BID PO 10/20/24 22:00 10/21/24 08:19 30 ML objective HEENT: No evidence of JVD, no oral ulcers. Pulmonary: Crackles at the bases on auscultation bilaterally Cardiovascular S1-S2, no S3 or S4 Abdomen: Bowel sounds positive, soft no rebound tenderness Skin: No rash Neurological: Drowsy On BiPAP Extremities: 1+ lower extremity edema Kaden catheter in place. No evidence of bleeding laboratory and microbiology Laboratory Tests 10/21/24 08:05 10/21/24 04:40 Test 10/21/24 08:05 Range/Units Serum Glucose 316 H 74-106 mg/dL Assessment/Plan Assessment: 1. Hemodialysis dependent Acute kidney injury on Chronic kidney disease 4 2. Hyperkalemia refractory to medical management, improve with hemodialysis 3. Acute hypoxic respiratory failure, improving 4. Fluid overload 5. Diabetes type 2 6. Acute diastolic heart failure exacerbation 7. Anemia in a Druze patient 8. Morbid obesity Plan: Hemodialysis in a.m. Continue loop diuretics IV Remove right sided Kaden catheter which is not functioning. Higher doses of GAYLE, Venofer; the patient is Druze and declines any blood transfusion at this time Currently on nasal cannula oxygen Monitor closely urinary output, keep Triana catheter for now Pulmonary consult appreciated. Thank you very much for allowing us to participate in the care of this patient Dietary Evaluation Review Comments: 1) Consider Nepro Carb Steady 240ml BID if PO intake < 50% 2) Monitor PO intake, lab values, I/O Expected Outcomes/Goals: Lab values to improve intake to meet at least 75% estimated needs fu 2-3 days Plan discussed with: Patient, Daughter HONG MAYA MD Oct 21, 2024 15:45
--- NOTE | 2024-10-21 16:46 | DVHPN2 ---
Progress Note - Dictate Date Seen: Oct 21, 2024 Has the PT tested + for MRSA If YES, has PT been informed?: No Medical Necessity Reason Pt with a Central, PICC or Fol: Yes Subjective No new complaints No active GI bleeding reported H&H is stable at 7.2 Patient underwent hemodialysis today Shortness of breath has improved vital signs Vital Sign Date Time Temp Pulse Resp B/P (MAP) Pulse Ox O2 Delivery O2 Flow Rate FiO2 10/21/24 16:10 137/59 10/21/24 15:36 91 10/21/24 15:00 25 98 10/21/24 14:05 Nasal Cannula 2.0 10/21/24 14:05 28 10/21/24 13:00 98.4 98.4 Total Intake and Output 10/20/24 10/20/24 10/21/24 15:00 23:00 07:00 Intake Total 500 ml 350 ml Output Total 225 ml 250 ml Balance 275 ml 100 ml medications Current Medications Medications Dose Ordered Sig/Nasrin Route Start Time Stop Time Status Last Admin Dose Admin Multivit/Ca Carb/ B Cmplx/FA/Prenat 1 tab DAILY PO 10/19/24 10:00 10/21/24 08:19 1 TAB Sevelamer HCl 800 mg TIDWM PO 10/19/24 08:00 10/21/24 16:09 800 MG Allopurinol 100 mg DAILY PO 10/19/24 10:00 10/21/24 08:19 100 MG Atorvastatin Calcium 20 mg HS PO 10/19/24 22:00 10/20/24 21:18 20 MG Carvedilol 3.125 mg Q12HR PO 10/19/24 10:00 10/20/24 21:17 3.125 MG Diagnostic Test (Pha) 1 strip ACHS 10/19/24 07:00 10/21/24 11:07 1 STRIP Insulin Human Regular ACHS SC 10/19/24 07:00 10/21/24 11:10 4 UNITS Dextrose 50 ml UD PRN IV 10/18/24 22:15 Sodium Chloride 10 ml Q8HR IV 10/19/24 06:00 10/21/24 12:29 10 ML Ondansetron HCl 4 mg Q4HP PRN IV 10/18/24 22:15 10/19/24 22:21 4 MG Docusate Sodium 100 mg BIDPRN PRN PO 10/18/24 22:15 Acetaminophen 650 mg Q6HP PRN PO 10/18/24 22:15 10/20/24 22:03 650 MG Nitroglycerin 0.4 mg Q5MINP PRN SL 10/18/24 23:30 10/21/24 13:23 0.4 MG Morphine Sulfate 2 mg Q30M PRN IV 10/18/24 23:30 10/19/24 22:13 2 MG Nifedipine 90 mg DAILY PO 10/19/24 10:00 10/20/24 08:27 90 MG Ceftriaxone Sodium 50 ml @ 100 mls/hr DAILY@09 IV 10/19/24 09:15 10/21/24 08:18 100 MLS/HR Albuterol 2.5 mg Q4HR NEB 10/19/24 14:00 10/21/24 14:05 2.5 MG Ipratropium [place] 0.5 mg Q4HR NEB 10/19/24 14:00 10/21/24 14:05 0.5 MG Doxycycline Hyclate 100 ml @ 50 mls/hr Q12H IV 10/19/24 10:45 10/21/24 12:29 50 MLS/HR Methylprednisolone Sodium Succinate 40 mg DAILY IV 10/19/24 11:30 10/21/24 08:19 40 MG Melatonin 5 mg HS PO 10/19/24 22:00 10/20/24 21:18 5 MG Acetaminophen/ Hydrocodone Bitart 1 tab Q4HP PRN PO 10/20/24 05:00 10/21/24 16:09 1 TAB Sucralfate 1 gm QID@0600,1130,1700,2200 PO 10/20/24 11:30 10/21/24 16:09 1 GM Pantoprazole Sodium 40 mg BID IV 10/20/24 10:00 10/21/24 08:18 40 MG Furosemide 60 mg BIDD IV 10/20/24 18:00 10/21/24 16:10 60 MG Zirconium Oxide 10 gm TID PO 10/20/24 14:00 10/21/24 12:29 10 GM Iron Sucrose 110 ml @ 110 mls/hr DAILY@1200 IV 10/20/24 12:00 10/24/24 12:59 10/21/24 12:29 110 MLS/HR Lactulose 30 ml BID PO 10/20/24 22:00 10/21/24 08:19 30 ML objective HEENT: No evidence of JVD, no oral ulcers. Pulmonary: Crackles at the bases on auscultation bilaterally Cardiovascular S1-S2, no S3 or S4 Abdomen: Bowel sounds positive, soft no rebound tenderness Skin: No rash, obese Neurological: Drowsy On BiPAP Extremities: 1+ lower extremity edema Kaden catheter in place. No evidence of bleeding laboratory and microbiology Laboratory Tests 10/21/24 08:05 10/21/24 04:40 Test 10/21/24 08:05 Range/Units Serum Glucose 316 H 74-106 mg/dL Problems(with codes): (1) Metabolic encephalopathy (2) End stage renal disease (3) Congestive heart failure (4) Morbid obesity (5) Generalized weakness (6) Anemia of chronic disease Prognosis Plan Continue IV iron treatment Check stool for occult blood Patient is Yarsanism Continue to monitor conservatively Dietary Evaluation Review Comments: 1) Consider Nepro Carb Steady 240ml BID if PO intake < 50% 2) Monitor PO intake, lab values, I/O Expected Outcomes/Goals: Lab values to improve intake to meet at least 75% estimated needs fu 2-3 days Plan discussed with: Patient KELLY PEREZ MD Oct 21, 2024 16:45
[2024-10-21] MEDS: EPOETIN ALFA-EPBX 10,000 UNIT/1ML VIAL SC ONE (22:47)
[2024-10-21] MEDS ORDERED: DEXTROSE (50%) 50ML SYRG IV PRN (23:00)
[2024-10-22] VITALS (56 sets, daily range): BP systolic 131–185; BP diastolic 51–98; PULSE 78–94; RESP 11–31; TEMP 97.7–98.4; O2SAT 85–100
[2024-10-22] MEDS: ACCU-CHEK COMFORT CURVE STRIP VI SCH (00:14)
[2024-10-22] MEDS: InsuLIN REG 1unit/0.01ml Soln (100units/ml) SC SCH (00:14)
--- NOTE | 2024-10-22 04:48 | DVH ---
CHEST RADIOGRAPH Indication: reeval lung parenchyma Technique: Single frontal view of the chest was obtained COMPARISON: XY CHEST PORTABLE on DOS: 10/21/24, XY CHEST PORTABLE on DOS: 10/20/24, XY CHEST PORTABLE o n DOS: 10/20/24, XY CHEST XRAY 1 VIEW on DOS: 10/19/24, XY CHEST XRAY 1 VIEW on DOS: 10/18/24 FINDINGS: Lines and Tubes: Interval removal of right internal jugular central venous access catheter. Left int ernal jugular central venous access catheter is unchanged. Lungs: Stable diffuse increased prominence of the pulmonary vasculature and interstitium without evid ence of focal consolidation. Pleura: No effusion. No pneumothorax. Cardiomediastinal contours: Unremarkable Bones: Unremarkable IMPRESSION: 1. Stable appearing diffuse increased prominence of the pulmonary vasculature and interstitium. 2. Interval removal of right internal jugular central venous catheter with left internal jugular cent ral venous catheter unchanged.
[2024-10-22 06:52] LABS: Calcium 10.0 mg/dL (8.7-10.4); Potassium 3.6 mmol/L (3.5-5.1); Sodium 138 mmol/L (136-145)
[2024-10-22 06:53] LABS: Anion Gap 8 (5-15)
[2024-10-22 06:55] LABS: Carbon Dioxide 32 mmol/L (20-31); Chloride 98 mmol/L (98-107)
[2024-10-22 06:58] LABS: BUN/Creatinine Ratio 13.4 (10.0-20.0)
[2024-10-22 06:59] LABS: Blood Urea Nitrogen 29 mg/dL (9-23); Glucose 292 mg/dL (74-106)
[2024-10-22 07:02] LABS: Hemoglobin 7.8 g/dL (12.2-16.2)
[2024-10-22 07:04] LABS: Hematocrit 24.7 % (36.0-46.0); Mean Corpuscular Hemoglobin 31.8 pg (28.0-32.0); Mean Corpuscular Volume 101.2 fL (80.0-100.0)
[2024-10-22 07:22] LABS: Total Cells Counted 100.0 (100)
[2024-10-22 07:23] LABS: Macrocytosis Slight
--- NOTE | 2024-10-22 07:36 | ECG ---
[facility] Test Date: 2024-10-19 Test Time: 22:13:06 Pat Name: CLINT SONI Department: Room: 0263D A Gender: F Trauma Nurse: CARLTON : 1945 Requested By: HONG SNOW Order Number: [id number] Reading MD: Doron Wells Measurements Intervals [place] Rate: 101 P: 41 IL: 200 QRS: 15 QRSD: 120 T: 194 QT: 356 QTc: 461 Interpretive Statements Sinus tachycardia Cannot rule out Anterior infarct , age undetermined ST & T wave abnormality, consider inferolateral ischemia Electronically Signed On 10-22-2024 13:24:39 PDT by Doron Wells Please click the below link to view image of tracing.
[2024-10-22] MEDS: INSULIN LANTUS (GLARGINE) 1 /0.01ml (100units/ml) SC SCH (11:15)
[2024-10-22] MEDS: SODIUM CHL 0.9% 1000 ML BAG XX ONE (11:40)
[2024-10-22] MEDS: fentaNYL CITRATE 100 MCG/2 ML VL ONE (13:18)
[2024-10-22] MEDS: HEPARIN SODIUM (PORCINE) 5000 UNITS/ML 1ML VIAL ONE (13:18)
[2024-10-22] MEDS: LIDOCAINE 2%HCL (LOCAL ANESTH.) INJ 20ML MDV ONE (13:19)
[2024-10-22] MEDS: MIDAZOLAM HCL 2MG/2ML 2ml VIAL (1mg/ml) ONE (13:19)
--- NOTE | 2024-10-22 14:51 | DVH ---
XY Insertion of Venous Cath, HISTORY: HD CATH PL PROCEDURE: Informed consent was obtained. The patient was placed supine on the interventional table. A limited localization ultrasound of the right neck base was obtained. The right neck base and upper chest were prepped with chlorhexidine which was allowed to dry and draped in the usual sterile fashio n. Time out was performed. IV sedation was administered. The skin and the soft tissues were infiltrat ed with 1% Lidocaine. With real-time ultrasound guidance, the internal jugular vein was accessed with a micropuncture kit, and an image documenting patency was recorded to PACS. A subcutaneous tunneled tract was created from the right upper chest to the venotomy site. A 14.5 ir[place] Path, 23 cm lo ng hemodialysis catheter was advanced through the tunneled tract. Fluoroscopy was used to advance a guidewire through the internal jugular vein into the inferior vena cava. Following serial dilatation, a 15 iraqi peel-away sheath was introduced, though which was adva nced the catheter into the right atrium. The catheter tip position was confirmed with fluoroscopy. Th ere was satisfactory flow in both lumens. The catheter lumens were flushed with saline and heparin wa s left indwelling in the catheter. A post-procedure image of the chest was obtained. The neck incisio n site was closed with a Vicryl suture and dressed sterilely. The catheter was sutured at the skin eric rface and exit site also dressed sterilely. No immediate complication was identified. DAP 159.8 FLUOROSCOPY TIME: 1.1 minutes. SEDATION: Dr. Mino Escamilla was personally responsible for the administration of moderate sedation during the procedure performed, including the use of an independent trained observer who had no other duties during the procedure. The drugs utilized were IV fentanyl and versed (see nursing log for details). The total time of supervision by the attending physician was approximately 20 minutes. FINDINGS: Widely patent right IJV. Post procedure image demonstrates smooth course of the hemodialysi s catheter with the tip in the right atrium. IMPRESSION: Placement of 14.5 ir[place] Path, 23 cm long hemodialysis catheter through right internal jugular vein. Plan: Please contact IR for removal when no longer needed.
--- NOTE | 2024-10-22 15:08 | DVHPNRES ---
Progress Note Date Seen: Oct 22, 2024 Resident Creating Document: CYRUS WALLACE RESIDENT Has the PT tested + for MRSA If YES, has PT been informed?: No Medical Necessity Reason Pt with a Central, PICC or Fol: Yes Subjective Review of Systems This is a 79-year-old female with past medical history of diabetes mellitus type 2, hypertension, systolic congestive heart failure-EF 30%,, gout, sleep apnea, CKD, arthritis, chronic respiratory failure on 3 L oxygen, presents to the ER with a chief complaint of shortness of breaths and chest pain, also reported abdominal pain. Per chart review, son reported that her symptoms worsened 2 days back. The patient was previously hospitalized for acute hypoxic respiratory failure likely due to the same features, why she is hospitalized this time as well. Patient in is currently volume overload due to CHF exacerbation as well as COPD exacerbation. We will admit the patient for further assessment and management of previous mentioned conditions, as well as end-stage renal disease requiring hemodialysis. Patient seen and examined at bedside. Patient is currently on DEBORAH, patient was requiring BiPAP at night the rate setting of 15/5 with an FiO2 of 40% mucous patient was desaturating overnight but it was decreased this morning. Patient is currently on 3 L of oxygen through nasal cannula saturating 100%. Hemodialysis yesterday pull it out 2.5 L of fluid and today hemodialysis was repeated and took out 2 L of fluid. Chest x-ray this morning still showing mild to moderate pulmonary vascular congestion. Strict in's and out's are showing in's of 280 and out's of 250 cc in the last 24 hours. Waiting chair for hemodialysis is requiring hepatitis-B core antibody and hepatitis-B surface antibodies which were already both ordered. We will order an ABG to see current a sit based disturbances. We will start methylprednisolone at this time since the patient is not wheezing and has been on it for at least five days. We will continue IV antibiotics with doxycycline and ceftriaxone. We will also continue blood pressure medications. Patient was taken for permanent dialysis cath placement which was placed without complications. Patient is currently hemodynamically stable at this time. ROS Constitutional: Denies weight loss, fever and chills. HEENT: Denies changes in vision and hearing. Respiratory: Still reports shortness of breath and cough. Cardiovascular: Denies chest discomfort or palpitations GI: Denies abdominal pain, nausea, vomiting and diarrhea. : Denies dysuria and urinary frequency. Musculoskeletal: Denies myalgias and joint pain Skin: Denies rash and pruritus. Neurological: Denies dizziness, headache, vision or hearing problems Objective vital signs Vital Sign Date Time Temp Pulse Resp B/P (MAP) Pulse Ox O2 Delivery O2 Flow Rate FiO2 10/22/24 14:46 82 20 100 10/22/24 14:40 Nasal Cannula* 2 28 10/22/24 12:16 158/70 10/22/24 12:00 98.0 98.0 Total Intake and Output 10/21/24 10/21/24 10/22/24 15:00 23:00 07:00 Intake Total 400 ml 390 ml Output Total 100 ml 250 ml Balance 300 ml 140 ml medications Current Medications Medications Dose Ordered Sig/Nasrin Route Start Time Stop Time Status Last Admin Dose Admin Multivit/Ca Carb/ B Cmplx/FA/Prenat 1 tab DAILY PO 10/19/24 10:00 10/22/24 11:07 1 TAB Sevelamer HCl 800 mg TIDWM PO 10/19/24 08:00 10/21/24 16:09 800 MG Allopurinol 100 mg DAILY PO 10/19/24 10:00 10/22/24 11:08 100 MG Atorvastatin Calcium 20 mg HS PO 10/19/24 22:00 10/21/24 21:31 20 MG Carvedilol 3.125 mg Q12HR PO 10/19/24 10:00 10/22/24 11:07 3.125 MG Diagnostic Test (Pha) 1 strip ACHS 10/19/24 07:00 10/22/24 11:20 1 STRIP Dextrose 50 ml UD PRN IV 10/18/24 22:15 Sodium Chloride 10 ml Q8HR IV 10/19/24 06:00 10/22/24 06:45 10 ML Ondansetron HCl 4 mg Q4HP PRN IV 10/18/24 22:15 10/19/24 22:21 4 MG Docusate Sodium 100 mg BIDPRN PRN PO 10/18/24 22:15 Acetaminophen 650 mg Q6HP PRN PO 10/18/24 22:15 10/20/24 22:03 650 MG Nitroglycerin 0.4 mg Q5MINP PRN SL 10/18/24 23:30 10/22/24 11:05 0.4 MG Morphine Sulfate 2 mg Q30M PRN IV 10/18/24 23:30 10/19/24 22:13 2 MG Nifedipine 90 mg DAILY PO 10/19/24 10:00 10/22/24 11:09 90 MG Ceftriaxone Sodium 50 ml @ 100 mls/hr DAILY@09 IV 10/19/24 09:15 10/22/24 10:50 100 MLS/HR Albuterol 2.5 mg Q4HR NEB 10/19/24 14:00 10/22/24 14:38 2.5 MG Ipratropium [place] 0.5 mg Q4HR NEB 10/19/24 14:00 10/22/24 14:38 0.5 MG Doxycycline Hyclate 100 ml @ 50 mls/hr Q12H IV 10/19/24 10:45 10/22/24 11:09 50 MLS/HR Melatonin 5 mg HS PO 10/19/24 22:00 10/21/24 21:31 5 MG Acetaminophen/ Hydrocodone Bitart 1 tab Q4HP PRN PO 10/20/24 05:00 10/22/24 07:37 1 TAB Sucralfate 1 gm QID@0600,1130,1700,2200 PO 10/20/24 11:30 10/22/24 11:23 1 GM Pantoprazole Sodium 40 mg BID IV 10/20/24 10:00 10/22/24 11:03 40 MG Furosemide 60 mg BIDD IV 10/20/24 18:00 10/22/24 07:38 60 MG Iron Sucrose 110 ml @ 110 mls/hr DAILY@1200 IV 10/20/24 12:00 10/24/24 12:59 10/21/24 12:29 110 MLS/HR Lactulose 30 ml BID PO 10/20/24 22:00 10/22/24 11:06 30 ML Diagnostic Test (Pha) 1 strip IQ4HR 10/22/24 00:00 10/22/24 11:24 1 STRIP Insulin Human Regular IQ4HR SC 10/22/24 00:00 10/22/24 07:54 4 UNITS Dextrose 50 ml UD PRN IV 10/21/24 23:00 Insulin Glargine 15 units DAILY@1000 SC 10/22/24 10:00 10/22/24 11:15 15 UNITS Examination Physical Examination General: Patient alert and oriented in person, place and time. Patient is blind bilaterally. Patient following commands. HEENT: Normocephalic, atraumatic, moist mucous membranes Respiratory/pulmonary: There is decreased breath sounds on bilateral lung newberry and very mild crackles on lung bases. No wheezes at this time. Currently on 3 L of oxygen through nasal cannula. Cardiovascular: Normal heart sounds S1 and S2 with no associated murmurs Abdomen: Abdomen nondistended, there is no pain to palpation in any of the abdominal quadrants, no palpable masses. Extremities: There is very mild peripheral edema, 1+ pitting edema that has been improving since dialysis Skin: No rashes or pruritus, there is no sacral edema present at this time. Neurological: Intact cranial nerves with no focal neurologic deficits laboratory and microbiology Laboratory Tests 10/22/24 05:04 Test 10/22/24 05:04 Range/Units Serum Glucose 292 H 74-106 mg/dL Microbiology Date/Time Source Procedure Growth Status 10/20/24 17:06 Voided Urine Urine Culture - Preliminary Resulted 10/19/24 03:20 Nose MRSA Screen - Final Complete Problem List/Assessment/Plan Problem List/Assessment/Plan Assessment/plan Acute on chronic congestive systolic heart failure exacerbation-NYHA class 3 (HFrEF 30%) Acute hypoxic respiratory failure due to above Pulmonary edema -Continue Lasix IV 60 b.i.d. -albuterol/ipratropium med nebs q.4 scheduled -Echocardiogram showing an LVEF of 30% -Strict I&Os, fluid restriction -currently on 3 L of oxygen through nasal cannula -nifedipine 90 mg daily, Coreg 3.125 b.i.d. -BiPAP night time -yesterday hemodialysis pulled out 2.5 L of fluid -hemodialysis was performed today and 2 L of fluid were removed. Possible COPD exacerbation -Nebulized treatments -Continue IV ceftriaxone and doxycycline daily -stop methylprednisolone at this time -Consulting Nurse recommended BiPAP home use for obstructive sleep apnea -currently on 3 L of oxygen through nasal cannula, no wheezes at this time. Acute anemia ? Rule out GI blood loss -Hemoglobin 6.3, patient is [facility], current hemoglobin is 7.8 -continue IV iron supplementation daily -monitor H&H -GI consultation-stool occult pending NISHANT superimposed on CKD ? Requiring renal replacement therapy Possible Cardiorenal syndrome -Nephrotic range proteinuria -Refractory hyperkalemia -Anemia of chronic kidney disease -Nephrology on board, hemodialysis yesterday remove 2.5 L of fluid. Hemodialysis today removed 2 L of fluid. -ordered hepatitis-B core antibodies and hepatitis-B surface antibodies which were requested by outpatient dialysis -permanent hemodialysis catheter was placed today. -Sevelamer 800 mg TID with meals Diabetes mellitus type 2-A1c 6.8 -Moderate sliding scale -Likely diabetic retinopathy -Monitor Chronic gout -Allopurinol 100 mg daily Obesity hypoventilation syndrome Obstructive sleep apnea History of asthma -nighttime BiPAP Goals of care discussed with the patient at bedside for >40min, Full code Plan discussed with Dr. Wang Plan discussed with: Patient My Orders My Orders Orders - CYRUS WALLACE Procedure Category Date Status Time Chest Xray 1 View XY 10/22/24 Resulted 04:00 Insulin Lantus PHA 10/22/24 In Process (Glargine) (Lantus) 10:00 Insertion Of Venous XY 10/22/24 Resulted Cath 14:20 Hepatitis B Surface LAB 10/22/24 In Process Antibody 14:45 Abg W/ Co-Ox RT 10/22/24 Logged 14:52 Dietary Evaluation Review Comments: 1) Consider Nepro Carb Steady 240ml BID if PO intake < 50% 2) Monitor PO intake, lab values, I/O Expected Outcomes/Goals: Lab values to improve intake to meet at least 75% estimated needs fu 2-3 days Date of Service: Oct 22, 2024 Billing Provider: ANTOLIN BRUSH MD Common Visit Codes: [id number] INP/OBS CARE(HIGH) CYRUS WALLACE RESIDENT Oct 22, 2024 15:08 ANTOLIN BRUSH MD Nov 07, 2024 00:33
[2024-10-22] MEDS: hydrALAZINE HCL 20 MG/ML VL IV PRN (15:24)
[2024-10-22] MEDS: hydrALAZINE HCL 20 MG/ML VL ONE (15:25)
[2024-10-22 15:46] LABS: Base Excess 1.4 mmol/L (-2.0-3.0)
--- NOTE | 2024-10-22 16:30 | DVHPN2 ---
Progress Note - Dictate Date Seen: Oct 22, 2024 Has the PT tested + for MRSA If YES, has PT been informed?: No Medical Necessity Reason Pt with a Central, PICC or Fol: Yes Subjective Feels better vital signs Vital Sign Date Time Temp Pulse Resp B/P (MAP) Pulse Ox O2 Delivery O2 Flow Rate FiO2 10/22/24 15:24 185/78 10/22/24 14:46 82 20 100 10/22/24 14:40 Nasal Cannula* 2 28 10/22/24 12:00 98.0 98.0 Total Intake and Output 10/21/24 10/21/24 10/22/24 15:00 23:00 07:00 Intake Total 400 ml 390 ml Output Total 100 ml 250 ml Balance 300 ml 140 ml medications Current Medications Medications Dose Ordered Sig/Nasrin Route Start Time Stop Time Status Last Admin Dose Admin Multivit/Ca Carb/ B Cmplx/FA/Prenat 1 tab DAILY PO 10/19/24 10:00 10/22/24 11:07 1 TAB Sevelamer HCl 800 mg TIDWM PO 10/19/24 08:00 10/22/24 15:00 800 MG Allopurinol 100 mg DAILY PO 10/19/24 10:00 10/22/24 11:08 100 MG Atorvastatin Calcium 20 mg HS PO 10/19/24 22:00 10/21/24 21:31 20 MG Carvedilol 3.125 mg Q12HR PO 10/19/24 10:00 10/22/24 11:07 3.125 MG Dextrose 50 ml UD PRN IV 10/18/24 22:15 Sodium Chloride 10 ml Q8HR IV 10/19/24 06:00 10/22/24 14:00 10 ML Ondansetron HCl 4 mg Q4HP PRN IV 10/18/24 22:15 10/19/24 22:21 4 MG Docusate Sodium 100 mg BIDPRN PRN PO 10/18/24 22:15 Acetaminophen 650 mg Q6HP PRN PO 10/18/24 22:15 10/20/24 22:03 650 MG Nitroglycerin 0.4 mg Q5MINP PRN SL 10/18/24 23:30 10/22/24 11:05 0.4 MG Morphine Sulfate 2 mg Q30M PRN IV 10/18/24 23:30 10/19/24 22:13 2 MG Nifedipine 90 mg DAILY PO 10/19/24 10:00 10/22/24 11:09 90 MG Ceftriaxone Sodium 50 ml @ 100 mls/hr DAILY@09 IV 10/19/24 09:15 10/22/24 10:50 100 MLS/HR Albuterol 2.5 mg Q4HR NEB 10/19/24 14:00 10/22/24 14:38 2.5 MG Ipratropium [place] 0.5 mg Q4HR NEB 10/19/24 14:00 10/22/24 14:38 0.5 MG Doxycycline Hyclate 100 ml @ 50 mls/hr Q12H IV 10/19/24 10:45 10/22/24 11:09 50 MLS/HR Melatonin 5 mg HS PO 10/19/24 22:00 10/21/24 21:31 5 MG Acetaminophen/ Hydrocodone Bitart 1 tab Q4HP PRN PO 10/20/24 05:00 10/22/24 07:37 1 TAB Sucralfate 1 gm QID@0600,1130,1700,2200 PO 10/20/24 11:30 10/22/24 11:23 1 GM Pantoprazole Sodium 40 mg BID IV 10/20/24 10:00 10/22/24 11:03 40 MG Furosemide 60 mg BIDD IV 10/20/24 18:00 10/22/24 07:38 60 MG Iron Sucrose 110 ml @ 110 mls/hr DAILY@1200 IV 10/20/24 12:00 10/24/24 12:59 10/22/24 15:00 110 MLS/HR Lactulose 30 ml BID PO 10/20/24 22:00 10/22/24 11:06 30 ML Diagnostic Test (Pha) 1 strip IQ4HR 10/22/24 00:00 10/22/24 11:24 1 STRIP Insulin Human Regular IQ4HR SC 10/22/24 00:00 10/22/24 07:54 4 UNITS Dextrose 50 ml UD PRN IV 10/21/24 23:00 Cancel Insulin Glargine 15 units DAILY@1000 SC 10/22/24 10:00 10/22/24 11:15 15 UNITS Hydralazine HCl 10 mg Q6HR PRN IV 10/22/24 15:00 10/22/24 15:24 10 MG objective objective HEENT: No evidence of JVD, no oral ulcers. Pulmonary: Crackles at the bases on auscultation bilaterally Cardiovascular S1-S2, no S3 or S4 Abdomen: Bowel sounds positive, soft no rebound tenderness Skin: No rash Neurological: Drowsy On BiPAP Extremities: 1+ lower extremity edema Kaden catheter in place. No evidence of bleeding laboratory and microbiology Laboratory Tests 10/22/24 05:04 Test 10/22/24 05:04 Range/Units Serum Glucose 292 H 74-106 mg/dL Problem List Assessment: 1. Hemodialysis dependent Acute kidney injury on Chronic kidney disease 4 2. Hyperkalemia refractory to medical management, improve with hemodialysis 3. Acute hypoxic respiratory failure, improving 4. Fluid overload 5. Diabetes type 2 6. Acute diastolic heart failure exacerbation 7. Anemia in a [employer] patient 8. Morbid obesity Continue HD on TTS schedule Arrange for outpatient HD chair at [facility] Dietary Evaluation Review Comments: 1) Consider Nepro Carb Steady 240ml BID if PO intake < 50% 2) Monitor PO intake, lab values, I/O Expected Outcomes/Goals: Lab values to improve intake to meet at least 75% estimated needs fu 2-3 days Plan discussed with: Patient DAREK PEPE MD Oct 22, 2024 16:30
[2024-10-22] MEDS: CARVEDILOL 3.125 MG TAB PO ONE (17:44)
--- NOTE | 2024-10-22 18:58 | DVHPN2 ---
Progress Note - Dictate Date Seen: Oct 22, 2024 Has the PT tested + for MRSA If YES, has PT been informed?: No Medical Necessity Reason Pt with a Central, PICC or Fol: Yes vital signs Vital Sign Date Time Temp Pulse Resp B/P (MAP) Pulse Ox O2 Delivery O2 Flow Rate FiO2 10/22/24 18:43 164/66 10/22/24 18:30 89 21 100 10/22/24 16:00 98.3 98.3 10/22/24 14:40 Nasal Cannula* 2 28 Total Intake and Output 10/21/24 10/21/24 10/22/24 15:00 23:00 07:00 Intake Total 400 ml 390 ml Output Total 100 ml 250 ml Balance 300 ml 140 ml medications Current Medications Medications Dose Ordered Sig/Nasrin Route Start Time Stop Time Status Last Admin Dose Admin Multivit/Ca Carb/ B Cmplx/FA/Prenat 1 tab DAILY PO 10/19/24 10:00 10/22/24 11:07 1 TAB Sevelamer HCl 800 mg TIDWM PO 10/19/24 08:00 10/22/24 17:47 800 MG Allopurinol 100 mg DAILY PO 10/19/24 10:00 10/22/24 11:08 100 MG Atorvastatin Calcium 20 mg HS PO 10/19/24 22:00 10/21/24 21:31 20 MG Dextrose 50 ml UD PRN IV 10/18/24 22:15 Sodium Chloride 10 ml Q8HR IV 10/19/24 06:00 10/22/24 14:00 10 ML Ondansetron HCl 4 mg Q4HP PRN IV 10/18/24 22:15 10/19/24 22:21 4 MG Docusate Sodium 100 mg BIDPRN PRN PO 10/18/24 22:15 Acetaminophen 650 mg Q6HP PRN PO 10/18/24 22:15 10/20/24 22:03 650 MG Nitroglycerin 0.4 mg Q5MINP PRN SL 10/18/24 23:30 10/22/24 17:51 0.4 MG Morphine Sulfate 2 mg Q30M PRN IV 10/18/24 23:30 10/19/24 22:13 2 MG Nifedipine 90 mg DAILY PO 10/19/24 10:00 10/22/24 11:09 90 MG Ceftriaxone Sodium 50 ml @ 100 mls/hr DAILY@09 IV 10/19/24 09:15 10/22/24 10:50 100 MLS/HR Albuterol 2.5 mg Q4HR NEB 10/19/24 14:00 10/22/24 18:18 2.5 MG Ipratropium [place] 0.5 mg Q4HR NEB 10/19/24 14:00 10/22/24 18:18 0.5 MG Doxycycline Hyclate 100 ml @ 50 mls/hr Q12H IV 10/19/24 10:45 10/22/24 11:09 50 MLS/HR Melatonin 5 mg HS PO 10/19/24 22:00 10/21/24 21:31 5 MG Acetaminophen/ Hydrocodone Bitart 1 tab Q4HP PRN PO 10/20/24 05:00 10/22/24 16:08 1 TAB Sucralfate 1 gm QID@0600,1130,1700,2200 PO 10/20/24 11:30 10/22/24 17:43 1 GM Pantoprazole Sodium 40 mg BID IV 10/20/24 10:00 10/22/24 11:03 40 MG Furosemide 60 mg BIDD IV 10/20/24 18:00 10/22/24 17:45 60 MG Iron Sucrose 110 ml @ 110 mls/hr DAILY@1200 IV 10/20/24 12:00 10/24/24 12:59 10/22/24 15:00 110 MLS/HR Lactulose 30 ml BID PO 10/20/24 22:00 10/22/24 11:06 30 ML Diagnostic Test (Pha) 1 strip IQ4HR 10/22/24 00:00 10/22/24 16:04 1 STRIP Insulin Human Regular IQ4HR SC 10/22/24 00:00 10/22/24 16:12 4 UNITS Dextrose 50 ml UD PRN IV 10/21/24 23:00 Cancel Insulin Glargine 15 units DAILY@1000 SC 10/22/24 10:00 10/22/24 11:15 15 UNITS Hydralazine HCl 10 mg Q6HR PRN IV 10/22/24 15:00 10/22/24 15:24 10 MG Carvedilol 6.25 mg Q12HR PO 10/22/24 22:00 laboratory and microbiology Laboratory Tests 10/22/24 05:04 Test 10/22/24 05:04 Range/Units Serum Glucose 292 H 74-106 mg/dL Assessment/Plan Impression Acute hypoxemic respiratory failure Pulmonary edema Fluid overload ESRD on HD Patient seen and examined in DEBORAH Events Low oxygen requirements On 2 liters nasal cannula No distress S/p HD Labs and imaging reviewed ABG reviewed Management Supplemental oxygen Titrate to maintain sats 90% or above Incentive spirometry Prn bipap Continue antibiotics F/u cultures Bronchodilators Monitor renal function HD as per nephrology Management deferred Monitor electrolytes Supplement as needed Recommend bipap for home use for suspected JAG Okay to downgrade from pulmonary standpoint DVT prophylaxis Critical care time 35 minutes Dietary Evaluation Review Comments: 1) Consider Nepro Carb Steady 240ml BID if PO intake < 50% 2) Monitor PO intake, lab values, I/O Expected Outcomes/Goals: Lab values to improve intake to meet at least 75% estimated needs fu 2-3 days Plan discussed with: Patient ALEX SANDHU MD Oct 22, 2024 18:58
[2024-10-22] MEDS: EPOETIN ALFA-EPBX 10,000 UNIT/1ML VIAL SC ONE (20:54)
[2024-10-22] MEDS: CARVEDILOL 3.125 MG TAB PO SCH (22:02)
[2024-10-23] VITALS (73 sets, daily range): BP systolic 105–167; BP diastolic 44–83; PULSE 75–94; RESP 13–44; TEMP 97.9–98.7; O2SAT 91–100
[2024-10-23 05:32] LABS: Hematocrit 24.4 % (36.0-46.0); Hemoglobin 7.7 g/dL (12.2-16.2); Mean Corpuscular Hemoglobin 32.5 pg (28.0-32.0); Mean Corpuscular Volume 102.5 fL (80.0-100.0)
[2024-10-23 05:40] LABS: Potassium 3.9 mmol/L (3.5-5.1); Sodium 137 mmol/L (136-145)
[2024-10-23 05:41] LABS: Anion Gap 9 (5-15); Carbon Dioxide 30 mmol/L (20-31)
[2024-10-23 05:42] LABS: Calcium 9.6 mg/dL (8.7-10.4)
[2024-10-23 05:47] LABS: BUN/Creatinine Ratio 12.4 (10.0-20.0)
[2024-10-23 05:49] LABS: Blood Urea Nitrogen 28 mg/dL (9-23); Chloride 98 mmol/L (98-107); Glucose 265 mg/dL (74-106)
[2024-10-23 06:45] LABS: Macrocytosis Slight; Total Cells Counted 100.0 (100)
--- NOTE | 2024-10-23 14:06 | DVHPNRES ---
Progress Note Date Seen: Oct 23, 2024 Resident Creating Document: CYRUS WALLAEC RESIDENT Has the PT tested + for MRSA If YES, has PT been informed?: No Medical Necessity Reason Pt with a Central, PICC or Fol: Yes Subjective Review of Systems This is a 79-year-old female with past medical history of diabetes mellitus type 2, hypertension, systolic congestive heart failure-EF 30%,, gout, sleep apnea, CKD, arthritis, chronic respiratory failure on 3 L oxygen, presents to the ER with a chief complaint of shortness of breaths and chest pain, also reported abdominal pain. Per chart review, son reported that her symptoms worsened 2 days back. The patient was previously hospitalized for acute hypoxic respiratory failure likely due to the same features, why she is hospitalized this time as well. Patient in is currently volume overload due to CHF exacerbation as well as COPD exacerbation. We will admit the patient for further assessment and management of previous mentioned conditions, as well as end-stage renal disease requiring hemodialysis. Patient seen and examined at bedside. Per nurse overnight patient was slightly confused but this morning upon my examination, the patient was alert and oriented. Yesterday hemodialysis remove do L of fluids, patient will be scheduled for hemodialysis today. Yesterday blood pressure medications were increased carvedilol was increased to 6.25 mg q.12, we will continue Lantus 15 units daily, furosemide 60 mg IV b.i.d., and rest of current medications. Hemoglobin still in the lower side for which we will continue IV iron. We will removed left-sided Kaden catheter in the internal jugular vein, since permanent catheter is in place and working at this time. ROS Constitutional: Denies weight loss, fever and chills. HEENT: Denies changes in vision and hearing. Respiratory: Reports mild shortness of breath. Denies cough Cardiovascular: Denies chest discomfort or palpitations GI: Denies abdominal pain, nausea, vomiting and diarrhea. : Denies dysuria and urinary frequency. Musculoskeletal: Denies myalgias and joint pain Skin: Denies rash and pruritus. Neurological: Denies dizziness, headache, vision or hearing problems Objective vital signs Vital Sign Date Time Temp Pulse Resp B/P (MAP) Pulse Ox O2 Delivery O2 Flow Rate FiO2 10/23/24 13:15 81 28 100 10/23/24 08:45 98.1 98.1 10/23/24 08:00 Nasal Cannula* 1 24 Total Intake and Output 10/22/24 10/22/24 10/23/24 15:00 23:00 07:00 Intake Total 150 ml 590 ml 160 ml Output Total 150 ml 150 ml Balance 150 ml 440 ml 10 ml medications Current Medications Medications Dose Ordered Sig/Nasrin Route Start Time Stop Time Status Last Admin Dose Admin Multivit/Ca Carb/ B Cmplx/FA/Prenat 1 tab DAILY PO 10/19/24 10:00 10/23/24 08:40 1 TAB Sevelamer HCl 800 mg TIDWM PO 10/19/24 08:00 10/23/24 11:33 800 MG Allopurinol 100 mg DAILY PO 10/19/24 10:00 10/23/24 08:39 100 MG Atorvastatin Calcium 20 mg HS PO 10/19/24 22:00 10/22/24 22:03 20 MG Dextrose 50 ml UD PRN IV 10/18/24 22:15 Sodium Chloride 10 ml Q8HR IV 10/19/24 06:00 10/23/24 06:12 10 ML Ondansetron HCl 4 mg Q4HP PRN IV 10/18/24 22:15 10/19/24 22:21 4 MG Docusate Sodium 100 mg BIDPRN PRN PO 10/18/24 22:15 Acetaminophen 650 mg Q6HP PRN PO 10/18/24 22:15 10/20/24 22:03 650 MG Nitroglycerin 0.4 mg Q5MINP PRN SL 10/18/24 23:30 10/22/24 17:51 0.4 MG Morphine Sulfate 2 mg Q30M PRN IV 10/18/24 23:30 10/19/24 22:13 2 MG Nifedipine 90 mg DAILY PO 10/19/24 10:00 10/23/24 08:41 90 MG Ceftriaxone Sodium 50 ml @ 100 mls/hr DAILY@09 IV 10/19/24 09:15 10/23/24 08:39 100 MLS/HR Albuterol 2.5 mg Q4HR NEB 10/19/24 14:00 10/23/24 06:13 2.5 MG Ipratropium [place] 0.5 mg Q4HR NEB 10/19/24 14:00 10/23/24 06:13 0.5 MG Doxycycline Hyclate 100 ml @ 50 mls/hr Q12H IV 10/19/24 10:45 10/23/24 10:30 50 MLS/HR Melatonin 5 mg HS PO 10/19/24 22:00 10/22/24 22:03 5 MG Acetaminophen/ Hydrocodone Bitart 1 tab Q4HP PRN PO 10/20/24 05:00 10/23/24 11:33 1 TAB Sucralfate 1 gm QID@0600,1130,1700,2200 PO 10/20/24 11:30 10/23/24 12:20 1 GM Pantoprazole Sodium 40 mg BID IV 10/20/24 10:00 10/23/24 08:41 40 MG Furosemide 60 mg BIDD IV 10/20/24 18:00 10/23/24 06:14 60 MG Iron Sucrose 110 ml @ 110 mls/hr DAILY@1200 IV 10/20/24 12:00 10/24/24 12:59 10/23/24 12:20 110 MLS/HR Lactulose 30 ml BID PO 10/20/24 22:00 10/23/24 08:39 30 ML Diagnostic Test (Pha) 1 strip IQ4HR 10/22/24 00:00 10/23/24 12:21 1 STRIP Insulin Human Regular IQ4HR SC 10/22/24 00:00 10/23/24 12:21 6 UNITS Dextrose 50 ml UD PRN IV 10/21/24 23:00 Cancel Insulin Glargine 15 units DAILY@1000 SC 10/22/24 10:00 10/23/24 10:38 15 UNITS Hydralazine HCl 10 mg Q6HR PRN IV 10/22/24 15:00 10/22/24 15:24 10 MG Carvedilol 6.25 mg Q12HR PO 10/22/24 22:00 10/23/24 08:40 6.25 MG Examination Physical Examination General: Patient alert and oriented in person, place and time. Patient is blind bilaterally. Patient following commands. HEENT: Normocephalic, atraumatic, moist mucous membranes Respiratory/pulmonary: There is decreased breath sounds on bilateral lung newberry and very mild crackles on lung bases. No wheezes at this time. Currently on 3 L of oxygen through nasal cannula. Cardiovascular: Normal heart sounds S1 and S2 with no associated murmurs Abdomen: Abdomen nondistended, there is no pain to palpation in any of the abdominal quadrants, no palpable masses. Extremities: There is very mild peripheral edema, 1+ pitting edema that has been improving since dialysis Skin: No rashes or pruritus, there is no sacral edema present at this time. Neurological: Intact cranial nerves with no focal neurologic deficits laboratory and microbiology Laboratory Tests 10/23/24 04:50 Test 10/23/24 04:50 Range/Units Serum Glucose 265 H 74-106 mg/dL Microbiology Date/Time Source Procedure Growth Status 10/20/24 17:06 Voided Urine Urine Culture - Final Complete 10/19/24 03:20 Nose MRSA Screen - Final Complete Problem List/Assessment/Plan Problem List/Assessment/Plan Assessment/plan Acute on chronic congestive systolic heart failure exacerbation-NYHA class 3 (HFrEF 30%) Acute hypoxic respiratory failure due to above Pulmonary edema -Continue Lasix IV 60 b.i.d. -albuterol/ipratropium med nebs q.4 scheduled -Echocardiogram showing an LVEF of 30% -Strict I&Os, fluid restriction -currently on 3 L of oxygen through nasal cannula -nifedipine 90 mg daily, Coreg 3.125 b.i.d. 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 Acute anemia ? Rule out GI blood loss -Hemoglobin 6.3, patient is [employer], current hemoglobin is 7.7 -continue IV iron supplementation daily -monitor H&H -GI consultation-stool occult pending NISHANT superimposed on CKD ? Requiring renal replacement therapy Possible Cardiorenal syndrome -Nephrotic range proteinuria -Refractory hyperkalemia -Anemia of chronic kidney disease -Nephrology on board, Hemodialysis yesterday removed 2 L of fluid. -ordered hepatitis-B core antibodies and hepatitis-B surface antibodies which were requested by outpatient dialysis -permanent hemodialysis catheter was placed yesterday. will remove left internal jugular Kaden catheter. -Sevelamer 800 mg TID with meals Diabetes mellitus type 2-A1c 6.8 -Moderate sliding scale -Likely diabetic retinopathy -Monitor Chronic gout -Allopurinol 100 mg daily Obesity hypoventilation syndrome Obstructive sleep apnea History of asthma -nighttime BiPAP Goals of care discussed with the patient at bedside for >40min, Full code Plan discussed with Dr. Wang Plan discussed with: Patient My Orders My Orders Orders - CYRUS WALLACE Procedure Category Date Status Time Insertion Of Venous XY 10/22/24 Resulted Cath 14:20 Abg W/ Co-Ox RT 10/22/24 Logged 14:52 Hydralazine Injection PHA 10/22/24 In Process (Apresoline Inject 15:00 Carvedilol Tablet PHA 10/22/24 In Process (Coreg Tablet) 22:00 Hepatitis B Core LAB 10/22/24 In Process Total Antibod 17:10 Hepatitis B Surface LAB 10/22/24 In Process Antibody 17:10 Dietary Evaluation Review Comments: 1) Consider Nepro Carb Steady 240ml BID if PO intake < 50% 2) Monitor PO intake, lab values, I/O Expected Outcomes/Goals: Lab values to improve intake to meet at least 75% estimated needs fu 2-3 days Date of Service: Oct 23, 2024 Billing Provider: ANTOLIN BRUSH MD Common Visit Codes: 12637-[id number] CARE 30-74 MIN CYRUS WALLACE Oct 23, 2024 14:06 ANTOLIN BRUSH MD Nov 07, 2024 00:41
[2024-10-23] MEDS: SODIUM CHL 0.9% 1000 ML BAG XX ONE (16:29)
--- NOTE | 2024-10-23 18:21 | DVHPN2 ---
Progress Note - Dictate Date Seen: Oct 23, 2024 Has the PT tested + for MRSA If YES, has PT been informed?: No Medical Necessity Reason Pt with a Central, PICC or Fol: Yes vital signs Vital Sign Date Time Temp Pulse Resp B/P (MAP) Pulse Ox O2 Delivery O2 Flow Rate FiO2 10/23/24 18:17 94 Room Air* 0 21 10/23/24 18:17 83 19 10/23/24 17:00 154/66 (95) 10/23/24 16:00 98.7 98.7 Total Intake and Output 10/22/24 10/22/24 10/23/24 15:00 23:00 07:00 Intake Total 150 ml 590 ml 160 ml Output Total 150 ml 150 ml Balance 150 ml 440 ml 10 ml medications Current Medications Medications Dose Ordered Sig/Nasrin Route Start Time Stop Time Status Last Admin Dose Admin Multivit/Ca Carb/ B Cmplx/FA/Prenat 1 tab DAILY PO 10/19/24 10:00 10/23/24 08:40 1 TAB Sevelamer HCl 800 mg TIDWM PO 10/19/24 08:00 10/23/24 11:33 800 MG Allopurinol 100 mg DAILY PO 10/19/24 10:00 10/23/24 08:39 100 MG Atorvastatin Calcium 20 mg HS PO 10/19/24 22:00 10/22/24 22:03 20 MG Dextrose 50 ml UD PRN IV 10/18/24 22:15 Sodium Chloride 10 ml Q8HR IV 10/19/24 06:00 10/23/24 14:00 10 ML Ondansetron HCl 4 mg Q4HP PRN IV 10/18/24 22:15 10/19/24 22:21 4 MG Docusate Sodium 100 mg BIDPRN PRN PO 10/18/24 22:15 Acetaminophen 650 mg Q6HP PRN PO 10/18/24 22:15 10/20/24 22:03 650 MG Nitroglycerin 0.4 mg Q5MINP PRN SL 10/18/24 23:30 10/22/24 17:51 0.4 MG Morphine Sulfate 2 mg Q30M PRN IV 10/18/24 23:30 10/19/24 22:13 2 MG Nifedipine 90 mg DAILY PO 10/19/24 10:00 10/23/24 08:41 90 MG Ceftriaxone Sodium 50 ml @ 100 mls/hr DAILY@09 IV 10/19/24 09:15 10/23/24 08:39 100 MLS/HR Albuterol 2.5 mg Q4HR NEB 10/19/24 14:00 10/23/24 18:17 2.5 MG Ipratropium [place] 0.5 mg Q4HR NEB 10/19/24 14:00 10/23/24 18:17 0.5 MG Doxycycline Hyclate 100 ml @ 50 mls/hr Q12H IV 10/19/24 10:45 10/23/24 10:30 50 MLS/HR Melatonin 5 mg HS PO 10/19/24 22:00 10/22/24 22:03 5 MG Acetaminophen/ Hydrocodone Bitart 1 tab Q4HP PRN PO 10/20/24 05:00 10/23/24 16:16 1 TAB Sucralfate 1 gm QID@0600,1130,1700,2200 PO 10/20/24 11:30 10/23/24 12:20 1 GM Pantoprazole Sodium 40 mg BID IV 10/20/24 10:00 10/23/24 08:41 40 MG Furosemide 60 mg BIDD IV 10/20/24 18:00 10/23/24 06:14 60 MG Iron Sucrose 110 ml @ 110 mls/hr DAILY@1200 IV 10/20/24 12:00 10/24/24 12:59 10/23/24 12:20 110 MLS/HR Lactulose 30 ml BID PO 10/20/24 22:00 10/23/24 08:39 30 ML Diagnostic Test (Pha) 1 strip IQ4HR 10/22/24 00:00 10/23/24 16:16 1 STRIP Insulin Human Regular IQ4HR SC 10/22/24 00:00 10/23/24 16:17 4 UNITS Dextrose 50 ml UD PRN IV 10/21/24 23:00 Cancel Insulin Glargine 15 units DAILY@1000 SC 10/22/24 10:00 10/23/24 10:38 15 UNITS Hydralazine HCl 10 mg Q6HR PRN IV 10/22/24 15:00 10/22/24 15:24 10 MG Carvedilol 6.25 mg Q12HR PO 10/22/24 22:00 10/23/24 08:40 6.25 MG laboratory and microbiology Laboratory Tests 10/23/24 04:50 Test 10/23/24 04:50 Range/Units Serum Glucose 265 H 74-106 mg/dL Assessment/Plan Impression Acute hypoxemic respiratory failure Pulmonary edema Fluid overload ESRD on HD Patient seen and examined in [facility]BOR[facility] Events Low oxygen requirements On 2 liters nasal cannula No acute events S/p HD Labs and imaging reviewed ABG reviewed Management Supplemental oxygen Titrate to maintain sats 90% or above Incentive spirometry Prn bipap Continue antibiotics F/u cultures Bronchodilators Monitor renal function HD as per nephrology Management deferred Monitor electrolytes Supplement as needed Recommend bipap for home use for suspected JAG Okay to downgrade from pulmonary standpoint DVT prophylaxis Dietary Evaluation Review Comments: 1) Consider Nepro Carb Steady 240ml BID if PO intake < 50% 2) Monitor PO intake, lab values, I/O Expected Outcomes/Goals: Lab values to improve intake to meet at least 75% estimated needs fu 2-3 days Plan discussed with: Patient ALEX SANDHU MD Oct 23, 2024 18:21
--- NOTE | 2024-10-23 18:33 | DVHPN2 ---
Progress Note - Dictate Date Seen: Oct 23, 2024 Has the PT tested + for MRSA If YES, has PT been informed?: No Medical Necessity Reason Pt with a Central, PICC or Fol: Yes Subjective Feels better vital signs Vital Sign Date Time Temp Pulse Resp B/P (MAP) Pulse Ox O2 Delivery O2 Flow Rate FiO2 10/23/24 18:23 79 25 100 10/23/24 18:17 Room Air* 0 21 10/23/24 17:00 154/66 (95) 10/23/24 16:00 98.7 98.7 Total Intake and Output 10/22/24 10/22/24 10/23/24 15:00 23:00 07:00 Intake Total 150 ml 590 ml 160 ml Output Total 150 ml 150 ml Balance 150 ml 440 ml 10 ml medications Current Medications Medications Dose Ordered Sig/Nasrin Route Start Time Stop Time Status Last Admin Dose Admin Multivit/Ca Carb/ B Cmplx/FA/Prenat 1 tab DAILY PO 10/19/24 10:00 10/23/24 08:40 1 TAB Sevelamer HCl 800 mg TIDWM PO 10/19/24 08:00 10/23/24 11:33 800 MG Allopurinol 100 mg DAILY PO 10/19/24 10:00 10/23/24 08:39 100 MG Atorvastatin Calcium 20 mg HS PO 10/19/24 22:00 10/22/24 22:03 20 MG Dextrose 50 ml UD PRN IV 10/18/24 22:15 Sodium Chloride 10 ml Q8HR IV 10/19/24 06:00 10/23/24 14:00 10 ML Ondansetron HCl 4 mg Q4HP PRN IV 10/18/24 22:15 10/19/24 22:21 4 MG Docusate Sodium 100 mg BIDPRN PRN PO 10/18/24 22:15 Acetaminophen 650 mg Q6HP PRN PO 10/18/24 22:15 10/20/24 22:03 650 MG Nitroglycerin 0.4 mg Q5MINP PRN SL 10/18/24 23:30 10/22/24 17:51 0.4 MG Morphine Sulfate 2 mg Q30M PRN IV 10/18/24 23:30 10/19/24 22:13 2 MG Nifedipine 90 mg DAILY PO 10/19/24 10:00 10/23/24 08:41 90 MG Ceftriaxone Sodium 50 ml @ 100 mls/hr DAILY@09 IV 10/19/24 09:15 10/23/24 08:39 100 MLS/HR Albuterol 2.5 mg Q4HR NEB 10/19/24 14:00 10/23/24 18:17 2.5 MG Ipratropium [place] 0.5 mg Q4HR NEB 10/19/24 14:00 10/23/24 18:17 0.5 MG Doxycycline Hyclate 100 ml @ 50 mls/hr Q12H IV 10/19/24 10:45 10/23/24 10:30 50 MLS/HR Melatonin 5 mg HS PO 10/19/24 22:00 10/22/24 22:03 5 MG Acetaminophen/ Hydrocodone Bitart 1 tab Q4HP PRN PO 10/20/24 05:00 10/23/24 16:16 1 TAB Sucralfate 1 gm QID@0600,1130,1700,2200 PO 10/20/24 11:30 10/23/24 12:20 1 GM Pantoprazole Sodium 40 mg BID IV 10/20/24 10:00 10/23/24 08:41 40 MG Furosemide 60 mg BIDD IV 10/20/24 18:00 10/23/24 06:14 60 MG Iron Sucrose 110 ml @ 110 mls/hr DAILY@1200 IV 10/20/24 12:00 10/24/24 12:59 10/23/24 12:20 110 MLS/HR Lactulose 30 ml BID PO 10/20/24 22:00 10/23/24 08:39 30 ML Diagnostic Test (Pha) 1 strip IQ4HR 10/22/24 00:00 10/23/24 16:16 1 STRIP Insulin Human Regular IQ4HR SC 10/22/24 00:00 10/23/24 16:17 4 UNITS Dextrose 50 ml UD PRN IV 10/21/24 23:00 Cancel Insulin Glargine 15 units DAILY@1000 SC 10/22/24 10:00 10/23/24 10:38 15 UNITS Hydralazine HCl 10 mg Q6HR PRN IV 10/22/24 15:00 10/22/24 15:24 10 MG Carvedilol 6.25 mg Q12HR PO 10/22/24 22:00 7/15/25 08:40 6.25 MG objective objective HEENT: No evidence of JVD, no oral ulcers. Pulmonary: Crackles at the bases on auscultation bilaterally Cardiovascular S1-S2, no S3 or S4 Abdomen: Bowel sounds positive, soft no rebound tenderness Skin: No rash Neurological: Drowsy On BiPAP Extremities: 1+ lower extremity edema Kaden catheter in place. No evidence of bleeding laboratory and microbiology Laboratory Tests 10/23/24 04:50 Test 10/23/24 04:50 Range/Units Serum Glucose 265 H 74-106 mg/dL Problem List Assessment: 1. Hemodialysis dependent Acute kidney injury on Chronic kidney disease 4 2. Hyperkalemia refractory to medical management, improve with hemodialysis 3. Acute hypoxic respiratory failure, improving 4. Fluid overload 5. Diabetes type 2 6. Acute diastolic heart failure exacerbation 7. Anemia in a [facility] patient 8. Morbid obesity Continue HD on TTS schedule [facility] Dietary Evaluation Review Comments: 1) Consider Nepro Carb Steady 240ml BID if PO intake < 50% 2) Monitor PO intake, lab values, I/O Expected Outcomes/Goals: Lab values to improve intake to meet at least 75% estimated needs fu 2-3 days Plan discussed with: DAREK Flores MD Oct 23, 2024 18:33
[2024-10-23] MEDS: EPOETIN ALFA-EPBX 4,000 UNIT/ML VIAL SC ONE (21:40)
--- NOTE | 2024-10-23 21:53 | DVHPN2 ---
Progress Note - Dictate Date Seen: Oct 23, 2024 Has the PT tested + for MRSA If YES, has PT been informed?: No Medical Necessity Reason Pt with a Central, PICC or Fol: Yes Subjective No new complaints No active GI bleeding reported H&H is stable at 7.7 Patient underwent hemodialysis Shortness of breath has improved vital signs Vital Sign Date Time Temp Pulse Resp B/P (MAP) Pulse Ox O2 Delivery O2 Flow Rate FiO2 10/23/24 21:42 86 152/58 10/23/24 20:30 15 99 10/23/24 20:00 98.0 98.0 10/23/24 18:17 Room Air* 0 21 Total Intake and Output 10/22/24 10/22/24 10/23/24 15:00 23:00 07:00 Intake Total 150 ml 590 ml 160 ml Output Total 150 ml 150 ml Balance 150 ml 440 ml 10 ml medications Current Medications Medications Dose Ordered Sig/Nasrin Route Start Time Stop Time Status Last Admin Dose Admin Multivit/Ca Carb/ B Cmplx/FA/Prenat 1 tab DAILY PO 10/19/24 10:00 10/23/24 08:40 1 TAB Sevelamer HCl 800 mg TIDWM PO 10/19/24 08:00 10/23/24 11:33 800 MG Allopurinol 100 mg DAILY PO 10/19/24 10:00 10/23/24 08:39 100 MG Atorvastatin Calcium 20 mg HS PO 10/19/24 22:00 10/23/24 21:41 20 MG Dextrose 50 ml UD PRN IV 10/18/24 22:15 Sodium Chloride 10 ml Q8HR IV 10/19/24 06:00 10/23/24 21:42 10 ML Ondansetron HCl 4 mg Q4HP PRN IV 10/18/24 22:15 10/19/24 22:21 4 MG Docusate Sodium 100 mg BIDPRN PRN PO 10/18/24 22:15 Acetaminophen 650 mg Q6HP PRN PO 10/18/24 22:15 10/20/24 22:03 650 MG Nitroglycerin 0.4 mg Q5MINP PRN SL 10/18/24 23:30 10/22/24 17:51 0.4 MG Morphine Sulfate 2 mg Q30M PRN IV 10/18/24 23:30 10/19/24 22:13 2 MG Nifedipine 90 mg DAILY PO 10/19/24 10:00 10/23/24 08:41 90 MG Ceftriaxone Sodium 50 ml @ 100 mls/hr DAILY@09 IV 10/19/24 09:15 10/23/24 08:39 100 MLS/HR Albuterol 2.5 mg Q4HR NEB 10/19/24 14:00 10/23/24 18:17 2.5 MG Ipratropium [place] 0.5 mg Q4HR NEB 10/19/24 14:00 10/23/24 18:17 0.5 MG Doxycycline Hyclate 100 ml @ 50 mls/hr Q12H IV 10/19/24 10:45 10/23/24 21:50 50 MLS/HR Melatonin 5 mg HS PO 10/19/24 22:00 10/23/24 21:41 5 MG Acetaminophen/ Hydrocodone Bitart 1 tab Q4HP PRN PO 10/20/24 05:00 10/23/24 16:16 1 TAB Sucralfate 1 gm QID@0600,1130,1700,2200 PO 10/20/24 11:30 10/23/24 21:41 1 GM Pantoprazole Sodium 40 mg BID IV 10/20/24 10:00 10/23/24 21:43 40 MG Furosemide 60 mg BIDD IV 10/20/24 18:00 10/23/24 06:14 60 MG Iron Sucrose 110 ml @ 110 mls/hr DAILY@1200 IV 10/20/24 12:00 10/24/24 12:59 10/23/24 12:20 110 MLS/HR Lactulose 30 ml BID PO 10/20/24 22:00 10/23/24 21:41 30 ML Diagnostic Test (Pha) 1 strip IQ4HR 10/22/24 00:00 10/23/24 20:14 1 STRIP Insulin Human Regular IQ4HR SC 10/22/24 00:00 10/23/24 20:13 2 UNITS Dextrose 50 ml UD PRN IV 10/21/24 23:00 Cancel Insulin Glargine 15 units DAILY@1000 SC 10/22/24 10:00 10/23/24 10:38 15 UNITS Hydralazine HCl 10 mg Q6HR PRN IV 10/22/24 15:00 10/22/24 15:24 10 MG Carvedilol 6.25 mg Q12HR PO 10/22/24 22:00 10/23/24 21:42 6.25 MG objective HEENT: No evidence of JVD, no oral ulcers. Pulmonary: Crackles at the bases on auscultation bilaterally Cardiovascular S1-S2, no S3 or S4 Abdomen: Bowel sounds positive, soft no rebound tenderness Skin: No rash, obese Neurological: Drowsy On BiPAP Extremities: 1+ lower extremity edema Kaden catheter in place. No evidence of bleeding laboratory and microbiology Laboratory Tests 10/23/24 04:50 Test 10/23/24 04:50 Range/Units Serum Glucose 265 H 74-106 mg/dL Problems(with codes): (1) Metabolic encephalopathy (2) End stage renal disease (3) Congestive heart failure (4) Morbid obesity (5) Generalized weakness (6) Anemia of chronic disease (7) Severe aortic stenosis Prognosis Plan Continue IV iron infusions Continue supportive care Limit lab draws to 2-3 times a week Advance diet as tolerated Continue observation, stool for occult blood negative Dietary Evaluation Review Comments: 1) Consider Nepro Carb Steady 240ml BID if PO intake < 50% 2) Monitor PO intake, lab values, I/O Expected Outcomes/Goals: Lab values to improve intake to meet at least 75% estimated needs fu 2-3 days Plan discussed with: Other (DEBOR[facility] Nurse) KELLY PEREZ MD Oct 23, 2024 21:53
[2024-10-24] VITALS (57 sets, daily range): BP systolic 99–170; BP diastolic 50–88; PULSE 74–97; RESP 13–36; TEMP 97.9–98.6; O2SAT 98–100
[2024-10-24] MEDS: HYDROcodone-ACET 5/325MG TAB PO ONE (01:51)
[2024-10-24 05:07] LABS: Hemoglobin 8.2 g/dL (12.2-16.2)
[2024-10-24 05:09] LABS: Hematocrit 26.0 % (36.0-46.0); Mean Corpuscular Hemoglobin 31.8 pg (28.0-32.0); Mean Corpuscular Volume 100.7 fL (80.0-100.0)
--- NOTE | 2024-10-24 05:12 | DVH ---
CHEST RADIOGRAPH Indication: reeval pulm parenchyma Technique: Single frontal view of the chest was obtained COMPARISON: XY CHEST XRAY 1 VIEW on DOS: 10/22/24, XY CHEST PORTABLE on DOS: 10/21/24, XY CHEST PORTABL E on DOS: 10/20/24, XY CHEST PORTABLE on DOS: 10/20/24, XY CHEST XRAY 1 VIEW on DOS: 10/19/24 FINDINGS: Lines and Tubes: Interval exchange of left internal jugular central vascular access catheter for a ne w right PermCath with tip projecting over the distal superior vena cava. Lungs: Stable appearing moderate diffuse increased prominence of the pulmonary vasculature without ev idence of focal consolidation. Pleura: No effusion. No pneumothorax. Cardiomediastinal contours: Unremarkable Bones: Unremarkable IMPRESSION: 1. Stable moderate diffuse increased prominence of the pulmonary vasculature. 2. Interval exchange of left internal jugular central venous access catheter for right sided PermCath .
[2024-10-24 05:15] LABS: Chloride 101 mmol/L (98-107); Sodium 137 mmol/L (136-145)
[2024-10-24 05:16] LABS: Anion Gap 6 (5-15); Calcium 8.8 mg/dL (8.7-10.4); Carbon Dioxide 30 mmol/L (20-31)
[2024-10-24 05:21] LABS: BUN/Creatinine Ratio 11.4 (10.0-20.0); Potassium 3.4 mmol/L (3.5-5.1)
[2024-10-24 05:32] LABS: Blood Urea Nitrogen 25 mg/dL (9-23); Glucose 164 mg/dL (74-106)
[2024-10-24 05:53] LABS: Macrocytosis Slight; Nucleated Red Blood Cells % 6.0 %; Total Cells Counted 100.0 (100)
[2024-10-24 05:54] LABS: Tear Drop Cells FEW
[2024-10-24] MEDS: POTASSIUM CHL 20MEQ/100ML 100 ML IV ONE (06:43)
--- NOTE | 2024-10-24 10:18 | DVHPNRES ---
Progress Note Date Seen: Oct 24, 2024 Resident Creating Document: CYRUS WALLACE RESIDENT Has the PT tested + for MRSA If YES, has PT been informed?: No Medical Necessity Reason Pt with a Central, PICC or Fol: Yes Subjective Review of Systems This is a 79-year-old female with past medical history of diabetes mellitus type 2, hypertension, systolic congestive heart failure-EF 30%,, gout, sleep apnea, CKD, arthritis, chronic respiratory failure on 3 L oxygen, presents to the ER with a chief complaint of shortness of breaths and chest pain, also reported abdominal pain. Per chart review, son reported that her symptoms worsened 2 days back. The patient was previously hospitalized for acute hypoxic respiratory failure likely due to the same features, why she is hospitalized this time as well. Patient in is currently volume overload due to CHF exacerbation as well as COPD exacerbation. We will admit the patient for further assessment and management of previous mentioned conditions, as well as end-stage renal disease requiring hemodialysis. Patient seen and examined at bedside. Patient underwent hemodialysis yesterday and 2.5 L of fluid were removed at that time. Hepatitis-B surface antigen antibodies and hepatitis-B core antibodies both came back negative, which were pending for chair placement. Left-sided internal jugular Kadne catheter was removed yesterday without any evidence of bleeding or hematoma formation. We will continue current medical therapy and IV doxycycline and ceftriaxone. Patient still on 3 L of oxygen through nasal cannula. Patient was complaining on slight abdominal tenderness and mild chest tightness. No fever or chills reported overnight. ROS Constitutional: Denies weight loss, fever and chills. HEENT: Denies changes in vision and hearing. Respiratory: Denies shortness of breath and cough Cardiovascular: Denies chest discomfort or palpitations GI: Reports mild abdominal tenderness. Denies nausea vomiting or diarrhea. : Denies dysuria and urinary frequency. Musculoskeletal: Denies myalgias and joint pain Skin: Denies rash and pruritus. Neurological: Denies dizziness, headache, vision or hearing problems Objective vital signs Vital Sign Date Time Temp Pulse Resp B/P (MAP) Pulse Ox O2 Delivery O2 Flow Rate FiO2 10/24/24 09:09 78 18 100 10/24/24 09:04 Nasal Cannula 1.0 10/24/24 09:04 24 10/24/24 06:30 143/64 (90) 10/24/24 04:00 98.6 98.6 Total Intake and Output 10/23/24 10/23/24 10/24/24 15:00 23:00 07:00 Intake Total 350 ml 160 ml Output Total 150 ml 90 ml Balance 200 ml 70 ml medications Current Medications Medications Dose Ordered Sig/Nasrin Route Start Time Stop Time Status Last Admin Dose Admin Multivit/Ca Carb/ B Cmplx/FA/Prenat 1 tab DAILY PO 10/19/24 10:00 10/23/24 08:40 1 TAB Sevelamer HCl 800 mg TIDWM PO 10/19/24 08:00 10/24/24 08:36 800 MG Allopurinol 100 mg DAILY PO 10/19/24 10:00 10/23/24 08:39 100 MG Atorvastatin Calcium 20 mg HS PO 10/19/24 22:00 10/23/24 21:41 20 MG Dextrose 50 ml UD PRN IV 10/18/24 22:15 Sodium Chloride 10 ml Q8HR IV 10/19/24 06:00 10/24/24 06:11 10 ML Ondansetron HCl 4 mg Q4HP PRN IV 10/18/24 22:15 10/19/24 22:21 4 MG Docusate Sodium 100 mg BIDPRN PRN PO 10/18/24 22:15 Acetaminophen 650 mg Q6HP PRN PO 10/18/24 22:15 10/20/24 22:03 650 MG Nitroglycerin 0.4 mg Q5MINP PRN SL 10/18/24 23:30 10/24/24 02:28 0.4 MG Morphine Sulfate 2 mg Q30M PRN IV 10/18/24 23:30 10/19/24 22:13 2 MG Nifedipine 90 mg DAILY PO 10/19/24 10:00 10/23/24 08:41 90 MG Ceftriaxone Sodium 50 ml @ 100 mls/hr DAILY@09 IV 10/19/24 09:15 10/24/24 08:38 100 MLS/HR Albuterol 2.5 mg Q4HR NEB 10/19/24 14:00 10/24/24 09:04 2.5 MG Ipratropium [place] 0.5 mg Q4HR NEB 10/19/24 14:00 10/24/24 09:04 0.5 MG Doxycycline Hyclate 100 ml @ 50 mls/hr Q12H IV 10/19/24 10:45 10/23/24 21:50 50 MLS/HR Melatonin 5 mg HS PO 10/19/24 22:00 10/23/24 21:41 5 MG Acetaminophen/ Hydrocodone Bitart 1 tab Q4HP PRN PO 10/20/24 05:00 10/24/24 09:23 1 TAB Sucralfate 1 gm QID@0600,1130,1700,2200 PO 10/20/24 11:30 10/24/24 06:11 1 GM Pantoprazole Sodium 40 mg BID IV 10/20/24 10:00 10/23/24 21:43 40 MG Furosemide 60 mg BIDD IV 10/20/24 18:00 10/23/24 06:14 60 MG Iron Sucrose 110 ml @ 110 mls/hr DAILY@1200 IV 10/20/24 12:00 10/24/24 12:59 10/23/24 12:20 110 MLS/HR Lactulose 30 ml BID PO 10/20/24 22:00 10/23/24 21:41 30 ML Diagnostic Test (Pha) 1 strip IQ4HR 10/22/24 00:00 10/24/24 08:00 1 STRIP Insulin Human Regular IQ4HR SC 10/22/24 00:00 10/24/24 08:37 2 UNITS Dextrose 50 ml UD PRN IV 10/21/24 23:00 Cancel Insulin Glargine 15 units DAILY@1000 SC 10/22/24 10:00 10/23/24 10:38 15 UNITS Hydralazine HCl 10 mg Q6HR PRN IV 10/22/24 15:00 10/24/24 02:18 10 MG Carvedilol 6.25 mg Q12HR PO 10/22/24 22:00 10/23/24 21:42 6.25 MG Examination Physical Examination General: Patient alert and oriented in person, place and time. Patient is blind bilaterally. Patient following commands. HEENT: Normocephalic, atraumatic, moist mucous membranes Respiratory/pulmonary: There is decreased breath sounds on bilateral lung newberry. No wheezes at this time. Currently on 2-3 L of oxygen through nasal cannula. Cardiovascular: Normal heart sounds S1 and S2 with no associated murmurs Abdomen: Abdomen nondistended, there is no pain to palpation in any of the abdominal quadrants, no palpable masses. Extremities: There is no significant lower extremity edema at this point. Skin: No rashes or pruritus, there is no sacral edema present at this time. Neurological: Intact cranial nerves with no focal neurologic deficits laboratory and microbiology Laboratory Tests 10/24/24 04:40 Test 10/24/24 04:40 Range/Units Serum Glucose 164 H 74-106 mg/dL Microbiology Date/Time Source Procedure Growth Status 10/20/24 17:06 Voided Urine Urine Culture - Final Complete 10/19/24 03:20 Nose MRSA Screen - Final Complete Problem List/Assessment/Plan Problem List/Assessment/Plan Assessment/plan Acute on chronic congestive systolic heart failure exacerbation-NYHA class 3 (HFrEF 30%) Acute hypoxic respiratory failure due to above Pulmonary edema -Continue Lasix IV 60 b.i.d. -albuterol/ipratropium med nebs q.4 scheduled -Echocardiogram showing an LVEF of 30% -Strict I&Os, fluid restriction -currently on 3 L of oxygen through nasal cannula -nifedipine 90 mg daily, Coreg 6.25 b.i.d. -BiPAP night time -yesterday hemodialysis pulled out 2.5 L of fluid -No hemodialysis today Possible COPD exacerbation -Nebulized treatments -Continue IV ceftriaxone and doxycycline daily -Recreation Therapy Teacher recommended BiPAP home use for obstructive sleep apnea -currently on 3 L of oxygen through nasal cannula, no wheezes at this time. Acute anemia ? Rule out GI blood loss -Hemoglobin 6.3, patient is [employer], current hemoglobin is 8.2 -continue IV iron supplementation daily -monitor H&H -Stool occult test came back negative -GI recommended to decrease lab work due to anemia. NISHANT superimposed on CKD ? Requiring renal replacement therapy Possible Cardiorenal syndrome -Nephrotic range proteinuria -Refractory hyperkalemia -Anemia of chronic kidney disease -Nephrology on board, Hemodialysis yesterday removed 2.5 L of fluid. -ordered hepatitis-B core antibodies and hepatitis-B surface antibodies which came back negative -permanent hemodialysis catheter in place working fine. Left internal jugular Kaden catheter was removed yesterday without complications, no hematoma or bleeding. -Sevelamer 800 mg TID with meals Diabetes mellitus type 2-A1c 6.8 -Moderate sliding scale -Likely diabetic retinopathy -Monitor Chronic gout -Allopurinol 100 mg daily Obesity hypoventilation syndrome Obstructive sleep apnea History of asthma -nighttime BiPAP Goals of care discussed with the patient at bedside for >40min, Full code Plan discussed with Dr. Wang Plan discussed with: Patient My Orders My Orders Orders - CYRUS WALLACE Procedure Category Date Status Time Chest Xray 1 View XY 10/24/24 Resulted 04:00 Pt Request For Service PT 10/24/24 Logged 06:16 Dietary Evaluation Review Comments: 1) Consider Nepro Carb Steady 240ml BID if PO intake < 50% 2) Monitor PO intake, lab values, I/O Expected Outcomes/Goals: Lab values to improve intake to meet at least 75% estimated needs fu 2-3 days Date of Service: Oct 24, 2024 Billing Provider: ANTOLIN BRUSH MD Common Visit Codes: 97793-[id number] CARE 30-74 MIN CYRUS WALLACE Oct 24, 2024 10:18 ANTOLIN BRUSH MD Nov 07, 2024 00:48
[2024-10-24] MEDS: MORPHINE SULFATE INJ 2 MG/ml SYRG IV PRN (16:20)
--- NOTE | 2024-10-24 16:20 | DVHPN2 ---
Progress Note - Dictate Date Seen: Oct 24, 2024 Has the PT tested + for MRSA If YES, has PT been informed?: No Medical Necessity Reason Pt with a Central, PICC or Fol: Yes Subjective Has some abdominal pain vital signs Vital Sign Date Time Temp Pulse Resp B/P (MAP) Pulse Ox O2 Delivery O2 Flow Rate FiO2 10/24/24 14:30 80 18 162/67 (98) 100 10/24/24 12:50 Nasal Cannula* 1 24 10/24/24 12:00 98.4 98.4 Total Intake and Output 10/23/24 10/23/24 10/24/24 14:59 22:59 06:59 Intake Total 350 ml 160 ml Output Total 150 ml 90 ml Balance 200 ml 70 ml medications Current Medications Medications Dose Ordered Sig/Nasrin Route Start Time Stop Time Status Last Admin Dose Admin Multivit/Ca Carb/ B Cmplx/FA/Prenat 1 tab DAILY PO 10/19/24 10:00 10/24/24 10:04 1 TAB Sevelamer HCl 800 mg TIDWM PO 10/19/24 08:00 10/24/24 12:07 800 MG Allopurinol 100 mg DAILY PO 10/19/24 10:00 10/24/24 10:11 100 MG Atorvastatin Calcium 20 mg HS PO 10/19/24 22:00 10/23/24 21:41 20 MG Dextrose 50 ml UD PRN IV 10/18/24 22:15 Sodium Chloride 10 ml Q8HR IV 10/19/24 06:00 10/24/24 14:23 10 ML Ondansetron HCl 4 mg Q4HP PRN IV 10/18/24 22:15 10/19/24 22:21 4 MG Docusate Sodium 100 mg BIDPRN PRN PO 10/18/24 22:15 Acetaminophen 650 mg Q6HP PRN PO 10/18/24 22:15 10/20/24 22:03 650 MG Nitroglycerin 0.4 mg Q5MINP PRN SL 10/18/24 23:30 10/24/24 02:28 0.4 MG Morphine Sulfate 2 mg Q30M PRN IV 10/18/24 23:30 10/19/24 22:13 2 MG Nifedipine 90 mg DAILY PO 10/19/24 10:00 10/24/24 12:00 90 MG Ceftriaxone Sodium 50 ml @ 100 mls/hr DAILY@09 IV 10/19/24 09:15 10/24/24 08:38 100 MLS/HR Albuterol 2.5 mg Q4HR NEB 10/19/24 14:00 10/24/24 12:50 2.5 MG Ipratropium [place] 0.5 mg Q4HR NEB 10/19/24 14:00 10/24/24 12:50 0.5 MG Doxycycline Hyclate 100 ml @ 50 mls/hr Q12H IV 10/19/24 10:45 10/24/24 10:04 50 MLS/HR Melatonin 5 mg HS PO 10/19/24 22:00 10/23/24 21:41 5 MG Acetaminophen/ Hydrocodone Bitart 1 tab Q4HP PRN PO 10/20/24 05:00 10/24/24 09:23 1 TAB Sucralfate 1 gm QID@0600,1130,1700,2200 PO 10/20/24 11:30 10/24/24 12:00 1 GM Pantoprazole Sodium 40 mg BID IV 10/20/24 10:00 10/24/24 10:02 40 MG Furosemide 60 mg BIDD IV 10/20/24 18:00 10/23/24 06:14 60 MG Lactulose 30 ml BID PO 10/20/24 22:00 10/24/24 10:03 30 ML Diagnostic Test (Pha) 1 strip IQ4HR 10/22/24 00:00 10/24/24 12:01 1 STRIP Insulin Human Regular IQ4HR SC 10/22/24 00:00 10/24/24 12:09 4 UNITS Dextrose 50 ml UD PRN IV 10/21/24 23:00 Cancel Insulin Glargine 15 units DAILY@1000 SC 10/22/24 10:00 10/24/24 10:11 15 UNITS Hydralazine HCl 10 mg Q6HR PRN IV 10/22/24 15:00 10/24/24 02:18 10 MG Carvedilol 6.25 mg Q12HR PO 10/22/24 22:00 10/24/24 10:04 6.25 MG Morphine Sulfate 1 mg Q6HP PRN IV 10/24/24 15:15 objective objective HEENT: No evidence of JVD, no oral ulcers. Pulmonary: Crackles at the bases on auscultation bilaterally Cardiovascular S1-S2, no S3 or S4 Abdomen: Bowel sounds positive, soft no rebound tenderness Skin: No rash Neurological: Drowsy On BiPAP Extremities: 1+ lower extremity edema Kaden catheter in place. No evidence of bleeding laboratory and microbiology Laboratory Tests 10/24/24 04:40 Test 10/24/24 04:40 Range/Units Serum Glucose 164 H 74-106 mg/dL Problem List Assessment: 1. Hemodialysis dependent Acute kidney injury on Chronic kidney disease 4 2. Hyperkalemia refractory to medical management, improved with hemodialysis 3. Acute hypoxic respiratory failure, improving 4. Fluid overload improved 5. Diabetes type 2 6. Acute diastolic heart failure exacerbation 7. Anemia in a L[employer] patient 8. Morbid obesity Continue HD on TTS schedule [facility] Dietary Evaluation Review Comments: 1) Consider Nepro Carb Steady 240ml BID if PO intake < 50% 2) Monitor PO intake, lab values, I/O Expected Outcomes/Goals: Lab values to improve intake to meet at least 75% estimated needs fu 2-3 days Plan discussed with: Patient DAREK PEPE MD Oct 24, 2024 16:20
--- NOTE | 2024-10-24 17:01 | DVHPN2 ---
Progress Note - Dictate Date Seen: Oct 24, 2024 Has the PT tested + for MRSA If YES, has PT been informed?: No Medical Necessity Reason Pt with a Central, PICC or Fol: Yes Subjective No new complaints No active GI bleeding reported H&H is stable at 8.2 Stool for occult blood was negative x2 Patient underwent hemodialysis yesterday, 2.5 L of fluid was removed Temporary Kaden catheter was removed Shortness of breath has improved vital signs Vital Sign Date Time Temp Pulse Resp B/P (MAP) Pulse Ox O2 Delivery O2 Flow Rate FiO2 10/24/24 16:20 77 26 111/57 10/24/24 14:30 100 10/24/24 12:50 Nasal Cannula* 1 24 10/24/24 12:00 98.4 98.4 Total Intake and Output 10/23/24 10/23/24 10/24/24 14:59 22:59 06:59 Intake Total 350 ml 160 ml Output Total 150 ml 90 ml Balance 200 ml 70 ml medications Current Medications Medications Dose Ordered Sig/Nasrin Route Start Time Stop Time Status Last Admin Dose Admin Multivit/Ca Carb/ B Cmplx/FA/Prenat 1 tab DAILY PO 10/19/24 10:00 10/24/24 10:04 1 TAB Sevelamer HCl 800 mg TIDWM PO 10/19/24 08:00 10/24/24 12:07 800 MG Allopurinol 100 mg DAILY PO 10/19/24 10:00 10/24/24 10:11 100 MG Atorvastatin Calcium 20 mg HS PO 10/19/24 22:00 10/23/24 21:41 20 MG Dextrose 50 ml UD PRN IV 10/18/24 22:15 Sodium Chloride 10 ml Q8HR IV 10/19/24 06:00 10/24/24 14:23 10 ML Ondansetron HCl 4 mg Q4HP PRN IV 10/18/24 22:15 10/24/24 16:21 4 MG Docusate Sodium 100 mg BIDPRN PRN PO 10/18/24 22:15 Acetaminophen 650 mg Q6HP PRN PO 10/18/24 22:15 10/20/24 22:03 650 MG Nitroglycerin 0.4 mg Q5MINP PRN SL 10/18/24 23:30 10/24/24 02:28 0.4 MG Morphine Sulfate 2 mg Q30M PRN IV 10/18/24 23:30 10/19/24 22:13 2 MG Nifedipine 90 mg DAILY PO 10/19/24 10:00 10/24/24 12:00 90 MG Ceftriaxone Sodium 50 ml @ 100 mls/hr DAILY@09 IV 10/19/24 09:15 10/24/24 08:38 100 MLS/HR Albuterol 2.5 mg Q4HR NEB 10/19/24 14:00 10/24/24 12:50 2.5 MG Ipratropium [place] 0.5 mg Q4HR NEB 10/19/24 14:00 10/24/24 12:50 0.5 MG Doxycycline Hyclate 100 ml @ 50 mls/hr Q12H IV 10/19/24 10:45 10/24/24 10:04 50 MLS/HR Melatonin 5 mg HS PO 10/19/24 22:00 10/23/24 21:41 5 MG Acetaminophen/ Hydrocodone Bitart 1 tab Q4HP PRN PO 10/20/24 05:00 10/24/24 09:23 1 TAB Sucralfate 1 gm QID@0600,1130,1700,2200 PO 10/20/24 11:30 10/24/24 12:00 1 GM Pantoprazole Sodium 40 mg BID IV 10/20/24 10:00 10/24/24 10:02 40 MG Furosemide 60 mg BIDD IV 10/20/24 18:00 10/23/24 06:14 60 MG Lactulose 30 ml BID PO 10/20/24 22:00 10/24/24 10:03 30 ML Diagnostic Test (Pha) 1 strip IQ4HR 10/22/24 00:00 10/24/24 12:01 1 STRIP Insulin Human Regular IQ4HR SC 10/22/24 00:00 10/24/24 12:09 4 UNITS Dextrose 50 ml UD PRN IV 10/21/24 23:00 Cancel Insulin Glargine 15 units DAILY@1000 SC 10/22/24 10:00 10/24/24 10:11 15 UNITS Hydralazine HCl 10 mg Q6HR PRN IV 10/22/24 15:00 10/24/24 02:18 10 MG Carvedilol 6.25 mg Q12HR PO 10/22/24 22:00 10/24/24 10:04 6.25 MG Morphine Sulfate 1 mg Q6HP PRN IV 10/24/24 15:15 10/24/24 16:20 1 MG objective HEENT: No evidence of JVD, no oral ulcers. Pulmonary: Crackles at the bases on auscultation bilaterally Cardiovascular S1-S2, no S3 or S4 Abdomen: Bowel sounds positive, soft no rebound tenderness Skin: No rash, obese Neurological: Drowsy On BiPAP Extremities: 1+ lower extremity edema Kaden catheter in place. No evidence of bleeding laboratory and microbiology Laboratory Tests 10/24/24 04:40 Test 10/24/24 04:40 Range/Units Serum Glucose 164 H 74-106 mg/dL Problems(with codes): (1) Anemia of chronic disease (2) Generalized weakness (3) Morbid obesity (4) End stage renal disease (5) Metabolic encephalopathy (6) Congestive heart failure Prognosis Plan Advance diet as tolerated Continue supportive care from GI point of view There was no signs of active GI bleeding at this time Maintained on Protonix 40 mg p.o. daily Patient can follow up in my office as an outpatient for any further GI workup if required Once again thank you for allowing me to participate in the care of this patient Patient has been downgraded to the floor Dietary Evaluation Review Comments: 1) Consider Nepro Carb Steady 240ml BID if PO intake < 50% 2) Monitor PO intake, lab values, I/O Expected Outcomes/Goals: Lab values to improve intake to meet at least 75% estimated needs fu 2-3 days Plan discussed with: Patient KELLY PEREZ MD Oct 24, 2024 17:01
--- NOTE | 2024-10-24 21:07 | DVHPN2 ---
Progress Note - Dictate Date Seen: Oct 24, 2024 Has the PT tested + for MRSA If YES, has PT been informed?: No Medical Necessity Reason Pt with a Central, PICC or Fol: Yes vital signs Vital Sign Date Time Temp Pulse Resp B/P (MAP) Pulse Ox O2 Delivery O2 Flow Rate FiO2 10/24/24 20:30 76 23 167/63 (97) 100 10/24/24 19:42 98.6 98.6 10/24/24 18:20 Nasal Cannula 1.0 10/24/24 18:20 24 Total Intake and Output 10/23/24 10/23/24 10/24/24 15:00 23:00 07:00 Intake Total 350 ml 160 ml Output Total 150 ml 90 ml Balance 200 ml 70 ml medications Current Medications Medications Dose Ordered Sig/Nasrin Route Start Time Stop Time Status Last Admin Dose Admin Multivit/Ca Carb/ B Cmplx/FA/Prenat 1 tab DAILY PO 10/19/24 10:00 10/24/24 10:04 1 TAB Sevelamer HCl 800 mg TIDWM PO 10/19/24 08:00 10/24/24 18:26 800 MG Allopurinol 100 mg DAILY PO 10/19/24 10:00 10/24/24 10:11 100 MG Atorvastatin Calcium 20 mg HS PO 10/19/24 22:00 10/23/24 21:41 20 MG Dextrose 50 ml UD PRN IV 10/18/24 22:15 Sodium Chloride 10 ml Q8HR IV 10/19/24 06:00 10/24/24 14:23 10 ML Ondansetron HCl 4 mg Q4HP PRN IV 10/18/24 22:15 10/24/24 16:21 4 MG Docusate Sodium 100 mg BIDPRN PRN PO 10/18/24 22:15 Acetaminophen 650 mg Q6HP PRN PO 10/18/24 22:15 10/20/24 22:03 650 MG Nitroglycerin 0.4 mg Q5MINP PRN SL 10/18/24 23:30 10/24/24 02:28 0.4 MG Morphine Sulfate 2 mg Q30M PRN IV 10/18/24 23:30 10/19/24 22:13 2 MG Nifedipine 90 mg DAILY PO 10/19/24 10:00 10/24/24 12:00 90 MG Ceftriaxone Sodium 50 ml @ 100 mls/hr DAILY@09 IV 10/19/24 09:15 10/24/24 08:38 100 MLS/HR Albuterol 2.5 mg Q4HR NEB 10/19/24 14:00 10/24/24 18:20 2.5 MG Ipratropium [place] 0.5 mg Q4HR NEB 10/19/24 14:00 10/24/24 18:20 0.5 MG Doxycycline Hyclate 100 ml @ 50 mls/hr Q12H IV 10/19/24 10:45 10/24/24 10:04 50 MLS/HR Melatonin 5 mg HS PO 10/19/24 22:00 10/23/24 21:41 5 MG Acetaminophen/ Hydrocodone Bitart 1 tab Q4HP PRN PO 10/20/24 05:00 10/24/24 09:23 1 TAB Sucralfate 1 gm QID@0600,1130,1700,2200 PO 10/20/24 11:30 10/24/24 18:26 1 GM Pantoprazole Sodium 40 mg BID IV 10/20/24 10:00 10/24/24 10:02 40 MG Furosemide 60 mg BIDD IV 10/20/24 18:00 10/24/24 18:27 60 MG Lactulose 30 ml BID PO 10/20/24 22:00 10/24/24 10:03 30 ML Diagnostic Test (Pha) 1 strip IQ4HR 10/22/24 00:00 10/24/24 19:52 1 STRIP Insulin Human Regular IQ4HR SC 10/22/24 00:00 10/24/24 19:43 3 UNITS Dextrose 50 ml UD PRN IV 10/21/24 23:00 Cancel Insulin Glargine 15 units DAILY@1000 SC 10/22/24 10:00 10/24/24 10:11 15 UNITS Hydralazine HCl 10 mg Q6HR PRN IV 10/22/24 15:00 10/24/24 02:18 10 MG Carvedilol 6.25 mg Q12HR PO 10/22/24 22:00 10/24/24 10:04 6.25 MG Morphine Sulfate 1 mg Q6HP PRN IV 10/24/24 15:15 10/24/24 16:20 1 MG laboratory and microbiology Laboratory Tests 10/24/24 04:40 Test 10/24/24 04:40 Range/Units Serum Glucose 164 H 74-106 mg/dL Assessment/Plan Impression Acute hypoxemic respiratory failure Pulmonary edema Fluid overload ESRD on HD Patient seen and examined in [facility] Events Low oxygen requirements On 2 liters nasal cannula No acute events S/p HD Labs and imaging reviewed ABG reviewed Management Supplemental oxygen Titrate to maintain sats 90% or above Incentive spirometry Prn bipap Continue antibiotics F/u cultures Bronchodilators Monitor renal function HD as per nephrology Management deferred Monitor electrolytes Supplement as needed Recommend bipap for home use for suspected JAG Okay to downgrade from pulmonary standpoint DVT prophylaxis Dietary Evaluation Review Comments: 1) Consider Nepro Carb Steady 240ml BID if PO intake < 50% 2) Monitor PO intake, lab values, I/O Expected Outcomes/Goals: Lab values to improve intake to meet at least 75% estimated needs fu 2-3 days Plan discussed with: Patient ALEX SANDHU MD Oct 24, 2024 21:06
[2024-10-24] MEDS: MELATONIN 5 MG TAB PO ONE (22:00)
[2024-10-25] VITALS (18 sets, daily range): BP systolic 128–163; BP diastolic 54–90; PULSE 69–91; RESP 16–24; TEMP 97–98.4; O2SAT 98–100
[2024-10-25 06:31] LABS: Hemoglobin 8.1 g/dL (12.2-16.2)
[2024-10-25 06:33] LABS: Hematocrit 25.5 % (36.0-46.0); Mean Corpuscular Hemoglobin 32.5 pg (28.0-32.0); Mean Corpuscular Volume 102.2 fL (80.0-100.0)
[2024-10-25 06:38] LABS: Albumin 3.6 g/dL (3.2-4.8); Alkaline Phosphatase 98 U/L (46-116); Anion Gap 9 (5-15); BUN/Creatinine Ratio 13.5 (10.0-20.0); Bilirubin, Total 0.4 mg/dL (0.2-1.0); Calcium 9.7 mg/dL (8.7-10.4); Carbon Dioxide 28 mmol/L (20-31); Potassium 3.8 mmol/L (3.5-5.1)
[2024-10-25 06:40] LABS: Alanine Aminotransferase < 9 U/L (7-40); Blood Urea Nitrogen 42 mg/dL (9-23); Chloride 98 mmol/L (98-107); Sodium 135 mmol/L (136-145); Total Protein 5.6 g/dL (5.7-8.2)
[2024-10-25] MEDS ORDERED: SODIUM CHL 0.9% 1000 ML BAG XX ONE (07:00)
[2024-10-25 07:06] LABS: Glucose 155 mg/dL (74-106)
[2024-10-25 08:13] LABS: Total Cells Counted 100.0 (100)
--- NOTE | 2024-10-25 12:46 | DVHDSRES ---
Discharge Summary Date of Admission Resident Creating Document: CYRUS WALLACE RESIDENT Oct 18, 2024 at 23:30 Date of Discharge: Oct 25, 2024 Admitting Diagnosis Acute hypoxic/hypercapnic respiratory failure Wounds: No significant wounds present at this time. Labs/Diagnostic Data: Laboratory Results Test 10/25/24 05:35 10/24/24 23:50 10/24/24 08:30 10/24/24 04:40 White Blood Count 12.8 10^3/uL (4.4-10.8) Red Blood Count 2.50 10^6/uL (4.0-5.20) Hemoglobin 8.1 g/dL (12.2-16.2) Hematocrit 25.5 % (36.0-46.0) Mean Corpuscular Volume 102.2 fL (80.0-100.0) Mean Corpuscular Hemoglobin 32.5 pg (28.0-32.0) Mean Corpuscular Hemoglobin Concent 31.8 g/dL (32.0-36.0) Red Cell Distribution Width 15.2 % (11.8-14.3) Platelet Count 222 10^3/uL (140-450) Mean Platelet Volume 7.7 fL (6.9-10.8) Neutrophils (%) (Auto) % (37.0-80.0) Lymphocytes (%) (Auto) % (10.0-50.0) Monocytes (%) (Auto) % (0.0-12.0) Basophils (%) (Auto) % (0.0-2.0) Neutrophils # (Auto) 10 ^3/uL (1.6-8.6) Lymphocytes # (Auto) 10 ^3/uL (0.4-5.4) Monocytes # (Auto) 10 ^3/uL (0-1.3) Differential Total Cells Counted 100.0 (100) Neutrophils % (Manual) 76 (37.0-80.0) Band Neutrophils % (Manual) 3 Lymphocytes % (Manual) 14 (10.0-50.0) Monocytes % (Manual) 4 (0-12) Eosinophils % (Manual) 2 (0-7) Basophils % (Manual) 0 (0.0-2.0) Metamyelocytes % (manual) 0 Myelocytes % (Manual) 1 Promyelocytes % (Manual) 0 Blast Cells % (Manual) 0 Reactive Lymphocytes 0 Platelet Estimate Adequate Sodium Level 135 mmol/L (136-145) Potassium Level 3.8 mmol/L (3.5-5.1) Chloride Level 98 mmol/L (98-107) Carbon Dioxide Level 28 mmol/L (20-31) Anion Gap 9 (5-15) Blood Urea Nitrogen 42 mg/dL (9-23) Creatinine 3.10 mg/dL (0.550-1.02) Glomerular Filtration Rate Calc 15 mL/min (>90) BUN/Creatinine Ratio 13.5 (10.0-20.0) Serum Glucose 155 mg/dL (74-106) Calcium Level 9.7 mg/dL (8.7-10.4) Total Bilirubin 0.4 mg/dL (0.2-1.0) Aspartate Amino Transferase (AST) 13 U/L (13-40) Alanine Aminotransferase (ALT) < 9 U/L (7-40) Alkaline Phosphatase 98 U/L (46-116) Total Protein 5.6 g/dL (5.7-8.2) Albumin 3.6 g/dL (3.2-4.8) POC Glucose 177 mg/dl (70-106) Stool Occult Blood Negative (Negative) Stool Occult Blood Sample #3 (Negative) Nucleated Red Blood Cells 6.0 % Macrocytosis Slight Tear Drop Cells Few Test 10/22/24 17:44 10/22/24 15:38 10/21/24 04:40 10/20/24 17:06 Hepatitis B Surface Antibody Negative (Negative) Hepatitis B Core Total Antibody Negative (Negative) Blood Gas Specimen Type Arterial Blood Gas Sample Site Right radial Blood Gas Patient Temperature 37.0 Arterial Blood Date Drawn [id number] Arterial Blood pH 7.335 (7.350-7.450) Arterial Blood Partial Pressure CO2 53.1 mmHg (32.0-45.0) Arterial Blood Partial Pressure O2 76.7 mmHg (83.0-108.0) Arterial Blood HCO3 27.7 mmol/L (21.0-28.0) Arterial Blood Oxygen Saturation 95.1 % (94.0-98.0) Arterial Blood Base Excess 1.4 mmol/L (-2.0-3.0) Arterial Blood Oxyhemoglobin 94.1 % (94.0-98.0) Arterial Blood Carboxyhemoglobin 0.6 % (0.5-1.5) Arterial Blood Methemoglobin 0.5 % (0.0-1.5) Cristian Test Yes Blood Gas Total Hemoglobin 8.80 g/dL (12.0-16.0) Blood Gas Liter Flow 2.00 Blood Gas Modality Nasal cannula Blood Gas Spontaneous Rate 20 FiO2 % 28.0 Eosinophils (%) (Auto) 0.1 % (0.0-7.0) Eosinophils # (Auto) 0 10 ^3/uL (0-0.8) Basophils # (Auto) 0 10 ^3/uL (0-0.2) Urine Creatinine 84.52 mg/dL (30.0-125.0) Urine Protein/Creatinine Ratio 3.77 Urine Sodium 18 mmol/L (40-220) Urine Total Protein 318.5 mg/dL (1-14) Test 10/20/24 08:16 10/20/24 04:30 10/19/24 13:51 10/19/24 11:18 Prothrombin Time 11.3 sec (9.3-11.8) Prothrombin Time INR 1.07 (0.9-1.15) Activated Partial Thromboplast Time 25.8 SEC (24.5-34.5) Fibrinogen 512 mg/dL (177-375) Folic Acid 10.20 ng/mL (>5.38) Reticulocyte Count (auto) 1.48 % (0.5-1.5) Haptoglobin 180 mg/dL (42-346) Lactate Dehydrogenase 201 U/L (120-246) Blood Gas Spontaneous Tidal Volume 317 Blood Gas EPAP 5 Blood Gas IPAP 15 Blood Gas Critical Value Read Back Yes Blood Gas Notified Whom Dr. lois cool Blood Gas Notified Time [id number] Blood Gas Notified By Rt naina sloan Test 10/19/24 09:10 10/18/24 23:28 10/18/24 22:27 10/18/24 20:03 Magnesium Level 1.9 mg/dL (1.6-2.6) Iron Level 43 ug/dL (50-170) Total Iron Binding Capacity 208 ug/dL (250-425) Percent Iron Saturation 20.7 % (15-50) Ferritin 404.5 ng/mL (10-291) Hepatitis B Surface Antigen Negative (Negative) Hepatitis C Antibody Negative (Negative) Creatine Kinase 53 U/L (34-145) Urine Color Light-yellow (Yellow) Urine Clarity Turbid (Clear) Urine pH 6.0 (5.0-9.0) Urine Specific [place] 1.007 (1.001-1.035) Urine Protein 1+ (Negative) Urine Ketones Negative (Negative) Urine Blood Trace /uL (Negative) Urine Nitrite Negative (Negative) Urine Bilirubin Negative (Negative) Urine Urobilinogen Normal mg/dL (Negative) Urine Leukocyte Esterase Trace /uL (Negative) Urine RBC 1 /hpf (0 - 4) Urine Microscopic WBC 8 /HPF (0-5) Urine Squamous Epithelial Cells Few /hpf (<5) Urine Bacteria Few /hpf (None Seen) Urine Glucose Normal mg/dL (Normal) Troponin I High Sensitivity 7 ng/L (</=34) Test 10/18/24 19:07 B-Type Natriuretic Peptide 494.95 pg/mL (0-100) Other Laboratory Tests 10/25/24 05:35 Brief Hx & Hospital Course: This is a 79-year-old female with past medical history of diabetes mellitus type 2, hypertension, systolic congestive heart failure-EF 30%,, gout, sleep apnea, CKD, arthritis, chronic respiratory failure on 3 L oxygen, presents to the ER with a chief complaint of shortness of breaths and chest pain, also reported abdominal pain. Per chart review, son reported that her symptoms worsened 2 days back. The patient was previously hospitalized for acute hypoxic respiratory failure likely due to the same features, why she is hospitalized this time as well. Patient in is currently volume overload due to CHF exacerbation as well as COPD exacerbation. the patient was admitted for previous mentioned conditions, as well as end-stage renal disease requiring hemodialysis. During hospitalization stay, blood pressure was running in the higher side for which carvedilol had to be increased to 6.25 q.12, furosemide 60 mg IV b.i.d., nifedipine 90 mg daily. Permanent dialysis catheter was placed in the right upper chest and patient underwent at least four sessions of hemodialysis overall. Patient was also doing BiPAP overnight which was helping with her respiratory distress. Social service was consulted for home health for medical management and chair time for outpatient hemodialysis was already assigned. Patient was examined today at bedside, patient denies any acute respiratory failure, dyspnea, chest pain, shortness of breath, fever/chills or any other associated symptoms. Patient states that he is currently at her baseline, on 2 L of oxygen through nasal cannula. There is no peripheral edema or no evidence of volume overload at this time. Patient will be discharged on her home medications with new medication adjustment. Carvedilol was increased to 6.25 mg q.12 rest of medications we will continue same dosage. Patient needs to follow up with [facility] and do scheduled hemodialysis to prevent future volume overload. Patient agrees and understands the plan. Discharge plan: -HD will be scheduled with [facility] -Continue home medications -Low renal and cardiac diet (low sodium) -Completed antibiotic treatment -F/U with PCP in 1 week -F/U with ice cream mixer and cardiology as outpatient Consults/Reason for consult Nephrology for end-stage renal disease to start hemodialysis Operations or Procedures Exam: CT CT AB PEL WO CON-NO ORAL OR IV History: left flank, LLQ pain, consitpation Comparison Study: None TECHNIQUE: Multidetector CT of the abdomen was performed from lung bases to pubic symphysis. Imaging was performed without IV contrast. Axial, coronal and sagittal multiplanar reformats were obtained from the axial data set by the technologist. Radiation Dose Information: CT Dose: CTDI volume is 25.51 mGy. Dose-length product is 1259.4 mGy*cm FINDINGS: Evaluation of solid organs is limited due to lack of intravenous contrast use. Findings: Lung Bases: No acute or significant lung base finding. Normal heart size. No pleural or pericardial effusion. Liver: The liver is normal in size. No focal lesions. Gallbladder and Biliary Tree: Cholelithiasis Spleen: Unremarkable Pancreas: The pancreas is grossly normal in appearance. Adrenal Glands: Unremarkable Kidneys: Kidneys are grossly normal without calculi or hydronephrosis. Bladder: Grossly unremarkable for degree of distention. Bowel: The stomach is grossly normal in appearance. Small bowel and colon are normal in caliber and distribution. The appendix is not visualized; however, no secondary findings of acute appendicitis identified. Ascites: Absent Lymphadenopathy: No mesenteric, retroperitoneal or periportal lymphadenopathy. Abdominal Wall and Mesentery: Unremarkable. Vasculature: The visualized abdominal aorta is normal in size and caliber. Evaluation of abdominal and pelvic vessels is limited due to lack of intravenous contrast. Pelvic Organs: Unremarkable Musculoskeletal: No aggressive focal bony lesions, acute fractures or dislocation. Soft tissues: Subcutaneous edema throughout the abdomen and pelvis suggesting anasarca. There is a 7.1 by 2.6 cm area of consolidated soft tissue in the posterior left flank may represent developing phlegmon or developing decubitus ulcer IMPRESSION: 1. No nephrolithiasis or hydronephrosis. 2. Subcutaneous edema throughout the anterior abdominal pelvic wall. 3. 7.1 x 2.6 cm area of consolidated soft tissues in the posterior lumbar spine. At the level of L2-3. Finding may represent developing decubitus ulcer or phlegmon. CHEST RADIOGRAPH Indication: SOB Technique: Single frontal view of the chest was obtained Comparison: XY CHEST PORTABLE on DOS: 10/03/24, XY CHEST PORTABLE on DOS: 10/02/24, XY CHEST PORTABLE on DOS: 10/01/24 FINDINGS: Lines and Tubes: None Lungs: No focal consolidation. Pleura: No effusion. No pneumothorax. Cardiomediastinal contours: Unremarkable Bones: No acute osseous abnormality. IMPRESSION: 1. No acute cardiopulmonary disease. Exam: XY KUB ABDOMEN SINGLE VIEW Indication: R/O obstruction Comparison: None Technique: 2 radiographic views of the abdomen. Findings: Nonspecific bowel-gas pattern. Moderate volume colonic stool. There is no definite evidence for pneumoperitoneum. No abnormal calcifications noted. Impression: Nonspecific bowel-gas pattern. Moderate volume colonic stool. Condition at Discharge: Stable Final Diagnosis/Problems List Acute on chronic congestive systolic heart failure exacerbation-NYHA class 3 (HFrEF 30%) Acute volume overload due to cardiorenal syndrome Acute Pulmonary edema Acute hypoxic respiratory failure due to above Possible COPD exacerbation Acute anemia, Rule out GI blood loss NISHANT superimposed on CKD Requiring renal replacement therapy Possible Cardiorenal syndrome Refractory hyperkalemia Anemia of chronic kidney disease Diabetes mellitus type 2-A1c 6.8 Chronic gout Obesity hypoventilation syndrome Discharge Disposition: Home with Health Services Discharge Instruct/Medications Diet: Cardiac 2g Na,low cholest, Renal Activity: No Restrictions, As Tolerated Follow Up/Referral: F/U with PCP in 1 week F/U with retail parts professional and ice cream mixer as outpatient Medications: Continue home medications Scheduled Allopurinol (Allopurinol), 1 TAB PO DAILY, (Reported) Carvedilol (Carvedilol), 1 TAB PO BID Docusate Sodium (Docusate Sodium), 1 CAP PO BID, (Reported) Glimepiride (Glimepiride), 2 TAB PO DAILY, (Reported) Hydrocodone-Acetaminophen (Hydrocodone Bitartrate/AC 10-325 mg), 1 TAB PO Q4HR PRN, (Reported) Insulin Glargine (Basaglar Kwikpen), 26 UNIT SC DAILY, (Reported) Loratadine (Claritin Tablet), 1 TAB PO DAILY, (Reported) Nifedipine (Nifedipine Er), 1 TAB PO DAILY Pantoprazole Sodium Sesquihydr (Pantoprazole Sodium), 1 TAB PO DAILY, (Reported) Simvastatin (Simvastatin), 1 TAB PO DAILY, (Reported) Ursodiol (Ursodiol), 1 TAB PO TID, (Reported) Discharge Statement: "Patient was advised to return to the ER or call 911 if any headaches, dizziness, shortness of breath, chest pain, abdominal pain, bleeding, fevers, or worsening of medical condition. Patient was counseled about treatment plan, medications, possible side effects, patientverbalized understanding. All questions were answered to the best of my ability. This discharge took greater then 30 minutes in planning, reviewing documentation, counseling the patient, and discussing with other team members." ASSESSMENT ASSESSMENT Assessment Acute on chronic congestive systolic heart failure exacerbation-NYHA class 3 (HFrEF 30%) Acute volume overload due to cardiorenal syndrome Acute Pulmonary edema Acute hypoxic respiratory failure due to above Possible COPD exacerbation Acute anemia, Rule out GI blood loss NISHANT superimposed on CKD Requiring renal replacement therapy Possible Cardiorenal syndrome Refractory hyperkalemia Anemia of chronic kidney disease Diabetes mellitus type 2-A1c 6.8 Chronic gout Obesity hypoventilation syndrome CYRUS WALLACE RESIDENT Oct 25, 2024 12:46
--- NOTE | 2024-10-25 12:52 | DVHPNRES ---
Progress Note Date Seen: Oct 25, 2024 Resident Creating Document: CYRUS WALLACE RESIDENT Has the PT tested + for MRSA If YES, has PT been informed?: No Medical Necessity Reason Pt with a Central, PICC or Fol: Yes Subjective Review of Systems This is a 79-year-old female with past medical history of diabetes mellitus type 2, hypertension, systolic congestive heart failure-EF 30%,, gout, sleep apnea, CKD, arthritis, chronic respiratory failure on 3 L oxygen, presents to the ER with a chief complaint of shortness of breaths and chest pain, also reported abdominal pain. Per chart review, son reported that her symptoms worsened 2 days back. The patient was previously hospitalized for acute hypoxic respiratory failure likely due to the same features, why she is hospitalized this time as well. Patient in is currently volume overload due to CHF exacerbation as well as COPD exacerbation. We will admit the patient for further assessment and management of previous mentioned conditions, as well as end-stage renal disease requiring hemodialysis. Patient seen and examined at bedside. There was no major events reported overnight. No fever/chills, patient reports no chest pain but does reports very mild shortness of breath which could be very near her baseline. Patient is currently on 2 L of oxygen nasal cannula. Social service consult was placed for medication management. We are still waiting for chair time which apparently we will be on October 30, 2024. Patient will require one more session of hemodialysis in-hospital before leaving. Patient is overall stable, we will continue current medical management. ROS Constitutional: Denies weight loss, fever and chills. HEENT: Denies changes in vision and hearing. Respiratory: Reports mild shortness of breath. Denies cough Cardiovascular: Denies chest discomfort or palpitations GI: Denies abdominal pain, nausea, vomiting and diarrhea. : Denies dysuria and urinary frequency. Musculoskeletal: Denies myalgias and joint pain Skin: Denies rash and pruritus. Neurological: Denies dizziness, headache, vision or hearing problems Objective vital signs Vital Sign Date Time Temp Pulse Resp B/P (MAP) Pulse Ox O2 Delivery O2 Flow Rate FiO2 10/25/24 09:00 98.1 69 17 134/54 (80) 98 98.1 10/25/24 08:00 Nasal Cannula* 2 28 Total Intake and Output 10/24/24 10/24/24 10/25/24 15:00 23:00 07:00 Intake Total 360 ml 480 ml 550 ml Output Total 125 ml 100 ml Balance 360 ml 355 ml 450 ml medications Current Medications Medications Dose Ordered Sig/Nasrin Route Start Time Stop Time Status Last Admin Dose Admin Multivit/Ca Carb/ B Cmplx/FA/Prenat 1 tab DAILY PO 10/19/24 10:00 10/25/24 12:16 1 TAB Sevelamer HCl 800 mg TIDWM PO 10/19/24 08:00 10/25/24 12:16 800 MG Allopurinol 100 mg DAILY PO 10/19/24 10:00 10/25/24 12:16 100 MG Atorvastatin Calcium 20 mg HS PO 10/19/24 22:00 10/24/24 22:00 20 MG Dextrose 50 ml UD PRN IV 10/18/24 22:15 Sodium Chloride 10 ml Q8HR IV 10/19/24 06:00 10/25/24 05:43 10 ML Ondansetron HCl 4 mg Q4HP PRN IV 10/18/24 22:15 10/24/24 16:21 4 MG Docusate Sodium 100 mg BIDPRN PRN PO 10/18/24 22:15 Acetaminophen 650 mg Q6HP PRN PO 10/18/24 22:15 10/20/24 22:03 650 MG Nitroglycerin 0.4 mg Q5MINP PRN SL 10/18/24 23:30 10/24/24 02:28 0.4 MG Morphine Sulfate 2 mg Q30M PRN IV 10/18/24 23:30 10/19/24 22:13 2 MG Nifedipine 90 mg DAILY PO 10/19/24 10:00 10/24/24 12:00 90 MG Ceftriaxone Sodium 50 ml @ 100 mls/hr DAILY@09 IV 10/19/24 09:15 10/25/24 12:16 100 MLS/HR Albuterol 2.5 mg Q4HR NEB 10/19/24 14:00 10/25/24 07:09 2.5 MG Ipratropium Jewett 0.5 mg Q4HR NEB 10/19/24 14:00 10/25/24 07:09 0.5 MG Doxycycline Hyclate 100 ml @ 50 mls/hr Q12H IV 10/19/24 10:45 10/24/24 23:10 50 MLS/HR Melatonin 5 mg HS PO 10/19/24 22:00 10/23/24 21:41 5 MG Acetaminophen/ Hydrocodone Bitart 1 tab Q4HP PRN PO 10/20/24 05:00 10/24/24 09:23 1 TAB Sucralfate 1 gm QID@0600,1130,1700,2200 PO 10/20/24 11:30 10/25/24 12:16 1 GM Pantoprazole Sodium 40 mg BID IV 10/20/24 10:00 10/24/24 21:59 40 MG Furosemide 60 mg BIDD IV 10/20/24 18:00 10/24/24 18:27 60 MG Lactulose 30 ml BID PO 10/20/24 22:00 10/25/24 12:16 30 ML Diagnostic Test (Pha) 1 strip IQ4HR 10/22/24 00:00 10/25/24 12:16 1 STRIP Insulin Human Regular IQ4HR SC 10/22/24 00:00 10/25/24 03:51 3 UNITS Dextrose 50 ml UD PRN IV 10/21/24 23:00 Cancel Insulin Glargine 15 units DAILY@1000 SC 10/22/24 10:00 10/24/24 10:11 15 UNITS Hydralazine HCl 10 mg Q6HR PRN IV 10/22/24 15:00 10/24/24 23:24 10 MG Carvedilol 6.25 mg Q12HR PO 10/22/24 22:00 10/24/24 22:00 6.25 MG Morphine Sulfate 1 mg Q6HP PRN IV 10/24/24 15:15 10/25/24 00:12 1 MG Examination Physical Examination General: Patient alert and oriented in person, place and time. Patient is blind bilaterally. Patient following commands. HEENT: Normocephalic, atraumatic, moist mucous membranes Respiratory/pulmonary: There is decreased breath sounds on bilateral lung newberry. No wheezes at this time. Currently on 2 L of oxygen through nasal cannula. Cardiovascular: Normal heart sounds S1 and S2 with no associated murmurs Abdomen: Abdomen nondistended, there is no pain to palpation in any of the abdominal quadrants, no palpable masses. Extremities: There is no significant lower extremity edema at this point. Skin: No rashes or pruritus, there is no sacral edema present at this time. Neurological: Intact cranial nerves with no focal neurologic deficits laboratory and microbiology Laboratory Tests 10/25/24 05:35 Test 10/25/24 05:35 Range/Units Serum Glucose 155 H 74-106 mg/dL Microbiology Date/Time Source Procedure Growth Status 10/20/24 17:06 Voided Urine Urine Culture - Final Complete 10/19/24 03:20 Nose MRSA Screen - Final Complete Problem List/Assessment/Plan Problem List/Assessment/Plan Assessment/plan Acute on chronic congestive systolic heart failure exacerbation-NYHA class 3 (HFrEF 30%) Acute hypoxic respiratory failure due to above Pulmonary edema -Continue Lasix IV 60 b.i.d. -albuterol/ipratropium med nebs q.4 scheduled -Echocardiogram showing an LVEF of 30% -Strict I&Os, fluid restriction -currently on 3 L of oxygen through nasal cannula -nifedipine 90 mg daily, Coreg 6.25 b.i.d. -BiPAP night time -patient will undergo hemodialysis today -chair time expected to be for October 30, 2024 Possible COPD exacerbation -Nebulized treatments -Continue IV ceftriaxone and doxycycline daily -Police Investigator recommended BiPAP home use for obstructive sleep apnea -currently on L of oxygen through nasal cannula, no wheezes at this time. Acute anemia ? Rule out GI blood loss -Hemoglobin 6.3, patient is Mandaeism, current hemoglobin is 8.2 -continue IV iron supplementation daily -monitor H&H -Stool occult test came back negative -GI recommended to decrease lab work due to anemia. NISHANT superimposed on CKD ? Requiring renal replacement therapy Possible Cardiorenal syndrome -Nephrotic range proteinuria -Refractory hyperkalemia -Anemia of chronic kidney disease -Nephrology on board, Hemodialysis today and will need one more session before leaving the hospital. -ordered hepatitis-B core antibodies and hepatitis-B surface antibodies which came back negative -Sevelamer 800 mg TID with meals Diabetes mellitus type 2-A1c 6.8 -Moderate sliding scale -Likely diabetic retinopathy -Monitor Chronic gout -Allopurinol 100 mg daily Obesity hypoventilation syndrome Obstructive sleep apnea History of asthma -nighttime BiPAP Goals of care discussed with the patient at bedside for >40min, Full code Plan discussed with Dr. Wang Plan discussed with: Patient My Orders My Orders Orders - CYRUS WALLACE Procedure Category Date Status Time Admit ADMIT 10/24/24 Transmitted 15:15 Transfer Orders XFER 7/16/25 Transmitted 15:15 Morphine Sulfate PHA 10/24/24 In Process Injection 15:15 * Computed Tomography Technologist CONS 10/25/24 Transmitted Consult Discharge DISCHARGE 10/25/24 Transmitted 12:24 Dietary Evaluation Review Comments: 1) Consider Nepro Carb Steady 240ml BID if PO intake < 50% 2) Monitor PO intake, lab values, I/O Expected Outcomes/Goals: Lab values to improve intake to meet at least 75% estimated needs fu 2-3 days Date of Service: Oct 25, 2024 Billing Provider: ANTOLIN BRUSH MD Common Visit Codes: 61199-[id number] CARE 30-74 MIN CYRUS WALLACE RESIDENT Oct 25, 2024 12:52 ANTOLIN BRUSH MD Nov 07, 2024 00:57
--- NOTE | 2024-10-25 17:12 | DVHPN2 ---
Progress Note - Dictate Date Seen: Oct 25, 2024 Has the PT tested + for MRSA If YES, has PT been informed?: No Medical Necessity Reason Pt with a Central, PICC or Fol: Yes vital signs Vital Sign Date Time Temp Pulse Resp B/P (MAP) Pulse Ox O2 Delivery O2 Flow Rate FiO2 10/25/24 14:40 91 20 100 10/25/24 13:00 98.1 129/67 (87) 98.1 10/25/24 08:00 Nasal Cannula* 2 28 Total Intake and Output 10/24/24 10/24/24 10/25/24 15:00 23:00 07:00 Intake Total 360 ml 480 ml 550 ml Output Total 125 ml 100 ml Balance 360 ml 355 ml 450 ml medications Current Medications Medications Dose Ordered Sig/Nasrin Route Start Time Stop Time Status Last Admin Dose Admin Multivit/Ca Carb/ B Cmplx/FA/Prenat 1 tab DAILY PO 10/19/24 10:00 10/25/24 12:16 1 TAB Sevelamer HCl 800 mg TIDWM PO 10/19/24 08:00 10/25/24 12:16 800 MG Allopurinol 100 mg DAILY PO 10/19/24 10:00 10/25/24 12:16 100 MG Atorvastatin Calcium 20 mg HS PO 10/19/24 22:00 10/24/24 22:00 20 MG Dextrose 50 ml UD PRN IV 10/18/24 22:15 Sodium Chloride 10 ml Q8HR IV 10/19/24 06:00 10/25/24 15:48 10 ML Ondansetron HCl 4 mg Q4HP PRN IV 10/18/24 22:15 10/24/24 16:21 4 MG Docusate Sodium 100 mg BIDPRN PRN PO 10/18/24 22:15 Acetaminophen 650 mg Q6HP PRN PO 10/18/24 22:15 10/20/24 22:03 650 MG Nitroglycerin 0.4 mg Q5MINP PRN SL 10/18/24 23:30 10/24/24 02:28 0.4 MG Morphine Sulfate 2 mg Q30M PRN IV 10/18/24 23:30 10/19/24 22:13 2 MG Nifedipine 90 mg DAILY PO 10/19/24 10:00 10/24/24 12:00 90 MG Ceftriaxone Sodium 50 ml @ 100 mls/hr DAILY@09 IV 10/19/24 09:15 10/25/24 12:16 100 MLS/HR Albuterol 2.5 mg Q4HR NEB 10/19/24 14:00 10/25/24 14:40 2.5 MG Ipratropium [place] 0.5 mg Q4HR NEB 10/19/24 14:00 10/25/24 14:40 0.5 MG Doxycycline Hyclate 100 ml @ 50 mls/hr Q12H IV 10/19/24 10:45 10/25/24 15:40 50 MLS/HR Melatonin 5 mg HS PO 10/19/24 22:00 10/23/24 21:41 5 MG Acetaminophen/ Hydrocodone Bitart 1 tab Q4HP PRN PO 10/20/24 05:00 10/24/24 09:23 1 TAB Sucralfate 1 gm QID@0600,1130,1700,2200 PO 10/20/24 11:30 10/25/24 12:16 1 GM Pantoprazole Sodium 40 mg BID IV 10/20/24 10:00 10/24/24 21:59 40 MG Furosemide 60 mg BIDD IV 10/20/24 18:00 10/24/24 18:27 60 MG Lactulose 30 ml BID PO 10/20/24 22:00 10/25/24 12:16 30 ML Diagnostic Test (Pha) 1 strip IQ4HR 10/22/24 00:00 10/25/24 16:23 1 STRIP Insulin Human Regular IQ4HR SC 10/22/24 00:00 10/25/24 15:48 3 UNITS Dextrose 50 ml UD PRN IV 10/21/24 23:00 Cancel Insulin Glargine 15 units DAILY@1000 SC 10/22/24 10:00 10/24/24 10:11 15 UNITS Hydralazine HCl 10 mg Q6HR PRN IV 10/22/24 15:00 10/24/24 23:24 10 MG Carvedilol 6.25 mg Q12HR PO 10/22/24 22:00 10/24/24 22:00 6.25 MG Morphine Sulfate 1 mg Q6HP PRN IV 10/24/24 15:15 10/25/24 00:12 1 MG laboratory and microbiology Laboratory Tests 10/25/24 05:35 Test 10/25/24 05:35 Range/Units Serum Glucose 155 H 74-106 mg/dL Assessment/Plan Impression Acute hypoxemic respiratory failure Pulmonary edema Fluid overload ESRD on HD Patient seen and examined Events Low oxygen requirements On 2 liters nasal cannula Continues to improve S/p HD Labs and imaging reviewed ABG reviewed Management Supplemental oxygen Titrate to maintain sats 90% or above Incentive spirometry Prn bipap Continue antibiotics F/u cultures Bronchodilators Monitor renal function HD as per nephrology Management deferred Monitor electrolytes Supplement as needed Recommend bipap for home use for suspected JAG DVT prophylaxis Dietary Evaluation Review Comments: 1) Consider Nepro Carb Steady 240ml BID if PO intake < 50% 2) Monitor PO intake, lab values, I/O Expected Outcomes/Goals: Lab values to improve intake to meet at least 75% estimated needs fu 2-3 days Plan discussed with: Patient ALEX SANDHU MD Oct 25, 2024 17:12
--- NOTE | 2024-10-25 17:40 | DVHPN2 ---
Progress Note - Dictate Date Seen: Oct 25, 2024 Has the PT tested + for MRSA If YES, has PT been informed?: No Medical Necessity Reason Pt with a Central, PICC or Fol: Yes Subjective no new symptoms vital signs Vital Sign Date Time Temp Pulse Resp B/P (MAP) Pulse Ox O2 Delivery O2 Flow Rate FiO2 10/25/24 14:40 91 20 100 10/25/24 13:00 98.1 129/67 (87) 98.1 10/25/24 08:00 Nasal Cannula* 2 28 Total Intake and Output 10/24/24 10/24/24 10/25/24 15:00 23:00 07:00 Intake Total 360 ml 480 ml 550 ml Output Total 125 ml 100 ml Balance 360 ml 355 ml 450 ml medications Current Medications Medications Dose Ordered Sig/Nasrin Route Start Time Stop Time Status Last Admin Dose Admin Multivit/Ca Carb/ B Cmplx/FA/Prenat 1 tab DAILY PO 10/19/24 10:00 10/25/24 12:16 1 TAB Sevelamer HCl 800 mg TIDWM PO 10/19/24 08:00 10/25/24 12:16 800 MG Allopurinol 100 mg DAILY PO 10/19/24 10:00 10/25/24 12:16 100 MG Atorvastatin Calcium 20 mg HS PO 10/19/24 22:00 10/24/24 22:00 20 MG Dextrose 50 ml UD PRN IV 10/18/24 22:15 Sodium Chloride 10 ml Q8HR IV 10/19/24 06:00 10/25/24 15:48 10 ML Ondansetron HCl 4 mg Q4HP PRN IV 10/18/24 22:15 10/24/24 16:21 4 MG Docusate Sodium 100 mg BIDPRN PRN PO 10/18/24 22:15 Acetaminophen 650 mg Q6HP PRN PO 10/18/24 22:15 10/20/24 22:03 650 MG Nitroglycerin 0.4 mg Q5MINP PRN SL 10/18/24 23:30 10/24/24 02:28 0.4 MG Morphine Sulfate 2 mg Q30M PRN IV 10/18/24 23:30 10/19/24 22:13 2 MG Nifedipine 90 mg DAILY PO 10/19/24 10:00 10/24/24 12:00 90 MG Ceftriaxone Sodium 50 ml @ 100 mls/hr DAILY@09 IV 10/19/24 09:15 10/25/24 12:16 100 MLS/HR Albuterol 2.5 mg Q4HR NEB 10/19/24 14:00 10/25/24 14:40 2.5 MG Ipratropium [place] 0.5 mg Q4HR NEB 10/19/24 14:00 10/25/24 14:40 0.5 MG Doxycycline Hyclate 100 ml @ 50 mls/hr Q12H IV 10/19/24 10:45 10/25/24 15:40 50 MLS/HR Melatonin 5 mg HS PO 10/19/24 22:00 10/23/24 21:41 5 MG Acetaminophen/ Hydrocodone Bitart 1 tab Q4HP PRN PO 10/20/24 05:00 10/24/24 09:23 1 TAB Sucralfate 1 gm QID@0600,1130,1700,2200 PO 10/20/24 11:30 10/25/24 12:16 1 GM Pantoprazole Sodium 40 mg BID IV 10/20/24 10:00 10/24/24 21:59 40 MG Furosemide 60 mg BIDD IV 10/20/24 18:00 10/24/24 18:27 60 MG Lactulose 30 ml BID PO 10/20/24 22:00 10/25/24 12:16 30 ML Diagnostic Test (Pha) 1 strip IQ4HR 10/22/24 00:00 10/25/24 16:23 1 STRIP Insulin Human Regular IQ4HR SC 10/22/24 00:00 10/25/24 15:48 3 UNITS Dextrose 50 ml UD PRN IV 10/21/24 23:00 Cancel Insulin Glargine 15 units DAILY@1000 SC 10/22/24 10:00 10/24/24 10:11 15 UNITS Hydralazine HCl 10 mg Q6HR PRN IV 10/22/24 15:00 10/24/24 23:24 10 MG Carvedilol 6.25 mg Q12HR PO 10/22/24 22:00 10/24/24 22:00 6.25 MG Morphine Sulfate 1 mg Q6HP PRN IV 10/24/24 15:15 10/25/24 00:12 1 MG objective HEENT: No evidence of JVD, no oral ulcers. Pulmonary: Crackles at the bases on auscultation bilaterally Cardiovascular S1-S2, no S3 or S4 Abdomen: Bowel sounds positive, soft no rebound tenderness Skin: No rash Neurological: Drowsy On BiPAP Extremities: 1+ lower extremity edema laboratory and microbiology Laboratory Tests 10/25/24 05:35 Test 10/25/24 05:35 Range/Units Serum Glucose 155 H 74-106 mg/dL Assessment/Plan 1. Hemodialysis dependent Acute kidney injury on Chronic kidney disease 4 2. Hyperkalemia refractory to medical management, improved with hemodialysis 3. Acute hypoxic respiratory failure, improving 4. Fluid overload improved 5. Diabetes type 2 6. Acute diastolic heart failure exacerbation 7. Anemia in a [employer] patient 8. Morbid obesity 9. Hyperphosphatemia Plan: Continue HD on TTS schedule Arrange for outpatient HD chair at [facility] Continue Coreg BID Continue Sevelamer with meals GAYLE post HD as needed. goal Hb: 10-11 g/dl Dietary Evaluation Review Comments: 1) Consider Nepro Carb Steady 240ml BID if PO intake < 50% 2) Monitor PO intake, lab values, I/O Expected Outcomes/Goals: Lab values to improve intake to meet at least 75% estimated needs fu 2-3 days Plan discussed with: Patient HEATH DILLON MD Oct 25, 2024 17:40
[2024-10-25] MEDS: EPOETIN ALFA-EPBX 4,000 UNIT/ML VIAL SC ONE (20:20)
--- NOTE | 2024-10-25 21:11 | DVHPN2 ---
Progress Note - Dictate Date Seen: Oct 25, 2024 Has the PT tested + for MRSA If YES, has PT been informed?: No Medical Necessity Reason Pt with a Central, PICC or Fol: Yes Subjective No new complaints No active GI bleeding reported H&H is stable at 8.1 Stool for occult blood was negative x2 vital signs Vital Sign Date Time Temp Pulse Resp B/P (MAP) Pulse Ox O2 Delivery O2 Flow Rate FiO2 10/25/24 19:26 88 20 100 10/25/24 19:18 Nasal Cannula 2.0 10/25/24 19:18 28 10/25/24 17:52 154/70 10/25/24 17:00 97.0 97.0 Total Intake and Output 10/24/24 10/24/24 10/25/24 15:00 23:00 07:00 Intake Total 360 ml 480 ml 550 ml Output Total 125 ml 100 ml Balance 360 ml 355 ml 450 ml medications Current Medications Medications Dose Ordered Sig/Nasrin Route Start Time Stop Time Status Last Admin Dose Admin Multivit/Ca Carb/ B Cmplx/FA/Prenat 1 tab DAILY PO 10/19/24 10:00 10/25/24 12:16 1 TAB Sevelamer HCl 800 mg TIDWM PO 10/19/24 08:00 10/25/24 17:52 800 MG Allopurinol 100 mg DAILY PO 10/19/24 10:00 10/25/24 12:16 100 MG Atorvastatin Calcium 20 mg HS PO 10/19/24 22:00 10/24/24 22:00 20 MG Dextrose 50 ml UD PRN IV 10/18/24 22:15 Sodium Chloride 10 ml Q8HR IV 10/19/24 06:00 10/25/24 15:48 10 ML Ondansetron HCl 4 mg Q4HP PRN IV 10/18/24 22:15 10/24/24 16:21 4 MG Docusate Sodium 100 mg BIDPRN PRN PO 10/18/24 22:15 Acetaminophen 650 mg Q6HP PRN PO 10/18/24 22:15 10/20/24 22:03 650 MG Nitroglycerin 0.4 mg Q5MINP PRN SL 10/18/24 23:30 10/24/24 02:28 0.4 MG Morphine Sulfate 2 mg Q30M PRN IV 10/18/24 23:30 10/19/24 22:13 2 MG Nifedipine 90 mg DAILY PO 10/19/24 10:00 10/24/24 12:00 90 MG Ceftriaxone Sodium 50 ml @ 100 mls/hr DAILY@09 IV 10/19/24 09:15 10/25/24 12:16 100 MLS/HR Albuterol 2.5 mg Q4HR NEB 10/19/24 14:00 10/25/24 19:18 2.5 MG Ipratropium [place] 0.5 mg Q4HR NEB 10/19/24 14:00 10/25/24 19:18 0.5 MG Doxycycline Hyclate 100 ml @ 50 mls/hr Q12H IV 10/19/24 10:45 10/25/24 15:40 50 MLS/HR Melatonin 5 mg HS PO 10/19/24 22:00 10/23/24 21:41 5 MG Acetaminophen/ Hydrocodone Bitart 1 tab Q4HP PRN PO 10/20/24 05:00 10/25/24 17:59 1 TAB Sucralfate 1 gm QID@0600,1130,1700,2200 PO 10/20/24 11:30 10/25/24 17:52 1 GM Pantoprazole Sodium 40 mg BID IV 10/20/24 10:00 10/24/24 21:59 40 MG Furosemide 60 mg BIDD IV 10/20/24 18:00 10/25/24 17:52 60 MG Lactulose 30 ml BID PO 10/20/24 22:00 10/25/24 12:16 30 ML Diagnostic Test (Pha) 1 strip IQ4HR 10/22/24 00:00 10/25/24 20:05 1 STRIP Insulin Human Regular IQ4HR SC 10/22/24 00:00 10/25/24 20:05 3 UNITS Dextrose 50 ml UD PRN IV 10/21/24 23:00 Cancel Insulin Glargine 15 units DAILY@1000 SC 10/22/24 10:00 10/24/24 10:11 15 UNITS Hydralazine HCl 10 mg Q6HR PRN IV 10/22/24 15:00 10/24/24 23:24 10 MG Carvedilol 6.25 mg Q12HR PO 10/22/24 22:00 10/24/24 22:00 6.25 MG Morphine Sulfate 1 mg Q6HP PRN IV 10/24/24 15:15 10/25/24 00:12 1 MG objective HEENT: No evidence of JVD, no oral ulcers. Pulmonary: Crackles at the bases on auscultation bilaterally Cardiovascular S1-S2, no S3 or S4 Abdomen: Bowel sounds positive, soft no rebound tenderness Skin: No rash, obese Neurological: Drowsy On BiPAP Extremities: 1+ lower extremity edema Kaden catheter in place. No evidence of bleeding laboratory and microbiology Laboratory Tests 10/25/24 05:35 Test 10/25/24 05:35 Range/Units Serum Glucose 155 H 74-106 mg/dL Problems(with codes): (1) Metabolic encephalopathy (2) End stage renal disease (3) Congestive heart failure (4) Morbid obesity (5) Hyperkalemia (6) Generalized weakness (7) Anemia of chronic disease Prognosis Plan Advance diet as tolerated Protonix 40 mg p.o. daily Patient has a likely anemia of chronic disease Patient is going to require on doing dialysis Patient has been assigned a chair time and discharge planning is in progress Dietary Evaluation Review Comments: 1) Consider Nepro Carb Steady 240ml BID if PO intake < 50% 2) Monitor PO intake, lab values, I/O Expected Outcomes/Goals: Lab values to improve intake to meet at least 75% estimated needs fu 2-3 days Plan discussed with: Patient KELLY PEREZ MD Oct 25, 2024 21:10
[2024-10-26] VITALS (20 sets, daily range): BP systolic 131–154; BP diastolic 59–84; PULSE 68–89; RESP 16–21; TEMP 97.5–98.3; O2SAT 98–100
--- NOTE | 2024-10-26 06:48 | DVHPN2 ---
Progress Note - Dictate Date Seen: Oct 26, 2024 Has the PT tested + for MRSA If YES, has PT been informed?: No Medical Necessity Reason Pt with a Central, PICC or Fol: Yes Subjective no new symptoms vital signs Vital Sign Date Time Temp Pulse Resp B/P (MAP) Pulse Ox O2 Delivery O2 Flow Rate FiO2 10/26/24 06:01 68 18 100 10/26/24 05:55 Nasal Cannula 3.0 10/26/24 05:55 32 10/26/24 05:46 167/92 10/26/24 04:58 97.5 97.5 Total Intake and Output 10/25/24 10/25/24 10/26/24 15:00 23:00 07:00 Intake Total 50 ml 600 ml 250 ml Output Total 300 ml 25 ml Balance 50 ml 300 ml 225 ml medications Current Medications Medications Dose Ordered Sig/Nasrin Route Start Time Stop Time Status Last Admin Dose Admin Multivit/Ca Carb/ B Cmplx/FA/Prenat 1 tab DAILY PO 10/19/24 10:00 10/25/24 12:16 1 TAB Sevelamer HCl 800 mg TIDWM PO 10/19/24 08:00 10/25/24 17:52 800 MG Allopurinol 100 mg DAILY PO 10/19/24 10:00 10/25/24 12:16 100 MG Atorvastatin Calcium 20 mg HS PO 10/19/24 22:00 10/25/24 21:46 20 MG Dextrose 50 ml UD PRN IV 10/18/24 22:15 Sodium Chloride 10 ml Q8HR IV 10/19/24 06:00 10/26/24 05:50 10 ML Ondansetron HCl 4 mg Q4HP PRN IV 10/18/24 22:15 10/24/24 16:21 4 MG Acetaminophen 650 mg Q6HP PRN PO 10/18/24 22:15 10/20/24 22:03 650 MG Nitroglycerin 0.4 mg Q5MINP PRN SL 10/18/24 23:30 10/24/24 02:28 0.4 MG Morphine Sulfate 2 mg Q30M PRN IV 10/18/24 23:30 10/19/24 22:13 2 MG Nifedipine 90 mg DAILY PO 10/19/24 10:00 10/24/24 12:00 90 MG Ceftriaxone Sodium 50 ml @ 100 mls/hr DAILY@09 IV 10/19/24 09:15 10/25/24 12:16 100 MLS/HR Albuterol 2.5 mg Q4HR NEB 10/19/24 14:00 10/26/24 05:55 2.5 MG Ipratropium [place] 0.5 mg Q4HR NEB 10/19/24 14:00 10/26/24 05:55 0.5 MG Doxycycline Hyclate 100 ml @ 50 mls/hr Q12H IV 10/19/24 10:45 10/25/24 21:47 50 MLS/HR Melatonin 5 mg HS PO 10/19/24 22:00 10/25/24 21:46 5 MG Acetaminophen/ Hydrocodone Bitart 1 tab Q4HP PRN PO 10/20/24 05:00 10/26/24 02:08 1 TAB Sucralfate 1 gm QID@0600,1130,1700,2200 PO 10/20/24 11:30 10/26/24 06:20 1 GM Pantoprazole Sodium 40 mg BID IV 10/20/24 10:00 10/25/24 21:46 40 MG Furosemide 60 mg BIDD IV 10/20/24 18:00 10/26/24 05:45 60 MG Lactulose 30 ml BID PO 10/20/24 22:00 10/25/24 12:16 30 ML Diagnostic Test (Pha) 1 strip IQ4HR 10/22/24 00:00 10/26/24 04:08 1 STRIP Insulin Human Regular IQ4HR SC 10/22/24 00:00 10/26/24 04:12 2 UNITS Dextrose 50 ml UD PRN IV 10/21/24 23:00 Cancel Insulin Glargine 15 units DAILY@1000 SC 10/22/24 10:00 10/24/24 10:11 15 UNITS Hydralazine HCl 10 mg Q6HR PRN IV 10/22/24 15:00 10/26/24 05:46 10 MG Carvedilol 6.25 mg Q12HR PO 10/22/24 22:00 10/25/24 21:46 6.25 MG Morphine Sulfate 1 mg Q6HP PRN IV 10/24/24 15:15 10/26/24 04:23 1 MG Docusate Sodium 100 mg BID PO 10/26/24 06:15 Ferrous Sulfate 325 mg BIDWM PO 10/26/24 08:00 objective HEENT: No evidence of JVD, no oral ulcers. Pulmonary: Crackles at the bases on auscultation bilaterally Cardiovascular S1-S2, no S3 or S4 Abdomen: Bowel sounds positive, soft no rebound tenderness Skin: No rash Neurological: Drowsy On BiPAP Extremities: 1+ lower extremity edema laboratory and microbiology Laboratory Tests 10/25/24 05:35 Test 10/25/24 05:35 Range/Units Serum Glucose 155 H 74-106 mg/dL Assessment/Plan 1. Hemodialysis dependent Acute kidney injury on Chronic kidney disease 4 2. Hyperkalemia refractory to medical management, improved with hemodialysis 3. Acute hypoxic respiratory failure, improving 4. Fluid overload improved 5. Diabetes type 2 6. Acute diastolic heart failure exacerbation 7. Anemia in a [employer] patient 8. Morbid obesity 9. Hyperphosphatemia Plan: s/p HD Next HD on Tuesday Continue HD on TTS schedule Arrange for outpatient HD chair at [facility] Continue Coreg BID Continue Sevelamer with meals GAYLE post HD as needed. goal Hb: 10-11 g/dl Dietary Evaluation Review Comments: 1) Consider Nepro Carb Steady 240ml BID if PO intake < 50% 2) Monitor PO intake, lab values, I/O Expected Outcomes/Goals: Lab values to improve intake to meet at least 75% estimated needs fu 2-3 days Plan discussed with: Patient, Daughter HEATH DILLON MD Oct 26, 2024 06:48
[2024-10-26] MEDS: DOCUSATE SOD 100 MG CAP PO SCH (06:50)
[2024-10-26] MEDS: FERROUS SULFATE 325mg EC TAB PO SCH (09:35)
--- NOTE | 2024-10-26 10:23 | DVHPN2 ---
Progress Note - Dictate Date Seen: Oct 26, 2024 Has the PT tested + for MRSA If YES, has PT been informed?: No Medical Necessity Reason Pt with a Central, PICC or Fol: Yes vital signs Vital Sign Date Time Temp Pulse Resp B/P (MAP) Pulse Ox O2 Delivery O2 Flow Rate FiO2 10/26/24 09:35 77 148/66 10/26/24 06:01 18 100 10/26/24 05:55 Nasal Cannula 3.0 10/26/24 05:55 32 10/26/24 04:58 97.5 97.5 Total Intake and Output 10/25/24 10/25/24 10/26/24 15:00 23:00 07:00 Intake Total 50 ml 600 ml 250 ml Output Total 300 ml 25 ml Balance 50 ml 300 ml 225 ml medications Current Medications Medications Dose Ordered Sig/Nasrin Route Start Time Stop Time Status Last Admin Dose Admin Multivit/Ca Carb/ B Cmplx/FA/Prenat 1 tab DAILY PO 10/19/24 10:00 10/26/24 09:33 1 TAB Sevelamer HCl 800 mg TIDWM PO 10/19/24 08:00 10/26/24 09:33 800 MG Allopurinol 100 mg DAILY PO 10/19/24 10:00 10/26/24 09:35 100 MG Atorvastatin Calcium 20 mg HS PO 10/19/24 22:00 10/25/24 21:46 20 MG Dextrose 50 ml UD PRN IV 10/18/24 22:15 Sodium Chloride 10 ml Q8HR IV 10/19/24 06:00 10/26/24 05:50 10 ML Ondansetron HCl 4 mg Q4HP PRN IV 10/18/24 22:15 10/24/24 16:21 4 MG Acetaminophen 650 mg Q6HP PRN PO 10/18/24 22:15 10/20/24 22:03 650 MG Nitroglycerin 0.4 mg Q5MINP PRN SL 10/18/24 23:30 10/24/24 02:28 0.4 MG Morphine Sulfate 2 mg Q30M PRN IV 10/18/24 23:30 10/19/24 22:13 2 MG Nifedipine 90 mg DAILY PO 10/19/24 10:00 10/26/24 09:34 90 MG Ceftriaxone Sodium 50 ml @ 100 mls/hr DAILY@09 IV 10/19/24 09:15 10/26/24 09:37 100 MLS/HR Albuterol 2.5 mg Q4HR NEB 10/19/24 14:00 10/26/24 05:55 2.5 MG Ipratropium [place] 0.5 mg Q4HR NEB 10/19/24 14:00 10/26/24 05:55 0.5 MG Doxycycline Hyclate 100 ml @ 50 mls/hr Q12H IV 10/19/24 10:45 10/25/24 21:47 50 MLS/HR Melatonin 5 mg HS PO 10/19/24 22:00 10/25/24 21:46 5 MG Acetaminophen/ Hydrocodone Bitart 1 tab Q4HP PRN PO 10/20/24 05:00 10/26/24 02:08 1 TAB Sucralfate 1 gm QID@0600,1130,1700,2200 PO 10/20/24 11:30 10/26/24 06:20 1 GM Pantoprazole Sodium 40 mg BID IV 10/20/24 10:00 10/26/24 09:33 40 MG Furosemide 60 mg BIDD IV 10/20/24 18:00 10/26/24 05:45 60 MG Lactulose 30 ml BID PO 10/20/24 22:00 10/26/24 09:33 30 ML Diagnostic Test (Pha) 1 strip IQ4HR 10/22/24 00:00 10/26/24 08:00 1 STRIP Insulin Human Regular IQ4HR SC 10/22/24 00:00 10/26/24 09:31 2 UNITS Dextrose 50 ml UD PRN IV 10/21/24 23:00 Cancel Insulin Glargine 15 units DAILY@1000 HI 10/22/24 10:00 10/26/24 09:32 15 UNITS Hydralazine HCl 10 mg Q6HR PRN IV 10/22/24 15:00 10/26/24 05:46 10 MG Carvedilol 6.25 mg Q12HR PO 10/22/24 22:00 10/26/24 09:35 6.25 MG Morphine Sulfate 1 mg Q6HP PRN IV 10/24/24 15:15 10/26/24 04:23 1 MG Docusate Sodium 100 mg BID PO 7/18/25 06:15 10/26/24 06:50 100 MG Ferrous Sulfate 325 mg BIDWM PO 10/26/24 08:00 10/26/24 09:35 325 MG laboratory and microbiology Laboratory Tests 10/25/24 05:35 Test 10/25/24 05:35 Range/Units Serum Glucose 155 H 74-106 mg/dL Assessment/Plan Impression Acute hypoxemic respiratory failure Pulmonary edema Fluid overload ESRD on HD Patient seen and examined Events Low oxygen requirements On 2 liters nasal cannula Continues to improve S/p HD Labs and imaging reviewed ABG reviewed Management Supplemental oxygen Titrate to maintain sats 90% or above Incentive spirometry Prn bipap Continue antibiotics F/u cultures Bronchodilators Monitor renal function HD as per nephrology Management deferred Monitor electrolytes Supplement as needed Recommend bipap for home use for suspected JAG DVT prophylaxis Dietary Evaluation Review Comments: 1) Consider Nepro Carb Steady 240ml BID if PO intake < 50% 2) Monitor PO intake, lab values, I/O Expected Outcomes/Goals: Lab values to improve intake to meet at least 75% estimated needs fu 2-3 days Plan discussed with: Patient ALEX SANDHU MD Oct 26, 2024 10:23
--- NOTE | 2024-10-26 14:10 | DVHPNRES ---
Progress Note Date Seen: Oct 26, 2024 Resident Creating Document: CYRUS WALLACE RESIDENT Has the PT tested + for MRSA If YES, has PT been informed?: No Medical Necessity Reason Pt with a Central, PICC or Fol: Yes Subjective Review of Systems This is a 79-year-old female with past medical history of diabetes mellitus type 2, hypertension, systolic congestive heart failure-EF 30%,, gout, sleep apnea, CKD, arthritis, chronic respiratory failure on 3 L oxygen, presents to the ER with a chief complaint of shortness of breaths and chest pain, also reported abdominal pain. Per chart review, son reported that her symptoms worsened 2 days back. The patient was previously hospitalized for acute hypoxic respiratory failure likely due to the same features, why she is hospitalized this time as well. Patient in is currently volume overload due to CHF exacerbation as well as COPD exacerbation. We will admit the patient for further assessment and management of previous mentioned conditions, as well as end-stage renal disease requiring hemodialysis. Patient seen and examined at bedside. Patient is currently on 2 L of oxygen through nasal cannula with no major respiratory distress at this time. There is no peripheral edema and patient has no major concerns at this time. We started the patient on sequential compression devices. Social service also work on chair time for outpatient hemodialysis which will be initiated on October 30, 2024. Patient will be scheduled for hemodialysis tomorrow lastly and after dialysis patient will be discharged home with home health or medical management. Patient and family are aware of the plan and understand and agree. ROS Constitutional: Denies weight loss, fever and chills. HEENT: Denies changes in vision and hearing. Respiratory: Reports mild shortness of breath but denies cough. Cardiovascular: Denies chest discomfort or palpitations GI: Denies abdominal pain, nausea, vomiting and diarrhea. : Denies dysuria and urinary frequency. Musculoskeletal: Denies myalgias and joint pain Skin: Denies rash and pruritus. Neurological: Denies dizziness, headache, vision or hearing problems Objective vital signs Vital Sign Date Time Temp Pulse Resp B/P (MAP) Pulse Ox O2 Delivery O2 Flow Rate FiO2 10/26/24 10:45 76 18 100 10/26/24 10:39 Nasal Cannula 3.0 10/26/24 10:39 32 10/26/24 10:35 98.3 148/66 (93) 98.3 Total Intake and Output 10/25/24 10/25/24 10/26/24 15:00 23:00 07:00 Intake Total 50 ml 600 ml 250 ml Output Total 300 ml 25 ml Balance 50 ml 300 ml 225 ml medications Current Medications Medications Dose Ordered Sig/Nasrin Route Start Time Stop Time Status Last Admin Dose Admin Multivit/Ca Carb/ B Cmplx/FA/Prenat 1 tab DAILY PO 10/19/24 10:00 10/26/24 09:33 1 TAB Sevelamer HCl 800 mg TIDWM PO 10/19/24 08:00 10/26/24 11:59 800 MG Allopurinol 100 mg DAILY PO 10/19/24 10:00 10/26/24 09:35 100 MG Atorvastatin Calcium 20 mg HS PO 10/19/24 22:00 10/25/24 21:46 20 MG Dextrose 50 ml UD PRN IV 10/18/24 22:15 Sodium Chloride 10 ml Q8HR IV 10/19/24 06:00 10/26/24 05:50 10 ML Ondansetron HCl 4 mg Q4HP PRN IV 10/18/24 22:15 10/24/24 16:21 4 MG Acetaminophen 650 mg Q6HP PRN PO 10/18/24 22:15 10/20/24 22:03 650 MG Nitroglycerin 0.4 mg Q5MINP PRN SL 10/18/24 23:30 10/24/24 02:28 0.4 MG Morphine Sulfate 2 mg Q30M PRN IV 10/18/24 23:30 10/19/24 22:13 2 MG Nifedipine 90 mg DAILY PO 10/19/24 10:00 10/26/24 09:34 90 MG Ceftriaxone Sodium 50 ml @ 100 mls/hr DAILY@09 IV 10/19/24 09:15 10/26/24 09:37 100 MLS/HR Albuterol 2.5 mg Q4HR NEB 10/19/24 14:00 10/26/24 10:38 2.5 MG Ipratropium [place] 0.5 mg Q4HR NEB 10/19/24 14:00 10/26/24 10:39 0.5 MG Doxycycline Hyclate 100 ml @ 50 mls/hr Q12H IV 10/19/24 10:45 10/26/24 12:00 50 MLS/HR Melatonin 5 mg HS PO 10/19/24 22:00 10/25/24 21:46 5 MG Acetaminophen/ Hydrocodone Bitart 1 tab Q4HP PRN PO 10/20/24 05:00 10/26/24 02:08 1 TAB Sucralfate 1 gm QID@0600,1130,1700,2200 PO 10/20/24 11:30 10/26/24 11:59 1 GM Pantoprazole Sodium 40 mg BID IV 10/20/24 10:00 10/26/24 09:33 40 MG Furosemide 60 mg BIDD IV 10/20/24 18:00 10/26/24 05:45 60 MG Lactulose 30 ml BID PO 10/20/24 22:00 10/26/24 09:33 30 ML Diagnostic Test (Pha) 1 strip IQ4HR 10/22/24 00:00 10/26/24 12:00 1 STRIP Insulin Human Regular IQ4HR SC 10/22/24 00:00 10/26/24 12:07 3 UNITS Dextrose 50 ml UD PRN IV 10/21/24 23:00 Cancel Insulin Glargine 15 units DAILY@1000 [place] 10/22/24 10:00 10/26/24 09:32 15 UNITS Hydralazine HCl 10 mg Q6HR PRN IV 10/22/24 15:00 10/26/24 05:46 10 MG Carvedilol 6.25 mg Q12HR PO 10/22/24 22:00 10/26/24 09:35 6.25 MG Morphine Sulfate 1 mg Q6HP PRN IV 10/24/24 15:15 10/26/24 04:23 1 MG Docusate Sodium 100 mg BID PO 10/26/24 06:15 10/26/24 06:50 100 MG Ferrous Sulfate 325 mg BIDWM PO 10/26/24 08:00 10/26/24 09:35 325 MG Examination Physical Examination General: Patient alert and oriented in person, place and time. Patient is blind bilaterally. Patient following commands. HEENT: Normocephalic, atraumatic, moist mucous membranes Respiratory/pulmonary: There is decreased breath sounds on bilateral lung newberry. No wheezes at this time. Currently on 2 L of oxygen through nasal cannula. Cardiovascular: Normal heart sounds S1 and S2 with no associated murmurs Abdomen: Abdomen nondistended, there is no pain to palpation in any of the abdominal quadrants, no palpable masses. Extremities: There is no significant lower extremity edema at this point. Skin: No rashes or pruritus, there is no sacral edema present at this time. Neurological: Intact cranial nerves with no focal neurologic deficits laboratory and microbiology Laboratory Tests 10/25/24 05:35 Test 10/25/24 05:35 Range/Units Serum Glucose 155 H 74-106 mg/dL Microbiology Date/Time Source Procedure Growth Status 10/20/24 17:06 Voided Urine Urine Culture - Final Complete 10/19/24 03:20 Nose MRSA Screen - Final Complete Problem List/Assessment/Plan Problem List/Assessment/Plan Assessment/plan Acute on chronic congestive systolic heart failure exacerbation-NYHA class 3 (HFrEF 30%) Acute hypoxic respiratory failure due to above Pulmonary edema -Continue Lasix IV 60 b.i.d. -albuterol/ipratropium med nebs q.4 scheduled -Echocardiogram showing an LVEF of 30% -Strict I&Os, fluid restriction -currently on 3 L of oxygen through nasal cannula -nifedipine 90 mg daily, Coreg 6.25 b.i.d. -BiPAP night time -patient will undergo hemodialysis tomorrow and will be discharged afterwards -chair time expected to be for October 30, 2024 Possible COPD exacerbation -Nebulized treatments -Continue IV ceftriaxone and doxycycline daily -[employer] recommended BiPAP home use for obstructive sleep apnea -currently on L of oxygen through nasal cannula, no wheezes at this time. Acute anemia ? Rule out GI blood loss -Hemoglobin 6.3, patient is Jehovah's witness, current hemoglobin is 8.1 -continue IV iron supplementation daily -monitor H&H -Stool occult test came back negative -GI recommended to decrease lab work due to anemia. NISHANT superimposed on CKD ? Requiring renal replacement therapy Possible Cardiorenal syndrome -Nephrotic range proteinuria -Refractory hyperkalemia -Anemia of chronic kidney disease -Nephrology on board, Hemodialysis today and will need one more session before leaving the hospital. (tomorrow) -ordered hepatitis-B core antibodies and hepatitis-B surface antibodies which came back negative -Sevelamer 800 mg TID with meals Diabetes mellitus type 2-A1c 6.8 -Moderate sliding scale -Likely diabetic retinopathy -Monitor Chronic gout -Allopurinol 100 mg daily Obesity hypoventilation syndrome Obstructive sleep apnea History of asthma -nighttime BiPAP Goals of care discussed with the patient at bedside for >40min, Full code Plan discussed with Dr. Wang Plan discussed with: Patient My Orders My Orders Orders - CYRUS WALLACE Procedure Category Date Status Time Docusate Sodium PHA 10/26/24 In Process Capsule (Colace 06:15 Ferrous Sulfate Tablet PHA 10/26/24 In Process 08:00 Sequential STAR 10/26/24 In Process Compression Device 08:00 Dietary Evaluation Review Comments: 1) Consider Nepro Carb Steady 240ml BID if PO intake < 50% 2) Monitor PO intake, lab values, I/O Expected Outcomes/Goals: Lab values to improve intake to meet at least 75% estimated needs fu 2-3 days Date of Service: Oct 26, 2024 Billing Provider: ANTOLIN BRUSH MD Common Visit Codes: [id number] INP/OBS CARE(HIGH) CYRUS WALLACE Oct 26, 2024 14:10 ANTOLIN BRUSH MD Nov 07, 2024 01:03
--- NOTE | 2024-10-26 16:03 | DVHPN2 ---
Progress Note - Dictate Date Seen: Oct 26, 2024 Has the PT tested + for MRSA If YES, has PT been informed?: No Medical Necessity Reason Pt with a Central, PICC or Fol: Yes Subjective No new complaints No active GI bleeding reported H&H is stable at 8.1 Stool for occult blood was negative x2 Downgraded to the floor, resting and sleeping comfortably vital signs Vital Sign Date Time Temp Pulse Resp B/P (MAP) Pulse Ox O2 Delivery O2 Flow Rate FiO2 10/26/24 15:08 80 19 100 10/26/24 15:02 Nasal Cannula* 3 32 10/26/24 13:00 98.1 140/63 (88) 98.1 Total Intake and Output 10/25/24 10/25/24 10/26/24 15:00 23:00 07:00 Intake Total 50 ml 600 ml 250 ml Output Total 300 ml 25 ml Balance 50 ml 300 ml 225 ml medications Current Medications Medications Dose Ordered Sig/Nasrin Route Start Time Stop Time Status Last Admin Dose Admin Multivit/Ca Carb/ B Cmplx/FA/Prenat 1 tab DAILY PO 10/19/24 10:00 10/26/24 09:33 1 TAB Sevelamer HCl 800 mg TIDWM PO 10/19/24 08:00 10/26/24 11:59 800 MG Allopurinol 100 mg DAILY PO 10/19/24 10:00 10/26/24 09:35 100 MG Atorvastatin Calcium 20 mg HS PO 10/19/24 22:00 10/25/24 21:46 20 MG Dextrose 50 ml UD PRN IV 10/18/24 22:15 Sodium Chloride 10 ml Q8HR IV 10/19/24 06:00 10/26/24 14:00 10 ML Ondansetron HCl 4 mg Q4HP PRN IV 10/18/24 22:15 10/24/24 16:21 4 MG Acetaminophen 650 mg Q6HP PRN PO 10/18/24 22:15 10/20/24 22:03 650 MG Nitroglycerin 0.4 mg Q5MINP PRN SL 10/18/24 23:30 10/24/24 02:28 0.4 MG Morphine Sulfate 2 mg Q30M PRN IV 10/18/24 23:30 10/19/24 22:13 2 MG Nifedipine 90 mg DAILY PO 10/19/24 10:00 10/26/24 09:34 90 MG Ceftriaxone Sodium 50 ml @ 100 mls/hr DAILY@09 IV 10/19/24 09:15 10/26/24 09:37 100 MLS/HR Albuterol 2.5 mg Q4HR NEB 10/19/24 14:00 10/26/24 15:02 2.5 MG Ipratropium [place] 0.5 mg Q4HR NEB 10/19/24 14:00 10/26/24 15:02 0.5 MG Doxycycline Hyclate 100 ml @ 50 mls/hr Q12H IV 10/19/24 10:45 10/26/24 12:00 50 MLS/HR Melatonin 5 mg HS PO 10/19/24 22:00 10/25/24 21:46 5 MG Acetaminophen/ Hydrocodone Bitart 1 tab Q4HP PRN PO 10/20/24 05:00 10/26/24 14:24 1 TAB Sucralfate 1 gm QID@0600,1130,1700,2200 PO 10/20/24 11:30 10/26/24 11:59 1 GM Pantoprazole Sodium 40 mg BID IV 10/20/24 10:00 10/26/24 09:33 40 MG Furosemide 60 mg BIDD IV 10/20/24 18:00 10/26/24 05:45 60 MG Lactulose 30 ml BID PO 10/20/24 22:00 10/26/24 09:33 30 ML Diagnostic Test (Pha) 1 strip IQ4HR 10/22/24 00:00 10/26/24 12:00 1 STRIP Insulin Human Regular IQ4HR SC 10/22/24 00:00 10/26/24 12:07 3 UNITS Dextrose 50 ml UD PRN IV 10/21/24 23:00 Cancel Insulin Glargine 15 units DAILY@1000 SC 10/22/24 10:00 10/26/24 09:32 15 UNITS Hydralazine HCl 10 mg Q6HR PRN IV 10/22/24 15:00 10/26/24 05:46 10 MG Carvedilol 6.25 mg Q12HR PO 10/22/24 22:00 10/26/24 09:35 6.25 MG Morphine Sulfate 1 mg Q6HP PRN IV 10/24/24 15:15 10/26/24 04:23 1 MG Docusate Sodium 100 mg BID PO 10/26/24 06:15 10/26/24 06:50 100 MG Ferrous Sulfate 325 mg BIDWM PO 10/26/24 08:00 10/26/24 09:35 325 MG objective HEENT: No evidence of JVD, no oral ulcers. Pulmonary: Crackles at the bases on auscultation bilaterally Cardiovascular S1-S2, no S3 or S4 Abdomen: Bowel sounds positive, soft no rebound tenderness Skin: No rash, obese Neurological: Drowsy On BiPAP Extremities: 1+ lower extremity edema Kaden catheter in place. No evidence of bleeding laboratory and microbiology Laboratory Tests 10/25/24 05:35 Test 10/25/24 05:35 Range/Units Serum Glucose 155 H 74-106 mg/dL Problems(with codes): (1) Metabolic encephalopathy (2) End stage renal disease (3) Congestive heart failure (4) Morbid obesity (5) Hyperkalemia (6) Generalized weakness (7) Anemia of chronic disease Prognosis Plan Advance diet as tolerated Protonix 40 mg p.o. daily Patient has a likely anemia of chronic disease Patient is going to require on doing dialysis Patient has been assigned a chair time and discharge planning is in progress Dietary Evaluation Review Comments: 1) Consider Nepro Carb Steady 240ml BID if PO intake < 50% 2) Monitor PO intake, lab values, I/O Expected Outcomes/Goals: Lab values to improve intake to meet at least 75% estimated needs fu 2-3 days Plan discussed with: Patient KELLY PEREZ MD Oct 26, 2024 16:03
[2024-10-27] VITALS (19 sets, daily range): BP systolic 131–149; BP diastolic 61–78; PULSE 74–84; RESP 15–21; TEMP 97.4–98; O2SAT 96–100
[2024-10-27] MEDS ORDERED: SODIUM CHL 0.9% 1000 ML BAG XX ONE (07:00)
[2024-10-27 07:10] LABS: Hematocrit 27.0 % (36.0-46.0); Hemoglobin 8.7 g/dL (12.2-16.2); Mean Corpuscular Hemoglobin 33.0 pg (28.0-32.0); Mean Corpuscular Volume 102.8 fL (80.0-100.0); Nucleated Red Blood Cells % 0.6 %
[2024-10-27 07:29] LABS: Chloride 98 mmol/L (98-107); Potassium 3.8 mmol/L (3.5-5.1)
[2024-10-27 07:30] LABS: Anion Gap 10 (5-15); Calcium 9.8 mg/dL (8.7-10.4); Carbon Dioxide 27 mmol/L (20-31)
[2024-10-27 07:35] LABS: BUN/Creatinine Ratio 11.4 (10.0-20.0)
[2024-10-27 07:37] LABS: Blood Urea Nitrogen 45 mg/dL (9-23); Glucose 141 mg/dL (74-106); Sodium 135 mmol/L (136-145)
--- NOTE | 2024-10-27 13:41 | DVHPN2 ---
Progress Note - Dictate Date Seen: Oct 27, 2024 Has the PT tested + for MRSA If YES, has PT been informed?: No Medical Necessity Reason Pt with a Central, PICC or Fol: Yes Subjective no new symptoms vital signs Vital Sign Date Time Temp Pulse Resp B/P (MAP) Pulse Ox O2 Delivery O2 Flow Rate FiO2 10/27/24 11:18 77 149/70 10/27/24 10:00 18 100 10/27/24 09:50 Nasal Cannula* 3 32 10/27/24 09:00 97.4 97.4 Total Intake and Output 10/26/24 10/26/24 10/27/24 15:00 23:00 07:00 Intake Total 150 ml 300 ml 775 ml Output Total 200 ml 470 ml Balance 150 ml 100 ml 305 ml medications Current Medications Medications Dose Ordered Sig/Nasrin Route Start Time Stop Time Status Last Admin Dose Admin Multivit/Ca Carb/ B Cmplx/FA/Prenat 1 tab DAILY PO 10/19/24 10:00 10/27/24 09:43 1 TAB Sevelamer HCl 800 mg TIDWM PO 10/19/24 08:00 10/27/24 12:20 800 MG Allopurinol 100 mg DAILY PO 10/19/24 10:00 10/27/24 09:43 100 MG Atorvastatin Calcium 20 mg HS PO 10/19/24 22:00 10/26/24 21:13 20 MG Dextrose 50 ml UD PRN IV 10/18/24 22:15 Sodium Chloride 10 ml Q8HR IV 10/19/24 06:00 10/27/24 06:18 10 ML Ondansetron HCl 4 mg Q4HP PRN IV 10/18/24 22:15 10/24/24 16:21 4 MG Acetaminophen 650 mg Q6HP PRN PO 10/18/24 22:15 10/20/24 22:03 650 MG Nitroglycerin 0.4 mg Q5MINP PRN SL 10/18/24 23:30 10/24/24 02:28 0.4 MG Morphine Sulfate 2 mg Q30M PRN IV 10/18/24 23:30 10/27/24 08:20 2 MG Nifedipine 90 mg DAILY PO 10/19/24 10:00 10/27/24 11:18 90 MG Ceftriaxone Sodium 50 ml @ 100 mls/hr DAILY@09 IV 10/19/24 09:15 10/27/24 09:42 100 MLS/HR Albuterol 2.5 mg Q4HR NEB 10/19/24 14:00 10/27/24 09:50 2.5 MG Ipratropium [place] 0.5 mg Q4HR NEB 10/19/24 14:00 10/27/24 09:50 0.5 MG Doxycycline Hyclate 100 ml @ 50 mls/hr Q12H IV 10/19/24 10:45 10/27/24 09:44 50 MLS/HR Melatonin 5 mg HS PO 10/19/24 22:00 10/26/24 21:13 5 MG Acetaminophen/ Hydrocodone Bitart 1 tab Q4HP PRN PO 10/20/24 05:00 10/27/24 11:19 1 TAB Sucralfate 1 gm QID@0600,1130,1700,2200 PO 10/20/24 11:30 10/27/24 12:20 1 GM Pantoprazole Sodium 40 mg BID IV 10/20/24 10:00 10/27/24 09:42 40 MG Furosemide 60 mg BIDD IV 10/20/24 18:00 10/27/24 05:37 60 MG Lactulose 30 ml BID PO 10/20/24 22:00 10/27/24 09:42 30 ML Diagnostic Test (Pha) 1 strip IQ4HR 10/22/24 00:00 10/27/24 11:59 1 STRIP Insulin Human Regular IQ4HR SC 10/22/24 00:00 10/27/24 04:41 3 UNITS Dextrose 50 ml UD PRN IV 10/21/24 23:00 Cancel Insulin Glargine 15 units DAILY@1000 [place] 10/22/24 10:00 10/27/24 10:16 15 UNITS Hydralazine HCl 10 mg Q6HR PRN IV 10/22/24 15:00 10/26/24 05:46 10 MG Carvedilol 6.25 mg Q12HR PO 10/22/24 22:00 10/27/24 11:18 6.25 MG Morphine Sulfate 1 mg Q6HP PRN IV 10/24/24 15:15 10/27/24 00:49 1 MG Docusate Sodium 100 mg BID PO 10/26/24 06:15 10/27/24 09:43 100 MG Ferrous Sulfate 325 mg BIDWM PO 10/26/24 08:00 10/27/24 09:43 325 MG objective HEENT: No evidence of JVD, no oral ulcers. Pulmonary: Crackles at the bases on auscultation bilaterally Cardiovascular S1-S2, no S3 or S4 Abdomen: Bowel sounds positive, soft no rebound tenderness Skin: No rash Neurological: Drowsy On BiPAP Extremities: 1+ lower extremity edema laboratory and microbiology Laboratory Tests 10/27/24 06:02 Test 10/27/24 06:02 Range/Units Serum Glucose 141 H 74-106 mg/dL Assessment/Plan 1. Hemodialysis dependent Acute kidney injury on Chronic kidney disease 4 2. Hyperkalemia refractory to medical management, improved with hemodialysis 3. Acute hypoxic respiratory failure, improving 4. Fluid overload improved 5. Diabetes type 2 6. Acute diastolic heart failure exacerbation 7. Anemia in a [employer] patient 8. Morbid obesity 9. Hyperphosphatemia Plan: Scheduled for HD for today - last HD Continue HD on TTS schedule Arrange for outpatient HD chair at [facility] Continue Coreg BID Continue Sevelamer with meals GAYLE post HD as needed. goal Hb: 10-11 g/dl Dietary Evaluation Review Comments: 1) Consider Nepro Carb Steady 240ml BID if PO intake < 50% 2) Monitor PO intake, lab values, I/O Expected Outcomes/Goals: Lab values to improve intake to meet at least 75% estimated needs fu 2-3 days Plan discussed with: Patient HEATH DILLON MD Oct 27, 2024 13:41
--- NOTE | 2024-10-27 14:17 | DVHPNRES ---
Progress Note Date Seen: Oct 27, 2024 Resident Creating Document: MELA LANDIS RESIDENT Has the PT tested + for MRSA If YES, has PT been informed?: No Medical Necessity Reason Pt with a Central, PICC or Fol: Yes Subjective Review of Systems Patient seen and examined at the bedside. Patient is in distress due to pain in her hands and legs. Patient is currently on 2 L of oxygen through nasal cannula with no major respiratory distress at this time. Initial plan was to discharge home today after hemodialysis but due to patient's clinical status and given lab , repeat labs tomorrow, if stable we will discharge tomorrow. Objective vital signs Vital Sign Date Time Temp Pulse Resp B/P (MAP) Pulse Ox O2 Delivery O2 Flow Rate FiO2 10/27/24 11:18 77 149/70 10/27/24 10:00 18 100 10/27/24 09:50 Nasal Cannula* 3 32 10/27/24 09:00 97.4 97.4 Total Intake and Output 10/26/24 10/26/24 10/27/24 15:00 23:00 07:00 Intake Total 150 ml 300 ml 775 ml Output Total 200 ml 470 ml Balance 150 ml 100 ml 305 ml medications Current Medications Medications Dose Ordered Sig/Nasrin Route Start Time Stop Time Status Last Admin Dose Admin Multivit/Ca Carb/ B Cmplx/FA/Prenat 1 tab DAILY PO 10/19/24 10:00 10/27/24 09:43 1 TAB Sevelamer HCl 800 mg TIDWM PO 10/19/24 08:00 10/27/24 12:20 800 MG Allopurinol 100 mg DAILY PO 10/19/24 10:00 10/27/24 09:43 100 MG Atorvastatin Calcium 20 mg HS PO 10/19/24 22:00 10/26/24 21:13 20 MG Dextrose 50 ml UD PRN IV 10/18/24 22:15 Sodium Chloride 10 ml Q8HR IV 10/19/24 06:00 10/27/24 06:18 10 ML Ondansetron HCl 4 mg Q4HP PRN IV 10/18/24 22:15 10/24/24 16:21 4 MG Acetaminophen 650 mg Q6HP PRN PO 10/18/24 22:15 10/20/24 22:03 650 MG Nitroglycerin 0.4 mg Q5MINP PRN SL 10/18/24 23:30 10/24/24 02:28 0.4 MG Morphine Sulfate 2 mg Q30M PRN IV 10/18/24 23:30 10/27/24 08:20 2 MG Nifedipine 90 mg DAILY PO 10/19/24 10:00 10/27/24 11:18 90 MG Ceftriaxone Sodium 50 ml @ 100 mls/hr DAILY@09 IV 10/19/24 09:15 10/27/24 09:42 100 MLS/HR Albuterol 2.5 mg Q4HR NEB 10/19/24 14:00 10/27/24 09:50 2.5 MG Ipratropium [place] 0.5 mg Q4HR NEB 10/19/24 14:00 10/27/24 09:50 0.5 MG Doxycycline Hyclate 100 ml @ 50 mls/hr Q12H IV 10/19/24 10:45 10/27/24 09:44 50 MLS/HR Melatonin 5 mg HS PO 10/19/24 22:00 10/26/24 21:13 5 MG Acetaminophen/ Hydrocodone Bitart 1 tab Q4HP PRN PO 10/20/24 05:00 10/27/24 11:19 1 TAB Sucralfate 1 gm QID@0600,1130,1700,2200 PO 10/20/24 11:30 10/27/24 12:20 1 GM Pantoprazole Sodium 40 mg BID IV 10/20/24 10:00 10/27/24 09:42 40 MG Furosemide 60 mg BIDD IV 10/20/24 18:00 10/27/24 05:37 60 MG Lactulose 30 ml BID PO 10/20/24 22:00 10/27/24 09:42 30 ML Diagnostic Test (Pha) 1 strip IQ4HR 10/22/24 00:00 10/27/24 11:59 1 STRIP Insulin Human Regular IQ4HR SC 10/22/24 00:00 10/27/24 04:41 3 UNITS Dextrose 50 ml UD PRN IV 10/21/24 23:00 Cancel Insulin Glargine 15 units DAILY@1000 SC 10/22/24 10:00 10/27/24 10:16 15 UNITS Hydralazine HCl 10 mg Q6HR PRN IV 10/22/24 15:00 10/26/24 05:46 10 MG Carvedilol 6.25 mg Q12HR PO 10/22/24 22:00 10/27/24 11:18 6.25 MG Morphine Sulfate 1 mg Q6HP PRN IV 10/24/24 15:15 10/27/24 00:49 1 MG Docusate Sodium 100 mg BID PO 10/26/24 06:15 10/27/24 09:43 100 MG Ferrous Sulfate 325 mg BIDWM PO 10/26/24 08:00 10/27/24 09:43 325 MG Examination Pt is lying on bed General Appearance: Alert, Oriented X3, Cooperative,But n [id number] distress due to pain HEENT: Atraumatic, Mucous membranes moist/pink, blind bilaterally Respiratory: decreased breath sounds bilaterally, on oxygen nasal cannula Cardiovascular: Regular rate, Normal S1, Normal S2, No murmurs Abdominal: Active bowel sounds, Soft, no distention, no tenderness Extremities: No edema, Normal pulses, No tenderness/swelling Skin: No Significant rash, except past surgical scars Neuro: Normal speech, sensorimotor deficits none Nurse was there as ticket writer during examination laboratory and microbiology Laboratory Tests 10/27/24 06:02 Test 10/27/24 06:02 Range/Units Serum Glucose 141 H 74-106 mg/dL Microbiology Date/Time Source Procedure Growth Status 10/20/24 17:06 Voided Urine Urine Culture - Final Complete 10/19/24 03:20 Nose MRSA Screen - Final Complete Labs and/or images reviewed: Labs reviewed by me, Image(s) reviewed by me Problem List/Assessment/Plan Problem List/Assessment/Plan # Acute on Chronic Systolic Heart Failure (HFrEF 30%) NYHA Class III # Acute hypoxic respiratory failure, pulmonary edema.From CHF V/S COPD exacerbation - Echocardiogram: LVEF 30%. - Continue IV Lasix 60 mg BID. - Strict I&Os, fluid restriction. - Oxygen via nasal cannula at 3 L/min. - BiPAP at night. - Continue nifedipine 90 mg daily, Coreg 6.25 mg BID. # Possible COPD Exacerbation - Continue nebulized albuterol/ipratropium q4h scheduled. - Continue IV ceftriaxone and doxycycline daily. - Currently on nasal cannula; no wheezing noted. # Acute Anemia Ruled Out GI Bleed - monitor H&H and is Jehovahs Witness (no transfusions). - Stool occult test Negative. - Continue IV iron supplementation daily. # NISHANT on CKD Likely Cardiorenal Syndrome # Refractory hyperkalemia # anemia of CKD. - Nephrology On board. - Hemodialysis today- Sevelamer 800 mg TID with meals. - Hepatitis B core and surface antibodies negative. # Type 2 Diabetes Mellitus, HbA1c: 6.8%. - Moderate sliding scale insulin; monitor glucose. # Likely diabetic retinopathy monitor for visual symptoms # Chronic Gout- Continue Allopurinol 100 mg daily. # Obesity Hypoventilation Syndrome # Obstructive Sleep Apnea # History of Asthma - Continue nighttime BiPAP. GI PPX: Protonix VTE ppx: SCDs Goals of care addressed with the patient for 20 minutes: Full code status Case discussed with ,patient and nurse Plan discussed with: Patient, Other (RN) Dietary Evaluation Review Comments: 1) Consider Nepro Carb Steady 240ml BID if PO intake < 50% 2) Monitor PO intake, lab values, I/O Expected Outcomes/Goals: Lab values to improve intake to meet at least 75% estimated needs fu 2-3 days Addendum Addendum Addendum I was physically present for the eng portions of the service provided to patient by THE RESIDENT. I have reviewed the documentation, discussed the case with resident and agree with the resident's documentation except as noted. Also the patient's clinical case was discussed with the patient's nurse. This medical document was created using an electronic medical record system with computerized dictation system. Although this document has been carefully reviewed, there might still be some phonetic and typographical errors. These areas are purely typographical due to imperfections of the software programs, and do not reflect any compromise in the patient's medical care. Late signature. Date of Service: Oct 27, 2024 Billing Provider: MARLENY BUTLER MD Common Visit Codes: [id number] INP/OBS CARE(HIGH) Secondary Visit Codes: [id number] CARE PLAN 30 MINUTES (20 minutes) MELA LANDIS Oct 27, 2024 14:17 MARLENY BUTLER MD Oct 28, 2024 12:38
--- NOTE | 2024-10-27 14:36 | DVHPN2 ---
Progress Note - Dictate Date Seen: Oct 27, 2024 Has the PT tested + for MRSA If YES, has PT been informed?: No Medical Necessity Reason Pt with a Central, PICC or Fol: Yes vital signs Vital Sign Date Time Temp Pulse Resp B/P (MAP) Pulse Ox O2 Delivery O2 Flow Rate FiO2 10/27/24 11:18 77 149/70 10/27/24 10:00 18 100 10/27/24 09:50 Nasal Cannula* 3 32 10/27/24 09:00 97.4 97.4 Total Intake and Output 10/26/24 10/26/24 10/27/24 15:00 23:00 07:00 Intake Total 150 ml 300 ml 775 ml Output Total 200 ml 470 ml Balance 150 ml 100 ml 305 ml medications Current Medications Medications Dose Ordered Sig/Nasrin Route Start Time Stop Time Status Last Admin Dose Admin Multivit/Ca Carb/ B Cmplx/FA/Prenat 1 tab DAILY PO 10/19/24 10:00 10/27/24 09:43 1 TAB Sevelamer HCl 800 mg TIDWM PO 10/19/24 08:00 10/27/24 12:20 800 MG Allopurinol 100 mg DAILY PO 10/19/24 10:00 10/27/24 09:43 100 MG Atorvastatin Calcium 20 mg HS PO 10/19/24 22:00 10/26/24 21:13 20 MG Dextrose 50 ml UD PRN IV 10/18/24 22:15 Sodium Chloride 10 ml Q8HR IV 10/19/24 06:00 10/27/24 06:18 10 ML Ondansetron HCl 4 mg Q4HP PRN IV 10/18/24 22:15 10/24/24 16:21 4 MG Acetaminophen 650 mg Q6HP PRN PO 10/18/24 22:15 10/20/24 22:03 650 MG Nitroglycerin 0.4 mg Q5MINP PRN SL 10/18/24 23:30 10/24/24 02:28 0.4 MG Morphine Sulfate 2 mg Q30M PRN IV 10/18/24 23:30 10/27/24 08:20 2 MG Nifedipine 90 mg DAILY PO 10/19/24 10:00 10/27/24 11:18 90 MG Ceftriaxone Sodium 50 ml @ 100 mls/hr DAILY@09 IV 10/19/24 09:15 10/27/24 09:42 100 MLS/HR Albuterol 2.5 mg Q4HR NEB 10/19/24 14:00 10/27/24 14:34 2.5 MG Ipratropium [place] 0.5 mg Q4HR NEB 10/19/24 14:00 10/27/24 14:34 0.5 MG Doxycycline Hyclate 100 ml @ 50 mls/hr Q12H IV 10/19/24 10:45 10/27/24 09:44 50 MLS/HR Melatonin 5 mg HS PO 10/19/24 22:00 10/26/24 21:13 5 MG Acetaminophen/ Hydrocodone Bitart 1 tab Q4HP PRN PO 10/20/24 05:00 10/27/24 11:19 1 TAB Sucralfate 1 gm QID@0600,1130,1700,2200 PO 10/20/24 11:30 10/27/24 12:20 1 GM Pantoprazole Sodium 40 mg BID IV 10/20/24 10:00 10/27/24 09:42 40 MG Furosemide 60 mg BIDD IV 10/20/24 18:00 10/27/24 05:37 60 MG Lactulose 30 ml BID PO 10/20/24 22:00 10/27/24 09:42 30 ML Diagnostic Test (Pha) 1 strip IQ4HR 10/22/24 00:00 10/27/24 11:59 1 STRIP Insulin Human Regular IQ4HR SC 10/22/24 00:00 10/27/24 04:41 3 UNITS Dextrose 50 ml UD PRN IV 10/21/24 23:00 Cancel Insulin Glargine 15 units DAILY@1000 AL 10/22/24 10:00 10/27/24 10:16 15 UNITS Hydralazine HCl 10 mg Q6HR PRN IV 10/22/24 15:00 10/26/24 05:46 10 MG Carvedilol 6.25 mg Q12HR PO 10/22/24 22:00 10/27/24 11:18 6.25 MG Morphine Sulfate 1 mg Q6HP PRN IV 10/24/24 15:15 10/27/24 00:49 1 MG Docusate Sodium 100 mg BID PO 10/26/24 06:15 10/27/24 09:43 100 MG Ferrous Sulfate 325 mg BIDWM PO 10/26/24 08:00 10/27/24 09:43 325 MG laboratory and microbiology Laboratory Tests 10/27/24 06:02 Test 10/27/24 06:02 Range/Units Serum Glucose 141 H 74-106 mg/dL Assessment/Plan Impression Acute hypoxemic respiratory failure Pulmonary edema Fluid overload ESRD on HD Patient seen and examined Events Low oxygen requirements On 2 liters nasal cannula No distress S/p HD Labs and imaging reviewed ABG reviewed Management Supplemental oxygen Titrate to maintain sats 90% or above Incentive spirometry Prn bipap Continue antibiotics F/u cultures Bronchodilators Monitor renal function HD as per nephrology Management deferred Monitor electrolytes Supplement as needed Disposition as per primary DVT prophylaxis Dietary Evaluation Review Comments: 1) Consider Nepro Carb Steady 240ml BID if PO intake < 50% 2) Monitor PO intake, lab values, I/O Expected Outcomes/Goals: Lab values to improve intake to meet at least 75% estimated needs fu 2-3 days Plan discussed with: Patient ALEX SANDHU MD Oct 27, 2024 14:36
[2024-10-27] MEDS: HEPARIN 1,000 UNITS/ml 1ML VIAL XX ONE (17:30)
--- NOTE | 2024-10-27 17:36 | DVHPN2 ---
Progress Note - Dictate Date Seen: Oct 27, 2024 Has the PT tested + for MRSA If YES, has PT been informed?: No Medical Necessity Reason Pt with a Central, PICC or Fol: Yes Subjective No new complaints , generalized aches and pains No active GI bleeding reported H&H is stable at 8.7 Stool for occult blood was negative x2 Downgraded to the floor, resting and sleeping comfortably vital signs Vital Sign Date Time Temp Pulse Resp B/P (MAP) Pulse Ox O2 Delivery O2 Flow Rate FiO2 10/27/24 14:40 79 18 100 10/27/24 14:34 Nasal Cannula 3.0 10/27/24 14:34 32 10/27/24 13:00 97.6 139/78 (98) 97.6 Total Intake and Output 10/26/24 10/26/24 10/27/24 15:00 23:00 07:00 Intake Total 150 ml 300 ml 775 ml Output Total 200 ml 470 ml Balance 150 ml 100 ml 305 ml medications Current Medications Medications Dose Ordered Sig/Nasrin Route Start Time Stop Time Status Last Admin Dose Admin Multivit/Ca Carb/ B Cmplx/FA/Prenat 1 tab DAILY PO 10/19/24 10:00 10/27/24 09:43 1 TAB Sevelamer HCl 800 mg TIDWM PO 10/19/24 08:00 10/27/24 12:20 800 MG Allopurinol 100 mg DAILY PO 10/19/24 10:00 10/27/24 09:43 100 MG Atorvastatin Calcium 20 mg HS PO 10/19/24 22:00 10/26/24 21:13 20 MG Dextrose 50 ml UD PRN IV 10/18/24 22:15 Sodium Chloride 10 ml Q8HR IV 10/19/24 06:00 10/27/24 14:00 10 ML Ondansetron HCl 4 mg Q4HP PRN IV 10/18/24 22:15 10/24/24 16:21 4 MG Acetaminophen 650 mg Q6HP PRN PO 10/18/24 22:15 10/20/24 22:03 650 MG Nitroglycerin 0.4 mg Q5MINP PRN SL 10/18/24 23:30 10/24/24 02:28 0.4 MG Morphine Sulfate 2 mg Q30M PRN IV 10/18/24 23:30 10/27/24 08:20 2 MG Nifedipine 90 mg DAILY PO 10/19/24 10:00 10/27/24 11:18 90 MG Ceftriaxone Sodium 50 ml @ 100 mls/hr DAILY@09 IV 10/19/24 09:15 10/27/24 09:42 100 MLS/HR Albuterol 2.5 mg Q4HR NEB 10/19/24 14:00 10/27/24 14:34 2.5 MG Ipratropium [place] 0.5 mg Q4HR NEB 10/19/24 14:00 10/27/24 14:34 0.5 MG Doxycycline Hyclate 100 ml @ 50 mls/hr Q12H IV 10/19/24 10:45 10/27/24 09:44 50 MLS/HR Melatonin 5 mg HS PO 10/19/24 22:00 10/26/24 21:13 5 MG Acetaminophen/ Hydrocodone Bitart 1 tab Q4HP PRN PO 10/20/24 05:00 10/27/24 11:19 1 TAB Sucralfate 1 gm QID@0600,1130,1700,2200 PO 10/20/24 11:30 10/27/24 12:20 1 GM Pantoprazole Sodium 40 mg BID IV 10/20/24 10:00 10/27/24 09:42 40 MG Furosemide 60 mg BIDD IV 10/20/24 18:00 10/27/24 05:37 60 MG Lactulose 30 ml BID PO 10/20/24 22:00 10/27/24 09:42 30 ML Diagnostic Test (Pha) 1 strip IQ4HR 10/22/24 00:00 10/27/24 15:37 1 STRIP Insulin Human Regular IQ4HR SC 10/22/24 00:00 10/27/24 04:41 3 UNITS Dextrose 50 ml UD PRN IV 10/21/24 23:00 Cancel Insulin Glargine 15 units DAILY@1000 SC 10/22/24 10:00 10/27/24 10:16 15 UNITS Hydralazine HCl 10 mg Q6HR PRN IV 10/22/24 15:00 10/26/24 05:46 10 MG Carvedilol 6.25 mg Q12HR PO 10/22/24 22:00 10/27/24 11:18 6.25 MG Morphine Sulfate 1 mg Q6HP PRN IV 10/24/24 15:15 10/27/24 00:49 1 MG Docusate Sodium 100 mg BID PO 10/26/24 06:15 10/27/24 09:43 100 MG Ferrous Sulfate 325 mg BIDWM PO 10/26/24 08:00 10/27/24 09:43 325 MG objective HEENT: No evidence of JVD, no oral ulcers. Pulmonary: Crackles at the bases on auscultation bilaterally Cardiovascular S1-S2, no S3 or S4 Abdomen: Bowel sounds positive, soft no rebound tenderness Skin: No rash, obese Neurological: Drowsy On BiPAP Extremities: 1+ lower extremity edema Kaden catheter in place. No evidence of bleeding laboratory and microbiology Laboratory Tests 10/27/24 06:02 Test 10/27/24 06:02 Range/Units Serum Glucose 141 H 74-106 mg/dL Problems(with codes): (1) Metabolic encephalopathy (2) End stage renal disease (3) Congestive heart failure (4) Morbid obesity (5) Anemia of chronic disease (6) Generalized weakness Prognosis PLAN Protonix 40 mg p.o. daily Patient has a likely anemia of chronic disease Patient is going to require on doing dialysis Patient has been assigned a chair time and discharge planning is in progress Dietary Evaluation Review Comments: 1) Consider Nepro Carb Steady 240ml BID if PO intake < 50% 2) Monitor PO intake, lab values, I/O Expected Outcomes/Goals: Lab values to improve intake to meet at least 75% estimated needs fu 2-3 days Plan discussed with: Other (None) KELLY PEREZ MD Oct 27, 2024 17:36
[2024-10-28] VITALS (15 sets, daily range): BP systolic 119–151; BP diastolic 61–77; PULSE 73–83; RESP 15–20; TEMP 97.8–98.2; O2SAT 95–100
[2024-10-28 07:27] LABS: Hematocrit 24.7 % (36.0-46.0); Hemoglobin 8.2 g/dL (12.2-16.2); Mean Corpuscular Hemoglobin 34.2 pg (28.0-32.0); Mean Corpuscular Volume 102.9 fL (80.0-100.0)
[2024-10-28 07:43] LABS: Alanine Aminotransferase 10 U/L (7-40); Albumin 3.3 g/dL (3.2-4.8); Alkaline Phosphatase 104 U/L (46-116); Anion Gap 8 (5-15); BUN/Creatinine Ratio 11.0 (10.0-20.0); Calcium 9.5 mg/dL (8.7-10.4); Carbon Dioxide 29 mmol/L (20-31); Chloride 100 mmol/L (98-107); Glucose 94 mg/dL (74-106); Magnesium 1.8 mg/dL (1.6-2.6); Potassium 3.8 mmol/L (3.5-5.1); Sodium 137 mmol/L (136-145)
[2024-10-28 07:44] LABS: Bilirubin, Total 0.4 mg/dL (0.2-1.0); Blood Urea Nitrogen 33 mg/dL (9-23); Total Protein 5.3 g/dL (5.7-8.2)
[2024-10-28 08:27] LABS: Total Cells Counted 100.0 (100)
--- NOTE | 2024-10-28 13:31 | DVHPN2 ---
Progress Note - Dictate Date Seen: Oct 28, 2024 Has the PT tested + for MRSA If YES, has PT been informed?: No Medical Necessity Reason Pt with a Central, PICC or Fol: Yes vital signs Vital Sign Date Time Temp Pulse Resp B/P (MAP) Pulse Ox O2 Delivery O2 Flow Rate FiO2 10/28/24 11:33 80 151/72 10/28/24 10:03 20 100 10/28/24 09:57 Nasal Cannula* 2 28 10/28/24 09:00 97.8 97.8 Total Intake and Output 10/27/24 10/27/24 10/28/24 15:00 23:00 07:00 Intake Total 150 ml 300 ml 0 ml Output Total 200 ml Balance 150 ml 100 ml 0 ml medications Current Medications Medications Dose Ordered Sig/Nasrin Route Start Time Stop Time Status Last Admin Dose Admin Multivit/Ca Carb/ B Cmplx/FA/Prenat 1 tab DAILY PO 10/19/24 10:00 10/28/24 10:33 1 TAB Sevelamer HCl 800 mg TIDWM PO 10/19/24 08:00 10/28/24 11:58 800 MG Allopurinol 100 mg DAILY PO 10/19/24 10:00 10/28/24 10:33 100 MG Atorvastatin Calcium 20 mg HS PO 10/19/24 22:00 10/27/24 22:12 20 MG Dextrose 50 ml UD PRN IV 10/18/24 22:15 Sodium Chloride 10 ml Q8HR IV 10/19/24 06:00 10/28/24 13:28 10 ML Ondansetron HCl 4 mg Q4HP PRN IV 10/18/24 22:15 10/24/24 16:21 4 MG Acetaminophen 650 mg Q6HP PRN PO 10/18/24 22:15 10/20/24 22:03 650 MG Nitroglycerin 0.4 mg Q5MINP PRN SL 10/18/24 23:30 10/24/24 02:28 0.4 MG Nifedipine 90 mg DAILY PO 10/19/24 10:00 10/28/24 10:33 90 MG Ceftriaxone Sodium 50 ml @ 100 mls/hr DAILY@09 IV 10/19/24 09:15 10/28/24 08:28 100 MLS/HR Albuterol 2.5 mg Q4HR NEB 10/19/24 14:00 10/28/24 09:57 2.5 MG Ipratropium [place] 0.5 mg Q4HR NEB 10/19/24 14:00 10/28/24 09:57 0.5 MG Doxycycline Hyclate 100 ml @ 50 mls/hr Q12H IV 10/19/24 10:45 10/28/24 10:34 50 MLS/HR Melatonin 5 mg HS PO 10/19/24 22:00 10/27/24 22:10 5 MG Acetaminophen/ Hydrocodone Bitart 1 tab Q4HP PRN PO 10/20/24 05:00 10/28/24 08:40 1 TAB Sucralfate 1 gm QID@0600,1130,1700,2200 PO 10/20/24 11:30 10/28/24 11:58 1 GM Pantoprazole Sodium 40 mg BID IV 10/20/24 10:00 10/28/24 10:32 40 MG Furosemide 60 mg BIDD IV 10/20/24 18:00 10/28/24 05:17 60 MG Lactulose 30 ml BID PO 10/20/24 22:00 10/28/24 10:34 30 ML Diagnostic Test (Pha) 1 strip IQ4HR 10/22/24 00:00 10/28/24 12:00 1 STRIP Insulin Human Regular IQ4HR SC 10/22/24 00:00 10/28/24 12:54 3 UNITS Dextrose 50 ml UD PRN IV 10/21/24 23:00 Cancel Insulin Glargine 15 units DAILY@1000 SC 10/22/24 10:00 10/27/24 10:16 15 UNITS Hydralazine HCl 10 mg Q6HR PRN IV 10/22/24 15:00 10/26/24 05:46 10 MG Carvedilol 6.25 mg Q12HR PO 10/22/24 22:00 10/28/24 10:33 6.25 MG Morphine Sulfate 1 mg Q6HP PRN IV 10/24/24 15:15 10/28/24 05:51 1 MG Docusate Sodium 100 mg BID PO 10/26/24 06:15 10/28/24 10:32 100 MG Ferrous Sulfate 325 mg BIDWM PO 10/26/24 08:00 10/28/24 08:19 325 MG laboratory and microbiology Laboratory Tests 10/28/24 06:40 Test 10/28/24 06:40 Range/Units Serum Glucose 94 74-106 mg/dL Assessment/Plan Impression Acute hypoxemic respiratory failure Pulmonary edema Fluid overload ESRD on HD Patient seen and examined Events Low oxygen requirements On 2 liters nasal cannula No acute events S/p HD Labs and imaging reviewed ABG reviewed Management Supplemental oxygen Titrate to maintain sats 90% or above Incentive spirometry Prn bipap Continue antibiotics F/u cultures Bronchodilators Monitor renal function HD as per nephrology Management deferred Monitor electrolytes Supplement as needed Disposition as per primary DVT prophylaxis Dietary Evaluation Review Comments: 1) Consider Nepro Carb Steady 240ml BID if PO intake < 50% 2) Monitor PO intake, lab values, I/O Expected Outcomes/Goals: Lab values to improve intake to meet at least 75% estimated needs fu 2-3 days Plan discussed with: Patient ALEX SANDHU MD Oct 28, 2024 13:31
--- NOTE | 2024-10-28 13:51 | DVHPN2 ---
Progress Note - Dictate Date Seen: Oct 28, 2024 Has the PT tested + for MRSA If YES, has PT been informed?: No Medical Necessity Reason Pt with a Central, PICC or Fol: Yes Subjective no new symptoms vital signs Vital Sign Date Time Temp Pulse Resp B/P (MAP) Pulse Ox O2 Delivery O2 Flow Rate FiO2 10/28/24 11:33 80 151/72 10/28/24 10:03 20 100 10/28/24 09:57 Nasal Cannula* 2 28 10/28/24 09:00 97.8 97.8 Total Intake and Output 10/27/24 10/27/24 10/28/24 15:00 23:00 07:00 Intake Total 150 ml 300 ml 0 ml Output Total 200 ml Balance 150 ml 100 ml 0 ml medications Current Medications Medications Dose Ordered Sig/Nasrin Route Start Time Stop Time Status Last Admin Dose Admin Multivit/Ca Carb/ B Cmplx/FA/Prenat 1 tab DAILY PO 10/19/24 10:00 10/28/24 10:33 1 TAB Sevelamer HCl 800 mg TIDWM PO 10/19/24 08:00 10/28/24 11:58 800 MG Allopurinol 100 mg DAILY PO 10/19/24 10:00 10/28/24 10:33 100 MG Atorvastatin Calcium 20 mg HS PO 10/19/24 22:00 10/27/24 22:12 20 MG Dextrose 50 ml UD PRN IV 10/18/24 22:15 Sodium Chloride 10 ml Q8HR IV 10/19/24 06:00 10/28/24 13:28 10 ML Ondansetron HCl 4 mg Q4HP PRN IV 10/18/24 22:15 10/24/24 16:21 4 MG Acetaminophen 650 mg Q6HP PRN PO 10/18/24 22:15 10/20/24 22:03 650 MG Nitroglycerin 0.4 mg Q5MINP PRN SL 10/18/24 23:30 10/24/24 02:28 0.4 MG Nifedipine 90 mg DAILY PO 10/19/24 10:00 10/28/24 10:33 90 MG Ceftriaxone Sodium 50 ml @ 100 mls/hr DAILY@09 IV 10/19/24 09:15 10/28/24 08:28 100 MLS/HR Albuterol 2.5 mg Q4HR NEB 10/19/24 14:00 10/28/24 09:57 2.5 MG Ipratropium [place] 0.5 mg Q4HR NEB 10/19/24 14:00 10/28/24 09:57 0.5 MG Doxycycline Hyclate 100 ml @ 50 mls/hr Q12H IV 10/19/24 10:45 10/28/24 10:34 50 MLS/HR Melatonin 5 mg HS PO 10/19/24 22:00 10/27/24 22:10 5 MG Acetaminophen/ Hydrocodone Bitart 1 tab Q4HP PRN PO 10/20/24 05:00 10/28/24 08:40 1 TAB Sucralfate 1 gm QID@0600,1130,1700,2200 PO 10/20/24 11:30 10/28/24 11:58 1 GM Pantoprazole Sodium 40 mg BID IV 10/20/24 10:00 10/28/24 10:32 40 MG Furosemide 60 mg BIDD IV 10/20/24 18:00 10/28/24 05:17 60 MG Lactulose 30 ml BID PO 10/20/24 22:00 10/28/24 10:34 30 ML Diagnostic Test (Pha) 1 strip IQ4HR 10/22/24 00:00 10/28/24 12:00 1 STRIP Insulin Human Regular IQ4HR SC 10/22/24 00:00 10/28/24 12:54 3 UNITS Dextrose 50 ml UD PRN IV 10/21/24 23:00 Cancel Insulin Glargine 15 units DAILY@1000 NE 10/22/24 10:00 10/27/24 10:16 15 UNITS Hydralazine HCl 10 mg Q6HR PRN IV 10/22/24 15:00 10/26/24 05:46 10 MG Carvedilol 6.25 mg Q12HR PO 10/22/24 22:00 10/28/24 10:33 6.25 MG Morphine Sulfate 1 mg Q6HP PRN IV 10/24/24 15:15 10/28/24 05:51 1 MG Docusate Sodium 100 mg BID PO 10/26/24 06:15 10/28/24 10:32 100 MG Ferrous Sulfate 325 mg BIDWM PO 10/26/24 08:00 10/28/24 08:19 325 MG objective HEENT: No evidence of JVD, no oral ulcers. Pulmonary: Crackles at the bases on auscultation bilaterally Cardiovascular S1-S2, no S3 or S4 Abdomen: Bowel sounds positive, soft no rebound tenderness Skin: No rash Neurological: Drowsy On BiPAP Extremities: 1+ lower extremity edema laboratory and microbiology Laboratory Tests 10/28/24 06:40 Test 10/28/24 06:40 Range/Units Serum Glucose 94 74-106 mg/dL Assessment/Plan 1. Hemodialysis dependent Acute kidney injury on Chronic kidney disease 4 2. Hyperkalemia refractory to medical management, improved with hemodialysis 3. Acute hypoxic respiratory failure, improving 4. Fluid overload improved 5. Diabetes type 2 6. Acute diastolic heart failure exacerbation 7. 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 Morbid obesity 9. Hyperphosphatemia Plan: S/p HD Tuesday Next HD on Tuesday Continue HD on TTS schedule Arrange for outpatient HD chair at [facility] Continue Coreg BID Continue Sevelamer with meals GAYLE post HD as needed. goal Hb: 10-11 g/dl Dietary Evaluation Review Comments: 1) Consider Nepro Carb Steady 240ml BID if PO intake < 50% 2) Monitor PO intake, lab values, I/O Expected Outcomes/Goals: Lab values to improve intake to meet at least 75% estimated needs fu 2-3 days Plan discussed with: Patient, Other HEATH DILLON MD Oct 28, 2024 13:51
[2024-10-28] MEDS ORDERED: FER325T PO (14:04)
[2024-10-28] MEDS ORDERED: SEVE800T7 PO (14:04)
[2024-10-28] MEDS ORDERED: PANT40TA2 PO (14:04)
--- NOTE | 2024-10-28 17:52 | DVHDSRES ---
Discharge Summary Date of Admission Resident Creating Document: LILY NEVAREZ RESIDENT Oct 18, 2024 at 23:30 Date of Discharge: Oct 28, 2024 Admitting Diagnosis Shortness of breath and chest pain, also reported abdominal pain Wounds: Right chest hemodialysis catheter surgical wounds with no signs of infection/bleeding; healing well Labs/Diagnostic Data: Laboratory Results Test 10/28/24 06:40 10/28/24 05:07 10/27/24 06:02 10/24/24 08:30 White Blood Count 13.5 10^3/uL (4.4-10.8) Red Blood Count 2.40 10^6/uL (4.0-5.20) Hemoglobin 8.2 g/dL (12.2-16.2) Hematocrit 24.7 % (36.0-46.0) Mean Corpuscular Volume 102.9 fL (80.0-100.0) Mean Corpuscular Hemoglobin 34.2 pg (28.0-32.0) Mean Corpuscular Hemoglobin Concent 33.3 g/dL (32.0-36.0) Red Cell Distribution Width 15.7 % (11.8-14.3) Platelet Count 179 10^3/uL (140-450) Mean Platelet Volume 8.1 fL (6.9-10.8) Neutrophils (%) (Auto) % (37.0-80.0) Lymphocytes (%) (Auto) % (10.0-50.0) Monocytes (%) (Auto) % (0.0-12.0) Basophils (%) (Auto) % (0.0-2.0) Neutrophils # (Auto) 10 ^3/uL (1.6-8.6) Lymphocytes # (Auto) 10 ^3/uL (0.4-5.4) Monocytes # (Auto) 10 ^3/uL (0-1.3) Differential Total Cells Counted 100.0 (100) Neutrophils % (Manual) 60 (37.0-80.0) Band Neutrophils % (Manual) 2 Lymphocytes % (Manual) 30 (10.0-50.0) Monocytes % (Manual) 6 (0-12) Eosinophils % (Manual) 2 (0-7) Basophils % (Manual) 0 (0.0-2.0) Metamyelocytes % (manual) 0 Myelocytes % (Manual) 0 Promyelocytes % (Manual) 0 Blast Cells % (Manual) 0 Reactive Lymphocytes 0 Platelet Estimate Adequate Sodium Level 137 mmol/L (136-145) Potassium Level 3.8 mmol/L (3.5-5.1) Chloride Level 100 mmol/L (98-107) Carbon Dioxide Level 29 mmol/L (20-31) Anion Gap 8 (5-15) Blood Urea Nitrogen 33 mg/dL (9-23) Creatinine 3.01 mg/dL (0.550-1.02) Glomerular Filtration Rate Calc 15 mL/min (>90) BUN/Creatinine Ratio 11.0 (10.0-20.0) Serum Glucose 94 mg/dL (74-106) Calcium Level 9.5 mg/dL (8.7-10.4) Magnesium Level 1.8 mg/dL (1.6-2.6) Total Bilirubin 0.4 mg/dL (0.2-1.0) Aspartate Amino Transferase (AST) 15 U/L (13-40) Alanine Aminotransferase (ALT) 10 U/L (7-40) Alkaline Phosphatase 104 U/L (46-116) Total Protein 5.3 g/dL (5.7-8.2) Albumin 3.3 g/dL (3.2-4.8) POC Glucose 82 mg/dl (70-106) Eosinophils (%) (Auto) 3.4 % (0.0-7.0) Eosinophils # (Auto) 0.5 10 ^3/uL (0-0.8) Basophils # (Auto) 0.1 10 ^3/uL (0-0.2) Nucleated Red Blood Cells 0.6 % Stool Occult Blood Negative (Negative) Stool Occult Blood Sample #3 (Negative) Test 10/24/24 04:40 10/22/24 17:44 10/22/24 15:38 10/20/24 17:06 Macrocytosis Slight Tear Drop Cells Few Hepatitis B Surface Antibody Negative (Negative) Hepatitis B Core Total Antibody Negative (Negative) Blood Gas Specimen Type Arterial Blood Gas Sample Site Right radial Blood Gas Patient Temperature 37.0 Arterial Blood Date Drawn [id number] Arterial Blood pH 7.335 (7.350-7.450) Arterial Blood Partial Pressure CO2 53.1 mmHg (32.0-45.0) Arterial Blood Partial Pressure O2 76.7 mmHg (83.0-108.0) Arterial Blood HCO3 27.7 mmol/L (21.0-28.0) Arterial Blood Oxygen Saturation 95.1 % (94.0-98.0) Arterial Blood Base Excess 1.4 mmol/L (-2.0-3.0) Arterial Blood Oxyhemoglobin 94.1 % (94.0-98.0) Arterial Blood Carboxyhemoglobin 0.6 % (0.5-1.5) Arterial Blood Methemoglobin 0.5 % (0.0-1.5) Cristian Test Yes Blood Gas Total Hemoglobin 8.80 g/dL (12.0-16.0) Blood Gas Liter Flow 2.00 Blood Gas Modality Nasal cannula Blood Gas Spontaneous Rate 20 FiO2 % 28.0 Urine Creatinine 84.52 mg/dL (30.0-125.0) Urine Protein/Creatinine Ratio 3.77 Urine Sodium 18 mmol/L (40-220) Urine Total Protein 318.5 mg/dL (1-14) Test 10/20/24 08:16 10/20/24 04:30 10/19/24 13:51 10/19/24 11:18 Prothrombin Time 11.3 sec (9.3-11.8) Prothrombin Time INR 1.07 (0.9-1.15) Activated Partial Thromboplast Time 25.8 SEC (24.5-34.5) Fibrinogen 512 mg/dL (177-375) Folic Acid 10.20 ng/mL (>5.38) Reticulocyte Count (auto) 1.48 % (0.5-1.5) Haptoglobin 180 mg/dL (42-346) Lactate Dehydrogenase 201 U/L (120-246) Blood Gas Spontaneous Tidal Volume 317 Blood Gas EPAP 5 Blood Gas IPAP 15 Blood Gas Critical Value Read Back Yes Blood Gas Notified Whom Dr. lois cool Blood Gas Notified Time [id number] Blood Gas Notified By Rt naina sloan Test 10/19/24 09:10 10/18/24 23:28 10/18/24 22:27 10/18/24 20:03 Iron Level 43 ug/dL (50-170) Total Iron Binding Capacity 208 ug/dL (250-425) Percent Iron Saturation 20.7 % (15-50) Ferritin 404.5 ng/mL (10-291) Hepatitis B Surface Antigen Negative (Negative) Hepatitis C Antibody Negative (Negative) Creatine Kinase 53 U/L (34-145) Urine Color Light-yellow (Yellow) Urine Clarity Turbid (Clear) Urine pH 6.0 (5.0-9.0) Urine Specific [place] 1.007 (1.001-1.035) Urine Protein 1+ (Negative) Urine Ketones Negative (Negative) Urine Blood Trace /uL (Negative) Urine Nitrite Negative (Negative) Urine Bilirubin Negative (Negative) Urine Urobilinogen Normal mg/dL (Negative) Urine Leukocyte Esterase Trace /uL (Negative) Urine RBC 1 /hpf (0 - 4) Urine Microscopic WBC 8 /HPF (0-5) Urine Squamous Epithelial Cells Few /hpf (<5) Urine Bacteria Few /hpf (None Seen) Urine Glucose Normal mg/dL (Normal) Troponin I High Sensitivity 7 ng/L (</=34) Test 10/18/24 19:07 B-Type Natriuretic Peptide 494.95 pg/mL (0-100) Other Laboratory Tests 10/28/24 06:40 Brief Hx & Hospital Course: Lázaro Preston is a 79-year-old female with past medical history of diabetes mellitus type 2, hypertension, systolic congestive heart failure-EF 30%,, gout, sleep apnea, CKD, arthritis, chronic respiratory failure on 3 L oxygen, presents to the ER with a chief complaint of shortness of breath and chest pain, also reported abdominal pain. Per chart review, son reported that her symptoms worsened 2 days before admission. She was previously hospitalized for acute hypoxic respiratory failure likely due to the same features, as she is hospitalized this time as well. Patient was in volume overload due to CHF exacerbation as well as COPD exacerbation. During her stay, she was managed for end-stage renal disease requiring hemodialysis. Chest x-ray shows diffusely increased prominence of pulmonary vasculature. Urine and MRSA were negative. She was consulted by GI, Nephrology, pulmonology. Her labs are stable today. She is currently on 2 L/min of oxygen through nasal cannula with no major respiratory distress at this time. There is no peripheral edema and patient has no major concerns at this time. She will be discharged on hemodialysis & home health. She will follow-up with GI outpatient. Patient was discharged for home health. She will continue her home medications. I discussed discharge plan with patient. Patient understands the discharge plan. Physical examination on the day of discharge: General Appearance: Alert, Oriented X3, Cooperative, Not in distress, Morbidly Obese HEENT: Atraumatic, Blind, Mucous membranes moist/pink, blind bilaterally Respiratory: Decreased breath sounds bilaterally, on oxygen nasal cannula; right chest dialysis catheter with no signs of infection/bleeding Cardiovascular: Regular rate, Normal S1, Normal S2, No murmurs Abdominal: Active bowel sounds, Soft, no distention, no tenderness Extremities: No edema, Normal pulses, No tenderness/swelling Skin: No Significant rash, except past surgical scars Neuro: Normal speech, sensorimotor deficits none Discussed with Dr. Butler Consults/Reason for consult During her stay she was consulted by GI, Nephrology and pulmonology for multi disciplinary care. GI was consulted, advised Protonix 40 mg p.o. daily, assigned a chair time and will follow-up outpatient. Nephrology was consulted. Patient was placed HD line Kaden catheter. Hemodialysis was done during her stay. She will continue dialysis after discharge. Pulmonology was consulted. She was started on BiPAP. She was also given supplemental oxygen, incentive spirometry to manage her hypoxia. She is currently stable on 2 L/min oxygen. Operations or Procedures CHEST RADIOGRAPH Indication: reeval pulm parenchyma Technique: Single frontal view of the chest was obtained COMPARISON: XY CHEST XRAY 1 VIEW on DOS: 10/22/24, XY CHEST PORTABLE on DOS: 10/21/24, XY CHEST PORTABLE on DOS: 10/20/24, XY CHEST PORTABLE on DOS: 10/20/24, XY CHEST XRAY 1 VIEW on DOS: 10/19/24 FINDINGS: Lines and Tubes: Interval exchange of left internal jugular central vascular access catheter for a new right PermCath with tip projecting over the distal superior vena cava. Lungs: Stable appearing moderate diffuse increased prominence of the pulmonary vasculature without evidence of focal consolidation. Pleura: No effusion. No pneumothorax. Cardiomediastinal contours: Unremarkable Bones: Unremarkable IMPRESSION: 1. Stable moderate diffuse increased prominence of the pulmonary vasculature. 2. Interval exchange of left internal jugular central venous access catheter for right sided PermCath. --- XY Insertion of Venous Cath, HISTORY: HD CATH PL PROCEDURE: Informed consent was obtained. The patient was placed supine on the interventional table. A limited localization ultrasound of the right neck base was obtained. The right neck base and upper chest were prepped with chlorhexidine which was allowed to dry and draped in the usual sterile fashion. Time out was performed. IV sedation was administered. The skin and the soft tissues were infiltrated with 1% Lidocaine. With real-time ultrasound guidance, the internal jugular vein was accessed with a micropuncture kit, and an image documenting patency was recorded to PACS. A subcutaneous tunneled tract was created from the right upper chest to the venotomy site. A 14.5 maltese [place] [address], 23 cm long hemodialysis catheter was advanced through the tunneled tract. Fluoroscopy was used to advance a guidewire through the internal jugular vein into the inferior vena cava. Following serial dilatation, a 15 maltese peel-away sheath was introduced, though which was advanced the catheter into the right atrium. The catheter tip position was confirmed with fluoroscopy. There was satisfactory flow in both lumens. The catheter lumens were flushed with saline and heparin was left indwelling in the catheter. A post-procedure image of the chest was obtained. The neck incision site was closed with a Vicryl suture and dressed sterilely. The catheter was sutured at the skin surface and exit site also dressed sterilely. No immediate complication was identified. DAP 159.8 FLUOROSCOPY TIME: 1.1 minutes. SEDATION: Dr. Mino Escamilla was personally responsible for the administration of moderate sedation during the procedure performed, including the use of an independent trained observer who had no other duties during the procedure. The drugs utilized were IV fentanyl and versed (see nursing log for details). The total time of supervision by the attending physician was approximately 20 minutes. FINDINGS: Widely patent right IJV. Post procedure image demonstrates smooth course of the hemodialysis catheter with the tip in the right atrium. IMPRESSION: Placement of 14.[address] [place] [address], 23 cm long hemodialysis catheter through right internal jugular vein. --- XY KUB ABDOMEN SINGLE VIEW Indication: R/O obstruction Comparison: None Technique: 2 radiographic views of the abdomen. Findings: Nonspecific bowel-gas pattern. Moderate volume colonic stool. There is no definite evidence for pneumoperitoneum. No abnormal calcifications noted. Impression: Nonspecific bowel-gas pattern. Moderate volume colonic stool. ---- CT CT AB PEL WO CON-NO ORAL OR IV History: left flank, LLQ pain, consitpation Comparison Study: None TECHNIQUE: Multidetector CT of the abdomen was performed from lung bases to pubic symphysis. Imaging was performed without IV contrast. Axial, coronal and sagittal multiplanar reformats were obtained from the axial data set by the technologist. Radiation Dose Information: CT Dose: CTDI volume is 25.51 mGy. Dose-length product is 1259.4 mGy*cm FINDINGS: Evaluation of solid organs is limited due to lack of intravenous contrast use. Findings: Lung Bases: No acute or significant lung base finding. Normal heart size. No pleural or pericardial effusion. Liver: The liver is normal in size. No focal lesions. Gallbladder and Biliary Tree: Cholelithiasis Spleen: Unremarkable Pancreas: The pancreas is grossly normal in appearance. Adrenal Glands: Unremarkable Kidneys: Kidneys are grossly normal without calculi or hydronephrosis. Bladder: Grossly unremarkable for degree of distention. Bowel: The stomach is grossly normal in appearance. Small bowel and colon are normal in caliber and distribution. The appendix is not visualized; however, no secondary findings of acute appendicitis identified. Ascites: Absent Lymphadenopathy: No mesenteric, retroperitoneal or periportal lymphadenopathy. Abdominal Wall and Mesentery: Unremarkable. Vasculature: The visualized abdominal aorta is normal in size and caliber. Evaluation of abdominal and pelvic vessels is limited due to lack of intravenous contrast. Pelvic Organs: Unremarkable Musculoskeletal: No aggressive focal bony lesions, acute fractures or dislocation. Soft tissues: Subcutaneous edema throughout the abdomen and pelvis suggesting anasarca. There is a 7.1 by 2.6 cm area of consolidated soft tissue in the posterior left flank may represent developing phlegmon or developing decubitus ulcer IMPRESSION: 1. No nephrolithiasis or hydronephrosis. 2. Subcutaneous edema throughout the anterior abdominal pelvic wall. 3. 7.1 x 2.6 cm area of consolidated soft tissues in the posterior lumbar spine. At the level of L2-3. Finding may represent developing decubitus ulcer or phlegmon. Condition at Discharge: Stable Final Diagnosis/Problems List Acute on Chronic Systolic Heart Failure (HFrEF 30%) NYHA Class III Acute hypoxic respiratory failure, pulmonary edema from CHF vs COPD exacerbation Possible COPD Exacerbation Acute Anemia Ruled Out GI Bleed NISHANT on CKD Likely Cardiorenal Syndrome Refractory hyperkalemia anemia of CKD. Type 2 Diabetes Mellitus, HbA1c: 6.8%. Blindness, Likely diabetic retinopathy Chronic Gout Obesity Hypoventilation Syndrome Obstructive Sleep Apnea History of Asthma Morbid obesity Discharge Disposition: Home with Health Services Discharge Instruct/Medications Diet: Consistent carbohydrate, Cardiac 2g Na,low cholest, Renal Activity: No Restrictions, As Tolerated Follow Up/Referral: F/U with PCP in 1 week F/U with ophthalmic photographer and manager commercial real estate as outpatient F/U with hemodialysis as scheduled Medications: Continue home medications New Medications: Pantoprazole Sodium Sesquihydr (Protonix) 40 Mg Tab 40 MG PO DAILY for 30 Days, #30 TAB 2 Refills Ferrous Sulfate (Ferrous Sulfate) 325 Mg Tab 325 MG PO DAILY for 30 Days, #30 TAB 2 Refills Sevelamer Hydrochloride (Renagel) 800 Mg Tab 800 MG PO TIDWM for 30 Days, #90 TAB 2 Refills Continued Medications: Allopurinol (Allopurinol) 100 Mg Tab 1 TAB PO DAILY for 30 Days, #30 Carvedilol (Carvedilol) 6.25 Mg Tab 1 TAB PO BID for 30 Days, #60 TAB 1 Refill Docusate Sodium (Docusate Sodium) 100 Mg Cap 1 CAP PO BID for 30 Days, #60 Glimepiride (Glimepiride) 2 Mg Tab 2 TAB PO DAILY for 30 Days, #60 Insulin Glargine (Basaglar Kwikpen) 100 Unit/Ml Inj 26 UNIT SC DAILY for 58 Days, #15 Loratadine (Claritin Tablet) 10 Mg Tb 1 TAB PO DAILY for 30 Days, #30 Nifedipine (Nifedipine Er) 90 Mg Tab 1 TAB PO DAILY for 30 Days, #30 TAB 5 Refills Pantoprazole Sodium Sesquihydr (Pantoprazole Sodium) 40 Mg Tab 1 TAB PO DAILY for 30 Days, #30 Simvastatin (Simvastatin) 20 Mg Tab 1 TAB PO DAILY for 30 Days, #30 Ursodiol (Ursodiol) 250 Mg Tab 1 TAB PO TID for 30 Days, #90 Care Plan: Care plan: Please follow with PCP in 1 week. Please follow-up with GI outpatient. Please continue hemodialysis. Please take Pantoprazole Sodium Sesquihydr (Protonix) 40 Mg Tab daily Please take Ferrous Sulfate 325 Mg Tab daily Please take Sevelamer Hydrochloride (Renagel) 800 Mg Tab daily Continued Home Medications: Allopurinol 100 Mg Tab Carvedilol 6.25 Mg Tab Docusate Sodium 100 Mg Cap Glimepiride 2 Mg Tab Insulin Glargine (Basaglar Kwikpen) 100 Unit/Ml Inj Loratadine (Claritin Tablet) 10 Mg Tb Nifedipine (Nifedipine Er) 90 Mg Tab Pantoprazole Sodium Sesquihydr (Pantoprazole Sodium) 40 Mg Tab Simvastatin 20 Mg Tab Ursodiol 250 Mg Tab Scheduled Allopurinol (Allopurinol), 1 TAB PO DAILY, (Reported) Carvedilol (Carvedilol), 1 TAB PO BID Docusate Sodium (Docusate Sodium), 1 CAP PO BID, (Reported) Ferrous Sulfate (Ferrous Sulfate), 325 MG PO DAILY Glimepiride (Glimepiride), 2 TAB PO DAILY, (Reported) Hydrocodone-Acetaminophen (Hydrocodone Bitartrate/AC 10-325 mg), 1 TAB PO Q4HR PRN, (Reported) Insulin Glargine (Basaglar Kwikpen), 26 UNIT SC DAILY, (Reported) Loratadine (Claritin Tablet), 1 TAB PO DAILY, (Reported) Nifedipine (Nifedipine Er), 1 TAB PO DAILY Pantoprazole Sodium Sesquihydr (Pantoprazole Sodium), 1 TAB PO DAILY, (Reported) Pantoprazole Sodium Sesquihydr (Protonix), 40 MG PO DAILY Sevelamer Hydrochloride (Renagel), 800 MG PO TIDWM Simvastatin (Simvastatin), 1 TAB PO DAILY, (Reported) Ursodiol (Ursodiol), 1 TAB PO TID, (Reported) Discharge Statement: "Patient was advised to return to the ER or call 911 if any headaches, dizziness, shortness of breath, chest pain, abdominal pain, bleeding, fevers, or worsening of medical condition. Patient was counseled about treatment plan, medications, possible side effects, patientverbalized understanding. All questions were answered to the best of my ability. This discharge took greater then 30 minutes in planning, reviewing documentation, counseling the patient, and discussing with other team members." Addendum Addendum Addendum I was physically present for the eng portions of the service provided to patient by THE RESIDENT. I have reviewed the documentation, discussed the case with resident and agree with the resident's documentation except as noted. Also the patient's clinical case was discussed with the patient's nurse. This medical document was created using an electronic medical record system with computerized dictation system. Although this document has been carefully reviewed, there might still be some phonetic and typographical errors. These areas are purely typographical due to imperfections of the software programs, and do not reflect any compromise in the patient's medical care. Late signature. Date of Service: Oct 28, 2024 Billing Provider: MARLENY BUTLER MD Common Visit Codes: 87214-[facility]/OBS DISCH DAY >30min LILY NEVAREZ RESIDENT Oct 28, 2024 17:51 MARLENY BUTLER MD Oct 29, 2024 08:37
== END 2024-10-28 17:30 | disposition home health service (06) | DRG 673 ==
LOC: ER 17:47 → EDBD 17:47 → OVERFLOW 23:30 → TELE-EAST 10-19 02:20 → DOU IN ICU 10-19 18:47 → OVERFLOW 10-24 15:15 → DOU IN ICU 10-24 17:17 → TELE-EAST 10-24 23:20
PROVIDERS: ADMIT Student in an Organized Health Care Education/Training Program; ATTEND Student in an Organized Health Care Education/Training Program
PROC: 5A1D70Z Performance of Urinary Filtration, Intermittent, Less than 6 Hours Per Day (ICD-10-PCS; 2024-10-19)
PROC: 5A09357 Assistance with Respiratory Ventilation, Less than 24 Consecutive Hours, Continuous Positive Airway Pressure (ICD-10-PCS; 2024-10-19)
PROC: 02HV33Z Insertion of Infusion Device into Superior Vena Cava, Percutaneous Approach (ICD-10-PCS; principal; 2024-10-20)
PROC: B548ZZA Ultrasonography of Superior Vena Cava, Guidance (ICD-10-PCS; 2024-10-20)
PROC: 5A1D70Z Performance of Urinary Filtration, Intermittent, Less than 6 Hours Per Day (ICD-10-PCS; 2024-10-20)
PROC: 5A09357 Assistance with Respiratory Ventilation, Less than 24 Consecutive Hours, Continuous Positive Airway Pressure (ICD-10-PCS; 2024-10-20)
PROC: 05HY33Z Insertion of Infusion Device into Upper Vein, Percutaneous Approach (ICD-10-PCS; 2024-10-20)
PROC: B54NZZA Ultrasonography of Left Upper Extremity Veins, Guidance (ICD-10-PCS; 2024-10-20)
PROC: 5A1D70Z Performance of Urinary Filtration, Intermittent, Less than 6 Hours Per Day (ICD-10-PCS; 2024-10-21)
PROC: 5A09357 Assistance with Respiratory Ventilation, Less than 24 Consecutive Hours, Continuous Positive Airway Pressure (ICD-10-PCS; 2024-10-21)
PROC: 0JH63XZ Insertion of Tunneled Vascular Access Device into Chest Subcutaneous Tissue and Fascia, Percutaneous Approach (ICD-10-PCS; 2024-10-22)
PROC: 02H633Z Insertion of Infusion Device into Right Atrium, Percutaneous Approach (ICD-10-PCS; 2024-10-22)
PROC: B5181ZA Fluoroscopy of Superior Vena Cava using Low Osmolar Contrast, Guidance (ICD-10-PCS; 2024-10-22)
PROC: B548ZZA Ultrasonography of Superior Vena Cava, Guidance (ICD-10-PCS; 2024-10-22)
PROC: 5A1D70Z Performance of Urinary Filtration, Intermittent, Less than 6 Hours Per Day (ICD-10-PCS; 2024-10-22)
PROC: 5A09357 Assistance with Respiratory Ventilation, Less than 24 Consecutive Hours, Continuous Positive Airway Pressure (ICD-10-PCS; 2024-10-22)
PROC: 5A1D70Z Performance of Urinary Filtration, Intermittent, Less than 6 Hours Per Day (ICD-10-PCS; 2024-10-23)
PROC: 5A09357 Assistance with Respiratory Ventilation, Less than 24 Consecutive Hours, Continuous Positive Airway Pressure (ICD-10-PCS; 2024-10-23)
PROC: 5A09357 Assistance with Respiratory Ventilation, Less than 24 Consecutive Hours, Continuous Positive Airway Pressure (ICD-10-PCS; 2024-10-24)
PROC: 5A1D70Z Performance of Urinary Filtration, Intermittent, Less than 6 Hours Per Day (ICD-10-PCS; 2024-10-25)
PROC: 5A09357 Assistance with Respiratory Ventilation, Less than 24 Consecutive Hours, Continuous Positive Airway Pressure (ICD-10-PCS; 2024-10-26)
PROC: 5A09357 Assistance with Respiratory Ventilation, Less than 24 Consecutive Hours, Continuous Positive Airway Pressure (ICD-10-PCS; 2024-10-27)
PROC: 5A09357 Assistance with Respiratory Ventilation, Less than 24 Consecutive Hours, Continuous Positive Airway Pressure (ICD-10-PCS; 2024-10-28)
DX: T82.41XA Breakdown (mechanical) of vascular dialysis catheter, initial encounter (principal); I50.23 Acute on chronic systolic (congestive) heart failure; J96.21 Acute and chronic respiratory failure with hypoxia; I13.2 Hypertensive heart and chronic kidney disease with heart failure and with stage 5 chronic kidney disease, or end stage renal disease; N17.9 Acute kidney failure, unspecified; E87.29 Other acidosis; J44.1 Chronic obstructive pulmonary disease with (acute) exacerbation; N39.0 Urinary tract infection, site not specified; Z68.42 Body mass index [BMI] 45.0-49.9, adult; E66.2 Morbid (severe) obesity with alveolar hypoventilation; N18.6 End stage renal disease; D63.1 Anemia in chronic kidney disease; E87.5 Hyperkalemia; I25.10 Atherosclerotic heart disease of native coronary artery without angina pectoris; K59.00 Constipation, unspecified; I35.0 Nonrheumatic aortic (valve) stenosis; E83.39 Other disorders of phosphorus metabolism; D50.9 Iron deficiency anemia, unspecified; H54.7 Unspecified visual loss; M1A.9XX0 Chronic gout, unspecified, without tophus (tophi); E11.319 Type 2 diabetes mellitus with unspecified diabetic retinopathy without macular edema; E11.22 Type 2 diabetes mellitus with diabetic chronic kidney disease; Z88.6 Allergy status to analgesic agent; Z79.4 Long term (current) use of insulin; Z79.899 Other long term (current) drug therapy; Z79.84 Long term (current) use of oral hypoglycemic drugs; Z82.49 Family history of ischemic heart disease and other diseases of the circulatory system; Z99.2 Dependence on renal dialysis; Z99.81 Dependence on supplemental oxygen; Y83.8 Other surgical procedures as the cause of abnormal reaction of the patient, or of later complication, without mention of misadventure at the time of the procedure; Y92.238 Other place in hospital as the place of occurrence of the external cause
CPT/HCPCS: 36415; 36556; 36558; 36600; 71045; 74018; 74176; 77001; 80048; 80053; 81001; 82270; 82550; 82570; 82728; 82746; 82805; 82962; 83010; 83540; 83550; 83615; 83735; 83880; 84132; 84156; 84300; 84484; 85007; 85014; 85018; 85025; 85027; 85045; 85384; 85610; 85730; 86706; 86803; 86850; 86900; 86901; 87081; 87086; 87340; 90935; 93005; 94640; 94660; 96365; 96375; 97163; 99152; C1894; G0378; J1642; J1756; J1815; J2003; J2250; J2405; J2470; J3480; P9047

== ENCOUNTER 2024-12-15 09:30 | Inpatient (IN) | payer MEDICARE, MEDICAID ==
[2024-12-15] VITALS (7 sets, daily range): BP systolic 127–155; BP diastolic 63–72; PULSE 84–91; RESP 17–20; TEMP 98.1–98.3; O2SAT 90–99
[~2024-12-15] VITALS: Ht 154.9 cm; Wt 121.9 kg
[~2024-12-15 09:30] MED LIST changes: +BENA40TA71 PO; +BUME2TAB5 PO; +FER325T PO; +NITR0.4S29 SL; +PANT40TA2 PO; +POTA-180 PO; +SEVE800T7 PO
--- NOTE | 2024-12-15 10:17 | ED.PDOC ---
History of Present Illness(SKN HPI Comments 79 y.o female with PMHx of CHF, HTN, Gout, H.pylori ulcer, CKF, and arthritis, presents to the ED via EMS for an evaluation of a erythematous, raw rash localized on the left side, under her breast and flank area that developed one week ago. Patient describes the pain as a severe burning sensation that is constant and has no alleviating factors, despite using rash cream. No bleeding or wounds noted. Chief Complaint: Rash Time Seen by MD: 09:52 History of Present Illness: Nurses Notes, Chart Reader Notes, Medications, Allergies Allergies: Coded Allergies: Aspirin (Verified Allergy, Unknown, 09/30/24) Home Meds Active Scripts Sevelamer Hydrochloride (Renagel) 800 Mg Tab, 800 MG PO TIDWM for 30 Days, #90 TAB 2 Refills Prov:MARLEEN WATERS RESIDENT 10/28/24 Ferrous Sulfate (Ferrous Sulfate) 325 Mg Tab, 325 MG PO DAILY for 30 Days, #30 TAB 2 Refills Prov:MARLEEN WATERS RESIDENT 10/28/24 Pantoprazole Sodium Sesquihydr (Protonix) 40 Mg Tab, 40 MG PO DAILY for 30 Days, #30 TAB 2 Refills Prov:MARLEEN WATERS RESIDENT 10/28/24 Nifedipine (Nifedipine Er) 90 Mg Tab, 1 TAB PO DAILY for 30 Days, #30 TAB 5 Refills Prov:CYRUS WALLACE RESIDENT 10/08/24 Carvedilol (Carvedilol) 6.25 Mg Tab, 1 TAB PO BID for 30 Days, #60 TAB 1 Refill Prov:CYRUS WALLACE RESIDENT 10/08/24 Reported Medications Hydrocodone-Acetaminophen (Hydrocodone Bitartrate/AC 10-325 mg) 1 Tab Tab, 1 TAB PO Q4HR PRN for INTERVERTEBRAL DISC DISORDERS for 30 Days, #180 10/06/24 Pantoprazole Sodium Sesquihydr (Pantoprazole Sodium) 40 Mg Tab, 1 TAB PO DAILY for 30 Days, #30 10/06/24 Loratadine (CLARITIN TABLET) 10 Mg Tb, 1 TAB PO DAILY for 30 Days, #30 10/06/24 Simvastatin (Simvastatin) 20 Mg Tab, 1 TAB PO DAILY for 30 Days, #30 10/06/24 Allopurinol (Allopurinol) 100 Mg Tab, 1 TAB PO DAILY for 30 Days, #30 10/06/24 Docusate Sodium (Docusate Sodium) 100 Mg Cap, 1 CAP PO BID for 30 Days, #60 10/06/24 Glimepiride (Glimepiride) 2 Mg Tab, 2 TAB PO DAILY for 30 Days, #60 10/06/24 Ursodiol (Ursodiol) 250 Mg Tab, 1 TAB PO TID for 30 Days, #90 10/06/24 Insulin Glargine (Basaglar Kwikpen) 100 Unit/Ml Inj, 26 UNIT SC DAILY for 58 Days, #15 10/06/24 Information Source: Patient, Emergency Med Personnel Mode of Arrival: EMS Severity: Moderate Timing: Weeks (1) Duration: Since onset Location: Trunk, Other Mechanism: Preceding Wound Object: None Wound Type: Other History of: Diabetes Associated Signs and Symptoms: Redness Past Medical History PAST MEDICAL HISTORY: Asthma, CAD, CHF, CKF, COPD, DM, ESRD, Gout, HTN Surgical History: Unknown, 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 [employer] History: Unknown, 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 Family History Family History: Unknown, 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 Social History Smoker: Non-Smoker Alcohol: Denies ETOH Use Drugs: Denies Drug Use Lives In: Home Constitutional: denies: chills, diaphoresis, fatigue, fever, malaise, sweats, weakness, others EENTM: denies: blurred vision, double vision, ear bleeding, ear discharge, ear drainage, ear pain, ear ringing, eye pain, eye redness, hearing loss, mouth pain, mouth swelling, nasal discharge, nose bleeding, nose congestion, nose pain, photophobia, tearing, throat pain, throat swelling, voice changes, others Respiratory: denies: cough, hemoptysis, orthopnea, SOB at rest, shortness of breath, SOB with excertion, stridor, wheezing, others Cardiovascular: denies: chest pain, dizzy spells, diaphoresis, Dyspnea on exertion, edema, irregular heart beat, left arm pain, lightheadedness, palpitations, PND, syncope, others Gastrointestinal: denies: abdomen distended, abdominal pain, blood streaked bowels, constipated, diarrhea, dysphagia, difficulty swallowing, hematemesis, melena, nausea, poor appetite, poor fluid intake, rectal bleeding, rectal pain, vomiting, others Genitourinary: denies: abnormal vagina bleeding, burning, dyspareunia, dysuria, flank pain, frequency, hematuria, incontinence, pain, , vagina discharge, urgency, others Neurological: denies: dizziness, fainting, headache, left sided numbness, left sided weakness, numbness, paresthesia, pre-existing deficit, right sided numbness, right sided weakness, seizure, speech problems, tingling, tremors, weakness, others Musculoskeletal: denies: back pain, gout, joint pain, joint swelling, muscle pain, muscle stiffness, neck pain, others Integumetry: reports: rash; denies: bruises, change in color, change in hair/nails, dryness, laceration, lesions, lumps, wounds, others Allergic/Immunocompromised: denies: Difficulty Healing, Frequent Infections, Hives, Itching, others Hematologic/Lymphatic: denies: anemia, blood clots, easy bleeding, easy bruising, swollen glands, others Endocrine: denies: excessive hunger, excessive sweating, excessive thirst, excessive urination, flushing, intolerance to cold, intolerance to heat, unexplained weight gain, unexplained weight loss, others Psychiatric: denies: anxiety, bipolar disorder, depression, hopeless, panic disorder, schizophrenia, sleepless, suicidal, others All Other Systems: Reviewed and Negative Physical Exam General Appearance: Moderate Distress, Obese HEENT: Normal ENT Inspection, PERRL/EOMI Neck: Full Range of Motion, Non-Tender, Normal, Normal Inspection Respiratory: Chest Non-Tender, Lungs Clear, No Accessory Muscle Use, No Respiratory Distress, Normal Breath Sounds Cardiovascular: No Edema, No JVD, No Murmur, No Gallop, Normal Peripheral Pulses, Regular Rate/Rhythm Breast Exam: Other (Left breast patient has tinea cruris with a one region of the breast mostly lateral aspect has deep tissue abrasions or or possibly infection painful) Gastrointestinal: No Organomegaly, Non Tender, No Pulsatile Mass, Normal Bowel Sounds, Soft, Other (Morbid obesity) Genitalia: Deferred Pelvic: Deferred Rectal: Deferred Extremities: No calf tenderness, Normal capillary refill, Normal inspection, Normal range of motion, Non-tender, No pedal edema Neurologic: Alert, Depressed Affect Cerebellar Function: NOT DONE Reflexes: NOT DONE Skin: Rash, Wounds Peripheral Pulses: 1+ carotid (R), 1+ carotid (L) Lymphatic: No Adenopathy Was a procedure done? Was a procedure done?: No Differential Diagnosis (INTG) Differential Diagnosis: Candidiasis, Cellulitis, Contact Dermatitis, Impetigo, Other (Eczema herpeticum) X-Ray, Labs, Meds, VS Vital Signs Date Time Temp Pulse Resp B/P (MAP) Pulse Ox O2 Delivery O2 Flow Rate FiO2 12/15/24 10:38 90 20 138/59 12/15/24 10:11 98.4 90 20 138/59 (85) 96 98.4 12/15/24 09:30 99.3 92 18 159/110 97 99.3 Current Medications Medications (Trade) Dose Ordered Sig/Nasrin Route Start Time Stop Time Status Last Admin Ondansetron HCl (Zofran) 4 mg ONCE ONCE IV 12/15/24 10:15 12/15/24 10:16 DC 12/15/24 10:36 Morphine Sulfate 3 mg ONCE ONCE IV 12/15/24 10:15 12/15/24 10:16 DC 12/15/24 10:38 Sodium Chloride 500 ml @ 500 mls/hr Q1H ONCE IVB 12/15/24 10:15 12/15/24 11:14 12/15/24 10:22 Ceftriaxone Sodium 50 ml @ 100 mls/hr ONCE ONCE IV 12/15/24 10:45 12/15/24 11:14 12/15/24 10:57 Fluconazole 100 ml @ 100 mls/hr ONCE ONCE IV 12/15/24 10:45 12/15/24 11:44 12/15/24 11:16 Time of 1ST Reevaluation: 11:00 Reevaluation 1ST: Unchanged Patient Education/Counseling: Diagnosis, Treatment, Prognosis Family Education/Counseling: Diagnosis, Treatment, Prognosis, No Family Present SEPSIS Sepsis Screen Date sepsis recognized/suspect: Dec 15, 2024 Time Sepsis recognized/suspect: 929 Recent Procedure: No On Antibiotic Therapy: No Respiratory Rate >20: No Heart Rate >90: Yes Temp<36 C (96.8 F) or >38.3 C: No SBP <90 or MAP <65 mmHG: No New Acute Mental Status Change: No Is the patient on CPAP, BIPAP,: No Physician Orders Heplock Iv (12/15/24 10:08) Sodium Chloride 0.9% (12/15/24 10:15) Blood Pressure (12/15/24 10:08) Complete Blood Count (12/15/24 10:08) Comprehensive Metabolic Panel (12/15/24 10:08) Magnesium (12/15/24 10:08) Blood Pressure (12/15/24 10:08) Urinalysis (12/15/24 10:08) Ceftriaxone 1gm/50ml (Rocephin) (12/15/24 10:45) Fluconazole 200mg/100ml (Diflucan 200mg/ (12/15/24 10:45) Vital Signs Date Time Temp Pulse Resp B/P (MAP) Pulse Ox O2 Delivery O2 Flow Rate FiO2 12/15/24 10:38 90 20 138/59 12/15/24 10:11 98.4 90 20 138/59 (85) 96 98.4 12/15/24 09:30 99.3 92 18 159/110 97 99.3 Medications Medications Dose Ordered Sig/Nasrin Route Start Time Stop Time Status Last Admin Dose Admin Ceftriaxone Sodium 50 ml @ 100 mls/hr ONCE ONCE IV 12/15/24 10:45 12/15/24 11:14 12/15/24 10:57 Fluconazole 100 ml @ 100 mls/hr ONCE ONCE IV 12/15/24 10:45 12/15/24 11:44 12/15/24 11:16 Morphine Sulfate 3 mg ONCE ONCE IV 12/15/24 10:15 12/15/24 10:16 DC 12/15/24 10:38 Ondansetron HCl 4 mg ONCE ONCE IV 12/15/24 10:15 12/15/24 10:16 DC 12/15/24 10:36 Sodium Chloride 500 ml @ 500 mls/hr Q1H ONCE IVB 12/15/24 10:15 12/15/24 11:14 12/15/24 10:22 Departure 1 Departure Time of Disposition: 11:38 Impression: Primary Impression: Intractable pain Additional Impressions: Tinea cruris Cellulitis Morbid obesity Acute renal failure on dialysis Disposition: ADMITTED INPATIENT Condition: Serious Critical Care Note Critical Care Time?: No Stability Stability form required: Yes I personally scribed for TRANG RAYGOZA MD ([email or web address]) on 12/15/24 at 10:17. Electronically submitted by Leena Stephen ([facility]). TRANG RAYGOZA MD Dec 15, 2024 10:17
[2024-12-15] MEDS: SODIUM CHLORIDE 0.9% 500 ML IVB ONE (10:22)
[2024-12-15] MEDS: ONDANSETRON HCL 4 MG/2 ML VIAL IV ONE ×2 (10:36→13:38)
[2024-12-15] MEDS: MORPHINE SULFATE 4 MG/ML SYR/VIAL IV ONE ×2 (10:38→13:37)
[2024-12-15] MEDS: BACITRACIN TOP OINT 1 UD PKG TOP ONE (10:45)
[2024-12-15] MEDS: FLUCONAZOLE 200MG/100ML 100 ML IV ONE (11:16)
[2024-12-15 13:27] LABS: Alanine Aminotransferase 15 U/L (7-40); Albumin 3.5 g/dL (3.2-4.8); Anion Gap 8 (5-15); BUN/Creatinine Ratio 4.3 (10.0-20.0); Bilirubin, Total 0.3 mg/dL (0.2-1.0); Carbon Dioxide 27 mmol/L (20-31); Chloride 98 mmol/L (98-107); Magnesium 2.0 mg/dL (1.6-2.6); Potassium 4.1 mmol/L (3.5-5.1); Total Protein 6.2 g/dL (5.7-8.2)
[2024-12-15 13:28] LABS: Alkaline Phosphatase 164 U/L (46-116); Blood Urea Nitrogen 7 mg/dL (9-23); Calcium 8.4 mg/dL (8.7-10.4); Glucose 189 mg/dL (74-106); Sodium 133 mmol/L (136-145)
[2024-12-15 14:27] LABS: Hemoglobin 12.4 g/dL (12.2-16.2)
[2024-12-15 14:29] LABS: Hematocrit 39.2 % (36.0-46.0); Mean Corpuscular Hemoglobin 32.4 pg (28.0-32.0); Mean Corpuscular Volume 102.8 fL (80.0-100.0); Nucleated Red Blood Cells % 0.4 %
[2024-12-15] MEDS ORDERED: DEXTROSE (50%) 50ML SYRG IV PRN (19:45)
[2024-12-15] MEDS: ACCU-CHEK COMFORT CURVE STRIP VI SCH (19:55)
[2024-12-15] MEDS: InsuLIN REG 1unit/0.01ml Soln (100units/ml) SC SCH (19:56)
[2024-12-15] MEDS ORDERED: DOCUSATE SOD 100 MG CAP PO PRN (21:30)
--- NOTE | 2024-12-15 22:11 | DVHHP2 ---
History of Present Illness Reason for Visit: Acute respiratory distress History of Present Illness The patient is a 79-year-old female severely obese with multiple past medical history including legal blindness, Coronary artery disease, CHF, asthma, end- stage renal disease on hemodialysis, diabetes mellitus, and hypertension who presented to [facility] ED with complaint of left flank erythematous. Patient reports she has been experiencing raw rash localized on the left flank spreading round her waist, under her breast for the past 1 week. Patient describes the pain as a severe burning sensation that is constant and has no alleviating factors, despite using rash cream. Patient was seen and evaluated in the ED, laboratory data shows WBC 8.0, platelets 192, sodium 133, potassium 4.1, BUN seven, creatinine 1.62, glucose 189, calcium 8.4, blood pressure 127/71, heart rate 88, temperature 98.3 F, O2 saturation 99% on oxygen. Patient was started on IV antibiotic regimen vancomycin, please see medication orders section in the computer. On my assessment, patient denied chest pain, no headache, no dizziness, no diaphoresis, currently on oxygen, no nausea, no vomiting, no fever, no chills. Patient was admitted for further evaluation and medical management. Past Medical History Legal blindness, Asthma, CAD, CHF, CKF, COPD, DM, ESRD, Gout, HTN Past Surgical History Denies all surgeries Family History Reviewed, noncontributory to the management of this case. Past Social History The patient lives at home, denies smoking, alcohol or illicit drugs abuse. Review of Systems Constitutional: Yes: Weakness; No: Fever, Chills, Sweats, Malaise, Other Eyes: Other (Legal blindness); No: Pain, Vision change, Conjunctivae inflammation, Eyelid inflammation, Redness ENT: No: Ear pain, Ear discharge, Nose pain, Nose discharge, Nose congestion, Mouth pain, Mouth swelling, Throat pain, Throat swelling, Other Respiratory: No: Cough, Dry, Shortness of breath, SOB with excertion, Wheezing, Hemoptysis, Pleuritic Pain, Sputum, Wheezing, Other Cardiovascular: No: Chest Pain, Palpitations, Orthopnea, Paroxysmal Noc. Dyspnea, Edema, Lt Headedness, Other Gastrointestinal: No: Nausea, Vomiting, Abdominal Pain, Diarrhea, Constipation, Melena, Hematochezia, Other Genitourinary: No Dysuria, No Frequency, No Incontinence, No Hematuria, No Retention, No Other Musculoskeletal: No: other, neck pain, shoulder pain, arm pain, back pain, hand pain, leg pain, foot pain Skin: Rash (Left flank); No: Lesions, Jaundice, Bruising, Other Neurological: No: Weakness, Numbness, Incoordination, Change in speech, Confusion, Seizures, Other Allergies: Coded Allergies: Aspirin (Verified Allergy, Unknown, 09/30/24) Medications Current Medications Medications Dose Ordered Sig/Nasrin Route Start Time Stop Time Status Last Admin Dose Admin Diagnostic Test (Pha) 1 strip IQ4HR 12/15/24 20:00 12/15/24 19:55 1 STRIP Insulin Human Regular IQ4HR SC 12/15/24 20:00 12/15/24 19:56 9 UNITS Dextrose 50 ml UD PRN IV 12/15/24 19:45 Carvedilol 6.25 mg Q12HR PO 12/15/24 22:00 Clopidogrel Bisulfate 75 mg DAILY PO 12/16/24 10:00 Multivit/Ca Carb/ B Cmplx/FA/Prenat 1 tab DAILY PO 12/16/24 10:00 Sevelamer HCl 800 mg TIDWM PO 12/16/24 08:00 Famotidine 20 mg Q12HR IV 12/15/24 22:00 Atorvastatin Calcium 20 mg HS PO 12/15/24 22:00 Sodium Chloride 10 ml Q8HR IV 12/15/24 22:00 Acetaminophen/ Hydrocodone Bitart 1 tab Q4HP PRN PO 12/15/24 21:30 Ondansetron HCl 4 mg Q4HP PRN IV 12/15/24 21:30 Docusate Sodium 100 mg BIDPRN PRN PO 12/15/24 21:30 Acetaminophen 650 mg Q6HP PRN PO 12/15/24 21:30 Nitroglycerin 0.4 mg Q5MINP PRN SL 12/15/24 22:15 UNV Morphine Sulfate 2 mg Q30M PRN IV 12/15/24 22:15 UNV Vancomycin HCl 0 ml @ 0 mls/hr UD IV 12/15/24 22:15 UNV Exam Vital Signs Vital Signs Date Time Temp Pulse Resp B/P (MAP) Pulse Ox O2 Delivery O2 Flow Rate FiO2 12/15/24 20:15 88 18 99 Nasal Cannula* 2 28 12/15/24 17:43 127/71 (89) 12/15/24 13:05 98.3 98.3 General Appearance: Alert, Oriented X3, Cooperative, No acute distress HEENT: Atraumatic, PERRLA, EOMI, Mucous membr. moist/pink Respiratory: Normal air movement, Other (Shortness of breaths) Cardiovascular: Regular rate, Normal S1, Normal S2, No murmurs Abdominal: Normal bowel sounds, Soft, No tenderness, No hepatospenomegaly, No masses Extremities: No clubbing, No cyanosis, No edema, Normal pulses, No tenderness/swelling Skin: No breakdown (Rash to the left flank) Neuro: Normal speech, Normal tone, Sensation intact, Cranial nerves 3-12 NL, Reflexes 2+, Other (Generalized weakness) Psych/Mental Status: Mental status NL, Mood NL Labs/Xrays Labs Test 12/15/24 19:30 12/15/24 14:05 12/15/24 12:52 Range/Units POC Glucose 288 H 70-106 mg/dl White Blood Count 8.0 4.4-10.8 10^3/uL Red Blood Count 3.81 L 4.0-5.20 10^6/uL Hemoglobin 12.4 12.2-16.2 g/dL Hematocrit 39.2 36.0-46.0 % Mean Corpuscular Volume 102.8 H 80.0-100.0 fL Mean Corpuscular Hemoglobin 32.4 H 28.0-32.0 pg Mean Corpuscular Hemoglobin Concent 31.5 L 32.0-36.0 g/dL Red Cell Distribution Width 16.2 H 11.8-14.3 % Platelet Count 192 140-450 10^3/uL Mean Platelet Volume 7.2 6.9-10.8 fL Neutrophils (%) (Auto) 61.6 37.0-80.0 % Lymphocytes (%) (Auto) 14.1 10.0-50.0 % Monocytes (%) (Auto) 10.3 0.0-12.0 % Eosinophils (%) (Auto) 13.5 H 0.0-7.0 % Basophils (%) (Auto) 0.5 0.0-2.0 % Neutrophils # (Auto) 4.9 1.6-8.6 10 ^3/uL Lymphocytes # (Auto) 1.1 0.4-5.4 10 ^3/uL Monocytes # (Auto) 0.8 0-1.3 10 ^3/uL Eosinophils # (Auto) 1.1 H 0-0.8 10 ^3/uL Basophils # (Auto) 0 0-0.2 10 ^3/uL Nucleated Red Blood Cells 0.4 % Sodium Level 133 L 136-145 mmol/L Potassium Level 4.1 3.5-5.1 mmol/L Chloride Level 98 98-107 mmol/L Carbon Dioxide Level 27 20-31 mmol/L Anion Gap 8 5-15 Blood Urea Nitrogen 7 L 9-23 mg/dL Creatinine 1.62 H 0.550-1.02 mg/dL Glomerular Filtration Rate Calc 32 >90 mL/min BUN/Creatinine Ratio 4.3 L 10.0-20.0 Serum Glucose 189 H 74-106 mg/dL Calcium Level 8.4 L 8.7-10.4 mg/dL Magnesium Level 2.0 1.6-2.6 mg/dL Total Bilirubin 0.3 0.2-1.0 mg/dL Aspartate Amino Transferase (AST) 24 13-40 U/L Alanine Aminotransferase (ALT) 15 7-40 U/L Alkaline Phosphatase 164 H 46-116 U/L Total Protein 6.2 5.7-8.2 g/dL Albumin 3.5 3.2-4.8 g/dL SEPSIS Sepsis Screen Date sepsis recognized/suspect: Dec 15, 2024 Time Sepsis recognized/suspect: 1309 Recent Procedure: No On Antibiotic Therapy: No Respiratory Rate >20: No Heart Rate >90: No Temp<36 C (96.8 F) or >38.3 C: No SBP <90 or MAP <65 mmHG: No New Acute Mental Status Change: No Is the patient on CPAP, BIPAP,: No Physician Orders Glucose Blood (Accu-Chek Comfort Curve T (12/15/24 20:00) Insulin R (Human) (Insulin R) (12/15/24 20:00) Dextrose 50% Syringe (12/15/24 19:45) Carvedilol Tablet (Coreg Tablet) (12/15/24 22:00) Clopidogrel Bisulfate (Plavix) (12/16/24 10:00) B-Complex W/ C & Folic Tablet (Nephro-Vi (12/16/24 10:00) Sevelamer (Renagel) (12/16/24 08:00) *Dr. Angella Winters -Da Keyla (12/15/24 21:30) Famotidine Injection (Pepcid Injection) (12/15/24 22:00) Atorvastatin (Lipitor) (12/15/24 22:00) Allergies (12/15/24 21:30) Code Status (12/15/24 21:30) Renal Standard(2gna,3gk,Lopho) (12/16/24 Breakfast) Sodium Chloride Lock (Saline Lock Ns) (12/15/24 22:00) Oxygen Per Hour (12/15/24 21:30) Hydrocodone-Acet 5/325mg Tab ([place] 5/32 (12/15/24 21:30) Ondansetron Hcl (Zofran) (12/15/24 21:30) Docusate Sodium Capsule (Colace Capsule) (12/15/24 21:30) Complete Blood Count (12/16/24 04:00) Comprehensive Metabolic Panel (12/16/24 04:00) Condition: Serious (12/15/24 21:30) Acetaminophen Tablet (Tylenol Tablet) (12/15/24 21:30) Bedrest With Bathroom Privileg (12/15/24 21:30) Sequential Compression Device (12/15/24 ) Admit (12/15/24 22:06) Nitroglycerin Sublingual (Ntrostat Subli (12/15/24 22:15) Morphine Sulfate Injection (12/15/24 22:15) Stat Ekg For Chest Pain (12/15/24 22:06) Notify Md Of Changes From Base (12/15/24 22:06) Fisher Seal For 24 Hours (12/15/24 22:06) Emergency Dysrhythmia Protocol (12/15/24 22:06) Rhythm Strips Once Every Shift (12/15/24 22:06) Oxygen By Nasal Cannula (12/15/24 22:06) Vancomycin (12/15/24 22:15) Ceftriaxone Ivpb Rocephin (12/16/24 09:00) Vital Signs Date Time Temp Pulse Resp B/P (MAP) Pulse Ox O2 Delivery O2 Flow Rate FiO2 12/15/24 20:15 88 18 99 Nasal Cannula* 2 28 12/15/24 20:02 95 12/15/24 17:43 89 20 127/71 (89) 99 12/15/24 16:47 91 18 152/70 (97) 98 Laboratory Tests Test 12/15/24 14:05 White Blood Count 8.0 10^3/uL (4.4-10.8) Medications Medications Dose Ordered Sig/Nasrin Route Start Time Stop Time Status Last Admin Dose Admin Ceftriaxone Sodium 50 ml @ 100 mls/hr ONCE ONCE IV 12/15/24 10:45 12/15/24 12:46 DC 12/15/24 10:57 100 MLS/HR Diagnostic Test (Pha) 1 strip IQ4HR 12/15/24 20:00 12/15/24 19:55 1 STRIP Fluconazole 100 ml @ 100 mls/hr ONCE ONCE IV 12/15/24 10:45 12/15/24 12:46 DC 12/15/24 11:16 100 MLS/HR Insulin Human Regular IQ4HR SC 12/15/24 20:00 12/15/24 19:56 9 UNITS Morphine Sulfate 3 mg ONCE ONCE IV 12/15/24 10:15 12/15/24 10:16 DC 12/15/24 10:38 3 MG Morphine Sulfate 4 mg ONCE ONCE IV 12/15/24 13:30 12/15/24 13:31 DC 12/15/24 13:37 4 MG Ondansetron HCl 4 mg ONCE ONCE IV 12/15/24 10:15 12/15/24 10:16 DC 12/15/24 10:36 4 MG Ondansetron HCl 4 mg ONCE ONCE IV 12/15/24 13:30 12/15/24 13:31 DC 12/15/24 13:38 4 MG Sodium Chloride 500 ml @ 500 mls/hr Q1H ONCE IVB 12/15/24 10:15 12/15/24 12:46 DC 12/15/24 10:22 500 MLS/HR Assessment/Plan Assessment/Plan Intractable pain Tinea cruris Cellulitis Acute respiratory distress Morbid obesity Acute renal failure on dialysis Plan 1. Admit to telemetry unit 2. Breathing treatment 3. Pain control management 4. IV antibiotic management 5. Management of fluids and electrolytes 6. Consultation for hospitalist 7. Diagnostic test chest x-ray 8. DVT prophylaxis-on SCDs 9. Repeat labs CBC, CMP in a.m. 10. Home medication reviewed and reconciled 11. Continue with current medical management 12. Treatment plan discussed with patient and RN. Patient verbalized understanding. Plan discussed with: Patient, Other (RN) My Orders Orders - SALINAS SPARKS DNP Procedure Category Date Status Time Glucose Blood PHA 12/15/24 In Process (Accu-Chek Comfort 20:00 Insulin R (Human) PHA 12/15/24 In Process (Insulin R) 20:00 Dextrose 50% Syringe PHA 12/15/24 In Process 19:45 Carvedilol Tablet PHA 12/15/24 In Process (Coreg Tablet) 22:00 Clopidogrel Bisulfate PHA 12/16/24 In Process (Plavix) 10:00 B-Complex W/ C & PHA 12/16/24 In Process Folic Tablet 10:00 Sevelamer (Renagel) PHA 12/16/24 In Process 08:00 *Dr. Angella Winters -Da CONS 12/15/24 Transmitted Keyla 21:30 Famotidine Injection PHA 12/15/24 In Process (Pepcid Injection) 22:00 Atorvastatin (Lipitor) PHA 12/15/24 In Process 22:00 Allergies STAR 12/15/24 In Process 21:30 Code Status CODE 12/15/24 Transmitted 21:30 Renal DIET 12/16/24 Transmitted Standard(2gna,3gk,Lopho) Breakfast Sodium Chloride Lock PHA 12/15/24 In Process (Saline Lock Ns) 22:00 Oxygen Per Hour RT 12/15/24 Transmitted 21:30 Hydrocodone-Acet PHA 12/15/24 In Process 5/325mg Tab ([place] 21:30 Ondansetron Hcl PHA 12/15/24 In Process (Zofran) 21:30 Docusate Sodium PHA 12/15/24 In Process Capsule (Colace 21:30 Complete Blood Count LAB 12/16/24 Verified 04:00 Comprehensive LAB 12/16/24 Verified Metabolic Panel 04:00 Condition: Serious STAR 12/15/24 In Process 21:30 Acetaminophen Tablet PHA 12/15/24 In Process (Tylenol Tablet) 21:30 Bedrest With Bathroom STAR 12/15/24 In Process Privileg 21:30 Sequential STAR 12/15/24 In Process Compression Device Admit ADMIT 12/15/24 Transmitted 22:06 Nitroglycerin PHA 12/15/24 Logged Sublingual (Ntrostat 22:15 Morphine Sulfate PHA 12/15/24 Logged Injection 22:15 Stat Ekg For Chest [facility] 12/15/24 In Process Pain 22:06 Notify Of Changes [facility] 12/15/24 In Process From Base 22:06 Fisher Seal For [facility] 12/15/24 In Process 24 Hours 22:06 Emergency Dysrhythmia [facility] 12/15/24 In Process Protocol 22:06 Rhythm Strips Once [facility] 12/15/24 In Process Every Shift 22:06 Oxygen By Nasal RT 12/15/24 Transmitted Cannula 22:06 Vancomycin PHA 12/15/24 Transmitted 22:15 Ceftriaxone Ivpb [facility] 12/16/24 Verified Rocephin 09:00 Problem List: (1) Intractable pain (2) Tinea cruris (3) Cellulitis (4) Acute respiratory distress (5) Morbid obesity (6) Acute renal failure on dialysis Date of Service: Dec 15, 2024 Billing Provider: SALINAS SPARKS DNP Common Visit Codes: [id number] INP/OBS CARE (HIGH) SALINAS SPARKS DNP Dec 15, 2024 22:11
[2024-12-15] MEDS ORDERED: NITROGLYCERIN 0.4 MG SL TAB SL PRN (22:15)
[2024-12-15] MEDS ORDERED: VANCOMYCIN PER PHARMACY 0 MG IV SCH (22:15)
[2024-12-15] MEDS ORDERED: MORPHINE SULFATE INJ 2 MG/ml SYRG IV PRN (22:15)
[2024-12-15] MEDS: VANCOMYCIN 1GM/250ML IV SCH (22:27)
[2024-12-15] MEDS: FAMOTIDINE (10MG/ML) 2ML VL IV SCH (22:27)
[2024-12-15] MEDS: SODIUM CHLOR 0.9% PF (SALINE LOCK) 10ML VIAL/SYR IV SCH (22:28)
[2024-12-15] MEDS: ATORVASTATIN 20 MG TAB PO SCH (22:28)
[2024-12-15] MEDS: CARVEDILOL 3.125 MG TAB PO SCH (22:28)
[2024-12-16] VITALS (8 sets, daily range): BP systolic 120–156; BP diastolic 46–73; PULSE 78–100; RESP 18–19; TEMP 98.2–98.8; O2SAT 86–100
[2024-12-16] MEDS: HYDROcodone-ACET 5/325MG TAB PO PRN (04:09)
[2024-12-16] MEDS: B-COMPLEX W/ C & FOLIC ACID(NEPHROVITE TAB) PO SCH (08:19)
[2024-12-16] MEDS: CLOPIDOGREL BISULFATE 75 MG TAB PO SCH (08:19)
[2024-12-16] MEDS: SEVELAMER 800 MG TAB PO SCH (08:19)
[2024-12-16 08:47] LABS: Hematocrit 36.0 % (36.0-46.0)
[2024-12-16 08:49] LABS: Hemoglobin 11.2 g/dL (12.2-16.2); Mean Corpuscular Hemoglobin 32.0 pg (28.0-32.0); Mean Corpuscular Volume 103.2 fL (80.0-100.0)
[2024-12-16 09:13] LABS: Alanine Aminotransferase 11 U/L (7-40); Anion Gap 7 (5-15); BUN/Creatinine Ratio 5.7 (10.0-20.0); Blood Urea Nitrogen 15 mg/dL (9-23); Chloride 100 mmol/L (98-107); Potassium 4.0 mmol/L (3.5-5.1); Sodium 139 mmol/L (136-145)
[2024-12-16 09:17] LABS: Albumin 3.1 g/dL (3.2-4.8); Alkaline Phosphatase 124 U/L (46-116); Bilirubin, Total 0.2 mg/dL (0.2-1.0); Calcium 8.2 mg/dL (8.7-10.4); Carbon Dioxide 32 mmol/L (20-31); Glucose 126 mg/dL (74-106); Total Protein 5.5 g/dL (5.7-8.2)
[2024-12-16 09:53] LABS: Total Cells Counted 100.0 (100)
[2024-12-16 09:54] LABS: Anisocytosis Slight; Macrocytosis Slight
--- NOTE | 2024-12-16 14:17 | DVHPN2 ---
Reviewed: Care Plan, H&P, Labs, Medications, Previous Orders, Radiology Changes from previous H/P or p: No Changes Eyes: No Pain, No Vision change, No Conjunctivae inflammation, No Eyelid inflammation; Other (Legal blindness); No Redness ENT: No Ear pain, No Ear discharge, No Nose pain, No Nose discharge, No Nose congestion, No Mouth pain, No Mouth swelling, No Throat pain, No Throat swelling, No Other Cardiovascular: No Chest Pain, No Palpitations, No Orthopnea, No Paroxysmal Noc. Dyspnea, No Edema, No Lt Headedness, No Other Respiratory: No Cough, No Dry, No Shortness of breath, No SOB with excertion, No Wheezing, No Hemoptysis, No Pleuritic Pain, No Sputum, No Other Gastrointestinal: No Nausea, No Vomiting, No Abdominal Pain, No Diarrhea, No Constipation, No Melena, No Hematochezia, No Other Genitourinary: No Dysuria, No Frequency, No Incontinence, No Hematuria, No Retention, No Other Musculoskeletal: No other, No neck pain, No shoulder pain, No arm pain, No back pain, No hand pain, No leg pain, No foot pain Skin: Rash (Left flank); No Lesions, No Jaundice, No Bruising, No Other Objective Vitals Vital Signs Date Time Temp Pulse Resp B/P (MAP) Pulse Ox O2 Delivery O2 Flow Rate FiO2 12/16/24 13:00 98.3 84 18 156/69 (98) 99 98.3 12/16/24 08:05 Nasal Cannula* 2 28 Intake/Output Intake and Output 12/16/24 07:00 Intake Total 1050 ml Balance 1050 ml Intake Oral 150 ml IV Total 900 ml # Voids 1 Medications Current Medications Medications Dose Ordered Sig/Nasrin Route Start Time Stop Time Status Last Admin Dose Admin Diagnostic Test (Pha) 1 strip IQ4HR 12/15/24 20:00 12/16/24 12:00 1 STRIP Insulin Human Regular IQ4HR SC 12/15/24 20:00 12/16/24 13:00 3 UNITS Dextrose 50 ml UD PRN IV 12/15/24 19:45 Carvedilol 6.25 mg Q12HR PO 12/15/24 22:00 12/16/24 08:27 6.25 MG Clopidogrel Bisulfate 75 mg DAILY PO 12/16/24 10:00 12/16/24 08:19 75 MG Multivit/Ca Carb/ B Cmplx/FA/Prenat 1 tab DAILY PO 12/16/24 10:00 12/16/24 08:19 1 TAB Sevelamer HCl 800 mg TIDWM PO 12/16/24 08:00 12/16/24 13:04 800 MG Famotidine 20 mg Q12HR IV 12/15/24 22:00 12/16/24 08:19 20 MG Atorvastatin Calcium 20 mg HS PO 12/15/24 22:00 12/15/24 22:28 20 MG Sodium Chloride 10 ml Q8HR IV 12/15/24 22:00 12/16/24 06:00 10 ML Acetaminophen/ Hydrocodone Bitart 1 tab Q4HP PRN PO 12/15/24 21:30 12/16/24 04:09 1 TAB Ondansetron HCl 4 mg Q4HP PRN IV 12/15/24 21:30 Docusate Sodium 100 mg BIDPRN PRN PO 12/15/24 21:30 Acetaminophen 650 mg Q6HP PRN PO 12/15/24 21:30 Nitroglycerin 0.4 mg Q5MINP PRN SL 12/15/24 22:15 Morphine Sulfate 2 mg Q30M PRN IV 12/15/24 22:15 Vancomycin HCl 0 ml @ 0 mls/hr UD IV 12/15/24 22:15 Ceftriaxone Sodium 50 ml @ 100 mls/hr DAILY@09 IV 12/16/24 09:00 12/16/24 08:19 100 MLS/HR Laboratory Results Laboratory Tests 12/16/24 07:55 Chemistry Test 12/16/24 07:55 Albumin 3.1 g/dL (3.2-4.8) L Calcium Level 8.2 mg/dL (8.7-10.4) L Total Protein 5.5 g/dL (5.7-8.2) L LFT Test 12/16/24 07:55 Alanine Aminotransferase (ALT) 11 U/L (7-40) Alkaline Phosphatase 124 U/L (46-116) H Aspartate Amino Transferase (AST) 16 U/L (13-40) Total Bilirubin 0.2 mg/dL (0.2-1.0) Microbiology Microbiology Date/Time Source Procedure Growth Status 12/15/24 04:55 Nose MRSA Screen - Final Complete Labs and/or images reviewed: Labs reviewed by me, Image(s) reviewed by me Assessment/Plan Assessment/Plan Cellulitis left flank: Rocephin vancomycin Acute on Chronic Systolic Heart Failure (HFrEF 30%) NYHA Class III Acute hypoxic respiratory failure, pulmonary edema from CHF vs COPD exacerbation Possible COPD Exacerbation Acute Anemia Ruled Out GI Bleed NISHANT on CKD Likely Cardiorenal Syndrome Refractory hyperkalemia anemia of CKD. Type 2 Diabetes Mellitus, HbA1c: 6.8%. 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
--- NOTE | 2024-12-16 16:54 | DVHINCON2 ---
Date of service: Dec 16, 2024 Referring Physician Elder Marie NP Reason for Consultation End-stage kidney disease History of Present Illness This is a 79-year-old female with NISHANT requiring intermittent hemodialysis, morbid obesity, coronary artery disease, congestive heart failure, type 2 diabetes, hypertension brought into the emergency room because of abdominal discomfort. As per the history she has been experiencing erythema especially in the left flank area associated with edema and skin break. Patient says the pain was unbearable and also she was experiencing intense itching and hence came to the emergency room. Nephrology has been consulted for continuation of dialysis. Her last dialysis was on Tuesday. Patient says she does make minimal amount of urine. Granddaughter at bedside. Past Medical History Legal blindness, Asthma, CAD, CHF, CKF, COPD, DM, ESRD, Gout, HTN Past Surgical History Dialysis access Family History: Arthritis G8 MOTHER Hypercholesterolemia G8 MOTHER G8 FATHER Hypertension G8 MOTHER G8 FATHER Family History Lives with family Social History No active history of smoking, alcohol or drug abuse Allergies: Coded Allergies: Aspirin (Verified Allergy, Unknown, 09/30/24) Home Meds Active Scripts Sevelamer Hydrochloride (Renagel) 800 Mg Tab, 800 MG PO TIDWM for 30 Days, #90 TAB 2 Refills Prov:MARLEEN WATERS RESIDENT 10/28/24 Ferrous Sulfate (Ferrous Sulfate) 325 Mg Tab, 325 MG PO DAILY for 30 Days, #30 TAB 2 Refills Prov:MARLEEN WATESR RESIDENT 10/28/24 Pantoprazole Sodium Sesquihydr (Protonix) 40 Mg Tab, 40 MG PO DAILY for 30 Days, #30 TAB 2 Refills Prov:MARLEEN WATERS RESIDENT 10/28/24 Nifedipine (Nifedipine Er) 90 Mg Tab, 1 TAB PO DAILY for 30 Days, #30 TAB 5 Refills Prov:CYRUS WALLACE RESIDENT 10/08/24 Carvedilol (Carvedilol) 6.25 Mg Tab, 1 TAB PO BID for 30 Days, #60 TAB 1 Refill Prov:CYRUS WALLACE RESIDENT 10/08/24 Reported Medications Hydrocodone-Acetaminophen (Hydrocodone Bitartrate/AC 10-325 mg) 1 Tab Tab, 1 TAB PO Q4HR PRN for INTERVERTEBRAL DISC DISORDERS for 30 Days, #180 10/06/24 Pantoprazole Sodium Sesquihydr (Pantoprazole Sodium) 40 Mg Tab, 1 TAB PO DAILY for 30 Days, #30 10/06/24 Loratadine (CLARITIN TABLET) 10 Mg Tb, 1 TAB PO DAILY for 30 Days, #30 10/06/24 Simvastatin (Simvastatin) 20 Mg Tab, 1 TAB PO DAILY for 30 Days, #30 10/06/24 Allopurinol (Allopurinol) 100 Mg Tab, 1 TAB PO DAILY for 30 Days, #30 10/06/24 Docusate Sodium (Docusate Sodium) 100 Mg Cap, 1 CAP PO BID for 30 Days, #60 10/06/24 Glimepiride (Glimepiride) 2 Mg Tab, 2 TAB PO DAILY for 30 Days, #60 10/06/24 Ursodiol (Ursodiol) 250 Mg Tab, 1 TAB PO TID for 30 Days, #90 10/06/24 Insulin Glargine (Basaglar Kwikpen) 100 Unit/Ml Inj, 26 UNIT SC DAILY for 58 Days, #15 10/06/24 Current Medications Current Medications Medications (Trade) Dose Ordered Sig/Nasrin Route PRN Reason Start Time Stop Time Status Last Admin Diagnostic Test (Pha) (Accu-Chek Comfort Curve T) 1 strip IQ4HR 12/15/24 20:00 12/16/24 12:00 Insulin Human Regular (InsuLIN R) IQ4HR SC 12/15/24 20:00 12/16/24 13:00 Dextrose 50 ml UD PRN IV Blood Sugar LESS THAN 60 12/15/24 19:45 Carvedilol (Coreg Tablet) 6.25 mg Q12HR PO 12/15/24 22:00 12/16/24 08:27 Clopidogrel Bisulfate (Plavix) 75 mg DAILY PO 12/16/24 10:00 12/16/24 08:19 Multivit/Ca Carb/ B Cmplx/FA/Prenat (Nephro-Chele Tablet) 1 tab DAILY PO 12/16/24 10:00 12/16/24 08:19 Sevelamer HCl (Renagel) 800 mg TIDWM PO 12/16/24 08:00 12/16/24 13:04 Famotidine (Pepcid Injection) 20 mg Q12HR IV 12/15/24 22:00 12/16/24 08:19 Atorvastatin Calcium (Lipitor) 20 mg HS PO 12/15/24 22:00 12/15/24 22:28 Sodium Chloride (Saline Lock Ns) 10 ml Q8HR IV 12/15/24 22:00 12/16/24 14:44 Acetaminophen/ Hydrocodone Bitart ([place] 5/325MG Tab) 1 tab Q4HP PRN PO MODERATE PAIN (4-6 PAIN SCALE) 12/15/24 21:30 12/16/24 04:09 Ondansetron HCl (Zofran) 4 mg Q4HP PRN IV NAUSEA / VOMITING 12/15/24 21:30 Docusate Sodium (Colace Capsule) 100 mg BIDPRN PRN PO FOR CONSTIPATION 12/15/24 21:30 Acetaminophen (Tylenol Tablet) 650 mg Q6HP PRN PO PAIN SCALE 1-3 OR TEMP>100.4 12/15/24 21:30 Nitroglycerin (Ntrostat Sublingual) 0.4 mg Q5MINP PRN SL FOR CHEST PAIN 12/15/24 22:15 Morphine Sulfate 2 mg Q30M PRN IV FOR CHEST PAIN 12/15/24 22:15 Vancomycin HCl 0 ml @ 0 mls/hr UD IV 12/15/24 22:15 Ceftriaxone Sodium 50 ml @ 100 mls/hr DAILY@09 IV 12/16/24 09:00 12/16/24 08:19 Vancomycin HCl 250 ml @ 250 mls/hr Q1H IV 12/15/24 22:15 12/16/24 00:14 DC 12/15/24 23:24 Diphenhydramine HCl (Benadryl Capsule) 25 mg TID PRN PO FOR ITCHING 12/16/24 15:45 Review of Systems 12 point review of system negative except as stated in the HPI Vital Signs Vital Signs Date Time Temp Pulse Resp B/P (MAP) Pulse Ox O2 Delivery O2 Flow Rate FiO2 12/16/24 13:00 98.3 84 18 156/69 (98) 99 98.3 12/16/24 08:05 Nasal Cannula* 2 28 Physical Exam Awake and alert. Morbidly obese. Lungs: Diminished breath sounds at bases CVS: S1, S2 regular rate rhythm Abdomen: Skin break in the left flank area. 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 Labs/Diagnostic Data Labs Test 12/16/24 12:17 12/16/24 07:55 12/15/24 14:05 12/15/24 12:52 Range/Units POC Glucose 195 H 70-106 mg/dl White Blood Count 6.4 4.4-10.8 10^3/uL Red Blood Count 3.49 L 4.0-5.20 10^6/uL Hemoglobin 11.2 L 12.2-16.2 g/dL Hematocrit 36.0 36.0-46.0 % Mean Corpuscular Volume 103.2 H 80.0-100.0 fL Mean Corpuscular Hemoglobin 32.0 28.0-32.0 pg Mean Corpuscular Hemoglobin Concent 31.0 L 32.0-36.0 g/dL Red Cell Distribution Width 16.4 H 11.8-14.3 % Platelet Count 180 140-450 10^3/uL Mean Platelet Volume 7.0 6.9-10.8 fL Neutrophils (%) (Auto) 37.0-80.0 % Lymphocytes (%) (Auto) 10.0-50.0 % Monocytes (%) (Auto) 0.0-12.0 % Eosinophils (%) (Auto) 0.0-7.0 % Basophils (%) (Auto) 0.0-2.0 % Neutrophils # (Auto) 1.6-8.6 10 ^3/uL Lymphocytes # (Auto) 0.4-5.4 10 ^3/uL Monocytes # (Auto) 0-1.3 10 ^3/uL Differential Total Cells Counted 100.0 100 Neutrophils % (Manual) 48 37.0-80.0 Band Neutrophils % (Manual) 1 Lymphocytes % (Manual) 16 10.0-50.0 Monocytes % (Manual) 15 H 0-12 Eosinophils % (Manual) 17 H 0-7 Basophils % (Manual) 0 0.0-2.0 Metamyelocytes % (manual) 0 Myelocytes % (Manual) 0 Promyelocytes % (Manual) 0 Blast Cells % (Manual) 0 Reactive Lymphocytes 3 Platelet Estimate Adequate Hypochromasia (manual) Slight Anisocytosis (manual) Slight Macrocytosis Slight Sodium Level 139 # 136-145 mmol/L Potassium Level 4.0 3.5-5.1 mmol/L Chloride Level 100 98-107 mmol/L Carbon Dioxide Level 32 H 20-31 mmol/L Anion Gap 7 5-15 Blood Urea Nitrogen 15 9-23 mg/dL Creatinine 2.64 #H 0.550-1.02 mg/dL Glomerular Filtration Rate Calc 18 >90 mL/min BUN/Creatinine Ratio 5.7 L 10.0-20.0 Serum Glucose 126 H 74-106 mg/dL Calcium Level 8.2 L 8.7-10.4 mg/dL Total Bilirubin 0.2 0.2-1.0 mg/dL Aspartate Amino Transferase (AST) 16 13-40 U/L Alanine Aminotransferase (ALT) 11 7-40 U/L Alkaline Phosphatase 124 H 46-116 U/L Total Protein 5.5 L 5.7-8.2 g/dL Albumin 3.1 L 3.2-4.8 g/dL Eosinophils # (Auto) 1.1 H 0-0.8 10 ^3/uL Basophils # (Auto) 0 0-0.2 10 ^3/uL Nucleated Red Blood Cells 0.4 % Magnesium Level 2.0 1.6-2.6 mg/dL Microbiology Date/Time Source Procedure Growth Status 12/15/24 04:55 Nose MRSA Screen - Final Complete Assessment Acute kidney injury requiring hemodialysis Abdominal wall cellulitis Morbid obesity Hypertension Type 2 diabetes Plan/Recommendation Patient has been started on IV antibiotics. Continue dialysis on TTS schedule. Wound care. Bumex 2 mg IV b.i.d. Plan discussed with: Daughter VENESSA HENAO MD Dec 16, 2024 16:54
[2024-12-17] VITALS (8 sets, daily range): BP systolic 116–149; BP diastolic 66–88; PULSE 56–90; RESP 18–24; TEMP 96.9–98.6; O2SAT 93–100
[2024-12-17] MEDS: BACLOFEN 10 MG TAB PO ONE (01:45)
[2024-12-17 05:36] LABS: Hemoglobin 10.9 g/dL (12.2-16.2)
[2024-12-17 05:40] LABS: Hematocrit 34.1 % (36.0-46.0); Mean Corpuscular Hemoglobin 32.5 pg (28.0-32.0); Mean Corpuscular Volume 101.8 fL (80.0-100.0)
[2024-12-17 06:59] LABS: Macrocytosis Slight; Total Cells Counted 100.0 (100)
[2024-12-17] MEDS: VANCOMYCIN 500mg/100mL 100 ML IV ONE (13:12)
--- NOTE | 2024-12-17 13:28 | DVHPN2 ---
Reviewed: Care Plan, H&P, Labs, Medications, Previous Orders, Radiology Changes from previous H/P or p: No Changes Eyes: No Pain, No Vision change, No Conjunctivae inflammation, No Eyelid inflammation; Other (Legal blindness); No Redness ENT: No Ear pain, No Ear discharge, No Nose pain, No Nose discharge, No Nose congestion, No Mouth pain, No Mouth swelling, No Throat pain, No Throat swelling, No Other Cardiovascular: No Chest Pain, No Palpitations, No Orthopnea, No Paroxysmal Noc. Dyspnea, No Edema, No Lt Headedness, No Other Respiratory: No Cough, No Dry, No Shortness of breath, No SOB with excertion, No Wheezing, No Hemoptysis, No Pleuritic Pain, No Sputum, No Other Gastrointestinal: No Nausea, No Vomiting, No Abdominal Pain, No Diarrhea, No Constipation, No Melena, No Hematochezia, No Other Genitourinary: No Dysuria, No Frequency, No Incontinence, No Hematuria, No Retention, No Other Musculoskeletal: No other, No neck pain, No shoulder pain, No arm pain, No back pain, No hand pain, No leg pain, No foot pain Skin: Rash (Left flank); No Lesions, No Jaundice, No Bruising, No Other Objective Vitals Vital Signs Date Time Temp Pulse Resp B/P (MAP) Pulse Ox O2 Delivery O2 Flow Rate FiO2 12/17/24 09:33 83 140/70 12/17/24 09:00 97.5 18 100 97.5 12/17/24 08:00 Nasal Cannula* 2 28 Intake/Output Intake and Output 12/17/24 07:00 Intake Total 1955 ml Balance 1955 ml Intake Oral 1155 ml Tube Feeding 800 ml # Voids 2 Medications Current Medications Medications Dose Ordered Sig/Nasrin Route Start Time Stop Time Status Last Admin Dose Admin Diagnostic Test (Pha) 1 strip IQ4HR 12/15/24 20:00 12/17/24 11:53 1 STRIP Insulin Human Regular IQ4HR SC 12/15/24 20:00 12/17/24 11:52 2 UNITS Dextrose 50 ml UD PRN IV 12/15/24 19:45 Carvedilol 6.25 mg Q12HR PO 12/15/24 22:00 12/17/24 09:33 6.25 MG Clopidogrel Bisulfate 75 mg DAILY PO 12/16/24 10:00 12/17/24 09:34 75 MG Multivit/Ca Carb/ B Cmplx/FA/Prenat 1 tab DAILY PO 12/16/24 10:00 12/17/24 09:34 1 TAB Sevelamer HCl 800 mg TIDWM PO 12/16/24 08:00 12/17/24 11:53 800 MG Famotidine 20 mg Q12HR IV 12/15/24 22:00 12/17/24 09:32 20 MG Atorvastatin Calcium 20 mg HS PO 12/15/24 22:00 12/16/24 22:24 20 MG Sodium Chloride 10 ml Q8HR IV 12/15/24 22:00 12/17/24 05:22 10 ML Acetaminophen/ Hydrocodone Bitart 1 tab Q4HP PRN PO 12/15/24 21:30 12/17/24 13:11 1 TAB Ondansetron HCl 4 mg Q4HP PRN IV 12/15/24 21:30 Docusate Sodium 100 mg BIDPRN PRN PO 12/15/24 21:30 Acetaminophen 650 mg Q6HP PRN PO 12/15/24 21:30 Nitroglycerin 0.4 mg Q5MINP PRN SL 12/15/24 22:15 Morphine Sulfate 2 mg Q30M PRN IV 12/15/24 22:15 Vancomycin HCl 0 ml @ 0 mls/hr UD IV 12/15/24 22:15 Ceftriaxone Sodium 50 ml @ 100 mls/hr DAILY@09 IV 12/16/24 09:00 12/17/24 09:32 100 MLS/HR Diphenhydramine HCl 25 mg TID PRN PO 12/16/24 15:45 12/17/24 10:38 25 MG Laboratory Results Laboratory Tests 12/16/24 07:55 12/17/24 05:05 Microbiology Microbiology Date/Time Source Procedure Growth Status 12/15/24 04:55 Nose MRSA Screen - Final Complete Labs and/or images reviewed: Labs reviewed by me, Image(s) reviewed by me Assessment/Plan Assessment/Plan Cellulitis left flank: Rocephin vancomycin Acute on Chronic Systolic Heart Failure (HFrEF 30%) NYHA Class III Acute hypoxic respiratory failure, pulmonary edema from CHF vs COPD exacerbation Possible COPD Exacerbation Acute Anemia Ruled Out GI Bleed NISHNAT on CKD Likely Cardiorenal Syndrome Refractory hyperkalemia anemia of CKD. Type 2 Diabetes Mellitus, HbA1c: 6.8%. Blindness, Likely diabetic retinopathy Chronic Gout Obesity Hypoventilation Syndrome Obstructive Sleep Apnea History of Asthma Morbid obesity Bed-bound for the last two years Time spent 70 minutes Advanced care planning time 20 minutes Patient is full code Plan discussed with: Patient My Orders Orders - SUSI BARNETT MD Procedure Category Date Status Time Diphenhdramine PHA 12/16/24 In Process Capsule (Benadryl 15:45 Date of Service: Dec 17, 2024 Billing Provider: SUSI BARNETT MD Common Visit Codes: [id number] CARE 30-74 MIN SUSI BARNETT MD Dec 17, 2024 13:28
--- NOTE | 2024-12-17 16:30 | DVHPN2 ---
Progress Note - Dictate Date Seen: Dec 17, 2024 Medical Necessity Reason Pt with a Central, PICC or Fol: No Subjective no new symptoms vital signs Vital Sign Date Time Temp Pulse Resp B/P (MAP) Pulse Ox O2 Delivery O2 Flow Rate FiO2 12/17/24 13:00 97.9 85 20 149/73 (98) 100 97.9 12/17/24 08:00 Nasal Cannula* 2 28 Total Intake and Output 12/16/24 12/16/24 12/17/24 15:00 23:00 07:00 Intake Total 1155 ml 800 ml Balance 1155 ml 800 ml medications Current Medications Medications Dose Ordered Sig/Nasrin Route Start Time Stop Time Status Last Admin Dose Admin Diagnostic Test (Pha) 1 strip IQ4HR 12/15/24 20:00 12/17/24 16:00 Insulin Human Regular IQ4HR SC 12/15/24 20:00 12/17/24 16:00 Dextrose 50 ml UD PRN IV 12/15/24 19:45 Carvedilol 6.25 mg Q12HR PO 12/15/24 22:00 12/17/24 09:33 Clopidogrel Bisulfate 75 mg DAILY PO 12/16/24 10:00 12/17/24 09:34 Multivit/Ca Carb/ B Cmplx/FA/Prenat 1 tab DAILY PO 12/16/24 10:00 12/17/24 09:34 Sevelamer HCl 800 mg TIDWM PO 12/16/24 08:00 12/17/24 11:53 Famotidine 20 mg Q12HR IV 12/15/24 22:00 12/17/24 09:32 Atorvastatin Calcium 20 mg HS PO 12/15/24 22:00 12/16/24 22:24 Sodium Chloride 10 ml Q8HR IV 12/15/24 22:00 12/17/24 14:05 Acetaminophen/ Hydrocodone Bitart 1 tab Q4HP PRN PO 12/15/24 21:30 12/17/24 13:11 Ondansetron HCl 4 mg Q4HP PRN IV 12/15/24 21:30 Docusate Sodium 100 mg BIDPRN PRN PO 12/15/24 21:30 Acetaminophen 650 mg Q6HP PRN PO 12/15/24 21:30 Nitroglycerin 0.4 mg Q5MINP PRN SL 12/15/24 22:15 Morphine Sulfate 2 mg Q30M PRN IV 12/15/24 22:15 Vancomycin HCl 0 ml @ 0 mls/hr UD IV 12/15/24 22:15 Ceftriaxone Sodium 50 ml @ 100 mls/hr DAILY@09 IV 12/16/24 09:00 12/17/24 09:32 Diphenhydramine HCl 25 mg TID PRN PO 12/16/24 15:45 12/17/24 10:38 objective Awake and alert. Morbidly obese. Lungs: Diminished breath sounds at bases CVS: S1, S2 regular rate rhythm Abdomen: Skin break in the left flank area. 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 Next HD on Tuesday Patient has been started on IV antibiotics. Wound care. Bumex 2 mg IV b.i.d. GAYLE post HD as needed. goal Hb: 10 - 11 g/dl Dietary Evaluation Review Comments: 1) Add cardiac restriction to 45g CCHO renal diet 2) Encourage optimal PO intake 3) Collect HbA1c 4) Refer to outpatient RD/[facility] for weight management 5) Continue to monitor I&O, labs, and skin integrity Expected Outcomes/Goals: 1) appetite and labs to improve 2) wound to improve 3) gradual wt loss 4) f/u in 3-5 days Plan discussed with: Patient HEATH DILLON MD Dec 17, 2024 16:30
[2024-12-17] MEDS: ONDANSETRON HCL 4 MG/2 ML VIAL IV PRN (22:35)
[2024-12-18] VITALS (8 sets, daily range): BP systolic 136–169; BP diastolic 68–86; PULSE 80–103; RESP 16–23; TEMP 97.8–98.9; O2SAT 92–100
[2024-12-18] MEDS: SODIUM CHL 0.9% 1000 ML BAG XX ONE (07:00)
--- NOTE | 2024-12-18 10:56 | DVHPN2 ---
Reviewed: Care Plan, H&P, Labs, Medications, Previous Orders, Radiology Changes from previous H/P or p: No Changes Eyes: No Pain, No Vision change, No Conjunctivae inflammation, No Eyelid inflammation; Other (Legal blindness); No Redness ENT: No Ear pain, No Ear discharge, No Nose pain, No Nose discharge, No Nose congestion, No Mouth pain, No Mouth swelling, No Throat pain, No Throat swelling, No Other Cardiovascular: No Chest Pain, No Palpitations, No Orthopnea, No Paroxysmal Noc. Dyspnea, No Edema, No Lt Headedness, No Other Respiratory: No Cough, No Dry, No Shortness of breath, No SOB with excertion, No Wheezing, No Hemoptysis, No Pleuritic Pain, No Sputum, No Other Gastrointestinal: No Nausea, No Vomiting, No Abdominal Pain, No Diarrhea, No Constipation, No Melena, No Hematochezia, No Other Genitourinary: No Dysuria, No Frequency, No Incontinence, No Hematuria, No Retention, No Other Musculoskeletal: No other, No neck pain, No shoulder pain, No arm pain, No back pain, No hand pain, No leg pain, No foot pain Skin: Rash (Left flank); No Lesions, No Jaundice, No Bruising, No Other Objective Vitals Vital Signs Date Time Temp Pulse Resp B/P (MAP) Pulse Ox O2 Delivery O2 Flow Rate FiO2 12/18/24 08:42 99 169/83 12/18/24 05:00 98.1 22 100 98.1 12/17/24 20:00 Nasal Cannula* 2 28 Intake/Output Intake and Output 12/18/24 07:00 Intake Total 840 ml Balance 840 ml Intake Oral 840 ml # Voids 1 # Bowel Movements 1 Medications Current Medications Medications Dose Ordered Sig/Nasrin Route Start Time Stop Time Status Last Admin Dose Admin Diagnostic Test (Pha) 1 strip IQ4HR 12/15/24 20:00 12/18/24 08:42 1 STRIP Insulin Human Regular IQ4HR SC 12/15/24 20:00 12/18/24 08:58 3 UNITS Dextrose 50 ml UD PRN IV 12/15/24 19:45 Carvedilol 6.25 mg Q12HR PO 12/15/24 22:00 12/18/24 08:42 6.25 MG Clopidogrel Bisulfate 75 mg DAILY PO 12/16/24 10:00 12/18/24 08:41 75 MG Multivit/Ca Carb/ B Cmplx/FA/Prenat 1 tab DAILY PO 12/16/24 10:00 12/18/24 08:42 1 TAB Sevelamer HCl 800 mg TIDWM PO 12/16/24 08:00 12/18/24 08:42 800 MG Famotidine 20 mg Q12HR IV 12/15/24 22:00 12/18/24 08:41 20 MG Atorvastatin Calcium 20 mg HS PO 12/15/24 22:00 12/17/24 21:36 20 MG Sodium Chloride 10 ml Q8HR IV 12/15/24 22:00 12/18/24 05:15 10 ML Acetaminophen/ Hydrocodone Bitart 1 tab Q4HP PRN PO 12/15/24 21:30 12/17/24 22:35 1 TAB Ondansetron HCl 4 mg Q4HP PRN IV 12/15/24 21:30 12/18/24 08:41 4 MG Docusate Sodium 100 mg BIDPRN PRN PO 12/15/24 21:30 Acetaminophen 650 mg Q6HP PRN PO 12/15/24 21:30 Nitroglycerin 0.4 mg Q5MINP PRN SL 12/15/24 22:15 Morphine Sulfate 2 mg Q30M PRN IV 12/15/24 22:15 Vancomycin HCl 0 ml @ 0 mls/hr UD IV 12/15/24 22:15 Ceftriaxone Sodium 50 ml @ 100 mls/hr DAILY@09 IV 12/16/24 09:00 12/18/24 08:43 100 MLS/HR Diphenhydramine HCl 25 mg TID PRN PO 12/16/24 15:45 12/18/24 09:33 25 MG Laboratory Results Laboratory Tests 12/16/24 07:55 12/17/24 05:05 12/18/24 05:43 Microbiology Microbiology Date/Time Source Procedure Growth Status 12/15/24 04:55 Nose MRSA Screen - Final Complete Labs and/or images reviewed: Labs reviewed by me, Image(s) reviewed by me Assessment/Plan Assessment/Plan Cellulitis left flank: Rocephin vancomycin Acute on Chronic Systolic Heart Failure (HFrEF 30%) NYHA Class III Acute hypoxic respiratory failure, pulmonary edema from CHF vs COPD exacerbation Acute Anemia GI bleed ruled out NISHANT on CKD Likely Cardiorenal Syndrome Refractory hyperkalemia Anemia of chronic kidney disease: Nephrology consult appreciated Type 2 Diabetes Mellitus, HbA1c: 6.8%. Blindness, Likely diabetic retinopathy Chronic Gout Obesity Hypoventilation Syndrome Obstructive Sleep Apnea History of Asthma Morbid obesity Bed-bound for the last two years Time spent 50 minutes Advanced care planning time 20 minutes Patient is full code Plan discussed with: Patient My Orders Orders - SUSI BARNETT MD Procedure Category Date Status Time Pt Request For Service PT 12/17/24 Logged 16:58 * Dietary Consult CONS 12/17/24 Transmitted 18:55 Cleanse Wound With STAR 12/17/24 In Process Wound Clean 13:43 Date of Service: Dec 18, 2024 Billing Provider: SUSI BARNETT MD Common Visit Codes: [id number] INP/OBS CARE(HIGH) SUSI BARNETT MD Dec 18, 2024 10:56
[2024-12-18] MEDS: VANCOMYCIN 500mg/100mL 100 ML IV ONE (13:05)
--- NOTE | 2024-12-18 16:47 | DVHPN2 ---
Progress Note - Dictate Date Seen: Dec 18, 2024 Medical Necessity Reason Pt with a Central, PICC or Fol: No Subjective no new symptoms vital signs Vital Sign Date Time Temp Pulse Resp B/P (MAP) Pulse Ox O2 Delivery O2 Flow Rate FiO2 12/18/24 09:55 88 164/92 12/18/24 08:00 Nasal Cannula* 2 28 12/18/24 05:00 98.1 22 100 98.1 Total Intake and Output 12/17/24 12/17/24 12/18/24 15:00 23:00 07:00 Intake Total 840 ml 0 ml Balance 840 ml 0 ml medications Current Medications Medications Dose Ordered Sig/Nasrin Route Start Time Stop Time Status Last Admin Dose Admin Diagnostic Test (Pha) 1 strip IQ4HR 12/15/24 20:00 12/18/24 15:38 1 STRIP Insulin Human Regular IQ4HR SC 12/15/24 20:00 12/18/24 16:03 2 UNITS Dextrose 50 ml UD PRN IV 12/15/24 19:45 Carvedilol 6.25 mg Q12HR PO 12/15/24 22:00 12/18/24 08:42 6.25 MG Clopidogrel Bisulfate 75 mg DAILY PO 12/16/24 10:00 12/18/24 08:41 75 MG Multivit/Ca Carb/ B Cmplx/FA/Prenat 1 tab DAILY PO 12/16/24 10:00 12/18/24 08:42 1 TAB Sevelamer HCl 800 mg TIDWM PO 12/16/24 08:00 12/18/24 08:42 800 MG Famotidine 20 mg Q12HR IV 12/15/24 22:00 12/18/24 08:41 20 MG Atorvastatin Calcium 20 mg HS PO 12/15/24 22:00 12/17/24 21:36 20 MG Sodium Chloride 10 ml Q8HR IV 12/15/24 22:00 12/18/24 05:15 10 ML Acetaminophen/ Hydrocodone Bitart 1 tab Q4HP PRN PO 12/15/24 21:30 12/18/24 15:38 1 TAB Ondansetron HCl 4 mg Q4HP PRN IV 12/15/24 21:30 12/18/24 08:41 4 MG Docusate Sodium 100 mg BIDPRN PRN PO 12/15/24 21:30 Acetaminophen 650 mg Q6HP PRN PO 12/15/24 21:30 Nitroglycerin 0.4 mg Q5MINP PRN SL 12/15/24 22:15 Morphine Sulfate 2 mg Q30M PRN IV 12/15/24 22:15 Vancomycin HCl 0 ml @ 0 mls/hr UD IV 12/15/24 22:15 Ceftriaxone Sodium 50 ml @ 100 mls/hr DAILY@09 IV 12/16/24 09:00 12/18/24 08:43 100 MLS/HR Diphenhydramine HCl 25 mg TID PRN PO 12/16/24 15:45 12/18/24 09:33 25 MG objective Awake and alert. Morbidly obese. Lungs: Diminished breath sounds at bases CVS: S1, S2 regular rate rhythm Abdomen: Skin break in the left flank area. 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 Patient has been started on IV antibiotics. Wound care. Bumex 2 mg IV b.i.d. GAYLE post HD as needed. goal Hb: 10 - 11 g/dl Dietary Evaluation Review Comments: 1) Add cardiac restriction to 45g CCHO renal diet 2) Encourage optimal PO intake 3) Collect HbA1c 4) Refer to outpatient RD/CD[facility] for weight management 5) Continue to monitor I&O, labs, and skin integrity Expected Outcomes/Goals: 1) appetite and labs to improve 2) wound to improve 3) gradual wt loss 4) f/u in 3-5 days Plan discussed with: Patient, Other HEATH DILLON MD Dec 18, 2024 16:47
--- NOTE | 2024-12-19 07:23 | DVHPN2 ---
Progress Note - Dictate Date Seen: Dec 19, 2024 Medical Necessity Reason Pt with a Central, PICC or Fol: No Subjective no new symptoms vital signs Vital Sign Date Time Temp Pulse Resp B/P (MAP) Pulse Ox O2 Delivery O2 Flow Rate FiO2 12/18/24 23:20 98 103/46 12/18/24 21:00 98.7 23 100 98.7 12/18/24 20:00 Nasal Cannula* 2 28 Total Intake and Output 12/18/24 12/18/24 12/19/24 15:00 23:00 07:00 Intake Total 150 ml 100 ml 220 ml Balance 150 ml 100 ml 220 ml medications Current Medications Medications Dose Ordered Sig/Nasrin Route Start Time Stop Time Status Last Admin Dose Admin Diagnostic Test (Pha) 1 strip IQ4HR 12/15/24 20:00 12/19/24 04:12 1 STRIP Insulin Human Regular IQ4HR SC 12/15/24 20:00 12/18/24 20:26 2 UNITS Dextrose 50 ml UD PRN IV 12/15/24 19:45 Carvedilol 6.25 mg Q12HR PO 12/15/24 22:00 12/18/24 22:20 6.25 MG Clopidogrel Bisulfate 75 mg DAILY PO 12/16/24 10:00 12/18/24 08:41 75 MG Multivit/Ca Carb/ B Cmplx/FA/Prenat 1 tab DAILY PO 12/16/24 10:00 12/18/24 08:42 1 TAB Sevelamer HCl 800 mg TIDWM PO 12/16/24 08:00 12/18/24 18:39 800 MG Famotidine 20 mg Q12HR IV 12/15/24 22:00 12/18/24 22:18 20 MG Atorvastatin Calcium 20 mg HS PO 12/15/24 22:00 12/18/24 22:18 20 MG Sodium Chloride 10 ml Q8HR IV 12/15/24 22:00 12/19/24 05:20 10 ML Acetaminophen/ Hydrocodone Bitart 1 tab Q4HP PRN PO 12/15/24 21:30 12/18/24 22:24 1 TAB Ondansetron HCl 4 mg Q4HP PRN IV 12/15/24 21:30 12/18/24 08:41 4 MG Docusate Sodium 100 mg BIDPRN PRN PO 12/15/24 21:30 Acetaminophen 650 mg Q6HP PRN PO 12/15/24 21:30 Nitroglycerin 0.4 mg Q5MINP PRN SL 12/15/24 22:15 Morphine Sulfate 2 mg Q30M PRN IV 12/15/24 22:15 Vancomycin HCl 0 ml @ 0 mls/hr UD IV 12/15/24 22:15 Ceftriaxone Sodium 50 ml @ 100 mls/hr DAILY@09 IV 12/16/24 09:00 12/18/24 08:43 100 MLS/HR Diphenhydramine HCl 25 mg TID PRN PO 12/16/24 15:45 12/19/24 00:13 25 MG objective Awake and alert. Morbidly obese. Lungs: Diminished breath sounds at bases CVS: S1, S2 regular rate rhythm Abdomen: Skin break in the left flank area. 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 Patient has been started on IV antibiotics. Wound care. Bumex 2 mg IV b.i.d. GAYLE post HD as needed. goal Hb: 10 - 11 g/dl Dietary Evaluation Review Comments: 1) Add cardiac restriction to 45g CCHO renal diet 2) Encourage optimal PO intake 3) Collect HbA1c 4) Refer to outpatient RD/[facility] for weight management 5) Continue to monitor I&O, labs, and skin integrity Expected Outcomes/Goals: 1) appetite and labs to improve 2) wound to improve 3) gradual wt loss 4) f/u in 3-5 days Plan discussed with: Patient, Other HEATH DILLON MD Dec 19, 2024 07:23
[2024-12-19 08:00] VITALS: PULSE 93; PULSE 97
[2024-12-19 09:00] VITALS: BP_SYST 142; BP_SYST 153; BP_DIAS 69; BP_DIAS 71; PULSE 102; PULSE 90; RESP 18; RESP 20; TEMP 98.5; TEMP 98.8; O2SAT 100; O2SAT 99
[2024-12-19 09:59] VITALS: BP 127/61; PULSE 93
--- NOTE | 2024-12-19 10:11 | DVHPN2 ---
Reviewed: Care Plan, H&P, Labs, Medications, Previous Orders, Radiology Changes from previous H/P or p: No Changes Eyes: No Pain, No Vision change, No Conjunctivae inflammation, No Eyelid inflammation; Other (Legal blindness); No Redness ENT: No Ear pain, No Ear discharge, No Nose pain, No Nose discharge, No Nose congestion, No Mouth pain, No Mouth swelling, No Throat pain, No Throat swelling, No Other Cardiovascular: No Chest Pain, No Palpitations, No Orthopnea, No Paroxysmal Noc. Dyspnea, No Edema, No Lt Headedness, No Other Respiratory: No Cough, No Dry, No Shortness of breath, No SOB with excertion, No Wheezing, No Hemoptysis, No Pleuritic Pain, No Sputum, No Other Gastrointestinal: No Nausea, No Vomiting, No Abdominal Pain, No Diarrhea, No Constipation, No Melena, No Hematochezia, No Other Genitourinary: No Dysuria, No Frequency, No Incontinence, No Hematuria, No Retention, No Other Musculoskeletal: No other, No neck pain, No shoulder pain, No arm pain, No back pain, No hand pain, No leg pain, No foot pain Skin: Rash (Left flank); No Lesions, No Jaundice, No Bruising, No Other Objective Vitals Vital Signs Date Time Temp Pulse Resp B/P (MAP) Pulse Ox O2 Delivery O2 Flow Rate FiO2 12/19/24 09:59 93 127/61 (83) 12/19/24 09:00 98.8 18 99 98.8 12/18/24 20:00 Nasal Cannula* 2 28 Intake/Output Intake and Output 12/19/24 07:00 Intake Total 470 ml Balance 470 ml Intake Oral 320 ml IV Total 150 ml # Voids 1 Medications Current Medications Medications Dose Ordered Sig/Nasrin Route Start Time Stop Time Status Last Admin Dose Admin Diagnostic Test (Pha) 1 strip IQ4HR 12/15/24 20:00 12/19/24 07:50 1 STRIP Insulin Human Regular IQ4HR SC 12/15/24 20:00 12/18/24 20:26 2 UNITS Dextrose 50 ml UD PRN IV 12/15/24 19:45 Carvedilol 6.25 mg Q12HR PO 12/15/24 22:00 12/19/24 08:56 6.25 MG Clopidogrel Bisulfate 75 mg DAILY PO 12/16/24 10:00 12/19/24 08:55 75 MG Multivit/Ca Carb/ B Cmplx/FA/Prenat 1 tab DAILY PO 12/16/24 10:00 12/19/24 08:56 1 TAB Sevelamer HCl 800 mg TIDWM PO 12/16/24 08:00 12/19/24 08:36 800 MG Famotidine 20 mg Q12HR IV 12/15/24 22:00 12/19/24 08:55 20 MG Atorvastatin Calcium 20 mg HS PO 12/15/24 22:00 12/18/24 22:18 20 MG Sodium Chloride 10 ml Q8HR IV 12/15/24 22:00 12/19/24 05:20 10 ML Acetaminophen/ Hydrocodone Bitart 1 tab Q4HP PRN PO 12/15/24 21:30 12/19/24 08:55 1 TAB Ondansetron HCl 4 mg Q4HP PRN IV 12/15/24 21:30 12/18/24 08:41 4 MG Docusate Sodium 100 mg BIDPRN PRN PO 12/15/24 21:30 Acetaminophen 650 mg Q6HP PRN PO 12/15/24 21:30 Nitroglycerin 0.4 mg Q5MINP PRN SL 12/15/24 22:15 Morphine Sulfate 2 mg Q30M PRN IV 12/15/24 22:15 Vancomycin HCl 0 ml @ 0 mls/hr UD IV 12/15/24 22:15 Ceftriaxone Sodium 50 ml @ 100 mls/hr DAILY@09 IV 12/16/24 09:00 12/19/24 08:36 100 MLS/HR Diphenhydramine HCl 25 mg TID PRN PO 12/16/24 15:45 12/19/24 00:13 25 MG Laboratory Results Laboratory Tests 12/16/24 07:55 12/17/24 05:05 12/18/24 05:43 Microbiology Microbiology Date/Time Source Procedure Growth Status 12/15/24 04:55 Nose MRSA Screen - Final Complete Labs and/or images reviewed: Labs reviewed by me, Image(s) reviewed by me Assessment/Plan Assessment/Plan Cellulitis left flank: Rocephin vancomycin Acute on Chronic Systolic Heart Failure (HFrEF 30%) NYHA Class III Acute hypoxic respiratory failure, pulmonary edema from CHF vs COPD exacerbation Acute Anemia GI bleed ruled out NISHANT on CKD Likely Cardiorenal Syndrome Refractory hyperkalemia Anemia of chronic kidney disease: Nephrology consult appreciated Type 2 Diabetes Mellitus, HbA1c: 6.8%. Blindness, Likely diabetic retinopathy Chronic Gout Obesity Hypoventilation Syndrome Obstructive Sleep Apnea History of Asthma Morbid obesity Bed-bound for the last two years Time spent 50 minutes Advanced care planning time 20 minutes Patient is full code Plan discussed with: Patient My Orders Orders - SUSI BARNETT MD Procedure Category Date Status Time Wound Culture W/ Gs YOVANA 12/18/24 Logged 11:01 Date of Service: Dec 19, 2024 Billing Provider: SUSI BARNETT MD Common Visit Codes: [id number] CARE 30-74 MIN SUSI BARNETT MD Dec 19, 2024 10:11
[2024-12-19] MEDS: ACETAMINOPHEN 325 MG TAB PO PRN (11:52)
[2024-12-19 13:30] VITALS: BP 144/67; PULSE 88; RESP 18; TEMP 97.9
[2024-12-19 14:55] LABS: COVID19 ANTIGEN SOFIA FIA NEGATIVE (NEGATIVE)
[2024-12-19] MEDS ORDERED: DEXTROSE (50%) 50ML SYRG IV PRN (16:00)
[2024-12-19] MEDS: VANCOMYCIN 500mg/100mL 100 ML IV ONE (16:23)
[2024-12-19 16:30] VITALS: BP 149/81; PULSE 87; RESP 18; TEMP 98.3; O2SAT 100
[2024-12-19] MEDS: ACCU-CHEK COMFORT CURVE STRIP VI SCH (17:36)
[2024-12-19] MEDS: InsuLIN REG 1unit/0.01ml Soln (100units/ml) SC SCH (17:36)
[2024-12-19 20:00] VITALS: PULSE 93
[2024-12-20] VITALS (8 sets, daily range): BP systolic 98–180; BP diastolic 62–93; PULSE 83–100; RESP 18–21; TEMP 97.7–99; O2SAT 100
[2024-12-20] MEDS: MORPHINE SULFATE INJ 2 MG/ml SYRG IV ONE (04:52)
[2024-12-20 07:11] LABS: INR 1.04 (0.9-1.15); Partial Thromboplastin Time 25.4 SEC (24.5-34.5); Prothrombin Time 11.0 sec (9.3-11.8)
[2024-12-20] MEDS: SODIUM CHL 0.9% 1000 ML BAG XX ONE ×2 (08:40→09:45)
[2024-12-20 10:02] LABS: Alanine Aminotransferase 10 U/L (7-40); Alkaline Phosphatase 103 U/L (46-116); Anion Gap 8 (5-15); BUN/Creatinine Ratio 8.1 (10.0-20.0); Calcium 8.8 mg/dL (8.7-10.4); Potassium 4.1 mmol/L (3.5-5.1)
[2024-12-20 10:04] LABS: Albumin 3.2 g/dL (3.2-4.8); Bilirubin, Total < 0.2 mg/dL (0.2-1.0); Blood Urea Nitrogen 26 mg/dL (9-23); Carbon Dioxide 32 mmol/L (20-31); Chloride 95 mmol/L (98-107); Glucose 128 mg/dL (74-106); Sodium 135 mmol/L (136-145); Total Protein 5.5 g/dL (5.7-8.2)
--- NOTE | 2024-12-20 11:10 | DVHPN2 ---
Reviewed: Care Plan, H&P, Labs, Medications, Previous Orders, Radiology Changes from previous H/P or p: No Changes Eyes: No Pain, No Vision change, No Conjunctivae inflammation, No Eyelid inflammation; Other (Legal blindness); No Redness ENT: No Ear pain, No Ear discharge, No Nose pain, No Nose discharge, No Nose congestion, No Mouth pain, No Mouth swelling, No Throat pain, No Throat swelling, No Other Cardiovascular: No Chest Pain, No Palpitations, No Orthopnea, No Paroxysmal Noc. Dyspnea, No Edema, No Lt Headedness, No Other Respiratory: No Cough, No Dry, No Shortness of breath, No SOB with excertion, No Wheezing, No Hemoptysis, No Pleuritic Pain, No Sputum, No Other Gastrointestinal: No Nausea, No Vomiting, No Abdominal Pain, No Diarrhea, No Constipation, No Melena, No Hematochezia, No Other Genitourinary: No Dysuria, No Frequency, No Incontinence, No Hematuria, No Retention, No Other Musculoskeletal: No other, No neck pain, No shoulder pain, No arm pain, No back pain, No hand pain, No leg pain, No foot pain Skin: Rash (Left flank); No Lesions, No Jaundice, No Bruising, No Other Objective Vitals Vital Signs Date Time Temp Pulse Resp B/P (MAP) Pulse Ox O2 Delivery O2 Flow Rate FiO2 12/20/24 08:33 97.9 83 18 137/62 (87) 100 97.9 12/19/24 20:00 Nasal Cannula* 2 28 Intake/Output Intake and Output 12/20/24 07:00 Intake Total 1500 ml Output Total 100 ml Balance 1400 ml Intake Oral 1450 ml IV Total 50 ml Output Urine Total 100 ml # Voids 1 # Bowel Movements 1 Medications Current Medications Medications Dose Ordered Sig/Nasrin Route Start Time Stop Time Status Last Admin Dose Admin Carvedilol 6.25 mg Q12HR PO 12/15/24 22:00 12/19/24 22:56 6.25 MG Clopidogrel Bisulfate 75 mg DAILY PO 12/16/24 10:00 12/19/24 08:55 75 MG Multivit/Ca Carb/ B Cmplx/FA/Prenat 1 tab DAILY PO 12/16/24 10:00 12/19/24 08:56 1 TAB Sevelamer HCl 800 mg TIDWM PO 12/16/24 08:00 12/19/24 17:31 800 MG Famotidine 20 mg Q12HR IV 12/15/24 22:00 12/19/24 22:54 20 MG Atorvastatin Calcium 20 mg HS PO 12/15/24 22:00 12/19/24 22:55 20 MG Sodium Chloride 10 ml Q8HR IV 12/15/24 22:00 12/20/24 04:54 10 ML Acetaminophen/ Hydrocodone Bitart 1 tab Q4HP PRN PO 12/15/24 21:30 12/20/24 00:24 1 TAB Ondansetron HCl 4 mg Q4HP PRN IV 12/15/24 21:30 12/18/24 08:41 4 MG Docusate Sodium 100 mg BIDPRN PRN PO 12/15/24 21:30 Acetaminophen 650 mg Q6HP PRN PO 12/15/24 21:30 12/19/24 11:52 650 MG Nitroglycerin 0.4 mg Q5MINP PRN SL 12/15/24 22:15 Morphine Sulfate 2 mg Q30M PRN IV 12/15/24 22:15 Vancomycin HCl 0 ml @ 0 mls/hr UD IV 12/15/24 22:15 Ceftriaxone Sodium 50 ml @ 100 mls/hr DAILY@09 IV 12/16/24 09:00 12/19/24 08:36 100 MLS/HR Diphenhydramine HCl 25 mg TID PRN PO 12/16/24 15:45 12/20/24 00:24 25 MG Diagnostic Test (Pha) 1 strip ACHS 12/19/24 17:00 12/20/24 04:57 1 STRIP Insulin Human Regular ACHS SC 12/19/24 17:00 12/20/24 05:00 2 UNITS Dextrose 50 ml UD PRN IV 12/19/24 16:00 Laboratory Results Laboratory Tests 12/17/24 05:05 12/20/24 08:30 Chemistry Test 12/20/24 08:30 Albumin 3.2 g/dL (3.2-4.8) Calcium Level 8.8 mg/dL (8.7-10.4) Total Protein 5.5 g/dL (5.7-8.2) L Coagulation Test 12/20/24 06:29 Prothrombin Time 11.0 sec (9.3-11.8) Prothrombin Time INR 1.04 (0.9-1.15) Activated Partial Thromboplast Time 25.4 SEC (24.5-34.5) LFT Test 12/20/24 08:30 Alanine Aminotransferase (ALT) 10 U/L (7-40) Alkaline Phosphatase 103 U/L (46-116) Aspartate Amino Transferase (AST) 15 U/L (13-40) Total Bilirubin < 0.2 mg/dL (0.2-1.0) L Microbiology Microbiology Date/Time Source Procedure Growth Status 12/19/24 13:35 Breast Left Gram Stain Pending Resulted 12/19/24 13:35 Breast Left Wound Culture - Preliminary Resulted Labs and/or images reviewed: Labs reviewed by me, Image(s) reviewed by me Assessment/Plan Assessment/Plan Cellulitis left flank: Rocephin vancomycin Acute on Chronic Systolic Heart Failure (HFrEF 30%) NYHA Class III Acute hypoxic respiratory failure, pulmonary edema from CHF vs COPD exacerbation Acute Anemia GI bleed ruled out Acute kidney injury requiring hemodialysis Tuesday by Dr. Angella norton Refractory hyperkalemia Anemia of chronic kidney disease: Nephrology consult appreciated Type 2 Diabetes Mellitus, HbA1c: 6.8%. Blindness, Likely diabetic retinopathy Chronic Gout Obesity Hypoventilation Syndrome Obstructive Sleep Apnea History of Asthma Morbid obesity Bed-bound for the last two years Time spent 50 minutes Advanced care planning time 20 minutes Patient is full code Plan discussed with: Patient My Orders Orders - SUSI BARNETT MD Procedure Category Date Status Time Glucose Blood PHA 12/19/24 In Process (Accu-Chek Comfort 17:00 Insulin R (Human) PHA 12/19/24 In Process (Insulin R) 17:00 Dextrose 50% Syringe PHA 12/19/24 In Process 16:00 Date of Service: Dec 20, 2024 Billing Provider: SUSI BARNETT MD Common Visit Codes: [id number] CARE 30-74 MIN SUSI BARNETT MD Dec 20, 2024 11:10
--- NOTE | 2024-12-20 11:18 | DVHDS2 ---
Discharge Summary Date of Admission Dec 15, 2024 at 22:06 Date of Discharge: Dec 20, 2024 Admitting Diagnosis Abdominal wall infection Wounds: Abdominal wall infection Labs/Diagnostic Data: Laboratory Results Test 12/20/24 08:30 12/20/24 06:29 12/20/24 04:56 12/19/24 10:05 Sodium Level 135 mmol/L (136-145) Potassium Level 4.1 mmol/L (3.5-5.1) Chloride Level 95 mmol/L (98-107) Carbon Dioxide Level 32 mmol/L (20-31) Anion Gap 8 (5-15) Blood Urea Nitrogen 26 mg/dL (9-23) Creatinine 3.21 mg/dL (0.550-1.02) Glomerular Filtration Rate Calc 14 mL/min (>90) BUN/Creatinine Ratio 8.1 (10.0-20.0) Serum Glucose 128 mg/dL (74-106) Calcium Level 8.8 mg/dL (8.7-10.4) Total Bilirubin < 0.2 mg/dL (0.2-1.0) Aspartate Amino Transferase (AST) 15 U/L (13-40) Alanine Aminotransferase (ALT) 10 U/L (7-40) Alkaline Phosphatase 103 U/L (46-116) Total Protein 5.5 g/dL (5.7-8.2) Albumin 3.2 g/dL (3.2-4.8) Prothrombin Time 11.0 sec (9.3-11.8) Prothrombin Time INR 1.04 (0.9-1.15) Activated Partial Thromboplast Time 25.4 SEC (24.5-34.5) Random Vancomycin Level 13.8 ug/mL (5-10) POC Glucose 143 mg/dl (70-106) SARS-CoV-2 Antigen (Rapid) Negative (NEGATIVE) Test 12/17/24 05:05 12/16/24 07:55 12/15/24 14:05 12/15/24 12:52 White Blood Count 5.6 10^3/uL (4.4-10.8) Red Blood Count 3.35 10^6/uL (4.0-5.20) Hemoglobin 10.9 g/dL (12.2-16.2) Hematocrit 34.1 % (36.0-46.0) Mean Corpuscular Volume 101.8 fL (80.0-100.0) Mean Corpuscular Hemoglobin 32.5 pg (28.0-32.0) Mean Corpuscular Hemoglobin Concent 32.0 g/dL (32.0-36.0) Red Cell Distribution Width 15.9 % (11.8-14.3) Platelet Count 203 10^3/uL (140-450) Mean Platelet Volume 6.8 fL (6.9-10.8) Neutrophils (%) (Auto) % (37.0-80.0) Lymphocytes (%) (Auto) % (10.0-50.0) Monocytes (%) (Auto) % (0.0-12.0) Basophils (%) (Auto) % (0.0-2.0) Neutrophils # (Auto) 10 ^3/uL (1.6-8.6) Lymphocytes # (Auto) 10 ^3/uL (0.4-5.4) Monocytes # (Auto) 10 ^3/uL (0-1.3) Differential Total Cells Counted 100.0 (100) Neutrophils % (Manual) 32 (37.0-80.0) Band Neutrophils % (Manual) 0 Lymphocytes % (Manual) 22 (10.0-50.0) Monocytes % (Manual) 15 (0-12) Eosinophils % (Manual) 31 (0-7) Basophils % (Manual) 0 (0.0-2.0) Metamyelocytes % (manual) 0 Myelocytes % (Manual) 0 Promyelocytes % (Manual) 0 Blast Cells % (Manual) 0 Reactive Lymphocytes 0 Platelet Estimate Adequate Macrocytosis Slight Eosinophils (%) (Auto) % (0.0-7.0) Hypochromasia (manual) Slight Anisocytosis (manual) Slight Eosinophils # (Auto) 1.1 10 ^3/uL (0-0.8) Basophils # (Auto) 0 10 ^3/uL (0-0.2) Nucleated Red Blood Cells 0.4 % Magnesium Level 2.0 mg/dL (1.6-2.6) Other Laboratory Tests 12/20/24 08:30 12/17/24 05:05 Brief Hx & Hospital Course: 79-year-old female with multiple medical problems including chronic kidney disease anemia of chronic disease type 2 diabetes blindness likely secondary to diabetic retinopathy uncontrolled diabetes obesity hypoventilation syndrome COPD obstructive sleep apnea asthma morbidly obese BMI of 51 bed-bound for the last two years congestive heart failure use of home oxygen came in complaining of abdominal wall infection. Patient was found to have extensive anterior abdominal wall infection of the left side started with Rocephin and vancomycin patient has a congestive heart failure with the ejection fraction 30 percent. Patient had acute kidney injury requiring hemodialysis. Dr. Angella norton abdomen hemodialysis and which she will continue Tuesday Discussed with the patient's son Siddhartha [phone] patient is being discharged to longterm facility for IV antibiotics for one month and for dialysis 3 times a week. General condition stable but poor at the time of discharge Consults/Reason for consult Nephrology Dr. Perales Operations or Procedures Hemodialysis Condition at Discharge: Fair Final Diagnosis/Problems List Cellulitis left flank: Rocephin vancomycin Acute on Chronic Systolic Heart Failure (HFrEF 30%) NYHA Class III Acute hypoxic respiratory failure, pulmonary edema from CHF vs COPD exacerbation Acute Anemia GI bleed ruled out Acute kidney injury requiring hemodialysis Tuesday by Dr. Angella norton Refractory hyperkalemia Anemia of chronic kidney disease: Nephrology consult appreciated Type 2 Diabetes Mellitus, HbA1c: 6.8%. Blindness, Likely diabetic retinopathy Chronic Gout Obesity Hypoventilation Syndrome Obstructive Sleep Apnea History of Asthma Morbid obesity Bed-bound for the last two years Discharge Disposition: Half-Way Facility Discharge Instruct/Medications Diet: Renal Activity: Light activity Follow Up/Referral: Follow up with the intermediate Medications: Rocephin and vancomycin for one month abdominal wall infection Scheduled Allopurinol (Allopurinol), 1 TAB PO DAILY, (Reported) Benazepril Hcl (Benazepril Hcl), 1 TAB PO DAILY, (Reported) Bumetanide (Bumetanide), 1 TAB PO DAILY, (Reported) Carvedilol (Carvedilol), 1 TAB PO BID Docusate Sodium (Docusate Sodium), 1 CAP PO BID, (Reported) Ferrous Sulfate (Ferrous Sulfate), 325 MG PO DAILY Glimepiride (Glimepiride), 2 TAB PO BID, (Reported) Hydrocodone-Acetaminophen (Hydrocodone Bitartrate/AC 10-325 mg), 1 TAB PO Q4HR PRN, (Reported) Insulin Glargine (Basaglar Kwikpen), 26 UNIT SC DAILY, (Reported) Loratadine (Claritin Tablet), 1 TAB PO DAILY, (Reported) Nifedipine (Nifedipine Er), 1 TAB PO DAILY Nitroglycerin (Ntrostat Sublingual), 1 TAB SL PRN, (Reported) Pantoprazole Sodium Sesquihydr (Pantoprazole Sodium), 1 TAB PO DAILY, (Reported) Potassium Chloride (Potassium Chloride ER), 1 TAB PO BID, (Reported) Sevelamer Hydrochloride (Renagel), 800 MG PO TIDWM Simvastatin (Simvastatin), 1 TAB PO DAILY, (Reported) Ursodiol (Ursodiol), 1 TAB PO TID, (Reported) 39 (Time taken for discharge summary 39 minutes) Discharge Statement: "Patient was advised to return to the ER or call 911 if any headaches, dizziness, shortness of breath, chest pain, abdominal pain, bleeding, fevers, or worsening of medical condition. Patient was counseled about treatment plan, medications, possible side effects, patientverbalized understanding. All questions were answered to the best of my ability. This discharge took greater then 30 minutes in planning, reviewing documentation, counseling the patient, and discussing with other team members." ASSESSMENT ASSESSMENT Assessment Cellulitis left flank: Rocephin vancomycin Acute on Chronic Systolic Heart Failure (HFrEF 30%) NYHA Class III Acute hypoxic respiratory failure, pulmonary edema from CHF vs COPD exacerbation Acute Anemia GI bleed ruled out Acute kidney injury requiring hemodialysis Tuesday by Dr. Angella norton Refractory hyperkalemia Anemia of chronic kidney disease: Nephrology consult appreciated Type 2 Diabetes Mellitus, HbA1c: 6.8%. Blindness, Likely diabetic retinopathy Chronic Gout Obesity Hypoventilation Syndrome Obstructive Sleep Apnea History of Asthma Morbid obesity Bed-bound for the last two years Date of Service: Dec 20, 2024 Billing Provider: SUSI BARNETT MD Common Visit Codes: [id number] INP/OBS CARE(HIGH), [id number] DISCH DAY >30min SUSI BARNETT MD Dec 20, 2024 11:18
--- NOTE | 2024-12-20 15:22 | DVHPN2 ---
Progress Note - Dictate Date Seen: Dec 20, 2024 Medical Necessity Reason Pt with a Central, PICC or Fol: No Subjective no new symptoms vital signs Vital Sign Date Time Temp Pulse Resp B/P (MAP) Pulse Ox O2 Delivery O2 Flow Rate FiO2 12/20/24 13:00 99.0 98 18 98/75 (83) 100 99.0 12/20/24 08:00 Nasal Cannula* 2 28 Total Intake and Output 12/19/24 12/19/24 12/20/24 15:00 23:00 07:00 Intake Total 250 ml 1000 ml 250 ml Output Total 100 ml Balance 250 ml 900 ml 250 ml medications Current Medications Medications Dose Ordered Sig/Nasrin Route Start Time Stop Time Status Last Admin Dose Admin Carvedilol 6.25 mg Q12HR PO 12/15/24 22:00 12/20/24 12:21 6.25 MG Clopidogrel Bisulfate 75 mg DAILY PO 12/16/24 10:00 12/20/24 12:21 75 MG Multivit/Ca Carb/ B Cmplx/FA/Prenat 1 tab DAILY PO 12/16/24 10:00 12/20/24 12:20 1 TAB Sevelamer HCl 800 mg TIDWM PO 12/16/24 08:00 12/20/24 12:20 800 MG Famotidine 20 mg Q12HR IV 12/15/24 22:00 12/20/24 12:18 20 MG Atorvastatin Calcium 20 mg HS PO 12/15/24 22:00 12/19/24 22:55 20 MG Sodium Chloride 10 ml Q8HR IV 12/15/24 22:00 12/20/24 04:54 10 ML Acetaminophen/ Hydrocodone Bitart 1 tab Q4HP PRN PO 12/15/24 21:30 12/20/24 12:20 1 TAB Ondansetron HCl 4 mg Q4HP PRN IV 12/15/24 21:30 12/18/24 08:41 4 MG Docusate Sodium 100 mg BIDPRN PRN PO 12/15/24 21:30 Acetaminophen 650 mg Q6HP PRN PO 12/15/24 21:30 12/19/24 11:52 650 MG Nitroglycerin 0.4 mg Q5MINP PRN SL 12/15/24 22:15 Morphine Sulfate 2 mg Q30M PRN IV 12/15/24 22:15 Vancomycin HCl 0 ml @ 0 mls/hr UD IV 12/15/24 22:15 Ceftriaxone Sodium 50 ml @ 100 mls/hr DAILY@09 IV 12/16/24 09:00 12/20/24 12:20 100 MLS/HR Diphenhydramine HCl 25 mg TID PRN PO 12/16/24 15:45 12/20/24 00:24 25 MG Diagnostic Test (Pha) 1 strip ACHS 12/19/24 17:00 12/20/24 12:21 1 STRIP Insulin Human Regular ACHS SC 12/19/24 17:00 12/20/24 05:00 2 UNITS Dextrose 50 ml UD PRN IV 12/19/24 16:00 objective Awake and alert. Morbidly obese. Lungs: Diminished breath sounds at bases CVS: S1, S2 regular rate rhythm Abdomen: Skin break in the left flank area. 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 Continue IV antibiotics. cleared for placement of PICC line Wound care. Bumex 2 mg IV b.i.d. GAYLE post HD as needed. goal Hb: 10 - 11 g/dl Dietary Evaluation Review Comments: 1) Add cardiac restriction to 45g CCHO renal diet 2) Encourage optimal PO intake 3) Collect HbA1c 4) Refer to outpatient RD/[facility] for weight management 5) Continue to monitor I&O, labs, and skin integrity Expected Outcomes/Goals: 1) appetite and labs to improve 2) wound to improve 3) gradual wt loss 4) f/u in 3-5 days Plan discussed with: Patient, Other HEATH DILLON MD Dec 20, 2024 15:22
[2024-12-20] MEDS: VANCOMYCIN 500mg/100mL 100 ML IV ONE (16:58)
[2024-12-21] VITALS (8 sets, daily range): BP systolic 131–183; BP diastolic 54–89; PULSE 52–100; RESP 17–22; TEMP 98.1–99.1; O2SAT 97–100
--- NOTE | 2024-12-21 08:46 | DVHPN2 ---
Reviewed: Care Plan, H&P, Labs, Medications, Previous Orders, Radiology Changes from previous H/P or p: No Changes Eyes: No Pain, No Vision change, No Conjunctivae inflammation, No Eyelid inflammation; Other (Legal blindness); No Redness ENT: No Ear pain, No Ear discharge, No Nose pain, No Nose discharge, No Nose congestion, No Mouth pain, No Mouth swelling, No Throat pain, No Throat swelling, No Other Cardiovascular: No Chest Pain, No Palpitations, No Orthopnea, No Paroxysmal Noc. Dyspnea, No Edema, No Lt Headedness, No Other Respiratory: No Cough, No Dry, No Shortness of breath, No SOB with excertion, No Wheezing, No Hemoptysis, No Pleuritic Pain, No Sputum, No Other Gastrointestinal: No Nausea, No Vomiting, No Abdominal Pain, No Diarrhea, No Constipation, No Melena, No Hematochezia, No Other Genitourinary: No Dysuria, No Frequency, No Incontinence, No Hematuria, No Retention, No Other Musculoskeletal: No other, No neck pain, No shoulder pain, No arm pain, No back pain, No hand pain, No leg pain, No foot pain Skin: Rash (Left flank); No Lesions, No Jaundice, No Bruising, No Other Objective Vitals Vital Signs Date Time Temp Pulse Resp B/P (MAP) Pulse Ox O2 Delivery O2 Flow Rate FiO2 12/21/24 05:32 98.6 52 22 166/62 (96) 98 98.6 12/20/24 20:00 Nasal Cannula* 2 28 Intake/Output Intake and Output 12/21/24 07:00 Intake Total 550 ml Balance 550 ml Intake Oral 500 ml IV Total 50 ml # Voids 3 # Bowel Movements 1 Medications Current Medications Medications Dose Ordered Sig/Nasrin Route Start Time Stop Time Status Last Admin Dose Admin Carvedilol 6.25 mg Q12HR PO 12/15/24 22:00 12/20/24 22:17 6.25 MG Clopidogrel Bisulfate 75 mg DAILY PO 12/16/24 10:00 12/20/24 12:21 75 MG Multivit/Ca Carb/ B Cmplx/FA/Prenat 1 tab DAILY PO 12/16/24 10:00 12/20/24 12:20 1 TAB Sevelamer HCl 800 mg TIDWM PO 12/16/24 08:00 12/20/24 22:17 800 MG Famotidine 20 mg Q12HR IV 12/15/24 22:00 12/20/24 12:18 20 MG Atorvastatin Calcium 20 mg HS PO 12/15/24 22:00 12/20/24 22:17 20 MG Sodium Chloride 10 ml Q8HR IV 12/15/24 22:00 12/21/24 06:13 10 ML Acetaminophen/ Hydrocodone Bitart 1 tab Q4HP PRN PO 12/15/24 21:30 12/21/24 05:01 1 TAB Ondansetron HCl 4 mg Q4HP PRN IV 12/15/24 21:30 12/18/24 08:41 4 MG Docusate Sodium 100 mg BIDPRN PRN PO 12/15/24 21:30 Acetaminophen 650 mg Q6HP PRN PO 12/15/24 21:30 12/19/24 11:52 650 MG Nitroglycerin 0.4 mg Q5MINP PRN SL 12/15/24 22:15 Morphine Sulfate 2 mg Q30M PRN IV 12/15/24 22:15 Vancomycin HCl 0 ml @ 0 mls/hr UD IV 12/15/24 22:15 Ceftriaxone Sodium 50 ml @ 100 mls/hr DAILY@09 IV 12/16/24 09:00 12/20/24 12:20 100 MLS/HR Diphenhydramine HCl 25 mg TID PRN PO 12/16/24 15:45 12/20/24 00:24 25 MG Diagnostic Test (Pha) 1 strip ACHS 12/19/24 17:00 12/21/24 06:13 1 STRIP Insulin Human Regular ACHS SC 12/19/24 17:00 12/21/24 06:16 2 UNITS Dextrose 50 ml UD PRN IV 12/19/24 16:00 Laboratory Results Laboratory Tests 12/17/24 05:05 12/20/24 08:30 12/21/24 04:49 Microbiology Microbiology Date/Time Source Procedure Growth Status 12/19/24 13:35 Breast Left Gram Stain - Final Resulted 12/19/24 13:35 Breast Left Wound Culture - Preliminary Resulted Labs and/or images reviewed: Labs reviewed by me, Image(s) reviewed by me Assessment/Plan Assessment/Plan Cellulitis left flank: Rocephin vancomycin Acute on Chronic Systolic Heart Failure (HFrEF 30%) NYHA Class III Acute hypoxic respiratory failure, pulmonary edema from CHF vs COPD exacerbation Acute Anemia GI bleed ruled out Acute kidney injury requiring hemodialysis Tuesday by Dr. Angella norton Refractory hyperkalemia Anemia of chronic kidney disease: Nephrology consult appreciated Type 2 Diabetes Mellitus, HbA1c: 6.8%. 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 Plan discussed with: Patient My Orders Orders - SUSI BARNETT MD Procedure Category Date Status Time Discharge DISCHARGE 12/20/24 Transmitted 11:11 * Cord Maker CONS 12/20/24 Transmitted Consult * Radiologist Consult CONS 12/21/24 Transmitted 07:56 Date of Service: Dec 21, 2024 Billing Provider: SUSI BARNETT MD Common Visit Codes: [id number] INP/OBS CARE(HIGH) SUSI BARNETT MD Dec 21, 2024 08:46
[2024-12-21] MEDS: hydrALAZINE HCL 20 MG/ML VL IV ONE (13:16)
--- NOTE | 2024-12-21 14:19 | DVHPN2 ---
Progress Note - Dictate Date Seen: Dec 21, 2024 Medical Necessity Reason Pt with a Central, PICC or Fol: No Subjective no new symptoms vital signs Vital Sign Date Time Temp Pulse Resp B/P (MAP) Pulse Ox O2 Delivery O2 Flow Rate FiO2 12/21/24 13:16 180/70 12/21/24 10:00 78 12/21/24 08:51 98.2 22 100 98.2 12/21/24 08:00 Nasal Cannula* 2 28 Total Intake and Output 12/20/24 12/20/24 12/21/24 15:00 23:00 07:00 Intake Total 50 ml 200 ml 300 ml Balance 50 ml 200 ml 300 ml medications Current Medications Medications Dose Ordered Sig/Nasrin Route Start Time Stop Time Status Last Admin Dose Admin Carvedilol 6.25 mg Q12HR PO 12/15/24 22:00 12/21/24 09:15 6.25 MG Clopidogrel Bisulfate 75 mg DAILY PO 12/16/24 10:00 12/21/24 09:13 75 MG Multivit/Ca Carb/ B Cmplx/FA/Prenat 1 tab DAILY PO 12/16/24 10:00 12/21/24 09:14 1 TAB Sevelamer HCl 800 mg TIDWM PO 12/16/24 08:00 12/20/24 22:17 800 MG Famotidine 20 mg Q12HR IV 12/15/24 22:00 12/20/24 12:18 20 MG Atorvastatin Calcium 20 mg HS PO 12/15/24 22:00 12/20/24 22:17 20 MG Sodium Chloride 10 ml Q8HR IV 12/15/24 22:00 12/21/24 06:13 10 ML Acetaminophen/ Hydrocodone Bitart 1 tab Q4HP PRN PO 12/15/24 21:30 12/21/24 09:14 1 TAB Ondansetron HCl 4 mg Q4HP PRN IV 12/15/24 21:30 12/18/24 08:41 4 MG Docusate Sodium 100 mg BIDPRN PRN PO 12/15/24 21:30 Acetaminophen 650 mg Q6HP PRN PO 12/15/24 21:30 12/19/24 11:52 650 MG Nitroglycerin 0.4 mg Q5MINP PRN SL 12/15/24 22:15 Morphine Sulfate 2 mg Q30M PRN IV 12/15/24 22:15 Vancomycin HCl 0 ml @ 0 mls/hr UD IV 12/15/24 22:15 Ceftriaxone Sodium 50 ml @ 100 mls/hr DAILY@09 IV 12/16/24 09:00 12/20/24 12:20 100 MLS/HR Diphenhydramine HCl 25 mg TID PRN PO 12/16/24 15:45 12/21/24 13:40 25 MG Diagnostic Test (Pha) 1 strip ACHS 12/19/24 17:00 12/21/24 06:13 1 STRIP Insulin Human Regular ACHS SC 12/19/24 17:00 12/21/24 06:16 2 UNITS Dextrose 50 ml UD PRN IV 12/19/24 16:00 objective Awake and alert. Morbidly obese. Lungs: Diminished breath sounds at bases CVS: S1, S2 regular rate rhythm Abdomen: Skin break in the left flank area. 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 Continue IV antibiotics. cleared for placement of PICC line Wound care. Bumex 2 mg IV b.i.d. GAYLE post HD as needed. goal Hb: 10 - 11 g/dl Dietary Evaluation Review Comments: 1) Add cardiac restriction to 45g CCHO renal diet 2) Encourage optimal PO intake 3) Collect HbA1c 4) Refer to outpatient RD/[facility] for weight management 5) Continue to monitor I&O, labs, and skin integrity Expected Outcomes/Goals: 1) appetite and labs to improve 2) wound to improve 3) gradual wt loss 4) f/u in 3-5 days Plan discussed with: Patient HEATH DILLON MD Dec 21, 2024 14:19
[2024-12-22] MEDS ORDERED: SODIUM CHL 0.9% 1000 ML BAG XX ONE (07:00)
[2024-12-22 08:00] VITALS: PULSE 77
--- NOTE | 2024-12-22 08:07 | DVHPN2 ---
Reviewed: Care Plan, H&P, Labs, Medications, Previous Orders, Radiology Changes from previous H/P or p: No Changes Eyes: No Pain, No Vision change, No Conjunctivae inflammation, No Eyelid inflammation; Other (Legal blindness); No Redness ENT: No Ear pain, No Ear discharge, No Nose pain, No Nose discharge, No Nose congestion, No Mouth pain, No Mouth swelling, No Throat pain, No Throat swelling, No Other Cardiovascular: No Chest Pain, No Palpitations, No Orthopnea, No Paroxysmal Noc. Dyspnea, No Edema, No Lt Headedness, No Other Respiratory: No Cough, No Dry, No Shortness of breath, No SOB with excertion, No Wheezing, No Hemoptysis, No Pleuritic Pain, No Sputum, No Other Gastrointestinal: No Nausea, No Vomiting, No Abdominal Pain, No Diarrhea, No Constipation, No Melena, No Hematochezia, No Other Genitourinary: No Dysuria, No Frequency, No Incontinence, No Hematuria, No Retention, No Other Musculoskeletal: No other, No neck pain, No shoulder pain, No arm pain, No back pain, No hand pain, No leg pain, No foot pain Skin: Rash (Left flank); No Lesions, No Jaundice, No Bruising, No Other Objective Vitals Vital Signs Date Time Temp Pulse Resp B/P (MAP) Pulse Ox O2 Delivery O2 Flow Rate FiO2 12/21/24 23:50 95 130/54 12/21/24 21:00 98.4 17 97 98.4 12/21/24 20:00 Nasal Cannula* 2 28 Intake/Output Intake and Output 12/22/24 07:00 Intake Total 550 ml Balance 550 ml Intake Oral 550 ml # Voids 1 Medications Current Medications Medications Dose Ordered Sig/Nasrin Route Start Time Stop Time Status Last Admin Dose Admin Carvedilol 6.25 mg Q12HR PO 12/15/24 22:00 12/21/24 22:50 6.25 MG Clopidogrel Bisulfate 75 mg DAILY PO 12/16/24 10:00 12/21/24 09:13 75 MG Multivit/Ca Carb/ B Cmplx/FA/Prenat 1 tab DAILY PO 12/16/24 10:00 12/21/24 09:14 1 TAB Sevelamer HCl 800 mg TIDWM PO 12/16/24 08:00 12/21/24 17:51 800 MG Famotidine 20 mg Q12HR IV 12/15/24 22:00 12/21/24 23:02 20 MG Atorvastatin Calcium 20 mg HS PO 12/15/24 22:00 12/21/24 22:51 20 MG Sodium Chloride 10 ml Q8HR IV 12/15/24 22:00 12/22/24 06:51 10 ML Acetaminophen/ Hydrocodone Bitart 1 tab Q4HP PRN PO 12/15/24 21:30 12/21/24 22:52 1 TAB Ondansetron HCl 4 mg Q4HP PRN IV 12/15/24 21:30 12/18/24 08:41 4 MG Docusate Sodium 100 mg BIDPRN PRN PO 12/15/24 21:30 Acetaminophen 650 mg Q6HP PRN PO 12/15/24 21:30 12/19/24 11:52 650 MG Nitroglycerin 0.4 mg Q5MINP PRN SL 12/15/24 22:15 Morphine Sulfate 2 mg Q30M PRN IV 12/15/24 22:15 Diphenhydramine HCl 25 mg TID PRN PO 12/16/24 15:45 12/21/24 22:51 25 MG Diagnostic Test (Pha) 1 strip ACHS 12/19/24 17:00 12/22/24 06:51 1 STRIP Insulin Human Regular ACHS SC 12/19/24 17:00 12/22/24 06:53 2 UNITS Dextrose 50 ml UD PRN IV 12/19/24 16:00 Clonidine HCl 0.2 mg Q4HPRN PRN PO 12/21/24 15:00 12/21/24 15:49 0.2 MG Levofloxacin 750 mg DAILY PO 12/22/24 10:00 UNV Laboratory Results Laboratory Tests 12/17/24 05:05 12/20/24 08:30 12/21/24 04:49 Microbiology Microbiology Date/Time Source Procedure Growth Status 12/19/24 13:35 Breast Left Gram Stain - Final Complete 12/19/24 13:35 Wound Culture - Final Klebsiella pneumoniae - ESBL Complete Labs and/or images reviewed: Labs reviewed by me, Image(s) reviewed by me Assessment/Plan Assessment/Plan Cellulitis left flank: Wound cultures growing ESBL Klebsiella sensitive to Levaquin, DC vancomycin and Rocephin start Levaquin 750 mg p.o. daily for one month Acute on Chronic Systolic Heart Failure (HFrEF 30%) NYHA Class III Acute hypoxic respiratory failure, pulmonary edema from CHF vs COPD exacerbation Acute Anemia GI bleed ruled out Acute kidney injury requiring hemodialysis Tuesday by Dr. Angella norton Refractory hyperkalemia Anemia of chronic kidney disease: Nephrology consult appreciated Type 2 Diabetes Mellitus, HbA1c: 6.8%. Blindness, Likely diabetic retinopathy Chronic Gout Obesity Hypoventilation Syndrome Obstructive Sleep Apnea History of Asthma Morbid obesity Bed-bound for the last two years Time spent 50 minutes Advanced care planning time 20 minutes PICC line could not be placed secondary to the patient's body habitus, tunneled cath for IV access could not be placed by the radiologist ,he spoke to me. IV vancomycin and Rocephin discontinued and started on p.o. Levaquin per wound culture result. Plan discussed with: Patient My Orders Orders - SUSI BARNETT MD Procedure Category Date Status Time * Radiologist Consult CONS 12/21/24 Transmitted 07:56 Communication Order ORDERS 12/21/24 Transmitted 08:46 Clonidine Hcl Tablet PHA 12/21/24 In Process (Catapres Tablet) 15:00 Levofloxacin Tablet PHA 12/22/24 Logged (Levaquin Tablet) 10:00 Date of Service: Dec 22, 2024 Billing Provider: SUSI BARNETT MD Common Visit Codes: [id number] INP/OBS CARE(HIGH) SUSI BARNETT MD Dec 22, 2024 08:07
[2024-12-22 09:00] VITALS: BP 161/75; PULSE 89; RESP 17; TEMP 98.4; O2SAT 97
[2024-12-22] MEDS: levoFLOXacin 250 MG TAB PO ONE (10:00)
[2024-12-22 13:00] VITALS: BP 130/57; PULSE 92; RESP 17; TEMP 98.5; O2SAT 100
--- NOTE | 2024-12-22 13:16 | DVHPN2 ---
Progress Note - Dictate Date Seen: Dec 22, 2024 Medical Necessity Reason Pt with a Central, PICC or Fol: No Subjective no new symptoms vital signs Vital Sign Date Time Temp Pulse Resp B/P (MAP) Pulse Ox O2 Delivery O2 Flow Rate FiO2 12/22/24 08:00 77 Nasal Cannula* 2 28 12/21/24 23:50 130/54 12/21/24 21:00 98.4 17 97 98.4 Total Intake and Output 12/21/24 12/21/24 12/22/24 15:00 23:00 07:00 Intake Total 250 ml 300 ml Balance 250 ml 300 ml medications Current Medications Medications Dose Ordered Sig/Nasrin Route Start Time Stop Time Status Last Admin Dose Admin Carvedilol 6.25 mg Q12HR PO 12/15/24 22:00 12/21/24 22:50 6.25 MG Clopidogrel Bisulfate 75 mg DAILY PO 12/16/24 10:00 12/22/24 08:19 75 MG Multivit/Ca Carb/ B Cmplx/FA/Prenat 1 tab DAILY PO 12/16/24 10:00 12/22/24 08:18 1 TAB Sevelamer HCl 800 mg TIDWM PO 12/16/24 08:00 12/22/24 12:25 800 MG Famotidine 20 mg Q12HR IV 12/15/24 22:00 12/21/24 23:02 20 MG Atorvastatin Calcium 20 mg HS PO 12/15/24 22:00 12/21/24 22:51 20 MG Sodium Chloride 10 ml Q8HR IV 12/15/24 22:00 12/22/24 06:51 10 ML Acetaminophen/ Hydrocodone Bitart 1 tab Q4HP PRN PO 12/15/24 21:30 12/22/24 11:47 1 TAB Ondansetron HCl 4 mg Q4HP PRN IV 12/15/24 21:30 12/18/24 08:41 4 MG Docusate Sodium 100 mg BIDPRN PRN PO 12/15/24 21:30 Acetaminophen 650 mg Q6HP PRN PO 12/15/24 21:30 12/19/24 11:52 650 MG Nitroglycerin 0.4 mg Q5MINP PRN SL 12/15/24 22:15 Morphine Sulfate 2 mg Q30M PRN IV 12/15/24 22:15 Diphenhydramine HCl 25 mg TID PRN PO 12/16/24 15:45 12/21/24 22:51 25 MG Diagnostic Test (Pha) 1 strip ACHS 12/19/24 17:00 12/22/24 11:32 1 STRIP Insulin Human Regular ACHS SC 12/19/24 17:00 12/22/24 11:33 3 UNITS Dextrose 50 ml UD PRN IV 12/19/24 16:00 Clonidine HCl 0.2 mg Q4HPRN PRN PO 12/21/24 15:00 12/21/24 15:49 0.2 MG Levofloxacin 500 mg DAILY PO 12/22/24 10:00 objective Awake and alert. Morbidly obese. Lungs: Diminished breath sounds at bases CVS: S1, S2 regular rate rhythm Abdomen: Skin break in the left flank area. 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 Continue IV antibiotics. cleared for placement of PICC line Wound care. Continue Coreg 6.25 mg PO BID GAYLE post HD as needed. goal Hb: 10 - 11 g/dl Dietary Evaluation Review Comments: 1) Add cardiac restriction to 45g CCHO renal diet 2) Encourage optimal PO intake 3) Collect HbA1c 4) Refer to outpatient RD/[facility] for weight management 5) Continue to monitor I&O, labs, and skin integrity Expected Outcomes/Goals: 1) appetite and labs to improve 2) wound to improve 3) gradual wt loss 4) f/u in 3-5 days Plan discussed with: Patient, Other HEATH DILLON MD Dec 22, 2024 13:16
[2024-12-22] MEDS: levoFLOXacin 250 MG TAB PO SCH (14:28)
[2024-12-22 15:16] VITALS: BP 130/57; PULSE 92; RESP 16; TEMP 98.5; O2SAT 100
== END 2024-12-22 16:45 | DRG 602 ==
LOC: ER 09:30 → EDBD 09:30 → OVERFLOW 22:06 → TELE-WESTW 23:52 → TELE-EAST 12-18 15:36 → TELE-CENTR 12-21 20:15
PROVIDERS: ADMIT Family Medicine; ATTEND Family Medicine
PROC: 5A1D70Z Performance of Urinary Filtration, Intermittent, Less than 6 Hours Per Day (ICD-10-PCS; principal; 2024-12-18)
PROC: 5A1D70Z Performance of Urinary Filtration, Intermittent, Less than 6 Hours Per Day (ICD-10-PCS; 2024-12-20)
DX: L03.311 Cellulitis of abdominal wall (principal); I50.23 Acute on chronic systolic (congestive) heart failure; J96.01 Acute respiratory failure with hypoxia; N18.6 End stage renal disease; N17.9 Acute kidney failure, unspecified; E66.2 Morbid (severe) obesity with alveolar hypoventilation; J44.1 Chronic obstructive pulmonary disease with (acute) exacerbation; I13.2 Hypertensive heart and chronic kidney disease with heart failure and with stage 5 chronic kidney disease, or end stage renal disease; Z68.43 Body mass index [BMI] 50.0-59.9, adult; M1A.9XX0 Chronic gout, unspecified, without tophus (tophi); E87.5 Hyperkalemia; B35.6 Tinea cruris; D63.1 Anemia in chronic kidney disease; E11.319 Type 2 diabetes mellitus with unspecified diabetic retinopathy without macular edema; I25.10 Atherosclerotic heart disease of native coronary artery without angina pectoris; D75.89 Other specified diseases of blood and blood-forming organs; E11.22 Type 2 diabetes mellitus with diabetic chronic kidney disease; E11.39 Type 2 diabetes mellitus with other diabetic ophthalmic complication; Z79.899 Other long term (current) drug therapy; Z88.6 Allergy status to analgesic agent; Z99.2 Dependence on renal dialysis; Z82.49 Family history of ischemic heart disease and other diseases of the circulatory system; Z74.01 Bed confinement status
CPT/HCPCS: 36415; 80053; 80202; 82565; 82962; 83735; 85007; 85025; 85027; 85610; 85730; 87077; 87081; 87186; 87205; 87340; 87426; 90935; 96365; 96375; 97163; G0378; J1450; J1642; J1815; J2405; J3490